=== PATIENT | male | born 1940 | race Caucasian/White ===

== ENCOUNTER 2018-09-27 02:43 | Inpatient (IN) | payer MEDICARE ==
[2018-09-27 02:44] VITALS: BMI 23.6
[2018-09-27] MEDS ORDERED: Albuterol-Ipratrop 3 mg / 0.5 (3 ml) UD ONE ×3 (03:05→05:27)
[2018-09-27] MEDS ORDERED: Albuterol-Ipratrop 3 mg / 0.5 (3 ml) UD INH STA ×8 (03:12→08:48)
[2018-09-27 03:30] LABS: VENOUS BLOOD GAS BASE EXCESS -4.4 mmol/L (0.0-2.0); VENOUS BLOOD GAS PCO2 45 mmHg (40-60); VENOUS BLOOD GAS PO2 33 mm/Hg (30-55)
[2018-09-27] MEDS ORDERED: cefTRIAXone 2 GM in Sodium Chloride 0.9% 100 ML IVPB STA (03:37)
[2018-09-27] MEDS ORDERED: Azithromycin 500 MG in Sodium Chloride 0.9% 250 ML IVPB STA (03:37)
[2018-09-27] MEDS ORDERED: Sodium Chloride 0.9% 1,000 ML IV STA (03:38)
[2018-09-27] MEDS ORDERED: Azithromycin 500 MG IV IVPB ONE (03:46)
[2018-09-27 04:06] LABS: BASO % 0.1 % (0.0-2.0); HEMOGLOBIN 13.6 g/dL (12.0-18.0); LYMPH # 0.3 K/uL (1.0-4.3); LYMPH % 6.3 % (20.0-40.0); MEAN CORPUSCULAR HEMOGLOBIN 35.7 pg (27.0-31.0); MEAN CORPUSCULAR HGB CONC 33.6 g/dL (33.0-37.0); MEAN PLATELET VOLUME 8.5 fl (7.2-11.7); MONO # 0.6 K/uL (0.0-0.8); MONO % 10.3 % (0.0-10.0); NEUT # 4.6 K/uL (1.8-7.0); NEUT % 83.3 % (50.0-75.0); NRBC % 0.1 % (0.0-0.0); PLATELET COUNT 186 K/uL (130-400); RED CELL DISTRIBUTION WIDTH 13.8 % (11.5-14.5); WHITE BLOOD COUNT 5.5 K/uL (4.8-10.8)
[2018-09-27] MEDS ORDERED: Sodium Chloride 0.9% 50 ML IV ONE (04:15)
[2018-09-27] MEDS ORDERED: Iodixanol 320 MG/ML 100 ML BOTTLE IV ONE (04:16)
[2018-09-27 04:23] LABS: ALBUMIN 3.5 g/dL (3.5-5.0); ALT/SGPT 254 U/L (21-72); AST/SGOT 519 U/L (17-59); B-TYPE NATRIURETIC PEPTIDE 14300 pg/ml (0-900); BLOOD UREA NITROGEN 11 mg/dl (9-20); GFR NON-AFRICAN AMERICAN > 60
--- NOTE | 2018-09-27 05:00 | ED PDOC ---
HPI: SOB/CHF/COPD Time Seen by Provider: 09/27/18 02:46 Chief Complaint (Nursing): Shortness Of Breath Chief Complaint (Provider): Shortness Of Breath History Per: Patient History/Exam Limitations: no limitations Onset/Duration Of Symptoms: Days (3) Additional Complaint(s): 78 y/o male with history of bladder cancer, HTN, and heavy smoking, presents with x3 days of having shortness of breath and upper abdominal pain. Patient states he's been having a few episodes of watery diarrhea daily and has difficulty breathing. Denies chest pain. Patient states he also had a fever that resolved spontaneously with mild dry cough. Patient feels as though he has phlegm inside his chest and cannot expectorate. Past Medical History Reviewed: Historical Data, Nursing Documentation, Vital Signs Vital Signs: Last Vital Signs Temp 97.3 F L 09/27/18 02:50 Pulse 108 H 09/27/18 02:50 Resp 30 H 09/27/18 02:50 BP 175/98 H 09/27/18 02:50 Pulse Ox 98 09/27/18 02:50 - Medical History PMH: HTN Other PMH: Bladder Cancer - Family History Family History: States: Unknown Family Hx - Home Medications Home Medications: Ambulatory Orders Medication Instructions Recorded Metoprolol Succinate 50 mg PO DAILY 09/27/18 - Allergies Allergies/Adverse Reactions: Allergies Allergy/AdvReac Type Severity Reaction Status Date / Time No Known Allergies Allergy Verified 10/24/15 10:35 Review of Systems ROS Statement: Except As Marked, All Systems Reviewed And Found Negative Cardiovascular: Negative for: Chest Pain Respiratory: Positive for: Cough, Shortness of Breath, Sputum (cannot expectorate) Gastrointestinal: Positive for: Abdominal Pain, Diarrhea Physical Exam - Reviewed Nursing Documentation Reviewed: Yes Vital Signs Reviewed: Yes - Physical Exam Appears: Positive for: No Acute Distress Head Exam: Positive for: ATRAUMATIC, NORMOCEPHALIC Skin: Positive for: Normal Color, Warm, DRY Eye Exam: Positive for: EOMI, Normal appearance, PERRL Neck: Positive for: Normal, Painless ROM Cardiovascular/Chest: Positive for: Regular Rate, Rhythm, Tachycardia Respiratory: Positive for: Wheezing (diffuse bilateral), Respiratory Distress (mild), Other (Tachypnic; abdominal breathing with intercostal retractions) Gastrointestinal/Abdominal: Positive for: Normal Exam, Soft. Negative for: Tenderness Extremity: Positive for: Normal ROM. Negative for: Pedal Edema, Deformity Neurologic/Psych: Positive for: Alert, Oriented. Negative for: Motor/Sensory Deficits - Laboratory Results Result Diagrams: 09/27/18 03:21 09/27/18 03:21 Lab Results: pO2 33 mm/Hg (30-55) 09/27/18 03:26 VBG pH 7.30 (7.32-7.43) L 09/27/18 03:26 VBG pCO2 45 mmHg (40-60) 09/27/18 03:26 VBG HCO3 20.4 mmol/L 09/27/18 03:26 VBG Total CO2 23.5 mmol/L (22-28) 09/27/18 03:26 VBG O2 Sat (Calc) 59.4 % (40-65) 09/27/18 03:26 VBG Base Excess -4.4 mmol/L (0.0-2.0) L 09/27/18 03:26 VBG Potassium 4.0 mmol/L (3.6-5.2) 09/27/18 03:26 Sodium 115.0 mmol/L (132-148) L* 09/27/18 03:26 Chloride 84.0 mmol/L (98-107) L 09/27/18 03:26 Glucose 186 mg/dL (75-110) H 09/27/18 03:26 Lactate 4.8 mmol/L (0.7-2.1) H* 09/27/18 03:26 FiO2 21.0 % 09/27/18 03:26 Crit Value Called To Carlos painter md 09/27/18 03:26 Crit Value Called By 333 09/27/18 03:26 Crit Value Read Back Y 09/27/18 03:26 Blood Gas Notified Time 330 09/27/18 03:26 Troponin I 0.0670 ng/mL (0.00-0.120) 09/27/18 03:21 NT-Pro-B Natriuret Pep 78192 pg/ml (0-900) H 09/27/18 03:21 Total Bilirubin 0.6 mg/dl (0.2-1.3) 09/27/18 03:21 AST 519 U/L (17-59) H D 09/27/18 03:21 ALT 254 U/L (21-72) H D 09/27/18 03:21 Alkaline Phosphatase 284 U/L (38-126) H D 09/27/18 03:21 Total Protein 6.8 G/DL (6.3-8.2) 09/27/18 03:21 Albumin 3.5 g/dL (3.5-5.0) 09/27/18 03:21 Globulin 3.3 gm/dL (2.2-3.9) 09/27/18 03:21 Albumin/Globulin Ratio 1.0 (1.0-2.1) 09/27/18 03:21 - ECG O2 Sat by Pulse Oximetry: 98 (RA) Pulse Ox Interpretation: Normal - Critical Care Total Time (In Min): 60 Documented Critical Care: Time excludes all time spent performint seperately billable procedures Medical Decision Making Medical Decision Making: Time: 03:11 Initial Impression: 78 y/o male with history of bladder cancer and HTN presenting with shortness of breath and diarrhea. Patient is ill appearing. O2 sat is in the 80s on room air Concert for COPD vs. pneumonia vs. flu vs. URI vs. cardiac disease. Will also evaluate for dissection with dissection study. Initial Plan: * ABG * VBG * CT Dissection * EKG * BNP * CMP * Troponin * CBC w/ diff * CXR * Duoneb * IV Fluids * Solumedrol * Blood culture * Urine culture * Influenza 05:21 CTA Chest FINDINGS: Aneurysmal ascending aorta measuring 4.5 cm. Calcified atheromatous plaques in the ascending aorta. Normal enhancement of the main pulmonary artery and right and left pulmonary arteries. Normal enhancement of the bilateral peripheral pulmonary arteries. There is no demonstrated pulmonary embolism. There is no demonstrated aortic dissection. Mildly enlarged heart and normal pericardium. Normal mediastinum. Normal hilar regions. Normal visualized trachea and thickened bronchi. Centrilobular nodularity of the lungs. This was not present on prior exam. Normal pleura. Normal chest wall structures. Moderate diffuse spondylosis. IMPRESSION: No demonstrated pulmonary embolism or arterial dissection. Interval appearance of bronchiolitis. Unchanged emphysema and chronic bronchitis. 05:21 CT Abdomen Pelvis COMMENTS: Uncomplicated chronic diverticulosis. Moderate prostatomegaly. Prostatic calcifications are noted. Fat containing left inguinal hernia without incarceration. Diffuse thickening of the bladder. 3.5 cm right renal cyst. The liver is mildly enlarged without mass or defect. There is no intra or extrahepatic biliary ductal dilatation. The spleen is normal. The gallbladder is diffusely thickened containing a gallstone. The pancreas is of normal contour and attenuation characteristics. There is no evidence of adrenal mass. Both kidneys demonstrate prompt and equal nephrograms. The kidneys are normal in size, shape and configuration. There is no evidence of renal or ureteral mass. No renal or ureteral calculi are identified. There is no hydroureter or hydronephrosis. No evidence for appendicitis. There is no bowel wall thickening. No evidence for small or large bowel obstruction. There is no evidence of abdominal ascites or lymphadenopathy. There is no evidence of intrinsic or extrinsic bladder mass. There is no pelvic ascites or lymphadenopathy. Images of the lung bases show no evidence of pleural or parenchymal mass. There are no pleural effusions. The bony structures are free of lytic or blastic lesions. IMPRESSION: Cholelithiasis. Diffuse thickening of the gallbladder. Sonographic evaluation is suggested to exclude developing acute inflammatory pathology. Prostatomegaly. Chronic. Diffuse thickening of the bladder. Chronic. No evidence of aortic dissection. Atherosclerosis. 05:30 Patient had an acute worsening episode of respiratory distress. Patient became further tachypneic. Lasix ordered for possible fluid overload. Patient placed on BIPAP and repeat EKG ordered. Case discussed with DR. Eastman for ICU admit. 6:00 Dr. Marie is aware - Scribe Attestation: Documented by Agustin Slater acting as a scribe for Bon Gonzalez MD. Provider Scribe Attestation: All medical record entries made by the Scribe were at my direction and per sonally dictated by me. I have reviewed the chart and agree that the record accurately reflects my personal performance of the history, physical exam, medical decision making, and the department course for this patient. I have also personally directed, reviewed, and agree with the discharge instructions and disposition. Disposition - Clinical Impression Clinical Impression: Respiratory distress, COPD (chronic obstructive pulmonary disease) - Disposition Disposition Time: 06:00 Condition: CRITICAL
[2018-09-27] MEDS ORDERED: Magnesium Sulfate 2 gm/50 ml 2 GM/50 ML BAG IVPB ONE (05:17)
[2018-09-27] MEDS ORDERED: Magnesium Sulfate 2 gm/50 ml 2 GM/50 ML BAG ONE (05:19)
[2018-09-27 05:22] LABS: ABG ALLEN TEST YES; ARTERIAL BLOOD GAS HCO3 21.5 mmol/L (21-28); ARTERIAL BLOOD GAS O2 SAT 100.9 % (95-98); ARTERIAL BLOOD GAS PCO2 35 mm/Hg (35-45); ARTERIAL BLOOD GAS PH 7.37 (7.35-7.45); ARTERIAL BLOOD GAS PO2 150 mm/Hg (80-100); ARTERIAL BLOOD GAS TCO2 21.3 mmol/L (22-28)
[2018-09-27] MEDS ORDERED: Nitroglycerin 50mg in D5W 50 MG/250 ML BOTTLE IV ONE (05:38)
--- NOTE | 2018-09-27 06:16 | CP.PCM.CON ---
History of Present Illness - History of Present Illness History of Present Illness: Attending: Rory Marie MD Reason for Consult: Critical care managememnt Chief complaint: SOB The patient was seen and examined ijn the ED HPI: The Hx was obtained from the ED physician and after review of the Medical records as the patient was in respiratory distress and on the BIPAP. He is a 78 years old male with hx of RBBB, Bladder cancer, Heavy smoker, comes with 3 days od Shortness of breath,wheezing, tachycardia and upper abdominal pain. He also refers watery diarrhea and fever with non productive cough. No chest pain, vomiting nor urinary symptoms. PMH: HTN, bladder cancer, Rheumatic Fever at 11 years of age, Neurogenic bladder, Macular n degeneration PSH: Trans urethral resection of bladder tumor SH: Heavy smoker, no illegal drug use, No Alcohol FH: States: Unknown Family Hx Allergies: NKDA Medicine: Reviewed Review of Systems - Review of Systems Systems not reviewed;Unavailable: Respiratory Distress Review of Systems: Review of system limited because the patient is in severe respiratory distress and on a BIPAP Past Patient History - Past Medical History & Family History Past Medical History?: Yes - Past Social History Smoking Status: Heavy Smoker > 10 Cigarettes Daily Chewing Tobacco Use: No Cigar Use: No Alcohol: None Drugs: Denies - CARDIAC Hx Hypertension: Yes - PULMONARY Hx Respiratory Disorders: No - NEUROLOGICAL Hx Neurological Disorder: No - HEENT Hx HEENT Problems: Yes Hx Macular Degeneration: Yes - RENAL Hx Neurogenic Bladder: Yes - ENDOCRINE/METABOLIC Hx Endocrine Disorders: No - HEMATOLOGICAL/ONCOLOGICAL Hx Blood Disorders: No - INTEGUMENTARY Hx Dermatological Problems: No - MUSCULOSKELETAL/RHEUMATOLOGICAL Hx Musculoskeletal Disorders: No - GASTROINTESTINAL Hx Gastrointestinal Disorders: No - GENITOURINARY/GYNECOLOGICAL Hx Genitourinary Disorders: Yes Hx Bladder Cancer: Yes - PSYCHIATRIC Hx Psychophysiologic Disorder: No Hx Substance Use: No - SURGICAL HISTORY Hx Surgeries: No Other/Comment: TURB - ANESTHESIA Hx Anesthesia: Yes Hx Anesthesia Reactions: No Hx Malignant Hyperthermia: No Meds Allergies/Adverse Reactions: Allergies Allergy/AdvReac Type Severity Reaction Status Date / Time No Known Allergies Allergy Verified 10/24/15 10:35 Physical Exam - Constitutional Appears: In Acute Distress - Head Exam Head Exam: ATRAUMATIC, NORMAL INSPECTION, NORMOCEPHALIC - Eye Exam Eye Exam: EOMI, Normal appearance Pupil Exam: NORMAL ACCOMODATION, PERRL - ENT Exam ENT Exam: Mucous Membranes Moist, Normal Exam - Neck Exam Neck exam: Positive for: Full Rom, Normal Inspection. Negative for: Lymphadenopathy, Tenderness - Respiratory Exam Additional comments: Distant breath sounds. no rales, wheezes nor rhonchi - Cardiovascular Exam Cardiovascular Exam: Tachycardia, Irregular Rhythm, +S1, +S2 - GI/Abdominal Exam GI & Abdominal Exam: Normal Bowel Sounds, Soft. absent: Mass, Organomegaly, Tenderness - Rectal Exam Rectal Exam: Deferred - Extremities Exam Extremities exam: Positive for: full ROM, normal inspection - Back Exam Back exam: NORMAL INSPECTION. absent: CVA tenderness (L), CVA tenderness (R) - Neurological Exam Neurological exam: Alert, CN II-XII Intact, Oriented x3, Reflexes Normal - Psychiatric Exam Psychiatric exam: Normal Affect, Normal Mood - Skin Skin Exam: Intact, Normal Color, Warm Results - Vital Signs Recent Vital Signs: Last Vital Signs Temp 97.3 F L 09/27/18 02:50 Pulse 150 H 09/27/18 05:51 Resp 24 09/27/18 04:59 BP 126/80 09/27/18 04:59 Pulse Ox 98 09/27/18 05:53 - Labs Result Diagrams: 09/27/18 03:21 09/27/18 03:21 Labs: Laboratory Results - last 24 hr 09/27/18 09/27/18 09/27/18 03:21 03:21 03:21 WBC 5.5 RBC 3.80 L Hgb 13.6 Hct 40.3 MCV 106.0 H D MCH 35.7 H MCHC 33.6 RDW 13.8 Plt Count 186 MPV 8.5 Neut % (Auto) 83.3 H Lymph % (Auto) 6.3 L Heard % (Auto) 10.3 H Eos % (Auto) 0.0 Baso % (Auto) 0.1 Neut # (Auto) 4.6 Lymph # (Auto) 0.3 L Heard # (Auto) 0.6 Eos # (Auto) 0.0 Baso # (Auto) 0.0 pCO2 pO2 HCO3 ABG pH ABG Total CO2 ABG O2 Saturation ABG Base Excess Sascha Test ABG Potassium VBG pH VBG pCO2 VBG HCO3 VBG Total CO2 VBG O2 Sat (Calc) VBG Base Excess VBG Potassium A-a O2 Difference Glucose Lactate Vent Mode FiO2 Crit Value Called To Crit Value Called By Crit Value Read Back Blood Gas Notified Time Sodium 120 L* Potassium 4.2 Chloride 82 L Carbon Dioxide 21 L Anion Gap 21 H BUN 11 Creatinine 0.6 L Est GFR ( Amer) > 60 Est GFR (Non-Af Amer) > 60 Random Glucose 183 H Calcium 8.0 L Total Bilirubin 0.6 AST 519 H D ALT 254 H D Alkaline Phosphatase 284 H D Troponin I 0.0670 NT-Pro-B Natriuret Pep 04787 H Total Protein 6.8 Albumin 3.5 Globulin 3.3 Albumin/Globulin Ratio 1.0 Arterial Blood Potassium Venous Blood Potassium Influenza Typ A,B (EIA) Negative for flu a/b 09/27/18 09/27/18 03:26 05:16 WBC RBC Hgb Hct MCV MCH MCHC RDW Plt Count MPV Neut % (Auto) Lymph % (Auto) Heard % (Auto) Eos % (Auto) Baso % (Auto) Neut # (Auto) Lymph # (Auto) Heard # (Auto) Eos # (Auto) Baso # (Auto) pCO2 35 pO2 33 150 H HCO3 21.5 ABG pH 7.37 ABG Total CO2 21.3 L ABG O2 Saturation 100.9 H ABG Base Excess -4.4 L Sascha Test Yes ABG Potassium 3.6 VBG pH 7.30 L VBG pCO2 45 VBG HCO3 20.4 VBG Total CO2 23.5 VBG O2 Sat (Calc) 59.4 VBG Base Excess -4.4 L VBG Potassium 4.0 A-a O2 Difference 91.0 Glucose 186 H 181 H Lactate 4.8 H* 2.7 H Vent Mode O2 nebtx FiO2 21.0 40.0 Crit Value Called To Carlos painter md Crit Value Called By 333 333 Crit Value Read Back Y Y Blood Gas Notified Time 330 522 Sodium 115.0 L* 118.0 L* Potassium Chloride 84.0 L 89.0 L Carbon Dioxide Anion Gap BUN Creatinine Est GFR ( Amer) Est GFR (Non-Af Amer) Random Glucose Calcium Total Bilirubin AST ALT Alkaline Phosphatase Troponin I NT-Pro-B Natriuret Pep Total Protein Albumin Globulin Albumin/Globulin Ratio Arterial Blood Potassium 3.6 Venous Blood Potassium 4.0 Influenza Typ A,B (EIA) - EKG Data EKG comments: LBBB A Fib 114/min - Imaging and Cardiology Chest x-ray Status: Image reviewed by me Additional comment: Haziness at the parahilar region probably due to breast mass. CTA Chest Status: Report reviewed by me Additional comment: CTA Chest FINDINGS: Aneurysmal ascending aorta measuring 4.5 cm. IMPRESSION: No demonstrated pulmonary embolism or arterial dissection. Interval appearance of bronchiolitis. Unchanged emphysema and chronic bronchitis. CT abdomen/pelvis Additional comment: 05:21 CT Abdomen Pelvis COMMENTS: Uncomplicated chronic diverticulosis. Moderate prostatomegaly. Prostatic calcifications are noted. Fat containing left inguinal hernia without incarceration. Diffuse thickening of the bladder. 3.5 cm right renal cyst. The liver is mildly enlarged without mass or defect. There is no intra or extrahepatic biliary ductal dilatation. The spleen is normal. The gallbladder is diffusely thickened containing a gallstone. The pancreas is of normal contour and attenuation characteristics. There is no evidence of adrenal mass. Both kidneys demonstrate prompt and equal nephrograms. The kidneys are normal in size, shape and configuration. There is no evidence of renal or ureteral mass. No renal or ureteral calculi are identified. There is no hydroureter or hydronephrosis. No evidence for appendicitis. There is no bowel wall thickening. No evidence for small or large bowel obstruction. There is no evidence of abdominal ascites or lymphadenopathy. There is no evidence of intrinsic or extrinsic bladder mass. There is no pelvic ascites or lymphadenopathy. Images of the lung bases show no evidence of pleural or parenchymal mass. There are no pleural effusions. The bony structures are free of lytic or blastic lesions. IMPRESSION: Cholelithiasis. Diffuse thickening of the gallbladder. Sonographic evaluation is suggested to exclude developing acute inflammatory pathology. Prostatomegaly. Chronic. Diffuse thickening of the bladder. Chronic. No evidence of aortic dissection. Atherosclerosis. Assessment & Plan - Assessment and Plan (Free Text) Assessment: # Acute respiratory distress #. COPD exacerbation #. Acute on Chronic CHF #. A Fib with RVR #. Hyponatremia #. Transaminitis #. HTN #. Hyperglycemia Plan: 78 years old male with hx of RBBB, Bladder cancer, Heavy smoker, comes with 3 days od Shortness of breath,wheezing, tachycardia and upper abdominal pain. He also refers watery diarrhea and fever with non productive cough. No chest pain, vomiting nor urinary symptoms. # Acute respiratory distress caused by the COOPD and the CHF - Patient placed on BIPAP in the ED #. COPD exacerbation - Xopenex - Ipratropium - Methylprednisolone - Mucinex #. Acute on Chronic CHF - cardiology on consult - lasix - ECHO #. A Fib with RVR - cardiac Monitoring - Cardizem Bolus followed by Cardizem IV Drip #. Hyponatremia due to CHF - Follow electrolytes #. Transaminitis due to Liver Congestion - follow liver enzymes - Hepatitis Panel #. HTN - Continue Cardizem #. Hyperglycemia #. DVT prophylaxis with SCD and lovenox Code Status: Full - HbA1c Darrell Eastman MD - Date & Time Date: 09/27/18 Time: 06:16
[2018-09-27 06:52] LABS: ANISOCYTOSIS SLIGHT; LYMPHOCYTE 6 % (20-50); MONOCYTE 9 % (0-10); NEUTROPHIL 85 % (42-75); PLATELET ESTIMATE NORMAL (NORMAL); TOTAL CELLS COUNTED 100
[2018-09-27 06:53] LABS: LARGE PLATELETS PRESENT; OVALOCYTES MODERATE; TEARDROP CELLS SLIGHT
[2018-09-27] MEDS ORDERED: Levalbuterol 1.25 MG/3 ML Inhal Soln UD INH PRN (06:54)
[2018-09-27] MEDS: Ipratropium 0.02% Inhal Soln (0.5 mg/2.5 ml) UD IH SCH ×4 (07:44→19:43)
[2018-09-27] MEDS: Levalbuterol 1.25 MG/3 ML Inhal Soln UD INH SCH ×4 (07:44→19:43)
--- NOTE | 2018-09-27 09:55 | RAD ---
Date of service: 09/27/2018 HISTORY: worsening dyspnea COMPARISON: 09/27/2018 FINDINGS: LUNGS: No active pulmonary disease. PLEURA: No significant pleural effusion identified, no pneumothorax apparent. CARDIOVASCULAR: No aortic atherosclerotic calcification present. Normal cardiac size. No pulmonary vascular congestion. OSSEOUS STRUCTURES: No significant abnormalities. VISUALIZED UPPER ABDOMEN: Normal. OTHER FINDINGS: None. IMPRESSION: No active disease.
[2018-09-27] MEDS ORDERED: methylPREDNISolone 60 MG in Sodium Chloride 0.9% 50 ML IVPB SCH (10:00)
--- NOTE | 2018-09-27 11:00 | CP.PCM.HP ---
History of Present Illness - History of Present Illness History of Present Illness: 78 y/o w/m admitted with SOB / JONAS x 3-4 days Has had Increased temp at home w/ Productive cough PMH: CA Bladder w/ resection [address] Cat and again in 09/2016 @ [place] Hypertension COPD Continues to smoke CLBBB EKG: Tachycardia CXR: haziness/cardiomegaly Liver enzymes: all elevated Na: 120 Present on Admission - Present on Admission Any Indicators Present on Admission: No Review of Systems - Review of Systems Systems not reviewed;Unavailable: Respiratory Distress - Constitutional Constitutional: Chills, Fatigue, Fever - Respiratory Respiratory: Cough, Dyspnea, Dyspnea on Exertion Past Patient History - Past Medical History & Family History Past Medical History?: Yes - Past Social History Smoking Status: Heavy Smoker > 10 Cigarettes Daily Chewing Tobacco Use: No Cigar Use: No Alcohol: None Drugs: Denies - CARDIAC Hx Hypertension: Yes - PULMONARY Hx Respiratory Disorders: Yes Hx Chronic Obstructive Pulmonary Disease (COPD): Yes - NEUROLOGICAL Hx Neurological Disorder: No - HEENT Hx HEENT Problems: Yes Hx Macular Degeneration: Yes - RENAL Hx Neurogenic Bladder: Yes - ENDOCRINE/METABOLIC Hx Endocrine Disorders: No - HEMATOLOGICAL/ONCOLOGICAL Hx Blood Disorders: No - INTEGUMENTARY Hx Dermatological Problems: No - MUSCULOSKELETAL/RHEUMATOLOGICAL Hx Musculoskeletal Disorders: No - GASTROINTESTINAL Hx Gastrointestinal Disorders: No - GENITOURINARY/GYNECOLOGICAL Hx Genitourinary Disorders: Yes Hx Bladder Cancer: Yes - PSYCHIATRIC Hx Psychophysiologic Disorder: No Hx Substance Use: No - SURGICAL HISTORY Hx Surgeries: No Other/Comment: TURB - ANESTHESIA Hx Anesthesia: Yes Hx Anesthesia Reactions: No Hx Malignant Hyperthermia: No Meds Allergies/Adverse Reactions: Allergies Allergy/AdvReac Type Severity Reaction Status Date / Time No Known Allergies Allergy Verified 10/24/15 10:35 Physical Exam - Constitutional Appears: Unkempt - Head Exam Head Exam: NORMAL INSPECTION - Eye Exam Eye Exam: Normal appearance - ENT Exam ENT Exam: Normal Exam - Respiratory Exam Respiratory Exam: Decreased Breath Sounds - Cardiovascular Exam Cardiovascular Exam: Tachycardia Results - Vital Signs Recent Vital Signs: Last Vital Signs Temp 97.2 F L 09/27/18 09:00 Pulse 117 H 09/27/18 10:00 Resp 14 09/27/18 10:00 BP 122/76 09/27/18 10:00 Pulse Ox 92 L 09/27/18 10:00 - Labs Result Diagrams: 09/27/18 03:21 09/27/18 03:21 Labs: Laboratory Results - last 24 hr 09/27/18 09/27/18 09/27/18 03:21 03:21 03:21 WBC 5.5 RBC 3.80 L Hgb 13.6 Hct 40.3 MCV 106.0 H D MCH 35.7 H MCHC 33.6 RDW 13.8 Plt Count 186 MPV 8.5 Neut % (Auto) 83.3 H Lymph % (Auto) 6.3 L [place] % (Auto) 10.3 H Eos % (Auto) 0.0 Baso % (Auto) 0.1 Neut # (Auto) 4.6 Lymph # (Auto) 0.3 L [place] # (Auto) 0.6 Eos # (Auto) 0.0 Baso # (Auto) 0.0 Neutrophils % (Manual) 85 H Lymphocytes % (Manual) 6 L Monocytes % (Manual) 9 Platelet Estimate Normal Large Platelets Present Anisocytosis (manual) Slight Macrocytosis (manual) Slight Tear Drop Cells Slight Ovalocytes Moderate pCO2 pO2 HCO3 ABG pH ABG Total CO2 ABG O2 Saturation ABG Base Excess Sascha Test ABG Potassium VBG pH VBG pCO2 VBG HCO3 VBG Total CO2 VBG O2 Sat (Calc) VBG Base Excess VBG Potassium A-a O2 Difference Glucose Lactate Vent Mode FiO2 Crit Value Called To Crit Value Called By Crit Value Read Back Blood Gas Notified Time Sodium 120 L* Potassium 4.2 Chloride 82 L Carbon Dioxide 21 L Anion Gap 21 H BUN 11 Creatinine 0.6 L Est GFR ( Amer) > 60 Est GFR (Non-Af Amer) > 60 Random Glucose 183 H Calcium 8.0 L Total Bilirubin 0.6 AST 519 H D ALT 254 H D Alkaline Phosphatase 284 H D Troponin I 0.0670 NT-Pro-B Natriuret Pep 51944 H Total Protein 6.8 Albumin 3.5 Globulin 3.3 Albumin/Globulin Ratio 1.0 Arterial Blood Potassium Venous Blood Potassium Influenza Typ A,B (EIA) Negative for flu a/b 09/27/18 09/27/18 03:26 05:16 WBC RBC Hgb Hct MCV MCH MCHC RDW Plt Count MPV Neut % (Auto) Lymph % (Auto) [place] % (Auto) Eos % (Auto) Baso % (Auto) Neut # (Auto) Lymph # (Auto) [place] # (Auto) Eos # (Auto) Baso # (Auto) Neutrophils % (Manual) Lymphocytes % (Manual) Monocytes % (Manual) Platelet Estimate Large Platelets Anisocytosis (manual) Macrocytosis (manual) Tear Drop Cells Ovalocytes pCO2 35 pO2 33 150 H HCO3 21.5 ABG pH 7.37 ABG Total CO2 21.3 L ABG O2 Saturation 100.9 H ABG Base Excess -4.4 L Sascha Test Yes ABG Potassium 3.6 VBG pH 7.30 L VBG pCO2 45 VBG HCO3 20.4 VBG Total CO2 23.5 VBG O2 Sat (Calc) 59.4 VBG Base Excess -4.4 L VBG Potassium 4.0 A-a O2 Difference 91.0 Glucose 186 H 181 H Lactate 4.8 H* 2.7 H Vent Mode O2 nebtx FiO2 21.0 40.0 Crit Value Called To Carlos painter md Crit Value Called By 333 333 Crit Value Read Back Y Y Blood Gas Notified Time 330 522 Sodium 115.0 L* 118.0 L* Potassium Chloride 84.0 L 89.0 L Carbon Dioxide Anion Gap BUN Creatinine Est GFR ( Amer) Est GFR (Non-Af Amer) Random Glucose Calcium Total Bilirubin AST ALT Alkaline Phosphatase Troponin I NT-Pro-B Natriuret Pep Total Protein Albumin Globulin Albumin/Globulin Ratio Arterial Blood Potassium 3.6 Venous Blood Potassium 4.0 Influenza Typ A,B (EIA) Assessment & Plan (1) Cancer of bladder wall Status: Acute (2) COPD (chronic obstructive pulmonary disease) Status: Acute (3) Respiratory distress Status: Acute (4) Left bundle branch block (LBBB) Status: Acute (5) Essential (primary) hypertension Status: Acute Decision To Admit - Pt Status Changed To: Hospital Disposition Of: Inpatient - Admit Certification Admit to Inpatient:: After my assessment, the patient will require hospitalization for at least two midnights. This is because of the severity of symptoms shown, intensity of services needed, and/or the medical risk in this patient being treated as an outpatient. - . Bed Request Type: Intensive Care Admitting Physician: Rory Marie
--- NOTE | 2018-09-27 11:18 | CP.PCM.CON ---
History of Present Illness - History of Present Illness History of Present Illness: This 78 year old male, heavy cigarette smoker, presented to the emergency room with a three to four day history of increased shortness of breath, congested cough with difficulty expectorating phlegm, elevated temp, loose BMs and upper abdominal discomfort. He denied chest pains or hemoptysis or chills. He was in respiratory distress and placed on NIPPV using BiPAP mask ventilatory support. A chest x-ray showed hyperinflated lungs without any consolidation, effusion or pneumothorax. He was afebrile, hyponatremic, without leukocytosis or anemia with a VBG showing low O2 saturation. Tachypnea with intercostal retractions and respiratory muscle recruitment were noted in the ED. Past Patient History - Past Medical History & Family History Past Medical History?: Yes - Past Social History Smoking Status: Heavy Smoker > 10 Cigarettes Daily Chewing Tobacco Use: No Cigar Use: No Alcohol: None Drugs: Denies - CARDIAC Hx Hypertension: Yes - PULMONARY Hx Chronic Obstructive Pulmonary Disease (COPD): Yes - NEUROLOGICAL Hx Neurological Disorder: No - HEENT Hx Macular Degeneration: Yes - RENAL Hx Neurogenic Bladder: Yes - ENDOCRINE/METABOLIC Hx Endocrine Disorders: No - HEMATOLOGICAL/ONCOLOGICAL Hx Blood Disorders: No - INTEGUMENTARY Hx Dermatological Problems: No - MUSCULOSKELETAL/RHEUMATOLOGICAL Hx Musculoskeletal Disorders: No - GASTROINTESTINAL Hx Gastrointestinal Disorders: No - GENITOURINARY/GYNECOLOGICAL Hx Bladder Cancer: Yes - PSYCHIATRIC Hx Psychophysiologic Disorder: No Hx Substance Use: No - SURGICAL HISTORY Other/Comment: TURBT - ANESTHESIA Hx Anesthesia: Yes Hx Anesthesia Reactions: No Hx Malignant Hyperthermia: No Meds Allergies/Adverse Reactions: Allergies Allergy/AdvReac Type Severity Reaction Status Date / Time No Known Allergies Allergy Verified 10/24/15 10:35 - Medications Medications: Current Medications Enoxaparin Sodium (Lovenox) 40 mg SC DAILY [facility]; Protocol Guaifenesin (Mucinex La) 600 mg PO Q12 [facility] Diltiazem HCl 125 mg/ Sodium (Chloride) 125 mls @ 5 mls/hr IV .Q24H ONE; Protocol Stop: 09/28/18 06:55 Last Titration: 09/27/18 10:23 Dose: 8 mg/hr, 8 mls/hr Ipratropium Adah (Atrovent) 0.5 mg IH RQ4 AGUSTINA Last Admin: 09/27/18 11:16 Dose: 0.5 mg Levalbuterol HCl (Xopenex) 1.25 mg INH RQ4 AGUSTINA Last Admin: 09/27/18 11:15 Dose: 1.25 mg Levalbuterol HCl (Xopenex) 1.25 mg INH RQ2 PRN PRN Reason: Shortness of Breath Methylprednisolone (Solu-Medrol) 60 mg IVP Q6 [facility] Last Admin: 09/27/18 09:16 Dose: 60 mg Multivitamins/Vitamin C (Multi-Delyn Liquid) 15 ml PO DAILY [facility] Nicotine (Nicoderm Cq) 1 patch TD DAILY [facility] Thiamine HCl (Vitamin B1 Inj) 100 mg IM DAILY [facility] Physical Exam - Additional Findings Additional findings: When seen he claimed to feel improved from the ED symptoms. Was awake and alert, seems to still be mildly dyspneic with conversation. Now denies any chest or abdominal pains, placed on venti mask for O2. He is cooperative and well oriented, slightly disheveled appearance. 1+ dependant edema of both feet, no cyanosis or calf tenderness. Pharynx is pink and moist w/o exudate. Nasal passages are patent bilaterally. Neck is supple and trachea midline. No palpable lymphadenopathy. Hyper-resonance on chest percussion bilaterally, no IC retractions, no subcut emphysema. Breath sounds are diminished bilaterally with no wheezing appreciated. Dry to medium rales are present in the lower lobes bilaterally. No bronchial breath sounds or egophony. Scattered sonorous rhonchi bilaterally. Heart sounds are distant, rate is tachycardic. Abdomen is soft and non-tender with normal bowel sounds. Results - Vital Signs Recent Vital Signs: Last Vital Signs Temp 97.2 F L 09/27/18 09:00 Pulse 120 H 09/27/18 11:00 Resp 27 H 09/27/18 11:00 BP 137/98 H 09/27/18 11:00 Pulse Ox 97 09/27/18 11:00 - Labs Result Diagrams: 10/07/18 04:30 10/07/18 04:30 Labs: Laboratory Results - last 24 hr 09/27/18 09/27/18 09/27/18 03:21 03:21 03:21 WBC 5.5 RBC 3.80 L Hgb 13.6 Hct 40.3 MCV 106.0 H D MCH 35.7 H MCHC 33.6 RDW 13.8 Plt Count 186 MPV 8.5 Neut % (Auto) 83.3 H Lymph % (Auto) 6.3 L [place] % (Auto) 10.3 H Eos % (Auto) 0.0 Baso % (Auto) 0.1 Neut # (Auto) 4.6 Lymph # (Auto) 0.3 L [place] # (Auto) 0.6 Eos # (Auto) 0.0 Baso # (Auto) 0.0 Neutrophils % (Manual) 85 H Lymphocytes % (Manual) 6 L Monocytes % (Manual) 9 Platelet Estimate Normal Large Platelets Present Anisocytosis (manual) Slight Macrocytosis (manual) Slight Tear Drop Cells Slight Ovalocytes Moderate pCO2 pO2 HCO3 ABG pH ABG Total CO2 ABG O2 Saturation ABG Base Excess Sascha Test ABG Potassium VBG pH VBG pCO2 VBG HCO3 VBG Total CO2 VBG O2 Sat (Calc) VBG Base Excess VBG Potassium A-a O2 Difference Glucose Lactate Vent Mode FiO2 Crit Value Called To Crit Value Called By Crit Value Read Back Blood Gas Notified Time Sodium 120 L* Potassium 4.2 Chloride 82 L Carbon Dioxide 21 L Anion Gap 21 H BUN 11 Creatinine 0.6 L Est GFR ( Amer) > 60 Est GFR (Non-Af Amer) > 60 Random Glucose 183 H Calcium 8.0 L Total Bilirubin 0.6 AST 519 H D ALT 254 H D Alkaline Phosphatase 284 H D Troponin I 0.0670 NT-Pro-B Natriuret Pep 42504 H Total Protein 6.8 Albumin 3.5 Globulin 3.3 Albumin/Globulin Ratio 1.0 Arterial Blood Potassium Venous Blood Potassium Influenza Typ A,B (EIA) Negative for flu a/b 09/27/18 09/27/18 09/27/18 03:26 05:16 10:29 WBC RBC Hgb Hct MCV MCH MCHC RDW Plt Count MPV Neut % (Auto) Lymph % (Auto) [place] % (Auto) Eos % (Auto) Baso % (Auto) Neut # (Auto) Lymph # (Auto) [place] # (Auto) Eos # (Auto) Baso # (Auto) Neutrophils % (Manual) Lymphocytes % (Manual) Monocytes % (Manual) Platelet Estimate Large Platelets Anisocytosis (manual) Macrocytosis (manual) Tear Drop Cells Ovalocytes pCO2 35 pO2 33 150 H HCO3 21.5 ABG pH 7.37 ABG Total CO2 21.3 L ABG O2 Saturation 100.9 H ABG Base Excess -4.4 L Sascha Test Yes ABG Potassium 3.6 VBG pH 7.30 L VBG pCO2 45 VBG HCO3 20.4 VBG Total CO2 23.5 VBG O2 Sat (Calc) 59.4 VBG Base Excess -4.4 L VBG Potassium 4.0 A-a O2 Difference 91.0 Glucose 186 H 181 H Lactate 4.8 H* 2.7 H Vent Mode O2 nebtx FiO2 21.0 40.0 Crit Value Called To Carlos painter md Crit Value Called By 333 333 Crit Value Read Back Y Y Blood Gas Notified Time 330 522 Sodium 115.0 L* 118.0 L* Potassium Chloride 84.0 L 89.0 L Carbon Dioxide Anion Gap BUN Creatinine Est GFR ( Amer) Est GFR (Non-Af Amer) Random Glucose Calcium Total Bilirubin AST ALT Alkaline Phosphatase Troponin I 0.1540 H* NT-Pro-B Natriuret Pep Total Protein Albumin Globulin Albumin/Globulin Ratio Arterial Blood Potassium 3.6 Venous Blood Potassium 4.0 Influenza Typ A,B (EIA) Assessment & Plan (1) COPD exacerbation Status: Acute Priority: High (2) Pulmonary nodule seen on imaging study Assessment and Plan: calcified, seen on prior studies dating back to 2016. Status: Chronic Priority: Medium (3) Transaminitis Status: Acute Priority: High - Assessment and Plan (Free Text) Plan: Agree with present regimen. Use ipratropium primarily and avoid beta adrenergic stimulation if possible. Continue empiric antibiotic therapy and parenteral corticosteroids. - Date & Time Date: 09/27/18 Time: 11:17
[2018-09-27] MEDS: Enoxaparin 40 mg Syringe SC SCH (11:32)
[2018-09-27] MEDS: guaiFENesin 600 mg ER Tab PO SCH ×2 (11:32→20:44)
[2018-09-27] MEDS: Multi Vitamins 15 mL UD Oral Solution PO SCH (11:33)
[2018-09-27] MEDS: Thiamine 100 mg/ml Inj IM SCH (11:34)
[2018-09-27 11:41] LABS: SQUAMOUS EPITHIAL < 1 /hpf (0-5); URINE BACTERIA RARE (<OCC); URINE BILIRUBIN NEGATIVE (NEGATIVE); URINE BLOOD SMALL (NEGATIVE); URINE CLARITY CLEAR (Clear); URINE COLOR YELLOW (YELLOW); URINE GLUCOSE (UA) NEG (NEGATIVE); URINE LEUKOCYTE ESTERASE NEG Leu/uL (Negative); URINE PROTEIN 30 mg/dL (NEGATIVE); URINE UROBILINOGEN 0.2-1.0 mg/dL (0.2-1.0)
[2018-09-27 11:46] LABS: BLOOD UREA NITROGEN 11 mg/dl (9-20); CALCIUM 7.5 mg/dL (8.4-10.2); GFR NON-AFRICAN AMERICAN > 60
[2018-09-27] MEDS ORDERED: methylPREDNISolone 30 MG in Sodium Chloride 0.9% 50 ML IV SCH (13:15)
--- NOTE | 2018-09-27 13:17 | CT ---
PROCEDURE: CT Angiography Chest, Abdomen and Pelvis with and without intravenous contrast HISTORY: r/o dissection COMPARISON: None available TECHNIQUE: Contiguous axial images of the chest, abdomen and pelvis were obtained in the phase of aortic enhancement. A noncontrast enhanced CT of the chest was also obtained to evaluate for possible intramural thrombus. Coronal and sagittal reformats were generated. IV dose administered: 95 mL Visipaque 320 Radiation dose: Total exam DLP = 914.9 mGy-cm. This CT exam was performed using one or more of the following dose reduction techniques: Automated exposure control, adjustment of the mA and/or kV according to patient size, and/or use of iterative reconstruction technique. FINDINGS: CT ANGIOGRAPHY OF THE CHEST WITH & WITHOUT CONTRAST: AORTA (CHEST AND ABDOMEN): There is aneurysmal dilatation of the ascending thoracic aorta to a diameter approximately 4.3 cm. There is no evidence of thoracic or abdominal aortic dissection. There is atherosclerotic calcification of the thoracic aorta and of the abdominal aorta and iliac vessels. The celiac axis, superior mesenteric artery, inferior mesenteric artery and the renal arteries are widely patent. 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 There is reconstitution of the right common femoral artery and of the right internal iliac artery distally. 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 LUNGS: No infiltrate. 13 mm densely calcified nodule abutting the left lower lobe pleura, likely a granuloma. There is a 5 mm noncalcified nodule in the lingular segment of the left upper lobe for which no follow-up evaluation is advised. There is a small left lower lobe calcified granuloma. MEDIASTINUM: Unremarkable. Normal caliber aorta and pulmonary arterial trunk. No aortic dissection. Mild cardiomegaly.. LYMPH NODES: Unremarkable. PLEURA: Unremarkable. No pneumothorax. No pleural fluid. BONES: Unremarkable. OTHER FINDINGS: None. CT ANGIOGRAPHY OF THE ABDOMEN AND PELVIS WITH CONTRAST: LIVER: Normal size, contour and attenuation. No mass. No biliary dilatation. GALLBLADDER AND BILE DUCTS: There is mild thickening of gallbladder wall and trace pericholecystic fluid. Nonspecific. No calcified gallstones are identified. PANCREAS: Unremarkable. No gross lesion or ductal dilatation. SPLEEN: Unremarkable. ADRENALS: Unremarkable. No mass. KIDNEYS AND URETERS: Right upper pole cortical cyst, 3.9 cm. Right parapelvic renal cyst, 2.6 cm. Right lower pole cortical cyst, 1.3 cm. Left upper pole cortical cyst, 1.0 cm. No renal calculus. No hydronephrosis. VASCULATURE: See above. STOMACH AND BOWEL: Evaluation limited in the absence of oral contrast administration. No bowel obstruction. No abnormal bowel loops are identified. APPENDIX: Not identified. No secondary findings to suggest acute appendicitis. PERITONEUM: Unremarkable. No free fluid. No free air. LYMPH NODES: Unremarkable. No enlarged lymph nodes. BLADDER: Mild diffuse mural thickening common nonspecific. Correlate for cystitis or bladder outlet obstruction. REPRODUCTIVE: Mild enlarged prostate. BONES: Old healed fracture left 11th rib posteriorly. OTHER FINDINGS: None. IMPRESSION: No evidence of thoracic or abdominal aortic dissection or aneurysm. 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 There is distal reconstitution of flow in both the right internal and external iliac arteries. Diffuse bladder wall thickening, nonspecific. Correlate for possible cystitis. Nonspecific mural thickening of the gallbladder with trace pericholecystic fluid but without calcified gallstones. Correlate clinically. Consider evaluation with ultrasound if clinically warranted. Bilateral renal cortical cysts. Minor findings as above. The preliminary findings for this examination were reported by [facility] at 5:21 a.m. on 09/27/2018. There is discordance of this report with the preliminary findings. Complete occlusion of the right common iliac artery was not described in the preliminary report of this examination.
--- NOTE | 2018-09-27 13:37 | PQF ---
PROVIDER RESPONSE TEXT: Mostt likely secondary to his CHF REVIEWER QUERY TEXT: Clarification of Clinical Diagnostic Findings Please clarify the etiology of the troponin elevation if known: after the work up is completed OR: Unable to determine OR: Other explanation of clinical findings 09/27 troponin: 0.0670->0.1540 The patient's Clinical Indicators include: -- Query created by: Aileen Payne on 09/27/2018 12:49 PM Electronically signed by: Rory Marie MD 09/27/2018 1:34 PM
--- NOTE | 2018-09-27 13:37 | PQF ---
PROVIDER RESPONSE TEXT: Acute on chronic left systolic CHF REVIEWER QUERY TEXT: Heart Failure Acuity and Type Congestive Heart Failure is documented in the Medical Record. Please document the type if known after the work up is completed: versus CHF ruled out Type: -- Combined systolic and diastolic (heart failure with reduced ejection fraction and diastolic) dysfu nction -- Diastolic (HFpEF) -- Systolic (HFrEF) -- Left heart failure -- Right heart failure -- Right heart failure due to left heart failure -- High output failure -- End stage heart failure -- Other, please specify ER note: 05:30 Patient had an acute worsening episode of respiratory distress.Patient became further tachypneic. Lasix ordered for possible fluid overload.Patient placed on BIPAP and repeat EKG ordered.Case discuss ed with DR. Eastman for ICU admit. Hospitalist consult includes: Acute respiratory distress caused by the COPD and the CHF - Patient austin gaurav on BIPAP in the ED Acute on Chronic CHF - cardiology on consult - lasix - ECHO Hyponatremia due to CHF - Follow electrolytes --Echo pending The patient's Clinical Indicators include: -- Query created by: Aileen Payne on 09/27/2018 12:57 PM Electronically signed by: Rory Marie MD 09/27/2018 1:34 PM
--- NOTE | 2018-09-27 13:37 | PQF ---
PROVIDER RESPONSE TEXT: I never said he was in Atrial fibrillation REVIEWER QUERY TEXT: Atrial Fibrillation Type Atrial fibrillation is documented in the Medical Record. Please specify the type if in agreement wit h the diagnosis and if known: Such as: -- Chronic -- Paroxysmal -- Permanent -- Persistent -- Other, please specify --Unable to determine 09/27 Hospitalist consult includes: A Fib with RVR - cardiac Monitoring - Cardizem Bolus followed by Cardizem IV Drip The patient's Clinical Indicators include: --- Query created by: Aileen Payne on 09/27/2018 12:46 PM Electronically signed by: Rory Marie MD 09/27/2018 1:34 PM
--- NOTE | 2018-09-27 13:37 | PQF ---
PROVIDER RESPONSE TEXT: Provider was unable to determine a response for this query. REVIEWER QUERY TEXT: Clarification of Clinical Diagnostic Findings Are there any additional diagnoses to go along with the following chart documentation: ER: PE; Positive for: Wheezing (diffuse bilateral), Respiratory Distress (mild), Other (Tachypnic; ab dominal breathing with intercostal retractions 06/27/19@03: 26 VBG obtained then 09/27@05.16 an ABG was drawn: ER note: 05:30 Patient had an acute worsening episode of respiratory distress.Patient became further tachypneic 09/27 Hospitalist: ROS:Review of system limited because the patient is in severe respiratory distress and on a BIPAP V/S: Respirations:30->27->24->33->28->26->30->25->29->15->34->28 OR: Disagree The patient's Clinical Indicators include: --- Query created by: Aileen Payne on 09/27/2018 1:07 PM Electronically signed by: Rory Marie MD 09/27/2018 1:34 PM
[2018-09-27] MEDS ORDERED: Potassium Chloride 20 mEq/15 ml LIQ UD PO ONE ×2 (15:13→18:42)
--- NOTE | 2018-09-27 15:22 | RAD ---
Date of service: 09/27/2018 HISTORY: SOB, heavy smoker COMPARISON: Correlation made with concurrent CTA chest.. FINDINGS: LUNGS: Chronic changes of COPD.. Increased and coarsened interstitial markings; rule out underlying mild fibrosis or changes related to COPD. Possibility of mild chronic compensated pulmonary venous congestion not excluded... Calcified granuloma left CP angle unchanged PLEURA: No significant pleural effusion identified, no pneumothorax apparent. CARDIOVASCULAR: Moderate aortic atherosclerotic calcification present. Marked cardiomegaly. OSSEOUS STRUCTURES: Multilevel degenerative spondylosis of the thoracic spine.. There appears to be old healed fracture deformity left lateral 11th rib VISUALIZED UPPER ABDOMEN: Normal. OTHER FINDINGS: None. IMPRESSION: Cardiomegaly. Chronic changes of COPD with increased and coarsened interstitial markings. Calcified granuloma left CP angle unchanged
[2018-09-27] MEDS: MethylPREDNISolone 40 mg Vial IVP SCH ×2 (16:10→23:30)
[2018-09-27 16:19] LABS: BLOOD UREA NITROGEN 10 mg/dl (9-20); CALCIUM 7.9 mg/dL (8.4-10.2); GFR NON-AFRICAN AMERICAN > 60
[2018-09-27 16:54] LABS: HEPATITIS B SURFACE AG Negative (NEGATIVE)
[2018-09-27 17:01] LABS: HEPATITIS A IGM NEGATIVE (NEGATIVE); HEPATITIS B CORE AB NEGATIVE (NEGATIVE)
[2018-09-27 17:11] LABS: HEPATITIS C ANTIBODY NEGATIVE (NEGATIVE)
--- NOTE | 2018-09-27 19:05 | CARD ---
APPROVED REPORT Date of service: 09/27/2018 EKG Measurement Heart [id number] <Conclusion> Atrial fibrillation with rapid ventricular response with premature ventricular or aberrantly conducted complexes Left bundle branch block Abnormal ECG
[2018-09-27 21:55] LABS: BLOOD UREA NITROGEN 12 mg/dl (9-20); CALCIUM 8.4 mg/dL (8.4-10.2); GFR NON-AFRICAN AMERICAN > 60
[2018-09-28] MEDS: Levalbuterol 1.25 MG/3 ML Inhal Soln UD INH SCH ×3 (00:06→08:18)
[2018-09-28] MEDS: Ipratropium 0.02% Inhal Soln (0.5 mg/2.5 ml) UD IH SCH ×5 (00:06→19:08)
[2018-09-28 00:16] LABS: OSMOLALITY,URINE 314 mosm/kg (300-1000)
[2018-09-28] MEDS ORDERED: Sodium Chloride 0.9% 1,000 ML IV SCH (00:30)
[2018-09-28] MEDS: MethylPREDNISolone 40 mg Vial IVP SCH ×3 (05:04→20:30)
[2018-09-28 05:32] LABS: HEMOGLOBIN 12.6 g/dL (12.0-18.0); MEAN CELL VOLUME 103.8 fl (80.0-94.0); MEAN CORPUSCULAR HEMOGLOBIN 35.4 pg (27.0-31.0); MEAN CORPUSCULAR HGB CONC 34.2 g/dL (33.0-37.0); RBC 3.55 Mil/uL (4.40-5.90); RED CELL DISTRIBUTION WIDTH 13.9 % (11.5-14.5); WHITE BLOOD COUNT 9.8 K/uL (4.8-10.8)
[2018-09-28 05:41] LABS: BLOOD UREA NITROGEN 12 mg/dl (9-20); CALCIUM 8.3 mg/dL (8.4-10.2); GFR NON-AFRICAN AMERICAN > 60
--- NOTE | 2018-09-28 05:44 | PN ---
DATE: 09/27/2018 LOCATION: The patient is in ICU, bed 434. TIME SPENT: 35 minutes. SUBJECTIVE: The patient is seen and evaluated at the bedside. Past medical, surgical, family and social history reviewed. A 78-year-old male, chronic active smoker, alcohol dependence with a history significant for rheumatic fever 10 years ago, hypertension, bladder cancer status post resection and with recurrence as of 09/2016. The patient declined the resection of the bladder and ileal conduit at [facility], presented to our emergency room complaining of progressively worsening shortness of breath. The patient also has chronic left bundle branch block, admitted with COPD exacerbation, hypoxemia, tachycardia, on 2 liters oxygen supplement. PHYSICAL EXAMINATION: GENERAL: Remains alert, awake, follows commands appropriate. VITAL SIGNS: Temperature 97.4, heart rate of 110-125, blood pressure 119/67 with mean arterial pressure 84, respiratory rate 19-25 thoracoabdominal, saturating 93% on supplement 2 liters nasal cannula. Intake 1545, output 1460, balance 85. Weight 167 pounds. HEAD, EYES, EARS, NOSE AND THROAT: Pupils are reactive. Conjunctivae pink. Sclerae are white. NECK: Supple. Trachea is central. CHEST: Bilateral breath sounds, diminished in intensity. Expiration prolonged. No audible wheezing or rhonchi. HEART: Rhythm regular. S1, S2 rapid. No S3, S4 gallop. No audible murmur. ABDOMEN: Bowel sounds present. Soft. Bladder not distended. EXTREMITIES: 1+ edema. NEUROLOGIC: Nonfocal. Extremities, no intentional or fine tremor. SKIN: Without rash. LABORATORY DATA: WBC 5.5, hemoglobin 13.6, hematocrit 40.3, platelet count 186, neutrophils 83.3, lymphocytes 6.3, monocytes 10.3. ABG pH 7.37, pCO2 of 35, pO2 150, saturation 100.9 on FIO2 40%. SMA-7 sodium 125, potassium 3.6, chloride 89, CO2 of 27, anion gap 13, BUN 10, creatinine of 0.6, random glucose 192, calcium 7.9. Troponin 0.10. Free T4 1.6, free T3 2.3, TSH 0.18. Chest x-ray, no active disease, hyperinflation. Abdominal ultrasound report pending. CT angiogram, aneurysmal dilatation of the ascending thoracic aorta proximally 4.3 cm. No evidence of thoracic with abdominal aortic dissection, atherosclerotic calcification of the thoracic aorta and abdominal aorta and iliac vessels. Superior mesenteric artery, inferior mesenteric artery renal arteries are widely patent. Complete occlusion of the right common iliac artery, reconstitution of the right common femoral artery and the right internal iliac artery distally. 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 13-mm density calcified and nodule abutting the left lower lobe pleura likely a granuloma, 5-mm noncalcified nodule in the lingular segment of the left upper lobe. Unremarkable, no lymphadenopathy, no pneumothorax, no pleural effusion. IMPRESSION AND PLAN: 1. Neuro: Alert, awake, oriented to name, place and time. 2. Pulmonary: Chronic obstructive pulmonary disease exacerbation with hypoxemia, chronic active smoker with nicotine dependence, on levalbuterol and atropine, on ipratropium bromide, guaifenesin 600 mg every 12 hours. Pulmonary consult noted recommendations appreciated, nicotine patch 21 mg daily Solu-Medrol 30 mg intravenous every 6 hours. 3. Cardiac: Chronic left bundle branch block with a tachycardia secondary to hypoxemia, on diltiazem drip. Continue Lovenox 40 mg subcutaneous daily. 4. Hematology: Normal white count, normal hemoglobin. Normal platelet count. 5. Renal: Hyponatremia. Serum osmolality 266, urine osmolality 145, status post Lasix, currently improved from 115-125. We will cautiously monitor rising sodium level. 6. Endocrinology: No history of diabetes mellitus type 2. TSH evaluation. Noted to be elevated with normal free T4 and reduced free T3, likely sick euthyroid. 7. Infectious Disease: Chest x-ray Unremarkable. No infiltrate. No evidence of infection in the urine. Hold antibiotic. 8. Gastroenterology: Continue feeding as tolerated. 9: Oncology: History of bladder cancer recurrence. The patient declined surgery in the past. Hematology oncology evaluation in progress. Jose Mercedes MD
--- NOTE | 2018-09-28 06:39 | CON ---
DATE: 09/27/2018 NEPHROLOGY CONSULTATION HISTORY OF PRESENT ILLNESS: The patient is a 78-year-old male with past medical history of hypertension, COPD, bladder cancer status post resection, presented to ED with increased dyspnea, Nephrology being consulted for hyponatremia. The patient reports not being well over the past couple of weeks with increased shortness of breath as well as associated cough with inability to clear phlegm from his throat. The patient also reports decreased appetite during this period, but has been eating about two meals per day; has adequate protein intake with meat and fish for dinner. The patient does admit to diarrhea since the last two days. The patient denies any vomiting. He has been drinking about two liters of water per day. Denies taking any pain medications. PAST MEDICAL HISTORY: As above. SOCIAL HISTORY: The patient smokes about 4-5 cigarettes per day. FAMILY HISTORY: Denies any cancer in the family. REVIEW OF SYSTEMS: CONSTITUTIONAL: Denies any weight loss or night sweats. HEENT: Denies any difficulty swallowing. RESPIRATORY: As per HPI. CARDIOVASCULAR: Denies any chest pain or palpitations. GASTROINTESTINAL: As per HPI. GENITOURINARY: Denies any dysuria, has adequate urinary strain. MUSCULOSKELETAL: Reports some low back pain. NEUROLOGICAL: Denies any dizziness. PHYSICAL EXAMINATION: VITAL SIGNS: This afternoon, blood pressure 135/64, heart rate 104, respirations 25, temperature 97.4, O2 sat 95% on O2 via nasal cannula. GENERAL: In no distress, conversing coherently in full sentences. HEENT: Moist mucous membranes. Nonicteric. No cervical lymphadenopathy. RESPIRATORY: Lungs clear to auscultation bilaterally. No rales, no rhonchi, no wheezes. No CVA tenderness. CARDIOVASCULAR: Heart sounds irregular rate. No gallops or rubs. GASTROINTESTINAL: Abdomen soft, nontender, nondistended. GENITOURINARY: No bladder distension. EXTREMITIES: 1+ bilateral lower leg edema. NEUROLOGICAL: No resting tremor. SKIN: Warm. No cyanosis. LABORATORY DATA: CBC, WBC 5.5, hemoglobin 13.6, hematocrit 40.3, platelets 186. Chemistry panel on presentation sodium 120, potassium 4.2, chloride 82, bicarb 21, BUN 11, creatinine 0.6, glucose 183, calcium 8. AST 519, ALT 254, alkaline phosphatase 284, proBNP 14,300, albumin 3.5. Venous blood gas, pH 7.30, pCO2 45, lactate 4.8. Urine studies done late this morning specific gravity 1.019, 30 mg/dL protein, ketones negative, small blood, leukocyte esterase negative. Urine osmolality 145. Chest x-ray directly visualized. Lungs clear. ASSESSMENT AND PLAN: Hyponatremia - Relatively severe and with precipitous drop in serum sodium in just 4 days (per outpatient lab that showed serum sodium of 133); hyponatremia likely multifactorial; the patient gives history consistent with volume depletion; urine osmolality is low at 145; however, this was drawn over eight hours after presentation and can be consistent with response to 1 liter of fluid bolus given in the emergency room and with resulting subsequent rise in serum sodium (alternatively, it may reflect the effect of IV lasix with decreased concentrating ability). The patient also likely has underlying pulmonary hypertension/cor pulmonale which may serve as further stimulus for hyponatremia due to decreased effective arterial blood volume. For now we will hold further intravenous fluids as correction in serum sodium is close to the desired rate in a 24-hour period (i.e., 6 to 8 mEq increase). -Continue to check serum sodium every 6 hours. -Need to adequately replenish hypokalemia as this will also help correct hyponatremia. -Goal should be serum potassium of 4.0 in the setting of atrial fibrillation w/ RVR. -We will continue to monitor urine osmolality. -Agree with obtaining echocardiogram to assess for cor pulmonale. -Avoid nonsteroidal anti-inflammatory drug use as it potentiate the effect of antidiuretic hormone and worsen hyponatremia. -1500 mL oral fluid restriction. Thank you for this referral. We will be following up closely. Fredi Del Castillo MD [facility]
[2018-09-28] MEDS: Enoxaparin 40 mg Syringe SC SCH (08:13)
[2018-09-28] MEDS: Multi Vitamins 15 mL UD Oral Solution PO SCH (08:16)
[2018-09-28] MEDS: guaiFENesin 600 mg ER Tab PO SCH ×2 (08:16→20:00)
[2018-09-28] MEDS: Thiamine 100 mg/ml Inj IM SCH (08:19)
[2018-09-28] MEDS ORDERED: Amiodarone 150mg/3 ml vial ONE (08:40)
[2018-09-28] MEDS ORDERED: Amiodarone 150 MG in Sodium Chloride 0.9% 100 ML IVPB ONE (08:45)
--- NOTE | 2018-09-28 08:58 | CP.PCM.PN ---
Subjective - Date & Time of Evaluation Date of Evaluation: 09/28/18 Time of Evaluation: 08:56 - Subjective Subjective: Seated on the edge of the bed, appears comfortable. Speaking in full sentences. Denies shortness of breath. Slept fairly well overnight. Remains tachycardic. Afebrile and SpO2 remains 93+. BP is low normal. Denies cough or chest pain. No leukocytosis. No anemia. Normal platelets. Has been receiving ipratropium and levalbuterol on Q4H schedule. Conversant, mood is appropriate. Trace dependant edema both LE's, no cyanosis, no calf tenderness. Pharynx pink and moist w/o exudate. Neck is supple and trachea midline. Chest is hyper-resonant on percussion, no subcut emphysema. Breath sounds are very diminished bilaterally. No audible wheezes or bronchial breath sounds. Scattered dry to medium rales are present in the lung bases posteriorly. Heart sounds are very distant, tachycardic 120+. Reduce ipratropium frequency, D/C scheduled levalbuterol. Levalbuterol to 0.63 Q8H PRN. Has not received antibiotic therapy since stat dose in ED. Would not begin antibiotic at this time empirically. Steroid dosing to be reduced again today. D/C standby BiPAP. Follow up CXR in AM. Objective - Vital Signs/Intake and Output Vital Signs (last 24 hours): Temp Pulse Resp BP Pulse Ox 97.5 F L 136 H 28 H 101/60 97 09/28/18 04:00 09/28/18 06:00 09/28/18 06:00 09/28/18 06:00 09/28/18 06:00 Intake and Output: 09/27/18 09/28/18 23:59 11:59 Intake Total 1760 265 Output Total 400 Balance 1760 -135 - Medications Medications: Current Medications Calcium Carbonate (Oscal) 500 mg PO DAILY [facility] Last Admin: 09/28/18 08:17 Dose: 500 mg Chlordiazepoxide (Librium) 25 mg PO Q8H [facility] Last Admin: 09/28/18 05:07 Dose: 25 mg Enoxaparin Sodium (Lovenox) 40 mg SC DAILY [facility]; Protocol Last Admin: 09/28/18 08:13 Dose: 40 mg Guaifenesin (Mucinex La) 600 mg PO Q12 [facility] Last Admin: 09/28/18 08:16 Dose: 600 mg Sodium Chloride (Sodium Chloride 0.9%) 1,000 mls @ 75 mls/hr IV .[id number] [facility] Stop: 09/29/18 00:25 Last Admin: 09/28/18 00:34 Dose: 75 mls/hr Amiodarone HCl 450 mg/ Sodium (Chloride) 250 mls @ 33.33 mls/hr IV .[id number] [facility]; Protocol Ipratropium [place] (Atrovent) 0.5 mg IH RQ6 [facility] Levalbuterol HCl (Xopenex) 0.63 mg INH RQ8 PRN PRN Reason: Shortness of Breath Methylprednisolone (Solu-Medrol) 30 mg IVP Q6 [facility] Last Admin: 09/28/18 05:04 Dose: 30 mg Multivitamins/Vitamin C (Multi-Delyn Liquid) 15 ml PO DAILY [facility] Last Admin: 09/28/18 08:16 Dose: 15 ml Nicotine (Nicoderm Cq) 1 patch TD DAILY [facility] Last Admin: 09/28/18 08:16 Dose: 1 patch Thiamine HCl (Vitamin B1 Inj) 100 mg IM DAILY [facility] Last Admin: 09/28/18 08:19 Dose: 100 mg - Labs Labs: 09/28/18 04:40 09/28/18 04:40 Assessment and Plan (1) COPD exacerbation Assessment & Plan: Appears to be improving on current regimen. Status: Acute (2) Pulmonary nodule seen on imaging study Assessment & Plan: Likely related to prior granulomatous disease. Status: Chronic (3) Transaminitis Assessment & Plan: Follow up labs requested. Hepatitis screening negative. Status: Acute
--- NOTE | 2018-09-28 09:00 | CP.CCUPN ---
CCU Subjective - Physician Review Subjective (Free Text): Sitting up in bed, does not appear distressed, conversant, denies any CP, SOB at bed rest, still tachycardic, denies any palpitataions, dizziness, SPo2 97% on NC. Cardizem drip at 10 mg/hr, HR 130s with periods of underlying variable block with A Flutter / fib, PVCs versus aberrant conduction. Other vitals and I/O's reviewed. Afebrile, SBP 90-110s, HR 130-140, RR 23, fluid balance +200ml last 24H. ROS: No other pertinent negs or positives on 10+ system review: unobtainable 2 coma PMSFH: All other Nursing and physician documentation reviewed to date; no new pertinent info noted relevant to current medical problems. EXAM- HEENT: no icterus, no gaze preference NECK: No JVD visible, supple, carotids equal upstroke bilat/no bruit CHEST: decreased BS at the bases, no wheezes audible HEART: regular, distant, S1S2, no rubs or murmurs noted ABD: softly and nontender, no guarding, no organomegaly, BS hypoactive. EXT: no LE edema, no calf tenderness or palpable cords, distal pulses intact and symmetrical. NEURO: no gross focal motor defcits SKIN: no rashes, warm and dry LABS: WBC= 9.8 HGB= 12.6 PLTs= 179K Na= 125 K= 3.8 CL=93 HCO3= 25 BUN/Cr= 12/0.5 BS= 172 CXR: mild prominent R peripheral mid lung field interstitial changes as well as RML. (my interp). EKG: A Fib with RVR at 130/min, CLBBB IMPRESSION / MAJOR PROBLEMS NOW: 1. Acute Resp Insuff, r/o CHF- DDysfx, Pneumonia 2. A Fib with RVR / A Flutter with variable block 3. Hyponatremia; etiology unclear, r/o SIADH 4. Hypertransaminasemia with elevated Alk Phos, r/o Cholecystitis PLAN: 1. No effect noted on VR control with Cardizem wth lower BP trends, switch to Amiodarone for now; or as directed by Cardiology. 2. ECHO for LV fx, r/o DDysfx 3. Repeat LFTs, Alk Phos, GGTP; CTAP results reviewed; await official results from [facility]. Consider HIDA scan, Surgical eval. 4. Cautious adjustment in serum Na levels, rise by 5 meq noted over the past 24H. 5. Flu negative, repeat CXR, will discuss with Pulm regarding any empiric abx coverage for Lung source apart from any abx coverage for biliary tract sepsis.
[2018-09-28] MEDS ORDERED: methylPREDNISolone 30 MG in Sodium Chloride 0.9% 50 ML IV SCH (09:15)
[2018-09-28 09:40] LABS: ALB/GLOB RATIO 1.1 (1.0-2.1); ALBUMIN 3.4 g/dL (3.5-5.0); BILIRUBIN,DIRECT 0.3 mg/ml (0.0-0.4)
[2018-09-28] MEDS: Amiodarone 450 MG in Sodium Chloride 0.9% 250 ML IV SCH (10:09)
--- NOTE | 2018-09-28 10:16 | CARD ---
APPROVED REPORT Date of service: 09/28/2018 EKG Measurement Heart [id number] <Conclusion> Atrial fibrillation with rapid ventricular response Left bundle branch block Abnormal ECG
--- NOTE | 2018-09-28 11:12 | US ---
Date of service: 09/27/2018 HISTORY: ca bladder COMPARISON: 10/24/2015 CT abdomen and pelvis TECHNIQUE: Sonographic evaluation of the abdomen. FINDINGS: LIVER: Measures 15.2 cm. Patent portal vein. Portal venous flow: Hepatopetal. Unremarkable echogenicity of the liver parenchyma. No mass. No intrahepatic bile duct dilatation. GALLBLADDER: Unremarkable. No gallstones. COMMON BILE DUCT: Measures 4.9 mm. No stones. No dilatation. PANCREAS: Unremarkable as visualized. No mass. No ductal dilatation. RIGHT KIDNEY: Measures 4.5 x 5.9 x 10 6cm. Normal echogenicity. No calculus, mass, or hydronephrosis.Incidental finding(s): Simple cyst 2.8 x 2.9 x 4.1 cm LEFT KIDNEY: Measures 5.5 x 6.8 x 11.0cm. Normal echogenicity. No calculus, mass, or hydronephrosis. SPLEEN: Normal in size and contour. No mass. AORTA: No aneurysmal dilatation. IVC: Unremarkable. OTHER FINDINGS: None. IMPRESSION: Unremarkable abdominal sonogram.
[2018-09-28 11:20] LABS: ALB/GLOB RATIO 1.1 (1.0-2.1); ALBUMIN 3.5 g/dL (3.5-5.0); BILIRUBIN,DIRECT 0.2 mg/ml (0.0-0.4)
--- NOTE | 2018-09-28 11:24 | US ---
Date of service: 09/27/2018 PROCEDURE: Ultrasound of the Bladder HISTORY: ca bladder COMPARISON: None available. TECHNIQUE: Sonographic evaluation of the bladder was performed. FINDINGS: Irregular bladder wall mass posterior to the right of the midline measures 1.5 x 2.2 x 2.7 cm. The findings are consistent with known bladder wall neoplasm. Prevoid Volume: 462.2 cc. Post void residual: 366.7 cc. Ureteral jets are not visualized. Transabdominal prostate volume 25.40 cm. IMPRESSION: Bladder wall mass posterior to the right of the midline. Large postvoid residual.
--- NOTE | 2018-09-28 12:30 | CP.PCM.PN ---
Subjective - Date & Time of Evaluation Date of Evaluation: 09/28/18 Time of Evaluation: 10:00 - Subjective Subjective: Breathing is somewhat better remains tachycardic on cardizem drip Objective - Vital Signs/Intake and Output Vital Signs (last 24 hours): Temp Pulse Resp BP Pulse Ox 97.5 F L 147 H 16 109/62 93 L 09/28/18 04:00 09/28/18 09:41 09/28/18 09:41 09/28/18 09:41 09/28/18 09:41 Intake and Output: 09/28/18 09/28/18 06:59 18:59 Intake Total 515 Output Total 400 Balance 115 - Medications Medications: Current Medications Calcium Carbonate (Oscal) 500 mg PO DAILY [facility] [place] Last Admin: 09/28/18 08:17 Dose: 500 mg Chlordiazepoxide (Librium) 25 mg PO Q8H [facility] Last Admin: 09/28/18 05:07 Dose: 25 mg Enoxaparin Sodium (Lovenox) 40 mg SC DAILY [facility]; Protocol Last Admin: 09/28/18 08:13 Dose: 40 mg Guaifenesin (Mucinex La) 600 mg PO Q12 [facility] Last Admin: 09/28/18 08:16 Dose: 600 mg Sodium Chloride (Sodium Chloride 0.9%) 1,000 mls @ 75 mls/hr IV .[id number] [facility] [place] Stop: 09/29/18 00:25 Last Admin: 09/28/18 00:34 Dose: 75 mls/hr Amiodarone HCl 450 mg/ Sodium (Chloride) 250 mls @ 33.33 mls/hr IV .Q7H31M [facility]; Protocol Last Admin: 09/28/18 10:09 Dose: 1 mg/min, 33.33 mls/hr Ipratropium [place] (Atrovent) 0.5 mg IH RQ6 [facility] Levalbuterol HCl (Xopenex) 0.63 mg INH RQ8 PRN PRN Reason: Shortness of Breath Methylprednisolone (Solu-Medrol) 30 mg IVP Q12H [facility] [place] Last Admin: 09/28/18 10:00 Dose: 30 mg Multivitamins/Vitamin C (Multi-Delyn Liquid) 15 ml PO DAILY [facility] Last Admin: 09/28/18 08:16 Dose: 15 ml Nicotine (Nicoderm Cq) 1 patch TD DAILY [facility] Last Admin: 09/28/18 08:16 Dose: 1 patch Thiamine HCl (Vitamin B1 Inj) 100 mg IM DAILY [facility] Last Admin: 09/28/18 08:19 Dose: 100 mg - Labs Labs: 09/28/18 04:40 09/28/18 04:40 Assessment and Plan (1) Cancer of bladder wall Status: Acute (2) COPD (chronic obstructive pulmonary disease) Status: Acute (3) Respiratory distress Status: Acute (4) Left bundle branch block (LBBB) Status: Acute (5) Essential (primary) hypertension Status: Acute
[2018-09-28 12:33] LABS: BLOOD UREA NITROGEN 14 mg/dl (9-20); CALCIUM 8.3 mg/dL (8.4-10.2); GFR NON-AFRICAN AMERICAN > 60
[2018-09-28 14:35] LABS: OSMOLALITY,URINE 338 mosm/kg (300-1000)
[2018-09-28] MEDS ORDERED: Tolvaptan 15 MG TAB PO ONE (17:47)
--- NOTE | 2018-09-28 21:54 | CP.PCM.PN ---
Subjective - Date & Time of Evaluation Date of Evaluation: 09/28/18 Time of Evaluation: 12:30 - Subjective Subjective: Patient reports breathing improved; tolerating diet; no vomiting/diarrhea; still with RVR, started on amiodarone; Objective - Vital Signs/Intake and Output Vital Signs (last 24 hours): Temp Pulse Resp BP Pulse Ox 97.3 F L 135 H 21 143/82 97 09/28/18 16:00 09/28/18 19:49 09/28/18 19:00 09/28/18 19:49 09/28/18 19:00 Intake and Output: 09/28/18 09/29/18 18:59 06:59 Intake Total 1986 Output Total 200 Balance 1786 - Medications Medications: Current Medications Calcium Carbonate (Oscal) 500 mg PO DAILY [facility] Last Admin: 09/28/18 08:17 Dose: 500 mg Chlordiazepoxide (Librium) 25 mg PO Q8H [facility] Last Admin: 09/28/18 20:00 Dose: 25 mg Enoxaparin Sodium (Lovenox) 40 mg SC DAILY [facility]; Protocol Last Admin: 09/28/18 08:13 Dose: 40 mg Guaifenesin (Mucinex La) 600 mg PO Q12 [facility] Last Admin: 09/28/18 20:00 Dose: 600 mg Amiodarone HCl 450 mg/ Sodium (Chloride) 250 mls @ 33.33 mls/hr IV .Q7H31M [facility]; Protocol Last Titration: 09/28/18 16:10 Dose: 0.5 mg/min, 16.67 mls/hr Ipratropium [place] (Atrovent) 0.5 mg IH RQ6 [facility] Last Admin: 09/28/18 19:08 Dose: 0.5 mg Levalbuterol HCl (Xopenex) 0.63 mg INH RQ8 PRN PRN Reason: Shortness of Breath Methylprednisolone (Solu-Medrol) 30 mg IVP Q12H [facility] Last Admin: 09/28/18 20:30 Dose: 30 mg Metoprolol Tartrate (Lopressor) 50 mg PO Q12 [facility] Multivitamins/Vitamin C (Multi-Delyn Liquid) 15 ml PO DAILY [facility] Last Admin: 09/28/18 08:16 Dose: 15 ml Nicotine (Nicoderm Cq) 1 patch TD DAILY [facility] Last Admin: 09/28/18 08:16 Dose: 1 patch Ondansetron HCl (Zofran Inj) 4 mg IVP Q6 PRN PRN Reason: Nausea/Vomiting Last Admin: 09/28/18 17:51 Dose: 4 mg Thiamine HCl (Vitamin B1 Inj) 100 mg IM DAILY [facility] Last Admin: 09/28/18 08:19 Dose: 100 mg - Labs Labs: 09/28/18 04:40 09/28/18 10:49 - Constitutional Appears: Non-toxic, No Acute Distress - Eye Exam Eye Exam: Normal appearance - Respiratory Exam Respiratory Exam: Clear to Ausculation Bilateral. absent: Respiratory Distress - Cardiovascular Exam Cardiovascular Exam: Tachycardia, Irregular Rhythm, +S1, +S2. absent: JVD - GI/Abdominal Exam GI & Abdominal Exam: Soft. absent: Distended, Tenderness - Extremities Exam Additional comments: 1+ b/l lower leg edema; - Neurological Exam Neurological Exam: Alert, Awake - Psychiatric Exam Psychiatric exam: Normal Mood. absent: Agitated - Skin Skin Exam: Warm. absent: Cyanosis Assessment and Plan (1) Hyponatremia Assessment & Plan: Persistent despite getting IVF overnight; repeat urine osm still inappropriately elevated; suspect some element of cor pulmonale that may be driving hyponatremia by decreased effective arterial blood volume; alternatively, may have SIADH; -stopping IVF; -giving single dose of tolvaptan 15 mg; -awaiting echo to assess for pulm htn; -may benefit from small dose of PO lasix by decreasing urinary concentrating ability; -continue PO fluid restriction <1.5L daily; -avoid NSAIDS; Status: Acute
--- NOTE | 2018-09-28 22:28 | CP.PCM.CON ---
History of Present Illness - History of Present Illness History of Present Illness: 78 year old male with a history of COPD, bladder cancer, admitted with dyspnea. The patient reports to bladder tumor excision followed by adjuvant BCG treatments. It appears he was found to be muscle invasive about 1 year ago and was offered cystectomy and definitive chemoradiation but deffered further oncologic treatment. He denies urinary complaints and has no hematuria. Past medical history: COPD, bladder cancer Past surgical history: Bladder tumor excision Family history: Denies hematologic and oncologic problems Social history: Heavy tobacco abuse, 2-5 beers daily Allergies: NKA Review of systems: All remaining review of systems including HEENT, cardiovascular, respirartory, gastrointestinal, genitourinary, musculoskeletal, dermatologic, neurologic, and psychiatric are negative unless mentioned in the HPI. Past Patient History - Past Medical History & Family History Past Medical History?: Yes - Past Social History Smoking Status: Heavy Smoker > 10 Cigarettes Daily Chewing Tobacco Use: No Cigar Use: No Alcohol: None Drugs: Denies - CARDIAC Hx Hypertension: Yes - PULMONARY Hx Respiratory Disorders: Yes Hx Chronic Obstructive Pulmonary Disease (COPD): Yes - NEUROLOGICAL Hx Neurological Disorder: No - HEENT Hx HEENT Problems: Yes Hx Macular Degeneration: Yes - RENAL Hx Neurogenic Bladder: Yes - ENDOCRINE/METABOLIC Hx Endocrine Disorders: No - HEMATOLOGICAL/ONCOLOGICAL Hx Blood Disorders: No - INTEGUMENTARY Hx Dermatological Problems: No - MUSCULOSKELETAL/RHEUMATOLOGICAL Hx Musculoskeletal Disorders: No - GASTROINTESTINAL Hx Gastrointestinal Disorders: No - GENITOURINARY/GYNECOLOGICAL Hx Genitourinary Disorders: Yes Hx Bladder Cancer: Yes - PSYCHIATRIC Hx Psychophysiologic Disorder: No Hx Substance Use: No - SURGICAL HISTORY Hx Surgeries: No Other/Comment: TURB - ANESTHESIA Hx Anesthesia: Yes Hx Anesthesia Reactions: No Hx Malignant Hyperthermia: No Meds Allergies/Adverse Reactions: Allergies Allergy/AdvReac Type Severity Reaction Status Date / Time No Known Allergies Allergy Verified 10/24/15 10:35 - Medications Medications: Current Medications Calcium Carbonate (Oscal) 500 mg PO DAILY [facility] Last Admin: 09/28/18 08:17 Dose: 500 mg Chlordiazepoxide (Librium) 25 mg PO Q8H [facility] Last Admin: 09/28/18 20:00 Dose: 25 mg Enoxaparin Sodium (Lovenox) 40 mg SC DAILY [facility]; Protocol Last Admin: 09/28/18 08:13 Dose: 40 mg Guaifenesin (Mucinex La) 600 mg PO Q12 [facility] Last Admin: 09/28/18 20:00 Dose: 600 mg Amiodarone HCl 450 mg/ Sodium (Chloride) 250 mls @ 33.33 mls/hr IV .Q7H31M [facility]; Protocol Last Titration: 09/28/18 16:10 Dose: 0.5 mg/min, 16.67 mls/hr Ipratropium [place] (Atrovent) 0.5 mg IH RQ6 [facility] Last Admin: 09/28/18 19:08 Dose: 0.5 mg Levalbuterol HCl (Xopenex) 0.63 mg INH RQ8 PRN PRN Reason: Shortness of Breath Methylprednisolone (Solu-Medrol) 30 mg IVP Q12H [facility] Last Admin: 09/28/18 20:30 Dose: 30 mg Metoprolol Tartrate (Lopressor) 50 mg PO Q12 [facility] Multivitamins/Vitamin C (Multi-Delyn Liquid) 15 ml PO DAILY [facility] Last Admin: 09/28/18 08:16 Dose: 15 ml Nicotine (Nicoderm Cq) 1 patch TD DAILY [facility] Last Admin: 09/28/18 08:16 Dose: 1 patch Ondansetron HCl (Zofran Inj) 4 mg IVP Q6 PRN PRN Reason: Nausea/Vomiting Last Admin: 09/28/18 17:51 Dose: 4 mg Thiamine HCl (Vitamin B1 Inj) 100 mg IM DAILY [facility] Last Admin: 09/28/18 08:19 Dose: 100 mg Physical Exam - Head Exam Head Exam: ATRAUMATIC - Eye Exam Eye Exam: Normal appearance - ENT Exam ENT Exam: Mucous Membranes Dry - Respiratory Exam Respiratory Exam: NORMAL BREATHING PATTERN - Cardiovascular Exam Cardiovascular Exam: +S1, +S2 - GI/Abdominal Exam GI & Abdominal Exam: Normal Bowel Sounds - Extremities Exam Extremities exam: Positive for: normal inspection - Neurological Exam Neurological exam: Oriented x3 - Psychiatric Exam Psychiatric exam: Normal Affect, Normal Mood - Skin Skin Exam: Warm Results - Vital Signs Recent Vital Signs: Last Vital Signs Temp 97.3 F L 09/28/18 16:00 Pulse 135 H 09/28/18 19:49 Resp 21 09/28/18 19:00 BP 143/82 09/28/18 19:49 Pulse Ox 97 09/28/18 19:00 - Labs Result Diagrams: 09/28/18 04:40 09/28/18 10:49 Labs: Laboratory Results - last 24 hr 09/27/18 09/27/18 09/28/18 15:13 23:50 04:40 WBC 9.8 D RBC 3.55 L Hgb 12.6 Hct 36.8 MCV 103.8 H D MCH 35.4 H MCHC 34.2 RDW 13.9 Plt Count 179 Sodium Potassium Chloride Carbon Dioxide Anion Gap BUN Creatinine Est GFR ( Amer) Est GFR (Non-Af Amer) Random Glucose Lactic Acid Calcium Total Bilirubin Direct Bilirubin GGT AST ALT Alkaline Phosphatase Total Protein Albumin Globulin Albumin/Globulin Ratio 25-OH Vitamin D Total 30 Procalcitonin Urine Osmolality 314 Ur Random Sodium < 5 09/28/18 09/28/18 09/28/18 04:40 09:18 10:49 WBC RBC Hgb Hct MCV MCH MCHC RDW Plt Count Sodium 125 L 125 L Potassium 3.8 3.9 Chloride 93 L 92 L Carbon Dioxide 25 26 Anion Gap 11 11 BUN 12 14 Creatinine 0.5 L 0.6 L Est GFR ( Amer) > 60 > 60 Est GFR (Non-Af Amer) > 60 > 60 Random Glucose 172 H 220 H Lactic Acid Calcium 8.3 L 8.3 L Total Bilirubin 0.3 Direct Bilirubin 0.3 GGT AST 171 H D ALT 169 H D Alkaline Phosphatase 205 H D Total Protein 6.6 Albumin 3.4 L Globulin 3.2 Albumin/Globulin Ratio 1.1 25-OH Vitamin D Total Procalcitonin Urine Osmolality Ur Random Sodium 09/28/18 09/28/18 09/28/18 10:49 10:49 10:49 WBC RBC Hgb Hct MCV MCH MCHC RDW Plt Count Sodium Potassium Chloride Carbon Dioxide Anion Gap BUN Creatinine Est GFR ( Amer) Est GFR (Non-Af Amer) Random Glucose Lactic Acid 1.9 Calcium Total Bilirubin 0.4 Direct Bilirubin 0.2 GGT 187 H AST 138 H ALT 157 H Alkaline Phosphatase 191 H Total Protein 6.8 Albumin 3.5 Globulin 3.2 Albumin/Globulin Ratio 1.1 25-OH Vitamin D Total Procalcitonin 2.01 H Urine Osmolality Ur Random Sodium 09/28/18 14:01 WBC RBC Hgb Hct MCV MCH MCHC RDW Plt Count Sodium Potassium Chloride Carbon Dioxide Anion Gap BUN Creatinine Est GFR ( Amer) Est GFR (Non-Af Amer) Random Glucose Lactic Acid Calcium Total Bilirubin Direct Bilirubin GGT AST ALT Alkaline Phosphatase Total Protein Albumin Globulin Albumin/Globulin Ratio 25-OH Vitamin D Total Procalcitonin Urine Osmolality 338 Ur Random Sodium 24 Assessment & Plan (1) Cancer of bladder wall Assessment and Plan: muscle invasive in 2018 but declined oncologic treatment discussed repeat imaging to evaluate extent of disease - pt deferred this and does not wish for oncologic w/u and treatment Status: Acute (2) Anemia Assessment and Plan: work up sent Thank you for this interesting consult. Status: Acute
[2018-09-29] MEDS: Ipratropium 0.02% Inhal Soln (0.5 mg/2.5 ml) UD IH SCH ×2 (01:05→07:35)
[2018-09-29] MEDS: Amiodarone 450 MG in Sodium Chloride 0.9% 250 ML IV SCH (04:48)
[2018-09-29 05:35] LABS: MEAN CELL VOLUME 104.2 fl (80.0-94.0); MEAN CORPUSCULAR HEMOGLOBIN 35.4 pg (27.0-31.0); RBC 3.67 Mil/uL (4.40-5.90); RED CELL DISTRIBUTION WIDTH 13.8 % (11.5-14.5); WHITE BLOOD COUNT 12.6 K/uL (4.8-10.8)
[2018-09-29 06:02] LABS: BLOOD UREA NITROGEN 23 mg/dl (9-20); GFR NON-AFRICAN AMERICAN > 60
--- NOTE | 2018-09-29 09:17 | CP.PCM.PN ---
Subjective - Date & Time of Evaluation Date of Evaluation: 09/29/18 Time of Evaluation: 09:17 - Subjective Subjective: Seen and examined with the resident this morning in the ICU. Case was discussed and physical findings were reviewed. The note entered by the resident accurately reflects our findings and plan of care. Objective - Vital Signs/Intake and Output Vital Signs (last 24 hours): Temp Pulse Resp BP Pulse Ox 98.5 F 137 H 18 113/90 96 09/29/18 08:00 09/29/18 08:00 09/29/18 08:00 09/29/18 08:00 09/29/18 08:00 Intake and Output: 09/28/18 09/29/18 23:59 11:59 Intake Total 1108 142 Output Total 200 Balance 908 142 - Medications Medications: Current Medications Calcium Carbonate (Oscal) 500 mg PO DAILY [facility] Last Admin: 09/28/18 08:17 Dose: 500 mg Chlordiazepoxide (Librium) 25 mg PO Q8H [facility] Last Admin: 09/29/18 04:43 Dose: 25 mg Enoxaparin Sodium (Lovenox) 40 mg SC DAILY [facility]; Protocol Last Admin: 09/28/18 08:13 Dose: 40 mg Guaifenesin (Mucinex La) 600 mg PO Q12 [facility] Last Admin: 09/28/18 20:00 Dose: 600 mg Amiodarone HCl 450 mg/ Sodium (Chloride) 250 mls @ 33.33 mls/hr IV .Q7H31M [facility]S [facility]; Protocol Last Admin: 09/29/18 04:48 Dose: 0.5 mg/min, 16.67 mls/hr Levalbuterol HCl (Xopenex) 0.63 mg INH RQ8 PRN PRN Reason: Shortness of Breath Methylprednisolone (Solu-Medrol) 30 mg IVP DAILY [facility]S [facility] Metoprolol Tartrate (Lopressor) 50 mg PO Q12 [facility] AT [facility] Multivitamins/Vitamin C (Multi-Delyn Liquid) 15 ml PO DAILY [facility] Last Admin: 09/28/18 08:16 Dose: 15 ml Nicotine (Nicoderm Cq) 1 patch TD DAILY [facility] Last Admin: 09/28/18 08:16 Dose: 1 patch Ondansetron HCl (Zofran Inj) 4 mg IVP Q6 PRN PRN Reason: Nausea/Vomiting Last Admin: 09/28/18 17:51 Dose: 4 mg Thiamine HCl (Vitamin B1 Inj) 100 mg IM DAILY [facility] Last Admin: 09/28/18 08:19 Dose: 100 mg - Labs Labs: 09/29/18 04:20 09/29/18 04:20 Assessment and Plan (1) COPD exacerbation Status: Acute (2) Pulmonary nodule seen on imaging study Status: Chronic (3) Transaminitis Status: Acute
[2018-09-29] MEDS: Enoxaparin 40 mg Syringe SC SCH (09:33)
[2018-09-29] MEDS: guaiFENesin 600 mg ER Tab PO SCH ×2 (09:34→20:52)
[2018-09-29] MEDS: Multi Vitamins 15 mL UD Oral Solution PO SCH (09:34)
[2018-09-29] MEDS: Thiamine 100 mg/ml Inj IM SCH (09:37)
--- NOTE | 2018-09-29 10:09 | RAD ---
Date of service: 09/29/2018 HISTORY: SOB COMPARISON: Chest x-ray 09/27/2018 TECHNIQUE: Chest one view . FINDINGS: LUNGS: There is new right basilar/infrahilar airspace opacity. Differential considerations include atelectasis versus other infectious/inflammatory process. PLEURA: No pleural effusion is identified. CARDIOVASCULAR: Heart size is enlarged. Atherosclerotic calcifications present of the aorta. OSSEOUS STRUCTURES: No acute fracture identified. Bones are demineralized. VISUALIZED UPPER ABDOMEN: Unremarkable. OTHER FINDINGS: None. IMPRESSION: There is new right basilar/infrahilar airspace opacity. Differential considerations include atelectasis versus other infectious/inflammatory process.
[2018-09-29] MEDS ORDERED: Digoxin 500 mcg/2ml (0.5 mg/2ml) Inj IVP ONE (10:43)
--- NOTE | 2018-09-29 10:45 | CP.PCM.PN ---
Subjective - Date & Time of Evaluation Date of Evaluation: 09/29/18 Time of Evaluation: 10:00 - Subjective Subjective: Breathing easier still tachycardic will start to digitalize pt Objective - Vital Signs/Intake and Output Vital Signs (last 24 hours): Temp Pulse Resp BP Pulse Ox 98.5 F 137 H 23 128/83 97 09/29/18 08:00 09/29/18 10:00 09/29/18 10:00 09/29/18 10:00 09/29/18 10:00 Intake and Output: 09/29/18 09/29/18 06:59 18:59 Intake Total 272 188 Output Total 400 Balance 272 -212 - Medications Medications: Current Medications Calcium Carbonate (Oscal) 500 mg PO DAILY [facility] Last Admin: 09/29/18 09:36 Dose: 500 mg Chlordiazepoxide (Librium) 25 mg PO Q8H [facility] Last Admin: 09/29/18 04:43 Dose: 25 mg Digoxin (Lanoxin) 0.5 mg IVP ONCE ONE Stop: 09/29/18 10:44 Enoxaparin Sodium (Lovenox) 40 mg SC DAILY [facility]; Protocol Last Admin: 09/29/18 09:33 Dose: 40 mg Guaifenesin (Mucinex La) 600 mg PO Q12 [facility] Last Admin: 09/29/18 09:34 Dose: 600 mg Amiodarone HCl 450 mg/ Sodium (Chloride) 250 mls @ 33.33 mls/hr IV .Q7H31M [facility]; Protocol Last Admin: 09/29/18 04:48 Dose: 0.5 mg/min, 16.67 mls/hr Levalbuterol HCl (Xopenex) 0.63 mg INH RQ8 PRN PRN Reason: Shortness of Breath Methylprednisolone (Solu-Medrol) 30 mg IVP DAILY [facility] Metoprolol Tartrate (Lopressor) 50 mg PO Q12 [facility] Last Admin: 09/29/18 09:32 Dose: 50 mg Multivitamins/Vitamin C (Multi-Delyn Liquid) 15 ml PO DAILY [facility] Last Admin: 09/29/18 09:34 Dose: 15 ml Nicotine (Nicoderm Cq) 1 patch TD DAILY [facility] Last Admin: 09/29/18 09:35 Dose: 1 patch Ondansetron HCl (Zofran Inj) 4 mg IVP Q6 PRN PRN Reason: Nausea/Vomiting Last Admin: 09/28/18 17:51 Dose: 4 mg Thiamine HCl (Vitamin B1 Inj) 100 mg IM DAILY [facility] Last Admin: 09/29/18 09:37 Dose: 100 mg - Labs Labs: 09/29/18 04:20 09/29/18 04:20 Assessment and Plan (1) Cancer of bladder wall Status: Acute (2) COPD (chronic obstructive pulmonary disease) Status: Acute (3) Respiratory distress Status: Acute (4) Left bundle branch block (LBBB) Status: Acute (5) Essential (primary) hypertension Status: Acute
--- NOTE | 2018-09-29 12:04 | CP.PCM.PN ---
Subjective - Date & Time of Evaluation Date of Evaluation: 09/29/18 Time of Evaluation: 08:30 - Subjective Subjective: Pt seen and examined while sitting upright in his bed. Pt denied acute events overnight. Denies SOB. Reports intermittent cough. Objective - Vital Signs/Intake and Output Vital Signs (last 24 hours): Temp Pulse Resp BP Pulse Ox 98.5 F 117 H 20 126/90 98 09/29/18 08:00 09/29/18 11:00 09/29/18 11:00 09/29/18 11:00 09/29/18 11:00 Intake and Output: 09/29/18 09/29/18 06:59 18:59 Intake Total 272 188 Output Total 400 Balance 272 -212 - Medications Medications: Current Medications Calcium Carbonate (Oscal) 500 mg PO DAILY [facility] Last Admin: 09/29/18 09:36 Dose: 500 mg Chlordiazepoxide (Librium) 25 mg PO Q8H [facility] Last Admin: 09/29/18 04:43 Dose: 25 mg Enoxaparin Sodium (Lovenox) 40 mg SC DAILY [facility]; Protocol Last Admin: 09/29/18 09:33 Dose: 40 mg Guaifenesin (Mucinex La) 600 mg PO Q12 [facility] Last Admin: 09/29/18 09:34 Dose: 600 mg Amiodarone HCl 450 mg/ Sodium (Chloride) 250 mls @ 33.33 mls/hr IV .Q7H31M [facility]; Protocol Last Admin: 09/29/18 04:48 Dose: 0.5 mg/min, 16.67 mls/hr Levalbuterol HCl (Xopenex) 0.63 mg INH RQ8 PRN PRN Reason: Shortness of Breath Methylprednisolone (Solu-Medrol) 30 mg IVP DAILY [facility] Metoprolol Tartrate (Lopressor) 50 mg PO Q12 [facility] Last Admin: 09/29/18 09:32 Dose: 50 mg Multivitamins/Vitamin C (Multi-Delyn Liquid) 15 ml PO DAILY [facility] Last Admin: 09/29/18 09:34 Dose: 15 ml Nicotine (Nicoderm Cq) 1 patch TD DAILY [facility] Last Admin: 09/29/18 09:35 Dose: 1 patch Ondansetron HCl (Zofran Inj) 4 mg IVP Q6 PRN PRN Reason: Nausea/Vomiting Last Admin: 09/28/18 17:51 Dose: 4 mg Thiamine HCl (Vitamin B1 Inj) 100 mg IM DAILY [facility] Last Admin: 09/29/18 09:37 Dose: 100 mg - Labs Labs: 09/29/18 04:20 09/29/18 04:20 - Constitutional Appears: No Acute Distress - Eye Exam Eye Exam: EOMI - ENT Exam ENT Exam: Mucous Membranes Moist - Respiratory Exam Respiratory Exam: Decreased Breath Sounds, Clear to Ausculation Bilateral. absent: Accessory Muscle Use - Cardiovascular Exam Cardiovascular Exam: Tachycardia, Irregular Rhythm, +S1, +S2 - GI/Abdominal Exam GI & Abdominal Exam: Soft, Normal Bowel Sounds. absent: Tenderness - Extremities Exam Extremities Exam: Pedal Edema (mild) - Neurological Exam Neurological Exam: Alert, Awake, CN II-XII Intact - Psychiatric Exam Psychiatric exam: Normal Affect, Normal Mood Assessment and Plan (1) COPD exacerbation Status: Acute (2) Transaminitis Status: Acute (3) Pulmonary nodule seen on imaging study Status: Chronic - Assessment and Plan (Free Text) Assessment: 78 yo M with pmhx of bladder CA, HTN, COPD, LBBB admitted for Respiratory distress 2/2 COPD exacerbation experienced Afib with RVR. Plan: Labs and imaging reviewed Pt currently on NC at 3 L saturating at 97 %. Intermittent congestive cough Not in acute respiratory distress. Tachycardia Procalcitonin 2.1 s/p taper of steroid, levalbuteral and ipratropium d/c ipratopium today c/w: Methylprednisolone 30 mg IVP qDaily; xopenex RQ8 prn Per cardiology: to start Digoxin today f/u CXR Case and plan d/w Dr. Kimberli Mckenzie MD PGY-2
[2018-09-29 12:33] LABS: FOLATE 13.2 ng/mL
--- NOTE | 2018-09-29 15:26 | CP.CCUPN ---
CCU Subjective - Physician Review Subjective (Free Text): Still with rapid heat rate in A Fib on low dose Amiodarone drip, denies any dizziness, palpitations, nausea, chest discomfort, SOB at bed rest, prefers sitting up forward in bed. Other vitals and I/O's reviewed. Afebrile, SBP 130s, HR 130-140, RR 23, fluid balance +2.0 L last 24H. ROS: No other pertinent negs or positives on 10+ system review: unobtainable 2 coma PMSFH: All other Nursing and physician documentation reviewed to date; no new pertinent info noted relevant to current medical problems. EXAM- HEENT: no icterus, no gaze preference NECK: No JVD visible, supple, carotids equal upstroke bilat/no bruit CHEST: decreased BS at the bases, no wheezes audible HEART: regular, distant, S1S2, no rubs or murmurs noted ABD: softly and nontender, no guarding, no organomegaly, BS hypoactive. EXT: no LE edema, no calf tenderness or palpable cords, distal pulses intact and symmetrical. NEURO: no gross focal motor deficits SKIN: no rashes, warm and dry LABS: WBC= 12.6 HGB= 13.0 PLTs= 206K Na= 129 K= 5.3 CL=94 HCO3= 26 BUN/Cr= 23/0.8 BS= 155 CXR: more changes in prominence of R peripheral mid lung field interstitial changes (my interp). IMPRESSION / MAJOR PROBLEMS NOW: 1. Acute Resp Insuff, r/o CHF- DDysfx, Pneumonia 2. A Fib with RVR / A Flutter with variable block 3. Hyponatremia; etiology unclear, r/o SIADH 4. Hypertransaminasemia with elevated Alk Phos, r/o Cholecystitis PLAN: 1. Will stop Amiodarone as Cardio has started Digoxin, to avoid any [id number] interactions. 2. Cardioselective beta xiomara resumed yesterday. 3. Inconsistent US Abd and CTAP results noted regarding biliary tree along with elevated GGT and Alk Phos. Consider GI eval. 4. Samsca started by Nephro, Serum Na slowly improving. 5. Stable for transfer to [facility] bed.
--- NOTE | 2018-09-29 16:44 | CT ---
Date of service: 09/29/2018 PROCEDURE: CT Chest without contrast HISTORY: RLL infiltrate COMPARISON: None available. TECHNIQUE: Contiguous axial images were obtained through the chest without intravenous contrast enhancement. Sagittal and coronal reconstructions were performed. Radiation dose: Total exam DLP = 373.09 mGy-cm. This CT exam was performed using one or more of the following dose reduction techniques: Automated exposure control, adjustment of the mA and/or kV according to patient size, and/or use of iterative reconstruction technique. FINDINGS: LUNGS: Centrilobular and panlobular emphysematous changes upper lobe predominance.. Minor biapical pleural thickening and adjacent parenchymal scarring changes are present.. Prominent approximately 13 mm calcified granuloma abutting the pleural surface lateral aspect left posterior sulcus along the posterolateral convexity. Several new small nodular opacities are seen in the left lower lobe of possibly representing areas of pneumonitis or developing infiltrates. Patchy nodular/ground-glass opacities are seen in the right lower lobe, middle and lower lobes. Rule out pneumonitis and or developing infiltrates MEDIASTINUM: Heart is enlarged. No significant pericardial effusion. Unremarkable thoracic aorta ascending thoracic aorta measures approximately 3 point 7 cm and descending thoracic aorta measures approximately 2.9 cm. Mild to moderate aortic calcified atherosclerotic plaque. Pulmonary trunk measures approximately 4.0 cm; rule out underlying pulmonary arterial hypertension. There are multiple small nonspecific mediastinal lymph nodes none of which appear pathologically enlarged. Trachea midline and patent with no large central endoluminal lesions. PLEURA: Mild biapical pleural thickening as above no pleural fluid. No pneumothorax. BONES: Old healed fracture deformity left posterolateral 11th rib UPPER ABDOMEN: Again noted is a cyst seen within the anterior cortex upper/midpole right kidney extending into the parapelvic region more inferiorly. OTHER FINDINGS: None. IMPRESSION: Centrilobular and panlobular emphysematous changes upper lobe predominance.. Minor biapical pleural thickening and adjacent parenchymal scarring changes are present.. Prominent approximately 13 mm calcified granuloma abutting the pleural surface lateral aspect left posterior sulcus along the posterolateral convexity. Several new small nodular opacities are seen in the left lower lobe of possibly representing areas of pneumonitis or developing infiltrates. Patchy nodular/ground-glass opacities are seen in the right lower lobe, middle and lower lobes. Rule out pneumonitis and or developing infiltrates Marked cardiomegaly. Calcified granuloma left lung base unchanged.
--- NOTE | 2018-09-29 20:08 | CP.PCM.PN ---
Subjective - Date & Time of Evaluation Date of Evaluation: 09/29/18 Time of Evaluation: 12:00 - Subjective Subjective: Patient reporting breathing improved; had some vomiting yesterday, currently resolved; Objective - Vital Signs/Intake and Output Vital Signs (last 24 hours): Temp Pulse Resp BP Pulse Ox 97.4 F L 116 H 21 135/90 96 09/29/18 16:00 09/29/18 19:00 09/29/18 19:00 09/29/18 19:00 09/29/18 19:00 Intake and Output: 09/29/18 09/30/18 18:59 06:59 Intake Total 473 Output Total 1190 Balance -717 - Medications Medications: Current Medications Calcium Carbonate (Oscal) 500 mg PO DAILY [facility] Last Admin: 09/29/18 09:36 Dose: 500 mg Chlordiazepoxide (Librium) 25 mg PO Q8H [facility] Last Admin: 09/29/18 13:56 Dose: 25 mg Enoxaparin Sodium (Lovenox) 40 mg SC DAILY [facility]; Protocol Last Admin: 09/29/18 09:33 Dose: 40 mg Folic Acid (Folic Acid) 1 mg PO DAILY [facility] Guaifenesin (Mucinex La) 600 mg PO Q12 [facility] Last Admin: 09/29/18 09:34 Dose: 600 mg Levalbuterol HCl (Xopenex) 0.63 mg INH RQ8 PRN PRN Reason: Shortness of Breath Methylprednisolone (Solu-Medrol) 30 mg IVP DAILY [facility] Metoprolol Tartrate (Lopressor) 50 mg PO Q12 [facility] Last Admin: 09/29/18 09:32 Dose: 50 mg Multivitamins/Vitamin C (Multi-Delyn Liquid) 15 ml PO DAILY [facility] Last Admin: 09/29/18 09:34 Dose: 15 ml Nicotine (Nicoderm Cq) 1 patch TD DAILY [facility] Last Admin: 09/29/18 09:35 Dose: 1 patch Ondansetron HCl (Zofran Inj) 4 mg IVP Q6 PRN PRN Reason: Nausea/Vomiting Last Admin: 09/28/18 17:51 Dose: 4 mg Thiamine HCl (Vitamin B1 Tab) 100 mg PO DAILY [facility] - Labs Labs: 09/29/18 04:20 09/29/18 04:20 - Constitutional Appears: Non-toxic, No Acute Distress - Eye Exam Eye Exam: Normal appearance - Respiratory Exam Respiratory Exam: Clear to Ausculation Bilateral. absent: Respiratory Distress - Cardiovascular Exam Cardiovascular Exam: Irregular Rhythm. absent: Gallop, Rubs - GI/Abdominal Exam GI & Abdominal Exam: Soft. absent: Distended, Tenderness - Extremities Exam Additional comments: 2+ bilateral lower leg edema - Neurological Exam Neurological Exam: Alert, Awake - Psychiatric Exam Psychiatric exam: Normal Mood. absent: Agitated - Skin Skin Exam: Warm. absent: Cyanosis Assessment and Plan (1) Hyponatremia Assessment & Plan: Improved after dose of tolvaptan yesterday; still awaiting echo results to assess for CHF/pulm htn with patient having increased bilateral lower ext edema in the setting of afib w/ RVR; -continue PO fluid restriction <1500 cc/day -will benefit from [facility] diure[facility] (will help reduce urinary concentrating ability and decrease risk for hyponatremia); -avoid NSAIDS for pain; Status: Acute
--- NOTE | 2018-09-29 20:32 | CARD ---
APPROVED REPORT Date of service: 09/29/2018 EXAM: Two-dimensional and M-mode echocardiogram with Doppler and color Doppler. Other Information Quality : AverageRhythm : NSR INDICATION Congestive Heart Failure 2D DIMENSIONS IVSd1.34 (0.7-1.1cm)LVDd7.00 (3.9-5.9cm) PWd1.02 (0.7-1.1cm)IVSs1.31 (0.8-1.2cm) LVDs6.61 (2.5-4.0cm)FS (%) 5.6 % PWs1.26 (0.8-1.2cm) Mitral Valve E/A ratio0.0 TDI E/Lateral E'0.0E/Medial E'0.0 Tricuspid Valve TR Peak [id number] [id number] Peak Gr.37mmHg [id number] LEFT VENTRICLE The Left Ventricle is severely dilated. There is normal left ventricular wall thickness. The systolic function is severely impaired. The estimated ejection fraction is 15-20% There is global hypokinesis of the left ventricle. The left ventricular diastolic function cannot be assessed due to underlying atrial fibrillation. No left ventricle thrombus noted on this study. There is no ventricular septal defect visualized. There is no left ventricular aneurysm. There is no mass noted in the left ventricle. RIGHT VENTRICLE The right ventricle is normal size. There is normal right ventricular wall thickness. RV Systolic function is mildly reduced. ATRIA The left atrium is moderately dilated. The right atrium size is normal. The interatrial septum is intact with no evidence for an atrial septal defect. AORTIC VALVE The aortic valve is normal in structure. No aortic regurgitation is present. There is no aortic valvular stenosis. There is no aortic valvular vegetation. MITRAL VALVE The mitral valve is normal in structure. There is no evidence of mitral valve prolapse. There is no mitral valve stenosis. There is mild to moderate mitral valve regurgitation noted. TRICUSPID VALVE The tricuspid valve is normal in structure. There is moderate tricuspid valve regurgitation noted. RVSP is calculated at 46 mm Hg. There is no tricuspid valve prolapse or vegetation. There is no tricuspid valve stenosis. PULMONIC VALVE The pulmonary valve is normal in structure. There is no pulmonic valvular regurgitation. There is no pulmonic valvular stenosis. GREAT VESSELS The aortic root is normal in size. The ascending aorta is normal in size. The pulmonary artery is normal. The IVC is dilated in size and collapses >50% with inspiration. PERICARDIAL EFFUSION There is no pericardial effusion. There is no pleural effusion. <Conclusion> The Left Ventricle is severely dilated. The systolic function is severely impaired. The estimated ejection fraction is 15-20% The left ventricular diastolic function cannot be assessed due to underlying atrial fibrillation. RV Systolic function is mildly reduced. The left atrium is moderately dilated. There is mild to moderate mitral valve regurgitation noted. There is moderate tricuspid valve regurgitation noted. RVSP is calculated at 46 mm Hg. The IVC is dilated in size and collapses >50% with inspiration.
[2018-09-30 02:02] LABS: ABG ALLEN TEST YES; ARTERIAL BLOOD GAS HCO3 26.3 mmol/L (21-28); ARTERIAL BLOOD GAS HEMOGLOBIN 13.2 g/dL (11.7-17.4); ARTERIAL BLOOD GAS O2 CAPACITY 17.9 mL/dL (16-24); ARTERIAL BLOOD GAS O2 CONTENT 16.9 ML/dL (15-23); ARTERIAL BLOOD GAS O2 SAT 94.3 % (95-98); ARTERIAL BLOOD GAS PCO2 44 mm/Hg (35-45); ARTERIAL BLOOD GAS PO2 63 mm/Hg (80-100); ARTERIAL BLOOD GAS TCO2 28.7 mmol/L (22-28)
[2018-09-30 05:46] LABS: HEMOGLOBIN 13.3 g/dL (12.0-18.0); MEAN CELL VOLUME 104.5 fl (80.0-94.0); MEAN CORPUSCULAR HEMOGLOBIN 35.1 pg (27.0-31.0); MEAN CORPUSCULAR HGB CONC 33.5 g/dL (33.0-37.0); RBC 3.79 Mil/uL (4.40-5.90); WHITE BLOOD COUNT 11.1 K/uL (4.8-10.8)
[2018-09-30 05:53] LABS: BLOOD UREA NITROGEN 25 mg/dl (9-20); CALCIUM 8.6 mg/dL (8.4-10.2); GFR NON-AFRICAN AMERICAN > 60
[2018-09-30] MEDS ORDERED: Levalbuterol 1.25 MG/3 ML Inhal Soln UD INH STA (06:34)
--- NOTE | 2018-09-30 08:26 | CP.PCM.PN ---
Subjective - Date & Time of Evaluation Date of Evaluation: 09/30/18 Time of Evaluation: 08:26 - Subjective Subjective: Seen on morning rounds in the ICU. Seated upright in bed eating breakfast. Congested, non-productive cough noted. On nasal oxygen at 3 LPM with SpO2 92% presently. Appears slightly confused, not agitated, cooperative. He has remained afebrile and w/o leukocytosis. CT chest done yesterday did show multiple areas of GGO in both lungs and 2 or 3 solid nodules (<1cm) as well. Had responded to digitalis with slowing of the heart rate yesterday, but it was > 100 again this morning. Echocardiogam showed mitral and tricuspid regurgitation, severely impaired LV systolic function with reduced LVEF and mild pulmonary hypertension. Dependant edema + in both legs, no cyanosis. Neck is supple and trachea midline. No dullness on chest percussion, no subcut emphysema. Breath sounds are very diminished bilaterally with scattered sonorous rhonchi. Few dry rales are present in lower lobes bilaterally. No audible wheezes are hear but the expiratory phase is slightly prolonged. Heart sounds are very distant and tachycardic. Would start simple oral antibiotic for these GGOs and plan repeat CT (high def) for later (2-3 months). So far it appears to be okay without using beta agonist or muscarinic agent via nebulizer. Oxygen raised to 4 LPM nasal canula. Levalbuterol remains PRN. Objective - Vital Signs/Intake and Output Vital Signs (last 24 hours): Temp Pulse Resp BP Pulse Ox 98.5 F 124 H 22 141/87 95 09/30/18 04:00 09/30/18 06:00 09/30/18 06:00 09/30/18 06:00 09/30/18 06:00 Intake and Output: 09/29/18 09/30/18 23:59 11:59 Intake Total 120 50 Output Total 790 Balance -670 50 - Medications Medications: Current Medications Calcium Carbonate (Oscal) 500 mg PO DAILY [facility] Last Admin: 09/29/18 09:36 Dose: 500 mg Chlordiazepoxide (Librium) 25 mg PO Q8H [facility] Last Admin: 09/30/18 05:50 Dose: Not Given Enoxaparin Sodium (Lovenox) 40 mg SC DAILY [facility]; Protocol Last Admin: 09/29/18 09:33 Dose: 40 mg Folic Acid (Folic Acid) 1 mg PO DAILY [facility] Guaifenesin (Mucinex La) 600 mg PO Q12 [facility] Last Admin: 09/29/18 20:52 Dose: 600 mg Levalbuterol HCl (Xopenex) 0.63 mg INH RQ8 PRN PRN Reason: Shortness of Breath Methylprednisolone (Solu-Medrol) 30 mg IVP DAILY [facility] Metoprolol Tartrate (Lopressor) 50 mg PO Q12 [facility] Last Admin: 09/29/18 20:51 Dose: 50 mg Multivitamins/Vitamin C (Multi-Delyn Liquid) 15 ml PO DAILY [facility] Last Admin: 09/29/18 09:34 Dose: 15 ml Nicotine (Nicoderm Cq) 1 patch TD DAILY [facility] Last Admin: 09/29/18 09:35 Dose: 1 patch Ondansetron HCl (Zofran Inj) 4 mg IVP Q6 PRN PRN Reason: Nausea/Vomiting Last Admin: 09/28/18 17:51 Dose: 4 mg Thiamine HCl (Vitamin B1 Tab) 100 mg PO DAILY [facility] - Labs Labs: 09/30/18 04:45 09/30/18 04:45 Assessment and Plan (1) COPD exacerbation Status: Acute (2) Pulmonary nodule seen on imaging study Status: Chronic (3) Transaminitis Status: Acute
[2018-09-30] MEDS ORDERED: guaiFENesin 600 mg ER Tab PO PRN (08:42)
[2018-09-30] MEDS: MethylPREDNISolone 40 mg Vial IVP SCH (08:53)
[2018-09-30] MEDS: Multi Vitamins 15 mL UD Oral Solution PO SCH (08:54)
[2018-09-30] MEDS: Enoxaparin 40 mg Syringe SC SCH (08:54)
[2018-09-30] MEDS: Digoxin 250 mcg (0.25 mg) Tab PO SCH (12:27)
--- NOTE | 2018-09-30 19:58 | CP.PCM.PN ---
Subjective - Date & Time of Evaluation Date of Evaluation: 09/30/18 Time of Evaluation: 15:00 - Subjective Subjective: Patient still with shortness of breath, tolerating diet; Objective - Vital Signs/Intake and Output Vital Signs (last 24 hours): Temp Pulse Resp BP Pulse Ox 97.3 F L 135 H 23 99/77 L 89 L 09/30/18 16:00 09/30/18 18:00 09/30/18 18:00 09/30/18 18:00 09/30/18 14:00 Intake and Output: 09/30/18 10/01/18 18:59 06:59 Output Total 300 Balance -300 - Medications Medications: Current Medications Calcium Carbonate (Oscal) 500 mg PO DAILY [facility] Last Admin: 09/30/18 08:45 Dose: 500 mg Cefdinir (Omnicef) 300 mg PO BID [facility] Chlordiazepoxide (Librium) 25 mg PO Q8H [facility] Last Admin: 09/30/18 05:50 Dose: Not Given Digoxin (Lanoxin) 0.25 mg PO DAILY [facility] Last Admin: 09/30/18 12:27 Dose: 0.25 mg Enoxaparin Sodium (Lovenox) 40 mg SC DAILY [facility]; Protocol Folic Acid (Folic Acid) 1 mg PO DAILY [facility] Last Admin: 09/30/18 08:45 Dose: 1 mg Guaifenesin (Mucinex La) 600 mg PO Q12 PRN PRN Reason: Cough Levalbuterol HCl (Xopenex) 0.63 mg INH RQ8 PRN PRN Reason: Shortness of Breath Methylprednisolone (Solu-Medrol) 30 mg IVP DAILY [facility] Last Admin: 09/30/18 08:53 Dose: 30 mg Metoprolol Tartrate (Lopressor) 50 mg PO Q12 [facility] Last Admin: 09/30/18 08:53 Dose: 50 mg Multivitamins/Vitamin C (Multi-Delyn Liquid) 15 ml PO DAILY [facility] Last Admin: 09/30/18 08:54 Dose: 15 ml Nicotine (Nicoderm Cq) 1 patch TD DAILY [facility] Last Admin: 09/30/18 08:54 Dose: 1 patch Ondansetron HCl (Zofran Inj) 4 mg IVP Q6 PRN PRN Reason: Nausea/Vomiting Last Admin: 09/28/18 17:51 Dose: 4 mg Thiamine HCl (Vitamin B1 Tab) 100 mg PO DAILY [facility] Last Admin: 09/30/18 08:45 Dose: 100 mg - Labs Labs: 09/30/18 04:45 09/30/18 04:45 - Constitutional Appears: Non-toxic, No Acute Distress - Eye Exam Eye Exam: Normal appearance - Respiratory Exam Additional comments: mild basal rales; - Cardiovascular Exam Cardiovascular Exam: Tachycardia, Irregular Rhythm - GI/Abdominal Exam GI & Abdominal Exam: Soft. absent: Distended, Tenderness - Extremities Exam Additional comments: moderate b/l lower leg edema - Neurological Exam Neurological Exam: Alert, Awake - Psychiatric Exam Psychiatric exam: Normal Mood. absent: Agitated - Skin Skin Exam: Warm. absent: Cyanosis Assessment and Plan (1) Hyponatremia Assessment & Plan: Hyponatremia improved; severe systolic dysfunction may also have been contributory; cannot rule out SIADH; will give dose of lasix 20 mg IVP to help decrease urinary concentrating ability; -continue 1500 cc PO daily fluid restriction; -will put on standing PO lasix 20 mg daily; can adjust as needed for CHF; Status: Acute (2) CHF (congestive heart failure) Status: Acute
[2018-10-01 05:10] LABS: HEMOGLOBIN 14.1 g/dL (12.0-18.0); MEAN CELL VOLUME 103.3 fl (80.0-94.0); MEAN CORPUSCULAR HEMOGLOBIN 35.3 pg (27.0-31.0); MEAN CORPUSCULAR HGB CONC 34.1 g/dL (33.0-37.0); RED CELL DISTRIBUTION WIDTH 13.9 % (11.5-14.5); WHITE BLOOD COUNT 8.6 K/uL (4.8-10.8)
[2018-10-01 05:37] LABS: ALBUMIN 3.2 g/dL (3.5-5.0); ALT/SGPT 117 U/L (21-72); AST/SGOT 81 U/L (17-59); BLOOD UREA NITROGEN 29 mg/dl (9-20); CALCIUM 8.2 mg/dL (8.4-10.2); GFR NON-AFRICAN AMERICAN > 60
[2018-10-01] MEDS: Digoxin 250 mcg (0.25 mg) Tab PO SCH (06:37)
--- NOTE | 2018-10-01 07:51 | CP.CCUPN ---
CCU Subjective - Physician Review Events Since Last Encounter (Free Text): Patient awake, no distress, on O2 supplement by nasal canula, no fever, no vomiting, no pressors, events reviewed CCU Objective - Vital Signs / Intake & Output Vital Signs (Last 4 hours): Vital Signs Temp Pulse Resp BP Pulse Ox 10/01/18 06:00 157 H 15 106/67 96 10/01/18 04:00 97.3 F L 114 H 18 96/76 L 96 Intake and Output (Last 8hrs): Intake & Output 09/30/18 10/01/18 10/01/18 22:59 06:59 14:59 Intake Total 10 60 Output Total 500 Balance -490 60 Intake: IV 10 Oral 60 Output: Urine 500 Urine, Voided 500 Other: # Voids Urine, Voided 1 1 # Bowel Movements 1 1 - Physical Exam Head: Positive for: Atraumatic, Normocephalic Pupils: Positive for: PERRL Conjunctiva: Positive for: Normal Mouth: Positive for: Moist Mucous Membranes Nose (External): Positive for: Atraumatic Neck: Positive for: Normal Range of Motion Respiratory/Chest: Positive for: Rhonchi Cardiovascular: Positive for: Irregular Rhythm Abdomen: Positive for: Normal Bowel Sounds Upper Extremity: Positive for: Normal Inspection Lower Extremity: Positive for: Normal Inspection Neurological: Positive for: Speech Normal Skin: Positive for: Normal Color Psychiatric: Positive for: Alert - Medications Active Medications: Active Medications Generic Name Dose Route Start Last Admin Trade Name Freq PRN Reason Stop Dose Admin Calcium Carbonate 500 mg 09/27/18 12:15 09/30/18 08:45 Oscal PO 500 mg DAILY [facility] Administration Cefdinir 300 mg 09/30/18 17:00 Omnicef PO BID [facility] Chlordiazepoxide 25 mg 09/28/18 05:00 09/30/18 05:50 Librium PO Not Given Q8H [facility] Digoxin 0.25 mg 09/30/18 10:30 10/01/18 06:37 Lanoxin PO 0.25 mg DAILY [facility] Administration Enoxaparin Sodium 40 mg 10/01/18 09:00 Lovenox SC DAILY [facility] Protocol Folic Acid 1 mg 09/30/18 09:00 09/30/18 08:45 Folic Acid PO 1 mg DAILY [facility] Administration Guaifenesin 600 mg 09/30/18 08:42 Mucinex La PO Q12 PRN Cough Levalbuterol HCl 0.63 mg 09/28/18 08:51 Xopenex INH RQ8 PRN Shortness of Breath Methylprednisolone 30 mg 09/30/18 09:00 09/30/18 08:53 Solu-Medrol IVP 30 mg DAILY [facility] Administration Metoprolol Tartrate 50 mg 09/29/18 09:00 09/30/18 20:33 Lopressor PO 50 mg Q12 [facility] Administration Multivitamins/Vitamin C 15 ml 09/27/18 10:15 09/30/18 08:54 Multi-Delyn Liquid PO 15 ml DAILY [facility] Administration Nicotine 1 patch 09/27/18 10:00 09/30/18 08:54 Nicoderm Cq TD 1 patch DAILY [facility] Administration Ondansetron HCl 4 mg 09/28/18 17:41 09/28/18 17:51 Zofran Inj IVP 4 mg Q6 PRN Administration Nausea/Vomiting Thiamine HCl 100 mg 09/30/18 09:00 09/30/18 08:45 Vitamin B1 Tab PO 100 mg DAILY [facility] Administration - Patient Studies Lab Studies: Microbiology Studies 09/27/18 03:51 Blood Culture - Preliminary Blood-Venous NO GROWTH AFTER 4 DAYS 09/27/18 03:21 Blood Culture - Preliminary Blood-Venous NO GROWTH AFTER 4 DAYS Lab Studies 10/01/18 10/01/18 Range/Units 04:45 04:45 WBC 8.6 (4.8-10.8) K/uL RBC 4.00 L (4.40-5.90) Mil/uL Hgb 14.1 (12.0-18.0) g/dL Hct 41.3 (35.0-51.0) % MCV 103.3 H (80.0-94.0) fl MCH 35.3 H (27.0-31.0) pg MCHC 34.1 (33.0-37.0) g/dL RDW 13.9 (11.5-14.5) % Plt Count 224 (130-400) K/uL Sodium 132 (132-148) mmol/l Potassium 4.9 (3.6-5.0) MMOL/L Chloride 99 (98-107) mmol/L Carbon Dioxide 26 (22-30) mmol/L Anion Gap 12 (10-20) BUN 29 H (9-20) mg/dl Creatinine 0.7 L (0.8-1.5) mg/dl Est GFR ( Amer) > 60 Est GFR (Non-Af Amer) > 60 Random Glucose 113 H (75-110) mg/dL Calcium 8.2 L (8.4-10.2) mg/dL Total Bilirubin 0.7 (0.2-1.3) mg/dl AST 81 H D (17-59) U/L ALT 117 H D (21-72) U/L Alkaline Phosphatase 125 (38-126) U/L Total Protein 6.5 (6.3-8.2) G/DL Albumin 3.2 L (3.5-5.0) g/dL Globulin 3.3 (2.2-3.9) gm/dL Albumin/Globulin Ratio 1.0 (1.0-2.1) Laboratory Results - last 24 hr 10/01/18 10/01/18 04:45 04:45 WBC 8.6 RBC 4.00 L Hgb 14.1 Hct 41.3 MCV 103.3 H MCH 35.3 H MCHC 34.1 RDW 13.9 Plt Count 224 Sodium 132 Potassium 4.9 Chloride 99 Carbon Dioxide 26 Anion Gap 12 BUN 29 H Creatinine 0.7 L Est GFR ( Amer) > 60 Est GFR (Non-Af Amer) > 60 Random Glucose 113 H Calcium 8.2 L Total Bilirubin 0.7 AST 81 H D ALT 117 H D Alkaline Phosphatase 125 Total Protein 6.5 Albumin 3.2 L Globulin 3.3 Albumin/Globulin Ratio 1.0 Critical Care Progress Note - Nutrition Nutrition: Nutrition Category Date Time Status Heart Healthy Diet [DIET] Diets 09/27/18 Breakfast Active Assessment/Plan - Assessment and Plan (Free Text) Assessment: A/P Respiratory insufficiency, CHF, A Fib, COPD, ?pneumonia, pulmonary nodules, transaminitis - O2 supplement - Continue meds - Pulmonary toilets - Heart rate control - Pulmonary follow up
[2018-10-01] MEDS: Cefdinir 300 MG CAP PO SCH ×2 (08:50→18:19)
[2018-10-01] MEDS: MethylPREDNISolone 40 mg Vial IVP SCH (08:50)
[2018-10-01] MEDS: Multi Vitamins 15 mL UD Oral Solution PO SCH (08:52)
[2018-10-01] MEDS ORDERED: Enoxaparin 40 mg Syringe SC SCH (09:00)
--- NOTE | 2018-10-01 12:40 | CP.PCM.PN ---
Subjective - Date & Time of Evaluation Date of Evaluation: 10/01/18 Time of Evaluation: 12:36 - Subjective Subjective: Seen on rounds in the intensive care unit. Seated on the edge of his bed, leaning on his bedside table. He is awake and alert, cooperative. Complains that he does feel mildly dyspneic since aerosol therapy has been discontinued. His heart rate continues to be high at 140 this morning. He does not complain of cough, but occasionally has a congested sounding cough. No sputum has been expectorated. SpO2 has remained good, but there was one low of 89% reported yesterday. Hemoglobin remains good, slight leukocytosis has resolved. Transaminitis continues to decrease without treatment. Dependant edema + bilaterally, no cyanosis, warm extremities. Pharynx pink, tongue is coated. Neck is supple and trachea is midline. No dullness on chest percussion, equal expansion. Breath sounds are very distant with few basilar dry rales. No audible wheezes, few sonorous rhonchi. Heart sounds are distant and tachy. COPD will need some aerosol treatment at this time. Discussed with cardiology. Continue oral antibiotic therapy. O2 via standard nasal canula is adequate. Objective - Vital Signs/Intake and Output Vital Signs (last 24 hours): Temp Pulse Resp BP Pulse Ox 98.0 F 146 H 22 122/76 98 10/01/18 12:00 10/01/18 12:27 10/01/18 12:00 10/01/18 12:27 10/01/18 12:00 Intake and Output: 10/01/18 10/01/18 11:59 23:59 Intake Total 60 Balance 60 - Medications Medications: Current Medications Calcium Carbonate (Oscal) 500 mg PO DAILY [facility] Last Admin: 10/01/18 08:52 Dose: 500 mg Cefdinir (Omnicef) 300 mg PO BID [facility] Last Admin: 10/01/18 08:50 Dose: 300 mg Chlordiazepoxide (Librium) 25 mg PO Q8H [facility] Last Admin: 09/30/18 05:50 Dose: Not Given Digoxin (Lanoxin) 0.25 mg PO DAILY [facility] Last Admin: 10/01/18 06:37 Dose: 0.25 mg Enoxaparin Sodium (Lovenox) 40 mg SC DAILY [facility]; Protocol Last Admin: 10/01/18 08:51 Dose: 40 mg Folic Acid (Folic Acid) 1 mg PO DAILY [facility] Last Admin: 10/01/18 08:50 Dose: 1 mg Furosemide (Lasix) 20 mg PO DAILY [facility] Guaifenesin (Mucinex La) 600 mg PO Q12 PRN PRN Reason: Cough Levalbuterol HCl (Xopenex) 0.63 mg INH RQ8 PRN PRN Reason: Shortness of Breath Methylprednisolone (Solu-Medrol) 30 mg IVP DAILY [facility] Last Admin: 10/01/18 08:50 Dose: 30 mg Metoprolol Tartrate (Lopressor) 50 mg PO Q12 [facility] Last Admin: 10/01/18 12:27 Dose: 50 mg Multivitamins/Vitamin C (Multi-Delyn Liquid) 15 ml PO DAILY [facility] Last Admin: 10/01/18 08:52 Dose: 15 ml Nicotine (Nicoderm Cq) 1 patch TD DAILY [facility] Last Admin: 10/01/18 08:51 Dose: 1 patch Ondansetron HCl (Zofran Inj) 4 mg IVP Q6 PRN PRN Reason: Nausea/Vomiting Last Admin: 09/28/18 17:51 Dose: 4 mg Thiamine HCl (Vitamin B1 Tab) 100 mg PO DAILY [facility] Last Admin: 10/01/18 08:51 Dose: 100 mg - Labs Labs: 10/01/18 04:45 10/01/18 04:45 Assessment and Plan (1) COPD exacerbation Status: Acute (2) Pulmonary nodule seen on imaging study Status: Chronic (3) Transaminitis Status: Acute
[2018-10-01] MEDS ORDERED: Digoxin 500 mcg/2ml (0.5 mg/2ml) Inj IVP ONE ×2 (12:52→19:53)
--- NOTE | 2018-10-01 13:08 | CP.PCM.PN ---
Subjective - Date & Time of Evaluation Date of Evaluation: 10/01/18 Time of Evaluation: 13:00 - Subjective Subjective: Pt found sitting up eating his lunch Moderately dyspnoic (resp rate 18-20 BPM), can converse Continues to be in A Fib (at 130-140 BPM) Started on Dig yesterday (GFR.60ml/Min) BP 124/70 mm Hg JVP mildly elevated, mild pitting oedema over feet+ Insp effort poor with rales+ S3 gallop+ Will digitalise to control HR Will fully anticoagulate with lovenox F/U CPM requested Discusseed with Dr. Ag (Have D/Neftaly metoprolol in light of profound COPD) Objective - Vital Signs/Intake and Output Vital Signs (last 24 hours): Temp Pulse Resp BP Pulse Ox 98.0 F 146 H 22 122/76 98 10/01/18 12:00 10/01/18 12:27 10/01/18 12:00 10/01/18 12:27 10/01/18 12:00 Intake and Output: 10/01/18 10/01/18 06:59 18:59 Intake Total 70 Output Total 200 Balance -130 - Medications Medications: Current Medications Calcium Carbonate (Oscal) 500 mg PO DAILY [facility] Last Admin: 10/01/18 08:52 Dose: 500 mg Cefdinir (Omnicef) 300 mg PO BID [facility] Last Admin: 10/01/18 08:50 Dose: 300 mg Chlordiazepoxide (Librium) 25 mg PO Q8H [facility] Last Admin: 09/30/18 05:50 Dose: Not Given Enoxaparin Sodium (Lovenox) 70 mg SC Q12 [facility]; Protocol Folic Acid (Folic Acid) 1 mg PO DAILY [facility] Last Admin: 10/01/18 08:50 Dose: 1 mg Furosemide (Lasix) 20 mg PO DAILY [facility] Guaifenesin (Mucinex La) 600 mg PO Q12 PRN PRN Reason: Cough Ipratropium [place] (Atrovent) 0.5 mg IH RQID [facility] Levalbuterol HCl (Xopenex) 0.63 mg INH RQ8 PRN PRN Reason: Shortness of Breath Methylprednisolone (Medrol) 16 mg PO DAILY [facility] Metoprolol Tartrate (Lopressor) 50 mg PO Q12 [facility] Last Admin: 10/01/18 12:27 Dose: 50 mg Multivitamins/Vitamin C (Multi-Delyn Liquid) 15 ml PO DAILY [facility] Last Admin: 10/01/18 08:52 Dose: 15 ml Nicotine (Nicoderm Cq) 1 patch TD DAILY [facility] Last Admin: 10/01/18 08:51 Dose: 1 patch Ondansetron HCl (Zofran Inj) 4 mg IVP Q6 PRN PRN Reason: Nausea/Vomiting Last Admin: 09/28/18 17:51 Dose: 4 mg Thiamine HCl (Vitamin B1 Tab) 100 mg PO DAILY [facility] Last Admin: 10/01/18 08:51 Dose: 100 mg - Labs Labs: 10/01/18 04:45 10/01/18 04:45
[2018-10-01] MEDS: Ipratropium 0.02% Inhal Soln (0.5 mg/2.5 ml) UD IH SCH ×2 (16:06→19:08)
[2018-10-01] MEDS: Enoxaparin 80 mg Syringe SC SCH ×2 (18:18→21:00)
--- NOTE | 2018-10-01 23:45 | CP.PCM.PN ---
Subjective - Date & Time of Evaluation Date of Evaluation: 10/01/18 Time of Evaluation: 12:00 - Subjective Subjective: Patient reports breathing improved, still on nasal cannula O2; still with RVR; tolerating diet; reports some diarrhea yesterday; Objective - Vital Signs/Intake and Output Vital Signs (last 24 hours): Temp Pulse Resp BP Pulse Ox 97.2 F L 106 H 15 122/72 99 10/01/18 20:00 10/01/18 22:00 10/01/18 22:00 10/01/18 22:00 10/01/18 22:00 Intake and Output: 10/01/18 10/02/18 18:59 06:59 Output Total 300 475 Balance -300 -475 - Medications Medications: Current Medications Calcium Carbonate (Oscal) 500 mg PO DAILY [facility] Last Admin: 10/01/18 08:52 Dose: 500 mg Cefdinir (Omnicef) 300 mg PO BID [facility] Last Admin: 10/01/18 18:19 Dose: 300 mg Chlordiazepoxide (Librium) 25 mg PO Q8H [facility] Last Admin: 09/30/18 05:50 Dose: Not Given Enoxaparin Sodium (Lovenox) 80 mg SC Q12 [facility]; Protocol Last Admin: 10/01/18 18:18 Dose: 80 mg Folic Acid (Folic Acid) 1 mg PO DAILY [facility] Last Admin: 10/01/18 08:50 Dose: 1 mg Furosemide (Lasix) 20 mg PO DAILY [facility] Last Admin: 10/01/18 18:10 Dose: 20 mg Guaifenesin (Mucinex La) 600 mg PO Q12 PRN PRN Reason: Cough Ipratropium [place] (Atrovent) 0.5 mg IH RQID [facility] Last Admin: 10/01/18 19:08 Dose: 0.5 mg Levalbuterol HCl (Xopenex) 0.63 mg INH RQ8 PRN PRN Reason: Shortness of Breath Methylprednisolone (Medrol) 16 mg PO DAILY [facility] Metoprolol Tartrate (Lopressor) 50 mg PO Q12 [facility] Last Admin: 10/01/18 21:42 Dose: 50 mg Multivitamins/Vitamin C (Multi-Delyn Liquid) 15 ml PO DAILY [facility] Last Admin: 10/01/18 08:52 Dose: 15 ml Nicotine (Nicoderm Cq) 1 patch TD DAILY [facility] Last Admin: 10/01/18 08:51 Dose: 1 patch Ondansetron HCl (Zofran Inj) 4 mg IVP Q6 PRN PRN Reason: Nausea/Vomiting Last Admin: 09/28/18 17:51 Dose: 4 mg Thiamine HCl (Vitamin B1 Tab) 100 mg PO DAILY [facility] Last Admin: 10/01/18 08:51 Dose: 100 mg - Labs Labs: 10/01/18 04:45 10/01/18 04:45 - Constitutional Appears: Non-toxic, No Acute Distress - Eye Exam Eye Exam: Normal appearance - Respiratory Exam Respiratory Exam: absent: Respiratory Distress Additional comments: minimal rales; - Cardiovascular Exam Cardiovascular Exam: Tachycardia, Irregular Rhythm. absent: Gallop, Rubs - GI/Abdominal Exam GI & Abdominal Exam: Soft. absent: Distended, Tenderness - Extremities Exam Additional comments: moderate lower leg edema b/l - Neurological Exam Neurological Exam: Alert, Awake - Psychiatric Exam Psychiatric exam: Normal Affect, Normal Mood. absent: Agitated - Skin Skin Exam: Warm. absent: Cyanosis Assessment and Plan (1) Hyponatremia Assessment & Plan: Improved but still persistent mild hyponatremia; appears volume replete by exam; -continue lasix 20 mg PO daily, can increase as needed for CHF; -continue 1500 cc PO daily fluid restriction; -optimizing CHF status may help hyponatremia as well; continue low Na diet; -if serum Na drops again, will re-dose tolvaptan; Status: Acute (2) CHF (congestive heart failure) Status: Acute
[2018-10-02 06:22] LABS: HEMOGLOBIN 14.6 g/dL (12.0-18.0); MEAN CELL VOLUME 104.4 fl (80.0-94.0); MEAN CORPUSCULAR HEMOGLOBIN 35.3 pg (27.0-31.0); MEAN CORPUSCULAR HGB CONC 33.8 g/dL (33.0-37.0); RBC 4.14 Mil/uL (4.40-5.90); RED CELL DISTRIBUTION WIDTH 14.1 % (11.5-14.5); WHITE BLOOD COUNT 7.7 K/uL (4.8-10.8)
[2018-10-02 06:38] LABS: ALBUMIN 3.2 g/dL (3.5-5.0); ALT/SGPT 137 U/L (21-72); AST/SGOT 73 U/L (17-59); BLOOD UREA NITROGEN 28 mg/dl (9-20); CALCIUM 8.6 mg/dL (8.4-10.2); GFR NON-AFRICAN AMERICAN > 60
--- NOTE | 2018-10-02 07:27 | CP.CCUPN ---
CCU Subjective - Physician Review Events Since Last Encounter (Free Text): Patient awake, no distress, on O2 supplement by nasal canula, no fever, no vomiting, no pressors, events reviewed CCU Objective - Vital Signs / Intake & Output Vital Signs (Last 4 hours): Vital Signs Temp Pulse Resp BP Pulse Ox 10/02/18 06:00 128 H 15 105/65 97 10/02/18 04:00 97.5 F L 91 H 15 106/85 95 Intake and Output (Last 8hrs): Intake & Output 10/01/18 10/02/18 10/02/18 22:59 06:59 14:59 Intake Total 120 Output Total 475 425 Balance -475 -305 Intake: Oral 120 Output: Urine 475 425 Urine, Voided 475 425 - Physical Exam Head: Positive for: Atraumatic, Normocephalic Pupils: Positive for: PERRL Conjunctiva: Positive for: Normal Mouth: Positive for: Moist Mucous Membranes Nose (External): Positive for: Atraumatic Neck: Positive for: Normal Range of Motion Respiratory/Chest: Positive for: Rhonchi Cardiovascular: Positive for: Irregular Rhythm Abdomen: Positive for: Normal Bowel Sounds Upper Extremity: Positive for: Normal Inspection Lower Extremity: Positive for: Normal Inspection Neurological: Positive for: Speech Normal Skin: Positive for: Normal Color Psychiatric: Positive for: Alert - Medications Active Medications: Active Medications Generic Name Dose Route Start Last Admin Trade Name Freq PRN Reason Stop Dose Admin Calcium Carbonate 500 mg 09/27/18 12:15 10/01/18 08:52 Oscal PO 500 mg DAILY [facility] Administration Cefdinir 300 mg 09/30/18 17:00 10/01/18 18:19 Omnicef PO 300 mg BID [facility] Administration Chlordiazepoxide 25 mg 09/28/18 05:00 09/30/18 05:50 Librium PO Not Given Q8H [facility] Enoxaparin Sodium 80 mg 10/01/18 13:00 10/01/18 21:00 Lovenox SC Not Given Q12 [facility] Protocol Folic Acid 1 mg 09/30/18 09:00 10/01/18 08:50 Folic Acid PO 1 mg DAILY [facility] Administration Furosemide 20 mg 10/01/18 09:00 10/01/18 18:10 Lasix PO 20 mg DAILY [facility] Administration Guaifenesin 600 mg 09/30/18 08:42 Mucinex La PO Q12 PRN Cough Ipratropium [place] 0.5 mg 10/01/18 16:00 10/01/18 19:08 Atrovent IH 0.5 mg RQID [facility] Administration Levalbuterol HCl 0.63 mg 09/28/18 08:51 Xopenex INH RQ8 PRN Shortness of Breath Methylprednisolone 16 mg 10/02/18 09:00 Medrol PO DAILY [facility] Metoprolol Tartrate 50 mg 09/29/18 09:00 10/01/18 21:42 Lopressor PO 50 mg Q12 [facility] Administration Multivitamins/Vitamin C 15 ml 09/27/18 10:15 10/01/18 08:52 Multi-Delyn Liquid PO 15 ml DAILY [facility] Administration Nicotine 1 patch 09/27/18 10:00 10/01/18 08:51 Nicoderm Cq TD 1 patch DAILY [facility] Administration Ondansetron HCl 4 mg 09/28/18 17:41 09/28/18 17:51 Zofran Inj IVP 4 mg Q6 PRN Administration Nausea/Vomiting Thiamine HCl 100 mg 09/30/18 09:00 10/01/18 08:51 Vitamin B1 Tab PO 100 mg DAILY [facility] Administration - Patient Studies Lab Studies: Microbiology Studies 09/27/18 03:51 Blood Culture - Final Blood-Venous NO GROWTH AFTER 5 DAYS Gram Stain - Final TEST NOT PERFORMED 09/27/18 03:21 Blood Culture - Final Blood-Venous NO GROWTH AFTER 5 DAYS Gram Stain - Final TEST NOT PERFORMED Lab Studies 10/02/18 10/02/18 Range/Units 05:30 05:30 WBC 7.7 (4.8-10.8) K/uL RBC 4.14 L (4.40-5.90) Mil/uL Hgb 14.6 (12.0-18.0) g/dL Hct 43.3 (35.0-51.0) % MCV 104.4 H (80.0-94.0) fl MCH 35.3 H (27.0-31.0) pg MCHC 33.8 (33.0-37.0) g/dL RDW 14.1 (11.5-14.5) % Plt Count 282 (130-400) K/uL Sodium 132 (132-148) mmol/l Potassium 4.4 (3.6-5.0) MMOL/L Chloride 92 L (98-107) mmol/L Carbon Dioxide 32 H (22-30) mmol/L Anion Gap 12 (10-20) BUN 28 H (9-20) mg/dl Creatinine 0.7 L (0.8-1.5) mg/dl Est GFR ( Amer) > 60 Est GFR (Non-Af Amer) > 60 Random Glucose 147 H (75-110) mg/dL Calcium 8.6 (8.4-10.2) mg/dL Total Bilirubin 0.4 (0.2-1.3) mg/dl AST 73 H (17-59) U/L ALT 137 H (21-72) U/L Alkaline Phosphatase 132 H (38-126) U/L Total Protein 6.6 (6.3-8.2) G/DL Albumin 3.2 L (3.5-5.0) g/dL Globulin 3.4 (2.2-3.9) gm/dL Albumin/Globulin Ratio 1.0 (1.0-2.1) Laboratory Results - last 24 hr 10/02/18 10/02/18 05:30 05:30 WBC 7.7 RBC 4.14 L Hgb 14.6 Hct 43.3 MCV 104.4 H MCH 35.3 H MCHC 33.8 RDW 14.1 Plt Count 282 Sodium 132 Potassium 4.4 Chloride 92 L Carbon Dioxide 32 H Anion Gap 12 BUN 28 H Creatinine 0.7 L Est GFR ( Amer) > 60 Est GFR (Non-Af Amer) > 60 Random Glucose 147 H Calcium 8.6 Total Bilirubin 0.4 AST 73 H ALT 137 H Alkaline Phosphatase 132 H Total Protein 6.6 Albumin 3.2 L Globulin 3.4 Albumin/Globulin Ratio 1.0 EKG/Cardiology Studies: Cardiology / EKG Studies 10/03/18 EKG [ELECTROCARDIOGRAM] Routine Comment: Mode Of Transportation: PORTABLE Reason For Exam: A Fib Critical Care Progress Note - Nutrition Nutrition: Nutrition Category Date Time Status Heart Healthy Diet [DIET] Diets 09/27/18 Breakfast Active Assessment/Plan - Assessment and Plan (Free Text) Assessment: A/P Respiratory insufficiency, CHF, A Fib, COPD, ?pneumonia, pulmonary nodules, transaminitis - O2 supplement - Continue meds - Pulmonary toilets - Heart rate control - Pulmonary follow up
[2018-10-02] MEDS: Ipratropium 0.02% Inhal Soln (0.5 mg/2.5 ml) UD IH SCH ×4 (07:54→19:14)
[2018-10-02] MEDS ORDERED: Digoxin 500 mcg/2ml (0.5 mg/2ml) Inj IVP ONE ×4 (08:45→19:53)
[2018-10-02] MEDS: Enoxaparin 80 mg Syringe SC SCH ×2 (09:00→21:18)
[2018-10-02] MEDS: Multi Vitamins 15 mL UD Oral Solution PO SCH (09:00)
[2018-10-02] MEDS: Cefdinir 300 MG CAP PO SCH ×2 (09:01→16:26)
--- NOTE | 2018-10-02 23:23 | CP.PCM.PN ---
Subjective - Date & Time of Evaluation Date of Evaluation: 10/02/18 Time of Evaluation: 18:00 - Subjective Subjective: Reports sob improved; still with RVR; urinating frequently, 6 times today; Objective - Vital Signs/Intake and Output Vital Signs (last 24 hours): Temp Pulse Resp BP Pulse Ox 97.6 F 105 H 12 118/95 H 99 10/02/18 20:00 10/02/18 22:00 10/02/18 22:00 10/02/18 22:00 10/02/18 22:00 Intake and Output: 10/02/18 10/03/18 18:59 06:59 Intake Total 900 100 Output Total 700 300 Balance 200 -200 - Medications Medications: Current Medications Calcium Carbonate (Oscal) 500 mg PO DAILY [facility] Last Admin: 10/02/18 09:01 Dose: 500 mg Cefdinir (Omnicef) 300 mg PO BID [facility] Last Admin: 10/02/18 16:26 Dose: 300 mg Chlordiazepoxide (Librium) 25 mg PO Q8H [facility] Last Admin: 09/30/18 05:50 Dose: Not Given Enoxaparin Sodium (Lovenox) 80 mg SC Q12 [facility]; Protocol Last Admin: 10/02/18 21:18 Dose: 80 mg Folic Acid (Folic Acid) 1 mg PO DAILY [facility] Last Admin: 10/02/18 08:59 Dose: 1 mg Furosemide (Lasix) 20 mg PO DAILY [facility] Last Admin: 10/02/18 08:59 Dose: 20 mg Guaifenesin (Mucinex La) 600 mg PO Q12 PRN PRN Reason: Cough Ipratropium [place] (Atrovent) 0.5 mg IH RQID [facility] Last Admin: 10/02/18 19:14 Dose: 0.5 mg Levalbuterol HCl (Xopenex) 0.63 mg INH RQ8 PRN PRN Reason: Shortness of Breath Methylprednisolone (Medrol) 16 mg PO DAILY [facility] Last Admin: 10/02/18 09:00 Dose: 16 mg Multivitamins/Vitamin C (Multi-Delyn Liquid) 15 ml PO DAILY [facility] Last Admin: 10/02/18 09:00 Dose: 15 ml Nicotine (Nicoderm Cq) 1 patch TD DAILY [facility] Last Admin: 10/02/18 09:00 Dose: 1 patch Ondansetron HCl (Zofran Inj) 4 mg IVP Q6 PRN PRN Reason: Nausea/Vomiting Last Admin: 09/28/18 17:51 Dose: 4 mg Thiamine HCl (Vitamin B1 Tab) 100 mg PO DAILY [facility] Last Admin: 10/02/18 09:01 Dose: 100 mg - Labs Labs: 10/02/18 05:30 10/02/18 05:30 - Constitutional Appears: Non-toxic, No Acute Distress - Eye Exam Eye Exam: Normal appearance - Respiratory Exam Respiratory Exam: Clear to Ausculation Bilateral. absent: Respiratory Distress - Cardiovascular Exam Cardiovascular Exam: Irregular Rhythm, +S1, +S2 - GI/Abdominal Exam GI & Abdominal Exam: Soft. absent: Distended, Tenderness - Extremities Exam Additional comments: 2+ b/l lower leg edema; - Neurological Exam Neurological Exam: Alert, Awake - Psychiatric Exam Psychiatric exam: Normal Affect, Normal Mood. absent: Agitated - Skin Skin Exam: Warm. absent: Cyanosis Assessment and Plan (1) Hyponatremia Assessment & Plan: Still with mild hyponatremia; repeat urine osm not resulted but urine Na very low indicative of ongoing pre-renal state in the state of severe systolic dysfunction and afib w/ RVR; -continue to optimize CHF/aifb status; -continue lasix 20 mg daily; -continue PO fluid restriction < 1.5L/day; Status: Acute (2) CHF (congestive heart failure) Status: Acute
[2018-10-03 05:57] LABS: BASO % 0.1 % (0.0-2.0); EOS % 0.2 % (0.0-4.0); HEMOGLOBIN 13.6 g/dL (12.0-18.0); LYMPH # 0.6 K/uL (1.0-4.3); LYMPH % 11.6 % (20.0-40.0); MEAN CELL VOLUME 105.1 fl (80.0-94.0); MEAN CORPUSCULAR HEMOGLOBIN 35.5 pg (27.0-31.0); MEAN CORPUSCULAR HGB CONC 33.8 g/dL (33.0-37.0); MEAN PLATELET VOLUME 8.1 fl (7.2-11.7); MONO # 0.8 K/uL (0.0-0.8); MONO % 15.9 % (0.0-10.0); NEUT # 3.8 K/uL (1.8-7.0); NEUT % 72.2 % (50.0-75.0); NRBC % 0.1 % (0.0-0.0); RBC 3.82 Mil/uL (4.40-5.90); RED CELL DISTRIBUTION WIDTH 13.9 % (11.5-14.5); WHITE BLOOD COUNT 5.2 K/uL (4.8-10.8)
[2018-10-03 06:56] LABS: ALB/GLOB RATIO 0.9 (1.0-2.1); ALBUMIN 2.7 g/dL (3.5-5.0); ALT/SGPT 125 U/L (21-72); AST/SGOT 66 U/L (17-59); BLOOD UREA NITROGEN 22 mg/dl (9-20); GFR NON-AFRICAN AMERICAN > 60
[2018-10-03] MEDS: Ipratropium 0.02% Inhal Soln (0.5 mg/2.5 ml) UD IH SCH ×4 (07:27→19:25)
[2018-10-03] MEDS: Multi Vitamins 15 mL UD Oral Solution PO SCH (08:48)
--- NOTE | 2018-10-03 08:49 | CP.PCM.PN ---
<Buck Mckenzie - Last Filed: 10/03/18 14:19> Subjective - Date & Time of Evaluation Date of Evaluation: 10/03/18 Time of Evaluation: 08:20 - Subjective Subjective: Pt seen and examined while sitting upright on edge of bed. Denies acute events overnight. Reports improved breathing; however, with intermittent, clear producing cough. Denies SOB. Currently, receiving respiratory treatment. Objective - Vital Signs/Intake and Output Vital Signs (last 24 hours): Temp Pulse Resp BP Pulse Ox 97.3 F L 79 32 H 139/80 79 L 10/03/18 07:58 10/03/18 07:58 10/03/18 07:58 10/03/18 07:58 10/03/18 07:58 Intake and Output: 10/03/18 10/03/18 06:59 18:59 Intake Total 200 Output Total 300 Balance -100 - Medications Medications: Current Medications Calcium Carbonate (Oscal) 500 mg PO DAILY [facility] Last Admin: 10/02/18 09:01 Dose: 500 mg Cefdinir (Omnicef) 300 mg PO BID [facility] Last Admin: 10/02/18 16:26 Dose: 300 mg Chlordiazepoxide (Librium) 25 mg PO Q8H [facility] Last Admin: 09/30/18 05:50 Dose: Not Given Enoxaparin Sodium (Lovenox) 80 mg SC Q12 [facility]; Protocol Last Admin: 10/02/18 21:18 Dose: 80 mg Folic Acid (Folic Acid) 1 mg PO DAILY [facility] Last Admin: 10/02/18 08:59 Dose: 1 mg Furosemide (Lasix) 20 mg PO BID [facility] Guaifenesin (Mucinex La) 600 mg PO Q12 PRN PRN Reason: Cough Last Admin: 10/03/18 08:48 Dose: 600 mg Ipratropium [place] (Atrovent) 0.5 mg IH RQID [facility] Last Admin: 10/03/18 07:27 Dose: 0.5 mg Levalbuterol HCl (Xopenex) 0.63 mg INH RQ8 PRN PRN Reason: Shortness of Breath Methylprednisolone (Medrol) 16 mg PO DAILY [facility] Last Admin: 10/02/18 09:00 Dose: 16 mg Multivitamins/Vitamin C (Multi-Delyn Liquid) 15 ml PO DAILY [facility] Last Admin: 10/03/18 08:48 Dose: 15 ml Nicotine (Nicoderm Cq) 1 patch TD DAILY [facility] Last Admin: 10/02/18 09:00 Dose: 1 patch Ondansetron HCl (Zofran Inj) 4 mg IVP Q6 PRN PRN Reason: Nausea/Vomiting Last Admin: 09/28/18 17:51 Dose: 4 mg Thiamine HCl (Vitamin B1 Tab) 100 mg PO DAILY [facility] Last Admin: 10/02/18 09:01 Dose: 100 mg - Labs Labs: 10/03/18 04:55 10/03/18 04:55 - Constitutional Appears: No Acute Distress - Eye Exam Eye Exam: EOMI - ENT Exam ENT Exam: Mucous Membranes Moist - Respiratory Exam Respiratory Exam: Rales (R lower lobe) Additional comments: + for cough - Cardiovascular Exam Cardiovascular Exam: Tachycardia, Irregular Rhythm, +S1, +S2 - GI/Abdominal Exam GI & Abdominal Exam: Soft, Normal Bowel Sounds. absent: Tenderness - Neurological Exam Neurological Exam: Alert, Awake - Psychiatric Exam Psychiatric exam: Normal Affect, Normal Mood Assessment and Plan (1) COPD exacerbation Status: Acute (2) Pulmonary nodule seen on imaging study Status: Chronic (3) Transaminitis Status: Acute - Assessment and Plan (Free Text) Assessment: 78 yo M with pmhx of bladder CA, HTN, COPD, LBBB admitted for Respiratory distress 2/2 COPD exacerbation experienced Afib with RVR. Plan: Labs, imaging, and team notes reviewed Patient benefitting from current respiratory treatment. Currently, on NC 4L c/w Ipratropium 0.5 mg IH RQID, methylprednisolone 16 mg PO qDaily, Cefdinir -levalbuterol 0.63 mg INH RQ8 prn; guaifensen PRN Pt on Digoxin LFT trending down (hepatitis panel negative); to f/u Case and plan d/w Dr. Kimberli Mckenzie MD PGY-2 <Nba Ag - Last Filed: 10/04/18 09:04> Subjective - Subjective Subjective: Seen on morning rounds together with the resident in ICU. Patient seated on edge of the bed, not in any distress. He does admit to improved breathing with the addition of ipratropium. Physical findings and lab values were reviewed. Case discussed and plan of care formulated. The EMR entry made by the resident accurately reflects today's encounter. Objective - Vital Signs/Intake and Output Vital Signs (last 24 hours): Temp Pulse Resp BP Pulse Ox 96.5 F L 117 H 18 115/94 H 98 10/04/18 08:00 10/04/18 08:00 10/04/18 06:00 10/04/18 06:00 10/04/18 06:00 Intake and Output: 10/03/18 10/04/18 23:59 11:59 Intake Total 0 Output Total 550 Balance -550 - Medications Medications: Current Medications Calcium Carbonate (Oscal) 500 mg PO DAILY [facility] Last Admin: 10/03/18 08:49 Dose: 500 mg Cefdinir (Omnicef) 300 mg PO BID [facility] Last Admin: 10/03/18 17:37 Dose: 300 mg Chlordiazepoxide (Librium) 25 mg PO Q8H [facility] Last Admin: 09/30/18 05:50 Dose: Not Given Enoxaparin Sodium (Lovenox) 80 mg SC Q12 [facility]; Protocol Last Admin: 10/03/18 21:05 Dose: 80 mg Folic Acid (Folic Acid) 1 mg PO DAILY [facility] Last Admin: 10/03/18 09:00 Dose: 1 mg Furosemide (Lasix) 20 mg PO BID [facility] Last Admin: 10/03/18 17:38 Dose: 20 mg Guaifenesin (Mucinex La) 600 mg PO Q12 PRN PRN Reason: Cough Last Admin: 10/03/18 08:48 Dose: 600 mg Ipratropium [place] (Atrovent) 0.5 mg IH RQID [facility] Last Admin: 10/04/18 08:03 Dose: 0.5 mg Levalbuterol HCl (Xopenex) 0.63 mg INH RQ8 PRN PRN Reason: Shortness of Breath Last Admin: 10/04/18 08:03 Dose: 0.63 mg Methylprednisolone (Medrol) 16 mg PO DAILY [facility] Last Admin: 10/03/18 08:58 Dose: 16 mg Multivitamins/Vitamin C (Multi-Delyn Liquid) 15 ml PO DAILY [facility] Last Admin: 10/03/18 08:48 Dose: 15 ml Nicotine (Nicoderm Cq) 1 patch TD DAILY [facility] Last Admin: 10/03/18 08:49 Dose: 1 patch Ondansetron HCl (Zofran Inj) 4 mg IVP Q6 PRN PRN Reason: Nausea/Vomiting Last Admin: 09/28/18 17:51 Dose: 4 mg Thiamine HCl (Vitamin B1 Tab) 100 mg PO DAILY [facility] Last Admin: 10/03/18 08:48 Dose: 100 mg - Labs Labs: 10/04/18 04:20 10/04/18 04:20 Assessment and Plan (1) COPD exacerbation Status: Acute (2) Pulmonary nodule seen on imaging study Status: Chronic (3) Transaminitis Status: Acute
[2018-10-03] MEDS: Cefdinir 300 MG CAP PO SCH ×2 (08:59→17:37)
[2018-10-03] MEDS: Enoxaparin 80 mg Syringe SC SCH ×2 (08:59→21:05)
--- NOTE | 2018-10-03 09:11 | CARD ---
APPROVED REPORT Date of service: 10/03/2018 EKG Measurement Heart [id number] <Conclusion> Atrial fibrillation Left bundle branch block Abnormal ECG
[2018-10-03] MEDS ORDERED: Digoxin 500 mcg/2ml (0.5 mg/2ml) Inj IVP ONE ×2 (10:15→14:00)
--- NOTE | 2018-10-03 10:19 | CP.PCM.PN ---
Subjective - Date & Time of Evaluation Date of Evaluation: 10/03/18 Time of Evaluation: 08:30 - Subjective Subjective: Sitting up in bed, eating breakfast. Able to feed himself Can carry on conversation Resp rate 18 BPM HR was mostly in 90s during last night f ollowing two dosews of Digoxi IV yesterday Now HR 110 BPM, irreg (a Fib) BP 124/70 mm Hg JVP flat Faint gallop Labs noted (AST/ALT resolving) Will start on maintenance Dig at 0.25 mg daily (may need a small dose of beta xiomara??) Hemodynamically stable Discussed with Dr. Ag. Objective - Vital Signs/Intake and Output Vital Signs (last 24 hours): Temp Pulse Resp BP Pulse Ox 97.3 F L 79 32 H 120/77 79 L 10/03/18 07:58 10/03/18 07:58 10/03/18 07:58 10/03/18 08:50 10/03/18 07:58 Intake and Output: 10/03/18 10/03/18 06:59 18:59 Intake Total 200 Output Total 300 Balance -100 - Medications Medications: Current Medications Calcium Carbonate (Oscal) 500 mg PO DAILY [facility] Last Admin: 10/03/18 08:49 Dose: 500 mg Cefdinir (Omnicef) 300 mg PO BID [facility] Last Admin: 10/03/18 08:59 Dose: 300 mg Chlordiazepoxide (Librium) 25 mg PO Q8H [facility] Last Admin: 09/30/18 05:50 Dose: Not Given Digoxin (Lanoxin) 0.125 mg IVP ONCE ONE Stop: 10/03/18 10:16 Enoxaparin Sodium (Lovenox) 80 mg SC Q12 [facility]; Protocol Last Admin: 10/03/18 08:59 Dose: 80 mg Folic Acid (Folic Acid) 1 mg PO DAILY [facility] Last Admin: 10/03/18 09:00 Dose: 1 mg Furosemide (Lasix) 20 mg PO BID [facility] Last Admin: 10/03/18 08:50 Dose: 20 mg Guaifenesin (Mucinex La) 600 mg PO Q12 PRN PRN Reason: Cough Last Admin: 10/03/18 08:48 Dose: 600 mg Ipratropium [place] (Atrovent) 0.5 mg IH RQID [facility] Last Admin: 10/03/18 07:27 Dose: 0.5 mg Levalbuterol HCl (Xopenex) 0.63 mg INH RQ8 PRN PRN Reason: Shortness of Breath Methylprednisolone (Medrol) 16 mg PO DAILY [facility] Last Admin: 10/03/18 08:58 Dose: 16 mg Multivitamins/Vitamin C (Multi-Delyn Liquid) 15 ml PO DAILY [facility] Last Admin: 10/03/18 08:48 Dose: 15 ml Nicotine (Nicoderm Cq) 1 patch TD DAILY [facility] Last Admin: 10/03/18 08:49 Dose: 1 patch Ondansetron HCl (Zofran Inj) 4 mg IVP Q6 PRN PRN Reason: Nausea/Vomiting Last Admin: 09/28/18 17:51 Dose: 4 mg Thiamine HCl (Vitamin B1 Tab) 100 mg PO DAILY [facility] Last Admin: 10/03/18 08:48 Dose: 100 mg - Labs Labs: 10/03/18 04:55 10/03/18 04:55
--- NOTE | 2018-10-03 12:20 | CP.CCUPN ---
CCU Subjective - Physician Review Events Since Last Encounter (Free Text): 10/03/18 12:20 The patient was Seen/interviewed and examined by me at the bedside during ICU round, Medical records reviewed and Management issues were discussed and formulated with the house staff. Events reviewed Mr Escalona is a 78 Years old Male with PMHx of HTN, CHF, COPD, bladder cancer, Rheumatic Fever at 11 years of age, Neurogenic bladder, Macular degeneration and Heavy Smoking history Who presents to the Emergency department with x3 days of having shortness of breath, wheezing, non productive cough, tachycardia and upper abdominal pain. In the ER the patient was in respiratory distress and on the BIPAP. He also admits watery diarrhea and fever. No chest pain He was admitted to the ICU for management of Acute respiratory distress from COPD exacerbation and Acute on Chronic CHF Awake, Comfortable, NAD This morning he feels well and denies any chest pain, SOB or Palpitations CCU Objective - Vital Signs / Intake & Output Vital Signs (Last 4 hours): Vital Signs Temp Pulse Resp BP 10/03/18 12:06 96.7 F L 106 H 20 112/79 10/03/18 10:00 127 H 18 120/77 10/03/18 08:50 120/77 Intake and Output (Last 8hrs): Intake & Output 10/02/18 10/03/18 10/03/18 22:59 06:59 14:59 Intake Total 400 100 Output Total 700 300 Balance -300 100 -300 Intake: IV 0 0 Oral 400 100 Output: Urine 700 300 Urine, Voided 700 300 Other: # Bowel Movements 0 - Physical Exam Head: Positive for: Atraumatic, Normocephalic Pupils: Positive for: PERRL Conjunctiva: Positive for: Normal Mouth: Positive for: Moist Mucous Membranes Nose (External): Positive for: Atraumatic Neck: Positive for: Normal Range of Motion Respiratory/Chest: Positive for: Rhonchi Cardiovascular: Positive for: Irregular Rhythm Abdomen: Positive for: Normal Bowel Sounds Upper Extremity: Positive for: Normal Inspection Lower Extremity: Positive for: Normal Inspection Neurological: Positive for: Speech Normal Skin: Positive for: Normal Color Psychiatric: Positive for: Alert - Medications Active Medications: Active Medications Generic Name Dose Route Start Last Admin Trade Name Freq PRN Reason Stop Dose Admin Calcium Carbonate 500 mg 09/27/18 12:15 10/03/18 08:49 Oscal PO 500 mg DAILY [facility] Administration Cefdinir 300 mg 09/30/18 17:00 10/03/18 08:59 Omnicef PO 300 mg BID [facility] Administration Chlordiazepoxide 25 mg 09/28/18 05:00 09/30/18 05:50 Librium PO Not Given Q8H [facility] Enoxaparin Sodium 80 mg 10/01/18 13:00 10/03/18 08:59 Lovenox SC 80 mg Q12 [facility] Administration Protocol Folic Acid 1 mg 09/30/18 09:00 10/03/18 09:00 Folic Acid PO 1 mg DAILY [facility] Administration Furosemide 20 mg 10/03/18 09:00 10/03/18 08:50 Lasix PO 20 mg BID [facility] Administration Guaifenesin 600 mg 09/30/18 08:42 10/03/18 08:48 Mucinex La PO 600 mg Q12 PRN Administration Cough Ipratropium [place] 0.5 mg 10/01/18 16:00 10/03/18 10:59 Atrovent IH 0.5 mg RQID [facility] Administration Levalbuterol HCl 0.63 mg 09/28/18 08:51 Xopenex INH RQ8 PRN Shortness of Breath Methylprednisolone 16 mg 10/02/18 09:00 10/03/18 08:58 Medrol PO 16 mg DAILY [facility] Administration Multivitamins/Vitamin C 15 ml 09/27/18 10:15 10/03/18 08:48 Multi-Delyn Liquid PO 15 ml DAILY [facility] Administration Nicotine 1 patch 09/27/18 10:00 10/03/18 08:49 Nicoderm Cq TD 1 patch DAILY [facility] Administration Ondansetron HCl 4 mg 09/28/18 17:41 09/28/18 17:51 Zofran Inj IVP 4 mg Q6 PRN Administration Nausea/Vomiting Thiamine HCl 100 mg 09/30/18 09:00 10/03/18 08:48 Vitamin B1 Tab PO 100 mg DAILY [facility] Administration - Patient Studies Lab Studies: Lab Studies 10/03/18 10/03/18 10/02/18 Range/Units 04:55 04:55 16:41 WBC 5.2 (4.8-10.8) K/uL RBC 3.82 L (4.40-5.90) Mil/uL Hgb 13.6 (12.0-18.0) g/dL Hct 40.2 (35.0-51.0) % MCV 105.1 H (80.0-94.0) fl MCH 35.5 H (27.0-31.0) pg MCHC 33.8 (33.0-37.0) g/dL RDW 13.9 (11.5-14.5) % Plt Count 277 (130-400) K/uL MPV 8.1 (7.2-11.7) fl Neut % (Auto) 72.2 (50.0-75.0) % Lymph % (Auto) 11.6 L (20.0-40.0) % [place] % (Auto) 15.9 H (0.0-10.0) % Eos % (Auto) 0.2 (0.0-4.0) % Baso % (Auto) 0.1 (0.0-2.0) % Neut # (Auto) 3.8 (1.8-7.0) K/uL Lymph # (Auto) 0.6 L (1.0-4.3) K/uL [place] # (Auto) 0.8 (0.0-0.8) K/uL Eos # (Auto) 0.0 (0.0-0.7) K/uL Baso # (Auto) 0.0 (0.0-0.2) K/uL Sodium 131 L (132-148) mmol/l Potassium 4.3 (3.6-5.0) MMOL/L Chloride 92 L (98-107) mmol/L Carbon Dioxide 29 (22-30) mmol/L Anion Gap 14 (10-20) BUN 22 H (9-20) mg/dl Creatinine 0.7 L (0.8-1.5) mg/dl Est GFR ( Amer) > 60 Est GFR (Non-Af Amer) > 60 Random Glucose 94 (75-110) mg/dL Calcium 8.0 L (8.4-10.2) mg/dL Total Bilirubin 0.3 (0.2-1.3) mg/dl AST 66 H (17-59) U/L ALT 125 H (21-72) U/L Alkaline Phosphatase 101 (38-126) U/L Total Protein 5.7 L (6.3-8.2) G/DL Albumin 2.7 L (3.5-5.0) g/dL Globulin 3.1 (2.2-3.9) gm/dL Albumin/Globulin Ratio 0.9 L (1.0-2.1) Ur Random Sodium < 5 mmol/L Laboratory Results - last 24 hr 10/02/18 10/03/18 10/03/18 16:41 04:55 04:55 WBC 5.2 RBC 3.82 L Hgb 13.6 Hct 40.2 MCV 105.1 H MCH 35.5 H MCHC 33.8 RDW 13.9 Plt Count 277 MPV 8.1 Neut % (Auto) 72.2 Lymph % (Auto) 11.6 L [place] % (Auto) 15.9 H Eos % (Auto) 0.2 Baso % (Auto) 0.1 Neut # (Auto) 3.8 Lymph # (Auto) 0.6 L [place] # (Auto) 0.8 Eos # (Auto) 0.0 Baso # (Auto) 0.0 Sodium 131 L Potassium 4.3 Chloride 92 L Carbon Dioxide 29 Anion Gap 14 BUN 22 H Creatinine 0.7 L Est GFR ( Amer) > 60 Est GFR (Non-Af Amer) > 60 Random Glucose 94 Calcium 8.0 L Total Bilirubin 0.3 AST 66 H ALT 125 H Alkaline Phosphatase 101 Total Protein 5.7 L Albumin 2.7 L Globulin 3.1 Albumin/Globulin Ratio 0.9 L Ur Random Sodium < 5 EKG/Cardiology Studies: Cardiology / EKG Studies 10/03/18 EKG [ELECTROCARDIOGRAM] Routine Comment: Mode Of Transportation: PORTABLE Reason For Exam: A Fib Critical Care Progress Note - Extremities/Vascular Does the Patient have a Central Venous Catheter?: No Does the Patient need a Central Venous Catheter?: No Does the Patient have a Mejia Catheter?: No Does the Patient need a Mejia Catheter?: No - Nutrition Nutrition: Nutrition Category Date Time Status Heart Healthy Diet [DIET] Diets 09/27/18 Breakfast Active Assessment/Plan (1) Atrial fibrillation with rapid ventricular response Current Visit: Yes Status: Acute Priority: High Comment: Continue Digoxin 0.25mg daily Off Amio and BB due to sever COPD Use of Xopenex instead of Albuterol (2) Respiratory insufficiency Current Visit: Yes Status: Acute Priority: High (3) Acute on chronic congestive heart failure Current Visit: Yes Status: Acute Priority: High Comment: Continue diuresis, No chest pain, less dyspnea Lasix 20 mg PO BID AGUSTINA Strict I&O, daily Wt Negative fluid balance Xopenex Nebs q8h (4) COPD exacerbation Current Visit: Yes Status: Acute Priority: High Comment: IV Solumedrol Ipratropium INH RQID AGUSTINA Levalbuterol HCl (Xopenex) 0.63 mg INH RQ8 PRN Wean off Fio2 BIPAP as needed Pulmonary consult appreciated
--- NOTE | 2018-10-03 21:12 | CP.PCM.PN ---
Subjective - Date & Time of Evaluation Date of Evaluation: 10/03/18 Time of Evaluation: 12:00 - Subjective Subjective: Patient reports breathing improved; still in RVR; urinating well; tolerating diet; reports adhering to PO fluid restriction; Objective - Vital Signs/Intake and Output Vital Signs (last 24 hours): Temp Pulse Resp BP Pulse Ox 97.5 F L 112 H 19 129/94 H 95 10/03/18 16:00 10/03/18 16:00 10/03/18 16:00 10/03/18 17:38 10/03/18 16:00 Intake and Output: 10/03/18 10/04/18 18:59 06:59 Output Total 850 Balance -850 - Medications Medications: Current Medications Calcium Carbonate (Oscal) 500 mg PO DAILY [facility] Last Admin: 10/03/18 08:49 Dose: 500 mg Cefdinir (Omnicef) 300 mg PO BID [facility] Last Admin: 10/03/18 17:37 Dose: 300 mg Chlordiazepoxide (Librium) 25 mg PO Q8H [facility] Last Admin: 09/30/18 05:50 Dose: Not Given Enoxaparin Sodium (Lovenox) 80 mg SC Q12 [facility]; Protocol Last Admin: 10/03/18 21:05 Dose: 80 mg Folic Acid (Folic Acid) 1 mg PO DAILY [facility] Last Admin: 10/03/18 09:00 Dose: 1 mg Furosemide (Lasix) 20 mg PO BID [facility] Last Admin: 10/03/18 17:38 Dose: 20 mg Guaifenesin (Mucinex La) 600 mg PO Q12 PRN PRN Reason: Cough Last Admin: 10/03/18 08:48 Dose: 600 mg Ipratropium [place] (Atrovent) 0.5 mg IH RQID [facility] Last Admin: 10/03/18 19:25 Dose: 0.5 mg Levalbuterol HCl (Xopenex) 0.63 mg INH RQ8 PRN PRN Reason: Shortness of Breath Methylprednisolone (Medrol) 16 mg PO DAILY [facility] Last Admin: 10/03/18 08:58 Dose: 16 mg Multivitamins/Vitamin C (Multi-Delyn Liquid) 15 ml PO DAILY [facility] Last Admin: 10/03/18 08:48 Dose: 15 ml Nicotine (Nicoderm Cq) 1 patch TD DAILY [facility] Last Admin: 10/03/18 08:49 Dose: 1 patch Ondansetron HCl (Zofran Inj) 4 mg IVP Q6 PRN PRN Reason: Nausea/Vomiting Last Admin: 09/28/18 17:51 Dose: 4 mg Thiamine HCl (Vitamin B1 Tab) 100 mg PO DAILY [facility] Last Admin: 10/03/18 08:48 Dose: 100 mg - Labs Labs: 10/03/18 04:55 10/03/18 04:55 - Constitutional Appears: Non-toxic, No Acute Distress - Eye Exam Eye Exam: Normal appearance - Respiratory Exam Respiratory Exam: absent: Respiratory Distress Additional comments: mild R basal rales; - Cardiovascular Exam Cardiovascular Exam: Tachycardia, Irregular Rhythm. absent: Gallop, Rubs - GI/Abdominal Exam GI & Abdominal Exam: Soft. absent: Tenderness - Extremities Exam Additional comments: 2+ b/l lower leg edema; - Neurological Exam Neurological Exam: Alert, Awake - Psychiatric Exam Psychiatric exam: Normal Mood. absent: Agitated - Skin Skin Exam: Warm. absent: Cyanosis Assessment and Plan (1) Hyponatremia Assessment & Plan: Mild hyponatremia persists; repeat urine osm still elevated, still ongoing pre- renal state with low urine Na in the setting of severe systolic dysfunction with afib/RVR; -increasing PO lasix 20 mg to bid dosing; -continue to optimize CHF/afib status; -continue PO fluid restriction < 1.5L/day; Status: Acute (2) CHF (congestive heart failure) Assessment & Plan: With afib/RVR; off B-blockers due to COPD; management per cardio; Status: Acute
[2018-10-04 05:32] LABS: HEMOGLOBIN 14.6 g/dL (12.0-18.0); MEAN CELL VOLUME 104.7 fl (80.0-94.0); MEAN CORPUSCULAR HEMOGLOBIN 35.1 pg (27.0-31.0); MEAN CORPUSCULAR HGB CONC 33.6 g/dL (33.0-37.0); RBC 4.15 Mil/uL (4.40-5.90); RED CELL DISTRIBUTION WIDTH 13.9 % (11.5-14.5); WHITE BLOOD COUNT 5.7 K/uL (4.8-10.8)
[2018-10-04 05:48] LABS: BLOOD UREA NITROGEN 20 mg/dl (9-20); CALCIUM 8.4 mg/dL (8.4-10.2); GFR NON-AFRICAN AMERICAN > 60
[2018-10-04] MEDS: Ipratropium 0.02% Inhal Soln (0.5 mg/2.5 ml) UD IH SCH ×4 (08:03→19:51)
[2018-10-04] MEDS: Levalbuterol 0.63 MG/3 ML Inhal Soln UD INH PRN (08:03)
--- NOTE | 2018-10-04 09:08 | CP.PCM.PN ---
Subjective - Date & Time of Evaluation Date of Evaluation: 10/04/18 Time of Evaluation: 09:08 - Subjective Subjective: Seen on morning rounds in ICU. Seated on edge of bed, appears comfortable. Offers no complaint of SOB or cough. Remains in a fib with RVR. C/O constipation this morning. Has been afebrile and well oxygenated. Dependant edema 1+ bilaterally, no cyanosis. No dullness on chest percussion, no subcut emphysema. Breath sounds are very diminished bilaterally. No audible wheezing or bronchial breathing. Few dry basal rales posteriorly. Continue present respiratory regimen. Reduce PO medrol to 12MG daily. MOM 30ml HS PRN. Objective - Vital Signs/Intake and Output Vital Signs (last 24 hours): Temp Pulse Resp BP Pulse Ox 96.5 F L 117 H 18 115/94 H 98 10/04/18 08:00 10/04/18 08:00 10/04/18 06:00 10/04/18 06:00 10/04/18 06:00 Intake and Output: 10/03/18 10/04/18 23:59 11:59 Intake Total 0 Output Total 550 Balance -550 - Medications Medications: Current Medications Calcium Carbonate (Oscal) 500 mg PO DAILY [facility] Last Admin: 10/03/18 08:49 Dose: 500 mg Cefdinir (Omnicef) 300 mg PO BID [facility] Last Admin: 10/03/18 17:37 Dose: 300 mg Chlordiazepoxide (Librium) 25 mg PO Q8H [facility] Last Admin: 09/30/18 05:50 Dose: Not Given Enoxaparin Sodium (Lovenox) 80 mg SC Q12 [facility]; Protocol Last Admin: 10/03/18 21:05 Dose: 80 mg Folic Acid (Folic Acid) 1 mg PO DAILY [facility] Last Admin: 10/03/18 09:00 Dose: 1 mg Furosemide (Lasix) 20 mg PO BID [facility] Last Admin: 10/03/18 17:38 Dose: 20 mg Guaifenesin (Mucinex La) 600 mg PO Q12 PRN PRN Reason: Cough Last Admin: 10/03/18 08:48 Dose: 600 mg Ipratropium [place] (Atrovent) 0.5 mg IH RQID [facility] Last Admin: 10/04/18 08:03 Dose: 0.5 mg Levalbuterol HCl (Xopenex) 0.63 mg INH RQ8 PRN PRN Reason: Shortness of Breath Last Admin: 10/04/18 08:03 Dose: 0.63 mg Methylprednisolone (Medrol) 16 mg PO DAILY [facility] Last Admin: 10/03/18 08:58 Dose: 16 mg Multivitamins/Vitamin C (Multi-Delyn Liquid) 15 ml PO DAILY [facility] Last Admin: 10/03/18 08:48 Dose: 15 ml Nicotine (Nicoderm Cq) 1 patch TD DAILY [facility] Last Admin: 10/03/18 08:49 Dose: 1 patch Ondansetron HCl (Zofran Inj) 4 mg IVP Q6 PRN PRN Reason: Nausea/Vomiting Last Admin: 09/28/18 17:51 Dose: 4 mg Thiamine HCl (Vitamin B1 Tab) 100 mg PO DAILY [facility] Last Admin: 10/03/18 08:48 Dose: 100 mg - Labs Labs: 10/04/18 04:20 10/04/18 04:20 Assessment and Plan (1) COPD exacerbation Status: Acute (2) Pulmonary nodule seen on imaging study Status: Chronic (3) Transaminitis Status: Acute
[2018-10-04] MEDS: Enoxaparin 80 mg Syringe SC SCH (09:24)
[2018-10-04] MEDS: Multi Vitamins 15 mL UD Oral Solution PO SCH (09:25)
[2018-10-04] MEDS: Cefdinir 300 MG CAP PO SCH ×2 (09:26→16:55)
[2018-10-04] MEDS ORDERED: Magnesium Hydroxide Susp 30 ml UD PO PRN (10:02)
--- NOTE | 2018-10-04 11:08 | CP.PCM.PN ---
Subjective - Date & Time of Evaluation Date of Evaluation: 10/04/18 Time of Evaluation: 09:00 - Subjective Subjective: Breathing easily Remains in Atrial Fibrillation w/ RVR @ 126 will give Digoxin 0.25mg daily Objective - Vital Signs/Intake and Output Vital Signs (last 24 hours): Temp Pulse Resp BP Pulse Ox 96.5 F L 114 H 19 99/61 L 98 10/04/18 08:00 10/04/18 10:00 10/04/18 10:00 10/04/18 10:00 10/04/18 10:00 Intake and Output: 10/04/18 10/04/18 06:59 18:59 Intake Total 0 140 Balance 0 140 - Medications Medications: Current Medications Calcium Carbonate (Oscal) 500 mg PO DAILY [facility] Last Admin: 10/04/18 09:27 Dose: 500 mg Cefdinir (Omnicef) 300 mg PO BID [facility] Last Admin: 10/04/18 09:26 Dose: 300 mg Chlordiazepoxide (Librium) 25 mg PO Q8H [facility] Last Admin: 09/30/18 05:50 Dose: Not Given Digoxin (Lanoxin) 0.25 mg PO DAILY [facility] Enoxaparin Sodium (Lovenox) 80 mg SC Q12 [facility]; Protocol Last Admin: 10/04/18 09:24 Dose: 80 mg Folic Acid (Folic Acid) 1 mg PO DAILY [facility] Last Admin: 10/04/18 09:22 Dose: 1 mg Furosemide (Lasix) 20 mg PO BID [facility] Last Admin: 10/04/18 09:23 Dose: 20 mg Guaifenesin (Mucinex La) 600 mg PO Q12 PRN PRN Reason: Cough Last Admin: 10/03/18 08:48 Dose: 600 mg Ipratropium [place] (Atrovent) 0.5 mg IH RQID [facility] Last Admin: 10/04/18 08:03 Dose: 0.5 mg Levalbuterol HCl (Xopenex) 0.63 mg INH RQ8 PRN PRN Reason: Shortness of Breath Last Admin: 10/04/18 08:03 Dose: 0.63 mg Magnesium Hydroxide (Milk Of Magnesia) 30 ml PO HS PRN PRN Reason: Constipation Methylprednisolone (Medrol) 12 mg PO DAILY [facility] Multivitamins/Vitamin C (Multi-Delyn Liquid) 15 ml PO DAILY [facility] Last Admin: 10/04/18 09:25 Dose: 15 ml Nicotine (Nicoderm Cq) 1 patch TD DAILY [facility] Last Admin: 10/04/18 09:26 Dose: 1 patch Ondansetron HCl (Zofran Inj) 4 mg IVP Q6 PRN PRN Reason: Nausea/Vomiting Last Admin: 09/28/18 17:51 Dose: 4 mg Thiamine HCl (Vitamin B1 Tab) 100 mg PO DAILY [facility] Last Admin: 10/04/18 09:27 Dose: 100 mg - Labs Labs: 10/04/18 04:20 10/04/18 04:20 Assessment and Plan (1) Cancer of bladder wall Status: Acute (2) COPD (chronic obstructive pulmonary disease) Status: Acute (3) Respiratory distress Status: Acute (4) Left bundle branch block (LBBB) Status: Acute (5) Essential (primary) hypertension Status: Acute
[2018-10-04] MEDS: Digoxin 250 mcg (0.25 mg) Tab PO SCH (11:09)
--- NOTE | 2018-10-04 15:50 | CP.CCUPN ---
CCU Subjective - Physician Review Subjective (Free Text): 10/04/18 15:53 The patient was Seen/interviewed and examined by me at the bedside during ICU round, Medical records reviewed and Management issues were discussed and formulated with the house staff. Events reviewed Mr Escalona is a 78 Years old Male with PMHx of HTN, CHF, COPD, bladder cancer, Rheumatic Fever at 11 years of age, Neurogenic bladder, Macular degeneration and Heavy Smoking history Who presents to the Emergency department with x3 days of having shortness of breath, wheezing, non productive cough, tachycardia and upper abdominal pain. In the ER the patient was in respiratory distress and on the BIPAP. He also admits watery diarrhea and fever. No chest pain He was admitted to the ICU for management of Acute respiratory distress from COPD exacerbation and Acute on Chronic CHF Awake, Comfortable, NAD OOB to chair This morning he feels well and denies any chest pain, SOB or Palpitations HR better, but still in 110s Off Amiodarone drip and BB (in light of advanced COPD), HR and hemodynamically improved Breathing unlabored, on room air O2 sat 100%. Afebrile, A-Fib on the monitor This morning labs revealed No Leucocytosis, H/H stable, Stable renal function BUN/Cr 20/0.6 CCU Objective - Vital Signs / Intake & Output Vital Signs (Last 4 hours): Vital Signs Temp Pulse Resp BP Pulse Ox 10/04/18 14:00 94 H 17 114/78 98 10/04/18 12:00 98.1 F 107 H 15 90/66 L 96 Intake and Output (Last 8hrs): Intake & Output 10/04/18 10/04/18 10/04/18 06:59 14:59 22:59 Intake Total 200 Balance 200 Intake: Oral 200 Other: # Voids Urine, Voided 2 1 # Bowel Movements 1 - Physical Exam Head: Positive for: Atraumatic, Normocephalic Pupils: Positive for: PERRL Conjunctiva: Positive for: Normal Mouth: Positive for: Moist Mucous Membranes Nose (External): Positive for: Atraumatic Neck: Positive for: Normal Range of Motion Respiratory/Chest: Positive for: Rhonchi Cardiovascular: Positive for: Irregular Rhythm Abdomen: Positive for: Normal Bowel Sounds Upper Extremity: Positive for: Normal Inspection Lower Extremity: Positive for: Normal Inspection Neurological: Positive for: Speech Normal Skin: Positive for: Normal Color Psychiatric: Positive for: Alert - Medications Active Medications: Active Medications Generic Name Dose Route Start Last Admin Trade Name Freq PRN Reason Stop Dose Admin Calcium Carbonate 500 mg 09/27/18 12:15 10/04/18 09:27 Oscal PO 500 mg DAILY [facility] Administration Cefdinir 300 mg 09/30/18 17:00 10/04/18 09:26 Omnicef PO 300 mg BID [facility] Administration Chlordiazepoxide 25 mg 09/28/18 05:00 09/30/18 05:50 Librium PO Not Given Q8H [facility] Digoxin 0.25 mg 10/04/18 10:45 10/04/18 11:09 Lanoxin PO 0.25 mg DAILY [facility] Administration Folic Acid 1 mg 09/30/18 09:00 10/04/18 09:22 Folic Acid PO 1 mg DAILY [facility] Administration Furosemide 20 mg 10/03/18 09:00 10/04/18 09:23 Lasix PO 20 mg BID [facility] Administration Guaifenesin 600 mg 09/30/18 08:42 10/03/18 08:48 Mucinex La PO 600 mg Q12 PRN Administration Cough Ipratropium [place] 0.5 mg 10/01/18 16:00 10/04/18 15:28 Atrovent IH 0.5 mg RQID [facility] Administration Levalbuterol HCl 0.63 mg 09/28/18 08:51 10/04/18 08:03 Xopenex INH 0.63 mg RQ8 PRN Administration Shortness of Breath Magnesium Hydroxide 30 ml 10/04/18 10:02 Milk Of Magnesia PO HS PRN Constipation Methylprednisolone 12 mg 10/05/18 09:00 Medrol PO DAILY [facility] Multivitamins/Vitamin C 15 ml 09/27/18 10:15 10/04/18 09:25 Multi-Delyn Liquid PO 15 ml DAILY [facility] Administration Nicotine 1 patch 09/27/18 10:00 10/04/18 09:26 Nicoderm Cq TD 1 patch DAILY [facility] Administration Ondansetron HCl 4 mg 09/28/18 17:41 09/28/18 17:51 Zofran Inj IVP 4 mg Q6 PRN Administration Nausea/Vomiting Thiamine HCl 100 mg 09/30/18 09:00 10/04/18 09:27 Vitamin B1 Tab PO 100 mg DAILY [facility] Administration - Patient Studies Lab Studies: Lab Studies 10/04/18 10/04/18 10/03/18 Range/Units 04:20 04:20 15:43 WBC 5.7 (4.8-10.8) K/uL RBC 4.15 L (4.40-5.90) Mil/uL Hgb 14.6 (12.0-18.0) g/dL Hct 43.4 (35.0-51.0) % MCV 104.7 H (80.0-94.0) fl MCH 35.1 H (27.0-31.0) pg MCHC 33.6 (33.0-37.0) g/dL RDW 13.9 (11.5-14.5) % Plt Count 333 (130-400) K/uL Sodium 130 L (132-148) mmol/l Potassium 4.9 (3.6-5.0) MMOL/L Chloride 94 L (98-107) mmol/L Carbon Dioxide 31 H (22-30) mmol/L Anion Gap 10 (10-20) BUN 20 (9-20) mg/dl Creatinine 0.6 L (0.8-1.5) mg/dl Est GFR ( Amer) > 60 Est GFR (Non-Af Amer) > 60 Random Glucose 83 (75-110) mg/dL Calcium 8.4 (8.4-10.2) mg/dL Urine Osmolality 310 (300-1000) mosm/kg Laboratory Results - last 24 hr 10/03/18 10/04/18 10/04/18 15:43 04:20 04:20 WBC 5.7 RBC 4.15 L Hgb 14.6 Hct 43.4 MCV 104.7 H MCH 35.1 H MCHC 33.6 RDW 13.9 Plt Count 333 Sodium 130 L Potassium 4.9 Chloride 94 L Carbon Dioxide 31 H Anion Gap 10 BUN 20 Creatinine 0.6 L Est GFR ( Amer) > 60 Est GFR (Non-Af Amer) > 60 Random Glucose 83 Calcium 8.4 Urine Osmolality 310 Review of Systems - Cardiovascular Cardiovascular: absent: As Per HPI, Acrocyanosis, Chest Pain, Chest Pain at Rest, Chest Pain with Activity, Claudication, Diaphoresis, Dyspnea, Dyspnea on Exertion, Edema, Irregular Heart Rhythm, Pain Radiating to Arm/Neck/Jaw, Leg Edema, Leg Ulcers, Lightheadedness, Orthopnea, Palpitations, Paroxysmal Nocturnal Dyspnea, Pedal Edema, Radiating Pain, Rapid Heart Rate, Slow Heart Rate, Syncope, Other, UNREMARKABLE - Respiratory Respiratory: absent: As Per HPI, Cough, Dyspnea, Hemoptysis, Dyspnea on Exertion, Wheezing, Snoring, Stridor, Pain on Inspiration, Chest Congestion, Excessive Mucous Production, Change in Mucous Color, Pain with Coughing, Other, UNREMARKABLE Critical Care Progress Note - Extremities/Vascular Does the Patient have a Central Venous Catheter?: No Does the Patient need a Central Venous Catheter?: No Does the Patient have a Mejia Catheter?: No Does the Patient need a Mejia Catheter?: No - Nutrition Nutrition: Nutrition Category Date Time Status Heart Healthy Diet [DIET] Diets 09/27/18 Breakfast Active Assessment/Plan (1) Respiratory insufficiency Current Visit: Yes Status: Acute Priority: High (2) Atrial fibrillation with rapid ventricular response Current Visit: Yes Status: Acute Priority: High Comment: Continue Digoxin 0.25mg daily Off Amio and BB due to sever COPD Use of Xopenex instead of Albuterol (3) COPD exacerbation Current Visit: Yes Status: Acute Priority: High Comment: IV Solumedrol Ipratropium INH RQID [facility] Levalbuterol HCl (Xopenex) 0.63 mg INH RQ8 PRN Wean off Fio2 BIPAP as needed Pulmonary consult appreciated (4) Acute on chronic congestive heart failure Current Visit: Yes Status: Acute Priority: High Comment: Continue diuresis, No chest pain, less dyspnea Lasix 20 mg PO BID [facility] Strict I&O, daily Wt Negative fluid balance Xopenex Nebs q8h (5) Left bundle branch block (LBBB) Current Visit: Yes Status: Acute Priority: High
--- NOTE | 2018-10-04 18:36 | CP.PCM.PN ---
Subjective - Date & Time of Evaluation Date of Evaluation: 10/04/18 Time of Evaluation: 12:45 - Subjective Subjective: Reports breathing improved; still in RVR; tolerating diet; urination increased; Objective - Vital Signs/Intake and Output Vital Signs (last 24 hours): Temp Pulse Resp BP Pulse Ox 97.6 F 94 H 13 120/74 96 10/04/18 16:00 10/04/18 16:00 10/04/18 16:00 10/04/18 16:54 10/04/18 16:00 Intake and Output: 10/04/18 10/04/18 06:59 18:59 Intake Total 0 260 Output Total 400 Balance 0 -140 - Medications Medications: Current Medications Calcium Carbonate (Oscal) 500 mg PO DAILY [facility] Last Admin: 10/04/18 09:27 Dose: 500 mg Cefdinir (Omnicef) 300 mg PO BID [facility] Last Admin: 10/04/18 16:55 Dose: 300 mg Chlordiazepoxide (Librium) 25 mg PO Q8H [facility] Last Admin: 09/30/18 05:50 Dose: Not Given Digoxin (Lanoxin) 0.25 mg PO DAILY [facility] Last Admin: 10/04/18 11:09 Dose: 0.25 mg Folic Acid (Folic Acid) 1 mg PO DAILY [facility] Last Admin: 10/04/18 09:22 Dose: 1 mg Furosemide (Lasix) 20 mg PO BID [facility] Last Admin: 10/04/18 16:54 Dose: 20 mg Guaifenesin (Mucinex La) 600 mg PO Q12 PRN PRN Reason: Cough Last Admin: 10/03/18 08:48 Dose: 600 mg Ipratropium [place] (Atrovent) 0.5 mg IH RQID [facility] Last Admin: 10/04/18 15:28 Dose: 0.5 mg Levalbuterol HCl (Xopenex) 0.63 mg INH RQ8 PRN PRN Reason: Shortness of Breath Last Admin: 10/04/18 08:03 Dose: 0.63 mg Magnesium Hydroxide (Milk Of Magnesia) 30 ml PO HS PRN PRN Reason: Constipation Methylprednisolone (Medrol) 12 mg PO DAILY [facility] Multivitamins/Vitamin C (Multi-Delyn Liquid) 15 ml PO DAILY [facility] Last Admin: 10/04/18 09:25 Dose: 15 ml Nicotine (Nicoderm Cq) 1 patch TD DAILY [facility] Last Admin: 10/04/18 09:26 Dose: 1 patch Ondansetron HCl (Zofran Inj) 4 mg IVP Q6 PRN PRN Reason: Nausea/Vomiting Last Admin: 09/28/18 17:51 Dose: 4 mg Thiamine HCl (Vitamin B1 Tab) 100 mg PO DAILY [facility] Last Admin: 10/04/18 09:27 Dose: 100 mg - Labs Labs: 10/04/18 04:20 10/04/18 04:20 - Constitutional Appears: Non-toxic, No Acute Distress - Eye Exam Eye Exam: Normal appearance - Respiratory Exam Respiratory Exam: Clear to Ausculation Bilateral. absent: Respiratory Distress - Cardiovascular Exam Cardiovascular Exam: Irregular Rhythm. absent: Gallop, Rubs - GI/Abdominal Exam GI & Abdominal Exam: Soft. absent: Distended - Extremities Exam Additional comments: moderate lower leg edema b/l; - Neurological Exam Neurological Exam: Alert, Awake - Psychiatric Exam Psychiatric exam: Normal Mood. absent: Agitated - Skin Skin Exam: Warm. absent: Cyanosis Assessment and Plan (1) Hyponatremia Assessment & Plan: Stable but mild hyponatremia persists; on lasix 20 mg PO bid to help decrease urinary concentrating ability, continue; -continue 1500 cc PO fluid restriction daily; -continue to optimize CHF/afib status; Status: Acute (2) CHF (congestive heart failure) Assessment & Plan: Still significant lower ext edema but lungs clear; management per cardio; Status: Acute
[2018-10-04] MEDS ORDERED: Enoxaparin 80 mg Syringe SC STA (20:40)
--- NOTE | 2018-10-04 22:50 | CP.PCM.PN ---
Subjective - Date & Time of Evaluation Date of Evaluation: 10/04/18 Time of Evaluation: 16:00 - Subjective Subjective: Breathing better Noted to be in afib Objective - Vital Signs/Intake and Output Vital Signs (last 24 hours): Temp Pulse Resp BP Pulse Ox 97.6 F 108 H 16 122/71 97 10/04/18 16:00 10/04/18 18:00 10/04/18 18:00 10/04/18 18:00 10/04/18 18:00 Intake and Output: 10/04/18 10/05/18 18:59 06:59 Intake Total 260 Output Total 400 Balance -140 - Medications Medications: Current Medications Calcium Carbonate (Oscal) 500 mg PO DAILY [facility] Last Admin: 10/04/18 09:27 Dose: 500 mg Cefdinir (Omnicef) 300 mg PO BID [facility] Last Admin: 10/04/18 16:55 Dose: 300 mg Chlordiazepoxide (Librium) 25 mg PO Q8H [facility] Last Admin: 09/30/18 05:50 Dose: Not Given Digoxin (Lanoxin) 0.25 mg PO DAILY [facility] Last Admin: 10/04/18 11:09 Dose: 0.25 mg Folic Acid (Folic Acid) 1 mg PO DAILY [facility] Last Admin: 10/04/18 09:22 Dose: 1 mg Furosemide (Lasix) 20 mg PO BID [facility] Last Admin: 10/04/18 16:54 Dose: 20 mg Guaifenesin (Mucinex [place]) 600 mg PO Q12 PRN PRN Reason: Cough Last Admin: 10/03/18 08:48 Dose: 600 mg Ipratropium [place] (Atrovent) 0.5 mg IH RQID [facility] Last Admin: 10/04/18 19:51 Dose: 0.5 mg Levalbuterol HCl (Xopenex) 0.63 mg INH RQ8 PRN PRN Reason: Shortness of Breath Last Admin: 10/04/18 08:03 Dose: 0.63 mg Magnesium Hydroxide (Milk Of Magnesia) 30 ml PO HS PRN PRN Reason: Constipation Methylprednisolone (Medrol) 12 mg PO DAILY [facility] Multivitamins/Vitamin C (Multi-Delyn Liquid) 15 ml PO DAILY [facility] Last Admin: 10/04/18 09:25 Dose: 15 ml Nicotine (Nicoderm Cq) 1 patch TD DAILY [facility] Last Admin: 10/04/18 09:26 Dose: 1 patch Ondansetron HCl (Zofran Inj) 4 mg IVP Q6 PRN PRN Reason: Nausea/Vomiting Last Admin: 09/28/18 17:51 Dose: 4 mg Thiamine HCl (Vitamin B1 Tab) 100 mg PO DAILY [facility] Last Admin: 10/04/18 09:27 Dose: 100 mg - Labs Labs: 10/04/18 04:20 10/04/18 04:20 - Head Exam Head Exam: ATRAUMATIC - Eye Exam Eye Exam: Normal appearance - ENT Exam ENT Exam: Mucous Membranes Dry - Respiratory Exam Respiratory Exam: NORMAL BREATHING PATTERN - Cardiovascular Exam Cardiovascular Exam: +S1, +S2 - GI/Abdominal Exam GI & Abdominal Exam: Normal Bowel Sounds Assessment and Plan (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
[2018-10-05 06:18] LABS: HEMOGLOBIN 14.3 g/dL (12.0-18.0); MEAN CELL VOLUME 104.3 fl (80.0-94.0); MEAN CORPUSCULAR HEMOGLOBIN 34.9 pg (27.0-31.0); MEAN CORPUSCULAR HGB CONC 33.4 g/dL (33.0-37.0); RBC 4.09 Mil/uL (4.40-5.90); RED CELL DISTRIBUTION WIDTH 13.7 % (11.5-14.5); WHITE BLOOD COUNT 4.6 K/uL (4.8-10.8)
[2018-10-05 06:26] LABS: BLOOD UREA NITROGEN 19 mg/dl (9-20); CALCIUM 8.5 mg/dL (8.4-10.2); GFR NON-AFRICAN AMERICAN > 60
[2018-10-05] MEDS: Levalbuterol 0.63 MG/3 ML Inhal Soln UD INH PRN (06:46)
[2018-10-05] MEDS: Ipratropium 0.02% Inhal Soln (0.5 mg/2.5 ml) UD IH SCH ×5 (06:46→19:35)
[2018-10-05] MEDS: Digoxin 250 mcg (0.25 mg) Tab PO SCH (08:46)
[2018-10-05] MEDS: Multi Vitamins 15 mL UD Oral Solution PO SCH (08:48)
[2018-10-05] MEDS: Cefdinir 300 MG CAP PO SCH ×2 (08:49→17:03)
--- NOTE | 2018-10-05 10:14 | CP.PCM.PN ---
<Buck Mckenzie - Last Filed: 10/05/18 11:09> Subjective - Date & Time of Evaluation Date of Evaluation: 10/05/18 Time of Evaluation: 08:00 - Subjective Subjective: Pt seen and examined at bedside sitting on edge, enjoying breakfast. Pt denies respiratory distress, SOB. Reports improved breathing with current treatment plan. Denies significant overnight events. Objective - Vital Signs/Intake and Output Vital Signs (last 24 hours): Temp Pulse Resp BP Pulse Ox 98.4 F 96 H 15 111/77 99 10/05/18 04:00 10/05/18 06:00 10/05/18 06:00 10/05/18 06:00 10/05/18 06:00 Intake and Output: 10/05/18 10/05/18 06:59 18:59 Intake Total 100 Balance 100 - Medications Medications: Current Medications Calcium Carbonate (Oscal) 500 mg PO DAILY [facility] Last Admin: 10/05/18 08:50 Dose: 500 mg Cefdinir (Omnicef) 300 mg PO BID [facility] Last Admin: 10/05/18 08:49 Dose: 300 mg Chlordiazepoxide (Librium) 25 mg PO Q8H [facility] Last Admin: 09/30/18 05:50 Dose: Not Given Digoxin (Lanoxin) 0.25 mg PO DAILY [facility] Last Admin: 10/05/18 08:46 Dose: 0.25 mg Folic Acid (Folic Acid) 1 mg PO DAILY [facility] Last Admin: 10/05/18 08:46 Dose: 1 mg Furosemide (Lasix) 20 mg PO BID [facility] Last Admin: 10/04/18 16:54 Dose: 20 mg Guaifenesin (Mucinex La) 600 mg PO Q12 PRN PRN Reason: Cough Last Admin: 10/03/18 08:48 Dose: 600 mg Ipratropium [place] (Atrovent) 0.5 mg IH RQID [facility] Last Admin: 10/05/18 08:31 Dose: Not Given Levalbuterol HCl (Xopenex) 0.63 mg INH RQ8 PRN PRN Reason: Shortness of Breath Last Admin: 10/05/18 06:46 Dose: 0.63 mg Magnesium Hydroxide (Milk Of Magnesia) 30 ml PO HS PRN PRN Reason: Constipation Methylprednisolone (Medrol) 12 mg PO DAILY [facility] Last Admin: 10/05/18 08:47 Dose: 12 mg Multivitamins/Vitamin C (Multi-Delyn Liquid) 15 ml PO DAILY [facility] Last Admin: 10/05/18 08:48 Dose: 15 ml Nicotine (Nicoderm Cq) 1 patch TD DAILY [facility] Last Admin: 10/05/18 08:48 Dose: 1 patch Ondansetron HCl (Zofran Inj) 4 mg IVP Q6 PRN PRN Reason: Nausea/Vomiting Last Admin: 09/28/18 17:51 Dose: 4 mg Thiamine HCl (Vitamin B1 Tab) 100 mg PO DAILY [facility] Last Admin: 10/05/18 08:50 Dose: 100 mg - Labs Labs: 10/05/18 06:00 10/05/18 06:00 - Constitutional Appears: No Acute Distress - Eye Exam Eye Exam: EOMI - ENT Exam ENT Exam: Mucous Membranes Moist - Respiratory Exam Respiratory Exam: Decreased Breath Sounds, Rales (Mild, however, improved on R lower quadrant) - Cardiovascular Exam Cardiovascular Exam: Tachycardia, Irregular Rhythm, +S1, +S2 - GI/Abdominal Exam GI & Abdominal Exam: Soft, Normal Bowel Sounds. absent: Tenderness - Neurological Exam Neurological Exam: Alert, Awake, CN II-XII Intact, Oriented x3 - Psychiatric Exam Psychiatric exam: Normal Affect, Normal Mood Assessment and Plan (1) COPD exacerbation Status: Acute (2) Pulmonary nodule seen on imaging study Status: Chronic (3) Transaminitis Status: Acute - Assessment and Plan (Free Text) Assessment: 78 yo M with pmhx of bladder CA, HTN, COPD, LBBB admitted for Respiratory distress 2/2 COPD exacerbation experienced Afib with RVR. Plan: Patient doing well with current respiratory treatment, including NC c/w Ipratropium 0.5 mg IH RQID, methylprednisolone 12 mg PO qDaily (tapered), Cefdinir -levalbuterol 0.63 mg INH RQ8 prn; guaifensen PRN Pt on Digoxin 0.25 mg PO qD LFT continues to trend down (hepatitis panel negative) Monitor for SOB/desaturation and AM labs Case and plan d/w Dr. Kimberli Mckenzie MD PGY-2 <Nba Ag - Last Filed: 10/06/18 14:17> Subjective - Subjective Subjective: The patient's clinical condition and vital signs were reviewed with resident. Prognosis and plan of care were discussed. The entry made by the resident in the EMR accurately reflects today's visit. Objective - Vital Signs/Intake and Output Vital Signs (last 24 hours): Temp Pulse Resp BP Pulse Ox 97.4 F L 88 20 100/64 95 10/06/18 11:55 10/06/18 11:55 10/06/18 11:55 10/06/18 11:55 10/06/18 11:55 - Medications Medications: Current Medications Calcium Carbonate (Oscal) 500 mg PO DAILY [facility] Last Admin: 10/06/18 09:14 Dose: 500 mg Cefdinir (Omnicef) 300 mg PO BID [facility] Last Admin: 10/06/18 09:14 Dose: 300 mg Chlordiazepoxide (Librium) 25 mg PO Q8H [facility] Last Admin: 09/30/18 05:50 Dose: Not Given Digoxin (Lanoxin) 0.25 mg PO DAILY [facility] Last Admin: 10/06/18 09:10 Dose: 0.25 mg Folic Acid (Folic Acid) 1 mg PO DAILY [facility] Last Admin: 10/06/18 09:07 Dose: 1 mg Furosemide (Lasix) 20 mg PO BID [facility] Last Admin: 10/06/18 09:10 Dose: 20 mg Guaifenesin (Mucinex La) 600 mg PO Q12 PRN PRN Reason: Cough Last Admin: 10/03/18 08:48 Dose: 600 mg Ipratropium [place] (Atrovent) 0.5 mg IH RQID [facility] Last Admin: 10/06/18 11:06 Dose: 0.5 mg Levalbuterol HCl (Xopenex) 0.63 mg INH RQ8 PRN PRN Reason: Shortness of Breath Last Admin: 10/05/18 06:46 Dose: 0.63 mg Magnesium Hydroxide (Milk Of Magnesia) 30 ml PO HS PRN PRN Reason: Constipation Methylprednisolone (Medrol) 12 mg PO DAILY [facility] Last Admin: 10/06/18 09:12 Dose: 12 mg Multivitamins/Vitamin C (Multi-Delyn Liquid) 15 ml PO DAILY [facility] Last Admin: 10/06/18 09:13 Dose: 15 ml Nicotine (Nicoderm Cq) 1 patch TD DAILY [facility] Last Admin: 10/06/18 09:13 Dose: 1 patch Ondansetron HCl (Zofran Inj) 4 mg IVP Q6 PRN PRN Reason: Nausea/Vomiting Last Admin: 09/28/18 17:51 Dose: 4 mg Thiamine HCl (Vitamin B1 Tab) 100 mg PO DAILY [facility] Last Admin: 10/06/18 09:14 Dose: 100 mg - Labs Labs: 10/05/18 06:00 10/05/18 06:00 Assessment and Plan (1) COPD exacerbation Status: Acute (2) Pulmonary nodule seen on imaging study Status: Chronic (3) Transaminitis Status: Acute
[2018-10-05 15:52] LABS: OSMOLALITY,URINE 199 mosm/kg (300-1000)
--- NOTE | 2018-10-05 22:33 | CP.PCM.PN ---
Subjective - Date & Time of Evaluation Date of Evaluation: 10/05/18 Time of Evaluation: 13:00 - Subjective Subjective: Patient reports breathing improved; tolerating diet; Objective - Vital Signs/Intake and Output Vital Signs (last 24 hours): Temp Pulse Resp BP Pulse Ox 97.4 F L 73 20 123/79 97 10/05/18 21:19 10/05/18 21:19 10/05/18 21:19 10/05/18 21:19 10/05/18 21:19 Intake and Output: 10/05/18 10/06/18 18:59 06:59 Intake Total 350 Output Total 1000 Balance -650 - Medications Medications: Current Medications Calcium Carbonate (Oscal) 500 mg PO DAILY [facility] Last Admin: 10/05/18 08:50 Dose: 500 mg Cefdinir (Omnicef) 300 mg PO BID [facility] Last Admin: 10/05/18 17:03 Dose: 300 mg Chlordiazepoxide (Librium) 25 mg PO Q8H [facility] Last Admin: 09/30/18 05:50 Dose: Not Given Digoxin (Lanoxin) 0.25 mg PO DAILY [facility] Last Admin: 10/05/18 08:46 Dose: 0.25 mg Folic Acid (Folic Acid) 1 mg PO DAILY [facility] Last Admin: 10/05/18 08:46 Dose: 1 mg Furosemide (Lasix) 20 mg PO BID [facility] Last Admin: 10/04/18 16:54 Dose: 20 mg Guaifenesin (Mucinex La) 600 mg PO Q12 PRN PRN Reason: Cough Last Admin: 10/03/18 08:48 Dose: 600 mg Ipratropium [place] (Atrovent) 0.5 mg IH RQID [facility] Last Admin: 10/05/18 19:35 Dose: 0.5 mg Levalbuterol HCl (Xopenex) 0.63 mg INH RQ8 PRN PRN Reason: Shortness of Breath Last Admin: 10/05/18 06:46 Dose: 0.63 mg Magnesium Hydroxide (Milk Of Magnesia) 30 ml PO HS PRN PRN Reason: Constipation Methylprednisolone (Medrol) 12 mg PO DAILY [facility] Last Admin: 10/05/18 08:47 Dose: 12 mg Multivitamins/Vitamin C (Multi-Delyn Liquid) 15 ml PO DAILY [facility] Last Admin: 10/05/18 08:48 Dose: 15 ml Nicotine (Nicoderm Cq) 1 patch TD DAILY [facility] Last Admin: 10/05/18 08:48 Dose: 1 patch Ondansetron HCl (Zofran Inj) 4 mg IVP Q6 PRN PRN Reason: Nausea/Vomiting Last Admin: 09/28/18 17:51 Dose: 4 mg Thiamine HCl (Vitamin B1 Tab) 100 mg PO DAILY [facility] Last Admin: 10/05/18 08:50 Dose: 100 mg - Labs Labs: 10/05/18 06:00 10/05/18 06:00 - Constitutional Appears: Non-toxic, No Acute Distress - Eye Exam Eye Exam: Normal appearance - Respiratory Exam Respiratory Exam: absent: Respiratory Distress Additional comments: mild R basal rales; - Cardiovascular Exam Cardiovascular Exam: Tachycardia, Irregular Rhythm, +S1, +S2 - GI/Abdominal Exam GI & Abdominal Exam: Soft. absent: Distended, Tenderness - Extremities Exam Additional comments: moderate b/l lower leg edema; - Neurological Exam Neurological Exam: Alert, Awake - Psychiatric Exam Psychiatric exam: Normal Mood. absent: Agitated - Skin Skin Exam: Warm. absent: Cyanosis Assessment and Plan (1) Hyponatremia Assessment & Plan: Improved and stable on loop diuretic regimen; repeat urine osm decreased showing effect of lasix; metabolic alkalosis noted, may be secondary to lasix or compensation from some degree of hypercapnea; -continue PO lasix 20 mg bid; -will monitor metabolic alkalosis, if persistent, should get blood gas; Status: Acute (2) CHF (congestive heart failure) Assessment & Plan: Lungs clear but still with lower ext edema; still with intermittent RVR; f/u with cardio regarding further management; Status: Acute
[2018-10-06] MEDS: Ipratropium 0.02% Inhal Soln (0.5 mg/2.5 ml) UD IH SCH ×4 (08:01→19:27)
[2018-10-06] MEDS: Digoxin 250 mcg (0.25 mg) Tab PO SCH (09:10)
[2018-10-06] MEDS: Multi Vitamins 15 mL UD Oral Solution PO SCH (09:13)
[2018-10-06] MEDS: Cefdinir 300 MG CAP PO SCH ×2 (09:14→16:57)
--- NOTE | 2018-10-06 10:51 | CP.PCM.PN ---
Subjective - Date & Time of Evaluation Date of Evaluation: 10/06/18 Time of Evaluation: 10:00 - Subjective Subjective: Transferred to telemetry HR controlled with Digoxin breathing easily Objective - Vital Signs/Intake and Output Vital Signs (last 24 hours): Temp Pulse Resp BP Pulse Ox 97.1 F L 89 20 140/79 98 10/06/18 08:24 10/06/18 08:24 10/06/18 08:24 10/06/18 09:10 10/06/18 08:24 - Medications Medications: Current Medications Calcium Carbonate (Oscal) 500 mg PO DAILY [facility] Last Admin: 10/06/18 09:14 Dose: 500 mg Cefdinir (Omnicef) 300 mg PO BID [facility] Last Admin: 10/06/18 09:14 Dose: 300 mg Chlordiazepoxide (Librium) 25 mg PO Q8H [facility] Last Admin: 09/30/18 05:50 Dose: Not Given Digoxin (Lanoxin) 0.25 mg PO DAILY [facility] Last Admin: 10/06/18 09:10 Dose: 0.25 mg Folic Acid (Folic Acid) 1 mg PO DAILY [facility] Last Admin: 10/06/18 09:07 Dose: 1 mg Furosemide (Lasix) 20 mg PO BID [facility] Last Admin: 10/06/18 09:10 Dose: 20 mg Guaifenesin (Mucinex La) 600 mg PO Q12 PRN PRN Reason: Cough Last Admin: 10/03/18 08:48 Dose: 600 mg Ipratropium [place] (Atrovent) 0.5 mg IH RQID [facility] Last Admin: 10/06/18 08:01 Dose: 0.5 mg Levalbuterol HCl (Xopenex) 0.63 mg INH RQ8 PRN PRN Reason: Shortness of Breath Last Admin: 10/05/18 06:46 Dose: 0.63 mg Magnesium Hydroxide (Milk Of Magnesia) 30 ml PO HS PRN PRN Reason: Constipation Methylprednisolone (Medrol) 12 mg PO DAILY [facility] Last Admin: 10/06/18 09:12 Dose: 12 mg Multivitamins/Vitamin C (Multi-Delyn Liquid) 15 ml PO DAILY [facility] Last Admin: 10/06/18 09:13 Dose: 15 ml Nicotine (Nicoderm Cq) 1 patch TD DAILY [facility] Last Admin: 10/06/18 09:13 Dose: 1 patch Ondansetron HCl (Zofran Inj) 4 mg IVP Q6 PRN PRN Reason: Nausea/Vomiting Last Admin: 09/28/18 17:51 Dose: 4 mg Thiamine HCl (Vitamin B1 Tab) 100 mg PO DAILY [facility] Last Admin: 10/06/18 09:14 Dose: 100 mg - Labs Labs: 10/05/18 06:00 10/05/18 06:00 Assessment and Plan (1) Cancer of bladder wall Status: Acute (2) COPD (chronic obstructive pulmonary disease) Status: Acute (3) Respiratory distress Status: Acute (4) Left bundle branch block (LBBB) Status: Acute (5) Essential (primary) hypertension Status: Acute
--- NOTE | 2018-10-06 12:11 | CP.PCM.PN ---
<Buck Mckenzie - Last Filed: 10/06/18 12:13> Subjective - Date & Time of Evaluation Date of Evaluation: 10/06/18 Time of Evaluation: 08:00 - Subjective Subjective: Pt seen and examined while seated in his chair. Denies acute overnight events. Able to ambulate with help of PT. Currently on NC 4L. Objective - Vital Signs/Intake and Output Vital Signs (last 24 hours): Temp Pulse Resp BP Pulse Ox 97.4 F L 88 20 100/64 95 10/06/18 11:55 10/06/18 11:55 10/06/18 11:55 10/06/18 11:55 10/06/18 11:55 - Medications Medications: Current Medications Calcium Carbonate (Oscal) 500 mg PO DAILY [facility] Last Admin: 10/06/18 09:14 Dose: 500 mg Cefdinir (Omnicef) 300 mg PO BID [facility] Last Admin: 10/06/18 09:14 Dose: 300 mg Chlordiazepoxide (Librium) 25 mg PO Q8H [facility] Last Admin: 09/30/18 05:50 Dose: Not Given Digoxin (Lanoxin) 0.25 mg PO DAILY [facility] Last Admin: 10/06/18 09:10 Dose: 0.25 mg Folic Acid (Folic Acid) 1 mg PO DAILY [facility] Last Admin: 10/06/18 09:07 Dose: 1 mg Furosemide (Lasix) 20 mg PO BID [facility] Last Admin: 10/06/18 09:10 Dose: 20 mg Guaifenesin (Mucinex La) 600 mg PO Q12 PRN PRN Reason: Cough Last Admin: 10/03/18 08:48 Dose: 600 mg Ipratropium [place] (Atrovent) 0.5 mg IH RQID [facility] Last Admin: 10/06/18 11:06 Dose: 0.5 mg Levalbuterol HCl (Xopenex) 0.63 mg INH RQ8 PRN PRN Reason: Shortness of Breath Last Admin: 10/05/18 06:46 Dose: 0.63 mg Magnesium Hydroxide (Milk Of Magnesia) 30 ml PO HS PRN PRN Reason: Constipation Methylprednisolone (Medrol) 12 mg PO DAILY [facility] Last Admin: 10/06/18 09:12 Dose: 12 mg Multivitamins/Vitamin C (Multi-Delyn Liquid) 15 ml PO DAILY [facility] Last Admin: 10/06/18 09:13 Dose: 15 ml Nicotine (Nicoderm Cq) 1 patch TD DAILY [facility] Last Admin: 10/06/18 09:13 Dose: 1 patch Ondansetron HCl (Zofran Inj) 4 mg IVP Q6 PRN PRN Reason: Nausea/Vomiting Last Admin: 09/28/18 17:51 Dose: 4 mg Thiamine HCl (Vitamin B1 Tab) 100 mg PO DAILY [facility] Last Admin: 10/06/18 09:14 Dose: 100 mg - Labs Labs: 10/05/18 06:00 10/05/18 06:00 - Constitutional Appears: Well, No Acute Distress - Eye Exam Eye Exam: EOMI - ENT Exam ENT Exam: Mucous Membranes Moist - Respiratory Exam Respiratory Exam: Decreased Breath Sounds, Rales (mild on RLL, however, still improving ). absent: Accessory Muscle Use, Chest Wall Tenderness, Respiratory Distress - Cardiovascular Exam Cardiovascular Exam: Irregular Rhythm, +S1, +S2 - GI/Abdominal Exam GI & Abdominal Exam: Soft, Normal Bowel Sounds. absent: Tenderness - Extremities Exam Extremities Exam: Pedal Edema (bilaterally) - Neurological Exam Neurological Exam: Alert, Awake, CN II-XII Intact - Psychiatric Exam Psychiatric exam: Normal Affect, Normal Mood Assessment and Plan (1) COPD exacerbation Status: Acute (2) Pulmonary nodule seen on imaging study Status: Chronic (3) Transaminitis Status: Acute - Assessment and Plan (Free Text) Assessment: 78 yo M with pmhx of bladder CA, HTN, COPD, LBBB admitted for Respiratory distress 2/2 COPD exacerbation experienced Afib with RVR. Plan: NC tapered from 4L to 3L c/w Ipratropium 0.5 mg IH RQID, methylprednisolone 12 mg PO qDaily (tapering), Cefdinir -levalbuterol 0.63 mg INH RQ8 prn; guaifensen PRN Afib: Digoxin 0.25 mg PO qD LFT: trended down (hepatitis panel negative) Monitor for SOB/desaturation and AM labs Bilateral lower extremity edema: would benefit with further PT; currently on lasix Case and plan d/w Dr. Kimberli Mckenzie MD PGY-2 <Nba Ag - Last Filed: 10/06/18 14:16> Subjective - Subjective Subjective: The patient was seen together with the resident on rounds in telemetry. Physical findings and vital signs were reviewed and discussed. The plan of care was formulated together with the resident. The entry made by the resident accurately reflects today's visit. Objective - Vital Signs/Intake and Output Vital Signs (last 24 hours): Temp Pulse Resp BP Pulse Ox 97.4 F L 88 20 100/64 95 10/06/18 11:55 10/06/18 11:55 10/06/18 11:55 10/06/18 11:55 10/06/18 11:55 - Medications Medications: Current Medications Calcium Carbonate (Oscal) 500 mg PO DAILY [facility] Last Admin: 10/06/18 09:14 Dose: 500 mg Cefdinir (Omnicef) 300 mg PO BID [facility] Last Admin: 10/06/18 09:14 Dose: 300 mg Chlordiazepoxide (Librium) 25 mg PO Q8H [facility] Last Admin: 09/30/18 05:50 Dose: Not Given Digoxin (Lanoxin) 0.25 mg PO DAILY [facility] Last Admin: 10/06/18 09:10 Dose: 0.25 mg Folic Acid (Folic Acid) 1 mg PO DAILY [facility] Last Admin: 10/06/18 09:07 Dose: 1 mg Furosemide (Lasix) 20 mg PO BID [facility] Last Admin: 10/06/18 09:10 Dose: 20 mg Guaifenesin (Mucinex La) 600 mg PO Q12 PRN PRN Reason: Cough Last Admin: 10/03/18 08:48 Dose: 600 mg Ipratropium [place] (Atrovent) 0.5 mg IH RQID [facility] Last Admin: 10/06/18 11:06 Dose: 0.5 mg Levalbuterol HCl (Xopenex) 0.63 mg INH RQ8 PRN PRN Reason: Shortness of Breath Last Admin: 10/05/18 06:46 Dose: 0.63 mg Magnesium Hydroxide (Milk Of Magnesia) 30 ml PO HS PRN PRN Reason: Constipation Methylprednisolone (Medrol) 12 mg PO DAILY [facility] Last Admin: 10/06/18 09:12 Dose: 12 mg Multivitamins/Vitamin C (Multi-Delyn Liquid) 15 ml PO DAILY [facility] Last Admin: 10/06/18 09:13 Dose: 15 ml Nicotine (Nicoderm Cq) 1 patch TD DAILY [facility] Last Admin: 10/06/18 09:13 Dose: 1 patch Ondansetron HCl (Zofran Inj) 4 mg IVP Q6 PRN PRN Reason: Nausea/Vomiting Last Admin: 09/28/18 17:51 Dose: 4 mg Thiamine HCl (Vitamin B1 Tab) 100 mg PO DAILY [facility] Last Admin: 10/06/18 09:14 Dose: 100 mg - Labs Labs: 10/05/18 06:00 10/05/18 06:00 Assessment and Plan (1) COPD exacerbation Status: Acute (2) Pulmonary nodule seen on imaging study Status: Chronic (3) Transaminitis Status: Acute
--- NOTE | 2018-10-06 20:00 | CP.PCM.PN ---
Subjective - Date & Time of Evaluation Date of Evaluation: 10/06/18 Time of Evaluation: 13:00 - Subjective Subjective: Patient breathing better; tolerating diet; Objective - Vital Signs/Intake and Output Vital Signs (last 24 hours): Temp Pulse Resp BP Pulse Ox 97.3 F L 84 18 115/79 98 10/06/18 19:50 10/06/18 19:50 10/06/18 19:50 10/06/18 19:50 10/06/18 19:50 - Medications Medications: Current Medications Calcium Carbonate (Oscal) 500 mg PO DAILY [facility] Last Admin: 10/06/18 09:14 Dose: 500 mg Cefdinir (Omnicef) 300 mg PO BID [facility] Last Admin: 10/06/18 16:57 Dose: 300 mg Chlordiazepoxide (Librium) 25 mg PO Q8H [facility] Last Admin: 09/30/18 05:50 Dose: Not Given Digoxin (Lanoxin) 0.25 mg PO DAILY [facility] Last Admin: 10/06/18 09:10 Dose: 0.25 mg Folic Acid (Folic Acid) 1 mg PO DAILY [facility] Last Admin: 10/06/18 09:07 Dose: 1 mg Furosemide (Lasix) 20 mg PO BID [facility] Last Admin: 10/06/18 16:57 Dose: 20 mg Guaifenesin (Mucinex La) 600 mg PO Q12 PRN PRN Reason: Cough Last Admin: 10/03/18 08:48 Dose: 600 mg Ipratropium [place] (Atrovent) 0.5 mg IH RQID [facility] Last Admin: 10/06/18 19:27 Dose: 0.5 mg Levalbuterol HCl (Xopenex) 0.63 mg INH RQ8 PRN PRN Reason: Shortness of Breath Last Admin: 10/05/18 06:46 Dose: 0.63 mg Magnesium Hydroxide (Milk Of Magnesia) 30 ml PO HS PRN PRN Reason: Constipation Methylprednisolone (Medrol) 12 mg PO DAILY [facility] Last Admin: 10/06/18 09:12 Dose: 12 mg Multivitamins/Vitamin C (Multi-Delyn Liquid) 15 ml PO DAILY [facility] Last Admin: 10/06/18 09:13 Dose: 15 ml Nicotine (Nicoderm Cq) 1 patch TD DAILY [facility] Last Admin: 10/06/18 09:13 Dose: 1 patch Ondansetron HCl (Zofran Inj) 4 mg IVP Q6 PRN PRN Reason: Nausea/Vomiting Last Admin: 09/28/18 17:51 Dose: 4 mg Thiamine HCl (Vitamin B1 Tab) 100 mg PO DAILY [facility] Last Admin: 10/06/18 09:14 Dose: 100 mg - Labs Labs: 10/05/18 06:00 10/05/18 06:00 - Constitutional Appears: Non-toxic, No Acute Distress - Eye Exam Eye Exam: Normal appearance - Respiratory Exam Respiratory Exam: Clear to Ausculation Bilateral. absent: Respiratory Distress - Cardiovascular Exam Cardiovascular Exam: +S1, +S2. absent: Gallop, Rubs - GI/Abdominal Exam GI & Abdominal Exam: Soft. absent: Distended - Extremities Exam Additional comments: 2+ b/l lower ext edema; - Neurological Exam Neurological Exam: Alert, Awake - Psychiatric Exam Psychiatric exam: Normal Mood. absent: Agitated - Skin Skin Exam: Warm. absent: Cyanosis Assessment and Plan (1) Hyponatremia Assessment & Plan: Improved but still mildly persistent; on lasix 20 mg PO bid, metabolic alkalosis noted; will obtain VBG in am to assess whether this is from the diuretics or due to compensation for hypercapnea; -continue current lasix dose for now to help decrease urinary concentration (and help with CHF status); -continue PO fluid restriction < 1500 cc/day; -continue to optimize CHF status; Status: Acute (2) CHF (congestive heart failure) Assessment & Plan: No significant improvement in lower ext edema but lungs clear; aifb/CHF management per cardio; Status: Acute
--- NOTE | 2018-10-06 22:06 | CP.PCM.PN ---
Subjective - Date & Time of Evaluation Date of Evaluation: 10/06/18 Time of Evaluation: 18:00 - Subjective Subjective: Feeling better Objective - Vital Signs/Intake and Output Vital Signs (last 24 hours): Temp Pulse Resp BP Pulse Ox 97.3 F L 84 18 115/79 98 10/06/18 19:50 10/06/18 19:50 10/06/18 19:50 10/06/18 19:50 10/06/18 19:50 - Medications Medications: Current Medications Calcium Carbonate (Oscal) 500 mg PO DAILY [facility] Last Admin: 10/06/18 09:14 Dose: 500 mg Cefdinir (Omnicef) 300 mg PO BID [facility] Last Admin: 10/06/18 16:57 Dose: 300 mg Chlordiazepoxide (Librium) 25 mg PO Q8H [facility] Last Admin: 09/30/18 05:50 Dose: Not Given Digoxin (Lanoxin) 0.25 mg PO DAILY [facility] Last Admin: 10/06/18 09:10 Dose: 0.25 mg Folic Acid (Folic Acid) 1 mg PO DAILY [facility] Last Admin: 10/06/18 09:07 Dose: 1 mg Furosemide (Lasix) 20 mg PO BID [facility] Last Admin: 10/06/18 16:57 Dose: 20 mg Guaifenesin (Mucinex La) 600 mg PO Q12 PRN PRN Reason: Cough Last Admin: 10/03/18 08:48 Dose: 600 mg Ipratropium [place] (Atrovent) 0.5 mg IH RQID [facility] Last Admin: 10/06/18 19:27 Dose: 0.5 mg Levalbuterol HCl (Xopenex) 0.63 mg INH RQ8 PRN PRN Reason: Shortness of Breath Last Admin: 10/05/18 06:46 Dose: 0.63 mg Magnesium Hydroxide (Milk Of Magnesia) 30 ml PO HS PRN PRN Reason: Constipation Methylprednisolone (Medrol) 12 mg PO DAILY [facility] Last Admin: 10/06/18 09:12 Dose: 12 mg Multivitamins/Vitamin C (Multi-Delyn Liquid) 15 ml PO DAILY [facility] Last Admin: 10/06/18 09:13 Dose: 15 ml Nicotine (Nicoderm Cq) 1 patch TD DAILY [facility] Last Admin: 10/06/18 09:13 Dose: 1 patch Ondansetron HCl (Zofran Inj) 4 mg IVP Q6 PRN PRN Reason: Nausea/Vomiting Last Admin: 09/28/18 17:51 Dose: 4 mg Thiamine HCl (Vitamin B1 Tab) 100 mg PO DAILY [facility] Last Admin: 10/06/18 09:14 Dose: 100 mg - Labs Labs: 10/05/18 06:00 10/05/18 06:00 - Head Exam Head Exam: ATRAUMATIC - Eye Exam Eye Exam: Normal appearance - ENT Exam ENT Exam: Mucous Membranes Dry - Respiratory Exam Respiratory Exam: NORMAL BREATHING PATTERN - Cardiovascular Exam Cardiovascular Exam: +S1, +S2 Assessment and Plan (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
[2018-10-07 04:49] LABS: VENOUS BLOOD GAS BASE EXCESS 10.5 mmol/L (0.0-2.0); VENOUS BLOOD GAS PCO2 61 mmHg (40-60); VENOUS BLOOD GAS PO2 33 mm/Hg (30-55)
[2018-10-07 05:37] LABS: BASO % 0.4 % (0.0-2.0); EOS # 0.1 K/uL (0.0-0.7); HEMOGLOBIN 13.5 g/dL (12.0-18.0); LYMPH # 0.7 K/uL (1.0-4.3); LYMPH % 9.9 % (20.0-40.0); MEAN CELL VOLUME 104.5 fl (80.0-94.0); MEAN CORPUSCULAR HEMOGLOBIN 34.9 pg (27.0-31.0); MEAN CORPUSCULAR HGB CONC 33.4 g/dL (33.0-37.0); MEAN PLATELET VOLUME 7.6 fl (7.2-11.7); MONO # 0.7 K/uL (0.0-0.8); MONO % 9.6 % (0.0-10.0); NEUT # 5.5 K/uL (1.8-7.0); NEUT % 79.1 % (50.0-75.0); PLATELET COUNT 268 K/uL (130-400); RBC 3.87 Mil/uL (4.40-5.90); RED CELL DISTRIBUTION WIDTH 14.2 % (11.5-14.5); WHITE BLOOD COUNT 6.9 K/uL (4.8-10.8)
[2018-10-07 06:23] LABS: BLOOD UREA NITROGEN 13 mg/dl (9-20); CALCIUM 8.4 mg/dL (8.4-10.2); GFR NON-AFRICAN AMERICAN > 60
[2018-10-07] MEDS: Ipratropium 0.02% Inhal Soln (0.5 mg/2.5 ml) UD IH SCH ×4 (07:56→19:34)
[2018-10-07 08:47] LABS: EOSINOPHIL 2 % (0-7); LYMPHOCYTE 8 % (20-50); MONOCYTE 6 % (0-10); NEUTROPHIL 84 % (42-75); PLATELET ESTIMATE NORMAL (NORMAL); TOTAL CELLS COUNTED 100
[2018-10-07 08:49] LABS: ANISOCYTOSIS SLIGHT; LARGE PLATELETS PRESENT; OVALOCYTES MODERATE
[2018-10-07] MEDS: Digoxin 250 mcg (0.25 mg) Tab PO SCH (08:55)
[2018-10-07] MEDS: Cefdinir 300 MG CAP PO SCH ×2 (08:58→16:46)
[2018-10-07] MEDS: Multi Vitamins 15 mL UD Oral Solution PO SCH (08:58)
[2018-10-07 09:00] VITALS: PULSE 111
[2018-10-07 12:28] VITALS: O2SAT 93
--- NOTE | 2018-10-07 13:56 | CP.PCM.PN ---
Subjective - Date & Time of Evaluation Date of Evaluation: 10/07/18 Time of Evaluation: 13:51 - Subjective Subjective: Seen on rounds in telemetry. Seated in bedside chair eating lunch. Claims he is feeling much improved. Still has occasional cough, but no expectoration. No chest pain, slept well last night. Vital signs are stable, remains afebrile. Seen by physical therapy earlier today. Dyspnea when walking with therapist. SpO2 91% on nasal O2 @ 3LPM. No leukocytosis. Dependant edema both LEs +. No cyanosis or calf tenderness. No dullness on chest percussion. Breath sounds are diminished bilaterally. Scattered rhonchi in both lungs. No audible wheezes or bronchial breath sounds. Few dry rales in lower lobes bilaterally. Repeat chest x-ray PA/LATERAL. Increase guaifenesin to 1200MG Q12H. Reduce methylprednisolone to 8MG BID. Continue cefdinir for now. Objective - Vital Signs/Intake and Output Vital Signs (last 24 hours): Temp Pulse Resp BP Pulse Ox 97.3 F L 94 H 18 96/62 L 93 L 10/07/18 12:28 10/07/18 12:28 10/07/18 12:28 10/07/18 12:28 10/07/18 12:28 - Medications Medications: Current Medications Calcium Carbonate (Oscal) 500 mg PO DAILY [facility] Last Admin: 10/07/18 08:59 Dose: 500 mg Cefdinir (Omnicef) 300 mg PO BID [facility] Last Admin: 10/07/18 08:58 Dose: 300 mg Digoxin (Lanoxin) 0.25 mg PO DAILY [facility] Last Admin: 10/07/18 08:55 Dose: 0.25 mg Folic Acid (Folic Acid) 1 mg PO DAILY [facility] Last Admin: 10/07/18 08:55 Dose: 1 mg Furosemide (Lasix) 20 mg PO BID [facility] Last Admin: 10/07/18 08:56 Dose: 20 mg Guaifenesin (Mucinex La) 600 mg PO Q12 PRN PRN Reason: Cough Last Admin: 10/03/18 08:48 Dose: 600 mg Ipratropium [place] (Atrovent) 0.5 mg IH RQID [facility] Last Admin: 10/07/18 11:33 Dose: 0.5 mg Levalbuterol HCl (Xopenex) 0.63 mg INH RQ8 PRN PRN Reason: Shortness of Breath Last Admin: 10/05/18 06:46 Dose: 0.63 mg Magnesium Hydroxide (Milk Of Magnesia) 30 ml PO HS PRN PRN Reason: Constipation Methylprednisolone (Medrol) 12 mg PO DAILY [facility] Last Admin: 10/07/18 08:57 Dose: 12 mg Multivitamins/Vitamin C (Multi-Delyn Liquid) 15 ml PO DAILY [facility] Last Admin: 10/07/18 08:58 Dose: 15 ml Nicotine (Nicoderm Cq) 1 patch TD DAILY [facility] Last Admin: 10/07/18 08:58 Dose: 1 patch Ondansetron HCl (Zofran Inj) 4 mg IVP Q6 PRN PRN Reason: Nausea/Vomiting Last Admin: 09/28/18 17:51 Dose: 4 mg Thiamine HCl (Vitamin B1 Tab) 100 mg PO DAILY [facility] Last Admin: 10/07/18 08:59 Dose: 100 mg - Labs Labs: 10/07/18 04:30 10/07/18 04:30 Assessment and Plan (1) COPD exacerbation Status: Acute (2) Pulmonary nodule seen on imaging study Status: Chronic (3) Transaminitis Status: Acute
[2018-10-07 14:43] VITALS: BP 129/69
--- NOTE | 2018-10-07 15:58 | RAD ---
Date of service: 10/07/2018 HISTORY: SOB COMPARISON: Chest radiograph dated 09/29/2018. TECHNIQUE: Chest PA and lateral FINDINGS: LUNGS: No active pulmonary disease. PLEURA: No significant pleural effusion identified. No pneumothorax apparent. CARDIOVASCULAR: Aortic atherosclerotic calcifications. Cardiomediastinal silhouette stably enlarged. OSSEOUS STRUCTURES: Unchanged. VISUALIZED UPPER ABDOMEN: Normal. OTHER FINDINGS: None. IMPRESSION: No active disease.
[2018-10-07 18:36] VITALS: PULSE 90; RESP 20; TEMP 98
[2018-10-07] MEDS ORDERED: guaiFENesin 600 mg ER Tab PO SCH (21:00)
--- NOTE | 2018-10-08 11:16 | CP.PCM.DIS ---
Provider - Provider Date of Admission: 09/27/18 05:38 Attending physician: Rory Marie MD Primary care physician: Giovanna Marie Consults: 09/27/18 10:10 Pulmonology Consult Routine Comment: Consulting Provider: Nba Ag Consulting Physician: Nba Ag Reason for Consult: copd 09/27/18 12:39 Nephrology Consult Routine Comment: low na Consulting Provider: Fredi Del Castillo Consulting Physician: Fredi Del Castillo Reason for Consult: low na 09/27/18 12:41 Hematology Oncology Consult Routine Comment: Consulting Provider: Jaren Mckenzie Consulting Physician: Jaren Mckenzie Reason for Consult: ca bladder Time Spent in preparation of Discharge (in minutes): 44 Diagnosis - Discharge Diagnosis (1) COPD (chronic obstructive pulmonary disease) Status: Acute (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 (3) Respiratory distress Status: Acute (4) Left bundle branch block (LBBB) Status: Acute Priority: High (5) Essential (primary) hypertension Status: Acute Hospital Course - Lab Results Lab Results: Micro Results 10/05/18 21:48 Naris MRSA Culture (Admit) - Final MRSA NOT DETECTED 09/27/18 03:51 Blood-Venous Blood Culture - Final NO GROWTH AFTER 5 DAYS 09/27/18 03:51 Blood-Venous Gram Stain - Final TEST NOT PERFORMED 09/27/18 03:21 Blood-Venous Blood Culture - Final NO GROWTH AFTER 5 DAYS 09/27/18 03:21 Blood-Venous Gram Stain - Final TEST NOT PERFORMED 09/27/18 08:05 Naris MRSA Culture (Admit) - Final MRSA NOT DETECTED 09/27/18 11:00 Urine,Clean Catch Urine Culture - Final No Growth (<1,000 CFU/ML) Most Recent Lab Values WBC 6.9 K/uL (4.8-10.8) 10/07/18 04:30 RBC 3.87 Mil/uL (4.40-5.90) L 10/07/18 04:30 Hgb 13.5 g/dL (12.0-18.0) 10/07/18 04:30 Hct 40.4 % (35.0-51.0) 10/07/18 04:30 MCV 104.5 fl (80.0-94.0) H 10/07/18 04:30 MCH 34.9 pg (27.0-31.0) H 10/07/18 04:30 MCHC 33.4 g/dL (33.0-37.0) 10/07/18 04:30 RDW 14.2 % (11.5-14.5) 10/07/18 04:30 Plt Count 268 K/uL (130-400) 10/07/18 04:30 MPV 7.6 fl (7.2-11.7) 10/07/18 04:30 Neut % (Auto) 79.1 % (50.0-75.0) H 10/07/18 04:30 Lymph % (Auto) 9.9 % (20.0-40.0) L 10/07/18 04:30 [place] % (Auto) 9.6 % (0.0-10.0) 10/07/18 04:30 Eos % (Auto) 1.0 % (0.0-4.0) 10/07/18 04:30 Baso % (Auto) 0.4 % (0.0-2.0) 10/07/18 04:30 Neut # (Auto) 5.5 K/uL (1.8-7.0) 10/07/18 04:30 Lymph # (Auto) 0.7 K/uL (1.0-4.3) L 10/07/18 04:30 [place] # (Auto) 0.7 K/uL (0.0-0.8) 10/07/18 04:30 Eos # (Auto) 0.1 K/uL (0.0-0.7) 10/07/18 04:30 Baso # (Auto) 0.0 K/uL (0.0-0.2) 10/07/18 04:30 Neutrophils % (Manual) 84 % (42-75) H 10/07/18 04:30 Lymphocytes % (Manual) 8 % (20-50) L 10/07/18 04:30 Monocytes % (Manual) 6 % (0-10) 10/07/18 04:30 Eosinophils % (Manual) 2 % (0-7) 10/07/18 04:30 Platelet Estimate Normal (NORMAL) 10/07/18 04:30 Large Platelets Present 10/07/18 04:30 Anisocytosis (manual) Slight 10/07/18 04:30 Macrocytosis (manual) Slight 10/07/18 04:30 Tear Drop Cells Slight 09/27/18 03:21 Ovalocytes Moderate 10/07/18 04:30 Retic Count 1.3 % (0.5-1.5) 09/29/18 04:20 pCO2 44 mm/Hg (35-45) 09/30/18 01:54 pO2 33 mm/Hg (30-55) 10/07/18 04:46 HCO3 26.3 mmol/L (21-28) 09/30/18 01:54 ABG pH 7.40 (7.35-7.45) 09/30/18 01:54 ABG Total CO2 28.7 mmol/L (22-28) H 09/30/18 01:54 ABG O2 Saturation 94.3 % (95-98) L 09/30/18 01:54 ABG O2 Content 16.9 ML/dL (15-23) 09/30/18 01:54 ABG Base Excess 2.0 mmol/L (-2.0-3.0) 09/30/18 01:54 ABG Hemoglobin 13.2 g/dL (11.7-17.4) 09/30/18 01:54 ABG Carboxyhemoglobin 1.7 % (0.5-1.5) H 10/07/18 04:46 POC ABG HHb (Measured) 30.1 % (0.0-5.0) H 10/07/18 04:46 ABG Methemoglobin 1.4 % (0.0-3.0) 10/07/18 04:46 ABG O2 Capacity 17.9 mL/dL (16-24) 09/30/18 01:54 Sascha Test Yes 09/30/18 01:54 ABG Potassium 3.6 mmol/L (3.6-5.2) 09/27/18 05:16 VBG pH 7.40 (7.32-7.43) 10/07/18 04:46 VBG pCO2 61 mmHg (40-60) H 10/07/18 04:46 VBG HCO3 32.3 mmol/L 10/07/18 04:46 VBG Total CO2 23.5 mmol/L (22-28) 09/27/18 03:26 VBG O2 Sat (Calc) 68.9 % (40-65) H 10/07/18 04:46 VBG Base Excess 10.5 mmol/L (0.0-2.0) H 10/07/18 04:46 VBG Hgb O2 Saturation 66.8 % (95.0-98.0) L 10/07/18 04:46 VBG Potassium 4.0 mmol/L (3.6-5.2) 09/27/18 03:26 A-a O2 Difference 110.0 mm/Hg 09/30/18 01:54 Hemoglobin 13.9 g/dL (11.7-17.4) 10/07/18 04:46 Hgb O2 Saturation 91.1 % (95.0-98.0) L 09/30/18 01:54 Sodium 118.0 mmol/L (132-148) L* 09/27/18 05:16 Chloride 89.0 mmol/L (98-107) L 09/27/18 05:16 Glucose 181 mg/dL (75-110) H 09/27/18 05:16 Lactate 2.7 mmol/L (0.7-2.1) H 09/27/18 05:16 Vent Mode 3lnc 09/30/18 01:54 FiO2 32.0 % 09/30/18 01:54 Crit Value Called To Carlos painter md 09/27/18 05:16 Crit Value Called By 333 09/27/18 05:16 Crit Value Read Back Y 09/27/18 05:16 Blood Gas Notified Time 522 09/27/18 05:16 Sodium 134 mmol/l (132-148) 10/07/18 04:30 Potassium 3.6 MMOL/L (3.6-5.0) 10/07/18 04:30 Chloride 95 mmol/L (98-107) L 10/07/18 04:30 Carbon Dioxide 34 mmol/L (22-30) H 10/07/18 04:30 Anion Gap 9 (10-20) L 10/07/18 04:30 BUN 13 mg/dl (9-20) 10/07/18 04:30 Creatinine 0.6 mg/dl (0.8-1.5) L 10/07/18 04:30 Est GFR ( Amer) > 60 10/07/18 04:30 Est GFR (Non-Af Amer) > 60 10/07/18 04:30 POC Glucose (mg/dL) 144 mg/dL (65-110) H 10/06/18 21:49 Random Glucose 95 mg/dL (75-110) 10/07/18 04:30 Serum Osmolality 284 mosm/kg (272-300) 10/05/18 04:30 Lactic Acid 1.9 MMOL/L (0.7-2.1) 09/28/18 10:49 Calcium 8.4 mg/dL (8.4-10.2) 10/07/18 04:30 Phosphorus 3.6 mg/dl (2.5-4.5) 09/27/18 10:29 Magnesium 2.0 MG/DL (1.6-2.3) 09/27/18 10:29 Ferritin 453.0 ng/Ml (17.9-464) 09/29/18 04:20 Total Bilirubin 0.3 mg/dl (0.2-1.3) 10/03/18 04:55 Direct Bilirubin 0.2 mg/ml (0.0-0.4) 09/28/18 10:49 GGT 187 U/L (8-78) H 09/28/18 10:49 AST 66 U/L (17-59) H 10/03/18 04:55 ALT 125 U/L (21-72) H 10/03/18 04:55 Alkaline Phosphatase 101 U/L (38-126) 10/03/18 04:55 Troponin I 0.1510 ng/mL (0.00-0.120) H* 09/27/18 15:13 NT-Pro-B Natriuret Pep 63063 pg/ml (0-900) H 09/27/18 03:21 Total Protein 5.7 G/DL (6.3-8.2) L 10/03/18 04:55 Albumin 2.7 g/dL (3.5-5.0) L 10/03/18 04:55 Globulin 3.1 gm/dL (2.2-3.9) 10/03/18 04:55 Albumin/Globulin Ratio 0.9 (1.0-2.1) L 10/03/18 04:55 Vitamin B12 660 pg/mL (239-931) 09/29/18 04:20 25-OH Vitamin D Total 30 ng/mL (30-100) 09/27/18 15:13 Folate 13.2 ng/mL 09/29/18 04:20 Procalcitonin 2.01 NG/ML (0.19-0.49) H 09/28/18 10:49 Free T4 1.46 ng/dL (0.78-2.19) 09/27/18 12:23 Free T3 pg/mL 2.31 pg/mL (2.77-5.27) L 09/27/18 12:23 TSH 3rd Generation 0.18 mIU/ML (0.46-4.68) L 09/27/18 10:49 Arterial Blood Potassium 3.6 mmol/L (3.6-5.2) 09/27/18 05:16 Venous Blood Potassium 4.0 mmol/L (3.6-5.2) 09/27/18 03:26 Urine Color Yellow (YELLOW) 09/27/18 11:00 Urine Clarity Clear (Clear) 09/27/18 11:00 Urine pH 6.0 (5.0-8.0) 09/27/18 11:00 Ur Specific [place] 1.019 (1.003-1.030) 09/27/18 11:00 Urine Protein 30 mg/dL (NEGATIVE) 09/27/18 11:00 Urine Glucose (UA) Neg mg/dL (NEGATIVE) 09/27/18 11:00 Urine Ketones Negative mg/dL (NEGATIVE) 09/27/18 11:00 Urine Blood Small (NEGATIVE) 09/27/18 11:00 Urine Nitrate Negative (NEGATIVE) 09/27/18 11:00 Urine Bilirubin Negative (NEGATIVE) 09/27/18 11:00 Urine Urobilinogen 0.2-1.0 mg/dL (0.2-1.0) 09/27/18 11:00 Ur Leukocyte Esterase Neg [place]ena/uL (Negative) 09/27/18 11:00 Urine RBC (Auto) 3 /hpf (0-3) 09/27/18 11:00 Urine Microscopic WBC 1 /hpf (0-5) 09/27/18 11:00 Ur Squamous Epith Cells < 1 /hpf (0-5) 09/27/18 11:00 Urine Bacteria Rare (<OCC) 09/27/18 11:00 Hyaline Casts 3-5 /hpf (0-2) H 09/27/18 11:00 Urine Osmolality 199 mosm/kg (300-1000) L 10/05/18 14:44 Ur Random Sodium < 5 mmol/L 10/05/18 14:44 Digoxin 1.2 ng/mL (0.8-2.0) 10/07/18 04:30 Hepatitis A IgM Ab Negative (NEGATIVE) 09/27/18 10:41 Hep Bs Antigen Negative (NEGATIVE) 09/27/18 10:41 Hep B Core IgM Ab Negative (NEGATIVE) 09/27/18 10:41 Hepatitis C Antibody Negative (NEGATIVE) 09/27/18 10:41 Influenza Typ A,B (EIA) Negative for flu a/b (NEGATIVE) 09/27/18 03:21 - Hospital Course Hospital Course: 78 y/o w/m admitted with SOB / JONAS x 3-4 days Has had Increased temp at home w/ Productive cough Exacerbation of COPD Pt still smokes Also, new onset Atrial Fibrillation w/ RVR PMH: CA Bladder w/ resection [address] Cat and again in 09/2016 @ [place] Hypertension COPD Continues to smoke CLBBB EKG: Tachycardia CXR: haziness/cardiomegaly Liver enzymes: all elevated Na: 120 Echo: Dilated LV 7.0 EF: 15-20% MR TR - Date & Time of H&P Date of H&P: 10/07/18 Time of H&P: 09:00 Discharge Exam - Head Exam Head Exam: ATRAUMATIC Discharge Plan - Follow Up Plan Condition: GOOD Disposition: REHAB FACILITY/REHAB UNIT Instructions: Exacerbation of COPD (DC), Hyponatremia (DC) Referrals: Rory Marie MD [Staff Provider] - Nba Ag MD [Staff Provider] -
== END 2018-10-07 20:30 | DRG 190 ==
LOC: H.ER 02:43 → H.ERHOLD 05:38 → H.ICU/CCU 07:01 → H.TEL 10-05 20:33
PROVIDERS: ADMIT Internal Medicine Cardiovascular Disease; ATTEND Internal Medicine Cardiovascular Disease
DX: J44.1 Chronic obstructive pulmonary disease with (acute) exacerbation (principal); I50.23 Acute on chronic systolic (congestive) heart failure; E87.1 Hypo-osmolality and hyponatremia; E87.3 Alkalosis; C67.9 Malignant neoplasm of bladder, unspecified; I11.0 Hypertensive heart disease with heart failure; R74.0 Nonspecific elevation of levels of transaminase and lactic acid dehydrogenase [LDH]; R09.02 Hypoxemia; I44.7 Left bundle-branch block, unspecified; I27.81 Cor pulmonale (chronic); I27.29 Other secondary pulmonary hypertension; N31.9 Neuromuscular dysfunction of bladder, unspecified; E87.6 Hypokalemia; D64.9 Anemia, unspecified; E07.81 Sick-euthyroid syndrome; F17.210 Nicotine dependence, cigarettes, uncomplicated; H35.30 Unspecified macular degeneration; I08.1 Rheumatic disorders of both mitral and tricuspid valves; K40.90 Unilateral inguinal hernia, without obstruction or gangrene, not specified as recurrent; K57.90 Diverticulosis of intestine, part unspecified, without perforation or abscess without bleeding; K80.20 Calculus of gallbladder without cholecystitis without obstruction; N28.1 Cyst of kidney, acquired; N42.89 Other specified disorders of prostate; Z79.899 Other long term (current) drug therapy; Z85.51 Personal history of malignant neoplasm of bladder; D72.829 Elevated white blood cell count, unspecified; F10.20 Alcohol dependence, uncomplicated; I45.10 Unspecified right bundle-branch block; R00.0 Tachycardia, unspecified; R06.82 Tachypnea, not elsewhere classified; R73.9 Hyperglycemia, unspecified; K59.00 Constipation, unspecified

== ENCOUNTER 2018-10-07 14:41 | Inpatient (IN) | payer OTHER ==
[2018-10-07 20:18] VITALS: BMI 24.2
[2018-10-07 21:23] VITALS: RESP 20
[2018-10-07] MEDS ORDERED: guaiFENesin 600 mg ER Tab PO PRN (22:02)
[2018-10-07] MEDS ORDERED: Magnesium Hydroxide Susp 30 ml UD PO PRN (22:02)
[2018-10-07] MEDS ORDERED: Levalbuterol 0.63 MG/3 ML Inhal Soln UD INH PRN (22:15)
[2018-10-08] MEDS: Digoxin 250 mcg (0.25 mg) Tab PO SCH (08:16)
[2018-10-08] MEDS: guaiFENesin 600 mg ER Tab PO SCH ×2 (08:17→21:08)
[2018-10-08] MEDS: Cefdinir 300 MG CAP PO SCH ×2 (08:18→16:14)
[2018-10-08] MEDS: Multi Vitamins 15 mL UD Oral Solution PO SCH (08:18)
[2018-10-08] MEDS: Ipratropium 0.02% Inhal Soln (0.5 mg/2.5 ml) UD IH SCH ×4 (08:48→19:00)
--- NOTE | 2018-10-08 10:58 | CP.PCM.PN ---
Subjective - Date & Time of Evaluation Date of Evaluation: 10/08/18 Time of Evaluation: 10:00 - Subjective Subjective: tthe patient was found sitting in his chair having finished his morning physical therapy. The patient reports being comfortable with the degree of exertion he had to endure during PT. His heart rate was 84 bpm irregularly irregular. His blood pressure was 134/74 mmHg. Jugular venous pressure was not elevated there was minimal pitting edema over both lower extremities. His extremities were warm and his nailbeds were pink. There was no central or peripheral cyanosis. The patient is stable from cardiovascular point of view. Objective - Vital Signs/Intake and Output Vital Signs (last 24 hours): Temp Pulse Resp BP Pulse Ox 97.6 F 87 20 120/75 94 L 10/08/18 09:21 10/08/18 09:21 10/08/18 09:21 10/08/18 09:21 10/08/18 09:21 - Medications Medications: Current Medications Calcium Carbonate (Oscal) 500 mg PO DAILY [facility] Last Admin: 10/08/18 08:19 Dose: 500 mg Cefdinir (Omnicef) 300 mg PO BID [facility] Last Admin: 10/08/18 08:18 Dose: 300 mg Digoxin (Lanoxin) 0.25 mg PO DAILY [facility] Last Admin: 10/08/18 08:16 Dose: 0.25 mg Folic Acid (Folic Acid) 1 mg PO DAILY [facility] Last Admin: 10/08/18 08:16 Dose: 1 mg Furosemide (Lasix) 20 mg PO BID [facility] Last Admin: 10/08/18 08:16 Dose: 20 mg Guaifenesin (Mucinex La) 600 mg PO Q12 [facility] Last Admin: 10/08/18 08:17 Dose: 600 mg Ipratropium [place] (Atrovent) 0.5 mg IH RQID [facility] Last Admin: 10/08/18 08:48 Dose: 0.5 mg Levalbuterol HCl (Xopenex) 0.63 mg INH RQ8 PRN PRN Reason: Shortness of Breath Magnesium Hydroxide (Milk Of Magnesia) 30 ml PO HS PRN PRN Reason: Constipation Multivitamins/Vitamin C (Multi-Delyn Liquid) 15 ml PO DAILY [facility] Last Admin: 10/08/18 08:18 Dose: 15 ml Nicotine (Nicoderm Cq) 1 patch TD DAILY [facility] Last Admin: 10/08/18 08:18 Dose: 1 patch Thiamine HCl (Vitamin B1 Tab) 100 mg PO DAILY [facility] Last Admin: 10/08/18 08:16 Dose: 100 mg
--- NOTE | 2018-10-08 11:19 | CP.PCM.CON ---
History of Present Illness - History of Present Illness History of Present Illness: Seen in transitional care after discharge from acute medicine. Seated on the edge of the bed, states he is feeling improved. Was able to do physical therapy yesterday with good results. Presented with productive cough and shortness of breath, exacerbation of COPD. Also developed new onset atrial fibrillation with rapid ventricular rate. The above were treated successfully and he was discharged to TCU because of general debilitation. Past Patient History - Past Medical History & Family History Past Medical History?: Yes - Past Social History Smoking Status: Heavy Smoker > 10 Cigarettes Daily Chewing Tobacco Use: No Cigar Use: No Alcohol: Other (unsure) Drugs: Denies Home Situation {Lives}: Alone - CARDIAC Hx Atrial Fibrillation: Yes Hx Congestive Heart Failure: Yes Hx Hypertension: Yes Hx Peripheral Edema: Yes - PULMONARY Hx Chronic Obstructive Pulmonary Disease (COPD): Yes - NEUROLOGICAL Hx Neurological Disorder: No - HEENT Hx Macular Degeneration: Yes - RENAL Hx Neurogenic Bladder: Yes - ENDOCRINE/METABOLIC Hx Endocrine Disorders: No - HEMATOLOGICAL/ONCOLOGICAL Hx Blood Disorders: No - INTEGUMENTARY Hx Dermatological Problems: No - MUSCULOSKELETAL/RHEUMATOLOGICAL Hx Falls: No Hx Unsteady Gait: Yes - GASTROINTESTINAL Hx Gastrointestinal Disorders: No - GENITOURINARY/GYNECOLOGICAL Hx Bladder Cancer: Yes - PSYCHIATRIC Hx Psychophysiologic Disorder: No Hx Substance Use: No - SURGICAL HISTORY Other/Comment: TURBT - ANESTHESIA Hx Anesthesia: Yes Hx Anesthesia Reactions: No Hx Malignant Hyperthermia: No Meds Allergies/Adverse Reactions: Allergies Allergy/AdvReac Type Severity Reaction Status Date / Time No Known Allergies Allergy Verified 10/24/15 10:35 - Medications Medications: Current Medications Calcium Carbonate (Oscal) 500 mg PO DAILY [facility] Last Admin: 10/08/18 08:19 Dose: 500 mg Cefdinir (Omnicef) 300 mg PO BID [facility] Last Admin: 10/08/18 08:18 Dose: 300 mg Digoxin (Lanoxin) 0.25 mg PO DAILY [facility] Last Admin: 10/08/18 08:16 Dose: 0.25 mg Folic Acid (Folic Acid) 1 mg PO DAILY [facility] Last Admin: 10/08/18 08:16 Dose: 1 mg Furosemide (Lasix) 20 mg PO BID [facility] Last Admin: 10/08/18 08:16 Dose: 20 mg Guaifenesin (Mucinex La) 600 mg PO Q12 [facility] Last Admin: 10/08/18 08:17 Dose: 600 mg Ipratropium [place] (Atrovent) 0.5 mg IH RQID [facility] Last Admin: 10/08/18 08:48 Dose: 0.5 mg Levalbuterol HCl (Xopenex) 0.63 mg INH RQ8 PRN PRN Reason: Shortness of Breath Magnesium Hydroxide (Milk Of Magnesia) 30 ml PO HS PRN PRN Reason: Constipation Multivitamins/Vitamin C (Multi-Delyn Liquid) 15 ml PO DAILY [facility] Last Admin: 10/08/18 08:18 Dose: 15 ml Nicotine (Nicoderm Cq) 1 patch TD DAILY [facility] Last Admin: 10/08/18 08:18 Dose: 1 patch Thiamine HCl (Vitamin B1 Tab) 100 mg PO DAILY [facility] Last Admin: 10/08/18 08:16 Dose: 100 mg Physical Exam - Additional Findings Additional findings: Seated on edge of the bed, appears comfortable. Conversant, oriented, cooperative. 1+ dependant edema of both legs to mid-calf. No calf tenderness on palpation, no cyanosis. No palpable lymphadenopathy. Neck is supple and trachea midline. Chest is hyper-resonant on percussion. Breath sounds are diminished bilaterally. Few dry to medium rales are presentin lung bases. No audible wheezes or bronchial breath sounds. Heart sounds distant, irregular, 60s. Abdomen soft and non-tender. Results - Vital Signs Recent Vital Signs: Last Vital Signs Temp 97.6 F 10/08/18 09:21 Pulse 87 10/08/18 09:21 Resp 20 10/08/18 09:21 BP 120/75 10/08/18 09:21 Pulse Ox 94 L 10/08/18 09:21 Assessment & Plan (1) Atrial fibrillation Status: Acute Priority: High (2) CHF (congestive heart failure) Assessment and Plan: Reduced LVEF. Status: Acute Priority: High (3) COPD (chronic obstructive pulmonary disease) Assessment and Plan: Recent exacerbation, doing well on present regimen. Status: Chronic Priority: High (4) Debilitated patient Status: Acute Priority: High - Assessment and Plan (Free Text) Plan: Continue current medical regimen and physical therapy. - Date & Time Date: 10/08/18 Time: 11:19
--- NOTE | 2018-10-08 11:22 | CP.PCM.HP ---
History of Present Illness - History of Present Illness History of Present Illness: 78 y/o w/m admitted with SOB / JONAS x 3-4 days Has had Increased temp at home w/ Productive cough Exacerbation of COPD Pt still smokes Also, new onset Atrial Fibrillation w/ RVR PMH: CA Bladder w/ resection [address] Cat and again in 09/2016 @ [place] Hypertension COPD Continues to smoke CLBBB EKG: Tachycardia CXR: haziness/cardiomegaly Liver enzymes: all elevated Na: 120 Echo: Dilated LV 7.0 EF: 15-20% Present on Admission - Present on Admission Any Indicators Present on Admission: No Past Patient History - Past Medical History & Family History Past Medical History?: Yes - Past Social History Smoking Status: Current Some Days Smoker - CARDIAC Hx Atrial Fibrillation: Yes Hx Hypertension: Yes - PULMONARY Hx Respiratory Disorders: Yes Hx Chronic Obstructive Pulmonary Disease (COPD): Yes - NEUROLOGICAL Hx Neurological Disorder: No - HEENT Hx Macular Degeneration: Yes - RENAL Hx Neurogenic Bladder: Yes - ENDOCRINE/METABOLIC Hx Endocrine Disorders: No - HEMATOLOGICAL/ONCOLOGICAL Hx Blood Disorders: No - INTEGUMENTARY Hx Dermatological Problems: No - MUSCULOSKELETAL/RHEUMATOLOGICAL Hx Falls: No - GASTROINTESTINAL Hx Gastrointestinal Disorders: No - GENITOURINARY/GYNECOLOGICAL Hx Bladder Cancer: Yes - PSYCHIATRIC Hx Substance Use: No - SURGICAL HISTORY Other/Comment: TURBT - ANESTHESIA Hx Anesthesia: Yes Hx Anesthesia Reactions: No Hx Malignant Hyperthermia: No Meds Allergies/Adverse Reactions: Allergies Allergy/AdvReac Type Severity Reaction Status Date / Time No Known Allergies Allergy Verified 10/24/15 10:35 Results - Vital Signs Recent Vital Signs: Last Vital Signs Temp 97.6 F 10/08/18 09:21 Pulse 87 10/08/18 09:21 Resp 20 10/08/18 09:21 BP 120/75 10/08/18 09:21 Pulse Ox 94 L 10/08/18 09:21 Assessment & Plan (1) Atrial fibrillation with rapid ventricular response Status: Acute Priority: High (2) COPD (chronic obstructive pulmonary disease) Status: Acute (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 (4) Essential (primary) hypertension Status: Acute (5) Left bundle branch block (LBBB) Status: Acute Priority: High
[2018-10-09] MEDS: Ipratropium 0.02% Inhal Soln (0.5 mg/2.5 ml) UD IH SCH ×4 (07:18→19:23)
[2018-10-09] MEDS: guaiFENesin 600 mg ER Tab PO SCH ×2 (08:51→20:14)
[2018-10-09] MEDS: Cefdinir 300 MG CAP PO SCH ×2 (08:51→17:11)
[2018-10-09] MEDS: Digoxin 250 mcg (0.25 mg) Tab PO SCH (08:52)
[2018-10-09] MEDS: Multi Vitamins 15 mL UD Oral Solution PO SCH (08:53)
[2018-10-10] MEDS: Ipratropium 0.02% Inhal Soln (0.5 mg/2.5 ml) UD IH SCH ×4 (07:28→19:26)
[2018-10-10] MEDS: Cefdinir 300 MG CAP PO SCH ×2 (08:54→16:48)
[2018-10-10] MEDS: guaiFENesin 600 mg ER Tab PO SCH ×2 (08:55→20:51)
[2018-10-10] MEDS: Digoxin 250 mcg (0.25 mg) Tab PO SCH (08:55)
[2018-10-10 08:56] VITALS: PULSE 110
[2018-10-10] MEDS: Multi Vitamins 15 mL UD Oral Solution PO SCH (08:59)
--- NOTE | 2018-10-10 11:26 | CP.PCM.PN ---
Subjective - Date & Time of Evaluation Date of Evaluation: 10/10/18 Time of Evaluation: 10:30 - Subjective Subjective: Pt seen and examined this AM with PT. Pt denies SOB. Currently with 2L NC. Denies acute overnight events. Objective - Vital Signs/Intake and Output Vital Signs (last 24 hours): Temp Pulse Resp BP Pulse Ox 98.3 F 106 H 20 160/74 H 94 L 10/09/18 20:19 10/09/18 20:19 10/09/18 20:19 10/10/18 08:55 10/09/18 20:19 - Medications Medications: Current Medications Calcium Carbonate (Oscal) 500 mg PO DAILY [facility] Last Admin: 10/10/18 08:54 Dose: 500 mg Cefdinir (Omnicef) 300 mg PO BID [facility] Last Admin: 10/10/18 08:54 Dose: 300 mg Digoxin (Lanoxin) 0.25 mg PO DAILY [facility] Last Admin: 10/10/18 08:55 Dose: 0.25 mg Folic Acid (Folic Acid) 1 mg PO DAILY [facility] Last Admin: 10/10/18 08:54 Dose: 1 mg Furosemide (Lasix) 20 mg PO BID [facility] Last Admin: 10/10/18 08:55 Dose: 20 mg Guaifenesin (Mucinex La) 600 mg PO Q12 [facility] Last Admin: 10/10/18 08:55 Dose: 600 mg Ipratropium [place] (Atrovent) 0.5 mg IH RQID [facility] Last Admin: 10/10/18 11:02 Dose: Not Given Levalbuterol HCl (Xopenex) 0.63 mg INH RQ8 PRN PRN Reason: Shortness of Breath Magnesium Hydroxide (Milk Of Magnesia) 30 ml PO HS PRN PRN Reason: Constipation Multivitamins/Vitamin C (Multi-Delyn Liquid) 15 ml PO DAILY [facility] Last Admin: 10/10/18 08:59 Dose: 15 ml Nicotine (Nicoderm Cq) 1 patch TD DAILY [facility] Last Admin: 10/10/18 08:54 Dose: 1 patch Thiamine HCl (Vitamin B1 Tab) 100 mg PO DAILY [facility] Last Admin: 10/10/18 08:55 Dose: 100 mg - Constitutional Appears: No Acute Distress - Eye Exam Eye Exam: EOMI - Respiratory Exam Respiratory Exam: Decreased Breath Sounds, Rales (Mild at R lower lobe), NORMAL BREATHING PATTERN. absent: Wheezes, Respiratory Distress - Cardiovascular Exam Cardiovascular Exam: +S1, +S2 - GI/Abdominal Exam GI & Abdominal Exam: Soft, Normal Bowel Sounds. absent: Tenderness - Neurological Exam Neurological Exam: Alert, Awake, CN II-XII Intact - Psychiatric Exam Psychiatric exam: Normal Affect, Normal Mood Assessment and Plan (1) Atrial fibrillation Status: Acute (2) CHF (congestive heart failure) Status: Acute (3) COPD (chronic obstructive pulmonary disease) Status: Chronic (4) Debilitated patient Status: Acute - Assessment and Plan (Free Text) Assessment: 78 yo M with pmhx of bladder CA, HTN, COPD, LBBB previously admitted for respiratory distress 2/2 COPD exacerbation and Afib with RVR; admitted to TCU for rehabilitation. Plan: Pt improving with PT. Oxygen dependence is now tapered to NC at 2L. C/w: Ipratropium RQID, Guaifensin q12 -Xopenex RQ8 PRN ABX: Cefinir PO Monitor for SOB/respiratory distress Pt benefitting from PT/OT Case and plan d/w Dr. Kimberli Mckenzie MD PGY-2
[2018-10-10 15:48] VITALS: O2SAT 97
[2018-10-10 20:00] VITALS: PULSE 98; TEMP 97.8
[2018-10-11 05:30] VITALS: BP 170/82
[2018-10-11 05:33] LABS: ABG ALLEN TEST YES; ARTERIAL BLOOD GAS HCO3 27.2 mmol/L (21-28); ARTERIAL BLOOD GAS HEMOGLOBIN 14.3 g/dL (11.7-17.4); ARTERIAL BLOOD GAS O2 CAPACITY 19.4 mL/dL (16-24); ARTERIAL BLOOD GAS O2 SAT 97.8 % (95-98); ARTERIAL BLOOD GAS PCO2 56 mm/Hg (35-45); ARTERIAL BLOOD GAS PH 7.34 (7.35-7.45); ARTERIAL BLOOD GAS PO2 83 mm/Hg (80-100); ARTERIAL BLOOD GAS TCO2 31.9 mmol/L (22-28)
--- NOTE | 2018-10-11 05:51 | PCM.RRT ---
WEB UI DEVELOPER Nurse Assessment - Situation WEB UI DEVELOPER Responder Arrival Time: 05:15 WEB UI DEVELOPER Reason for Call: Respiratory Distress, O2 Saturation below 90% - IV IV Inserted during WEB UI DEVELOPER?: No - Respiratory Oxygen Delivery Method: Nasal Cannula I.Reason for WEB UI DEVELOPER - A) Acute Change in Patient: (Select all that apply): Acute change in SpO2 less (81%) Subjective: 78 year old male with a history of COPD, bladder cancer, new onset A- Fib with RVR admitted for dyspnea and transferred to TCU for rehab once stable. WEB UI DEVELOPER called at 5:15 am due to oxygen desatuaration to 81% and SOB. WEB UI DEVELOPER team arrived with Demetrio Ramos. Initial vitals: BP 169/91, HR 118, O2 sat 81% which increased to 96% 5L. On physical exam: Pt lying in bed with tachypnea, tachycardia, B/L m id-lower lobe rales, LLB wheezing. BS + All lobes. EKG, CXR, CBC, BMP, ProBNP, ABG ordered STAT. CXR showed no significant change from previous CXR. EKG: A- Fib with LBBB, No significant changes compared with previous EKG. Patient given Lasix 40 mg PO once. Repeat vitals after 10 mins: 165/86, HR 105, O2 98%. - F/U labs - Xoponex increased from 0.63 mg Q8PRN to Q6 Filemon. - Lasix 40 mg PO ONCE - IV line inserted - Reevaluate patient in 30 mins - Will consider transferring patient to ER if continues to be dyspneic - Neurological Status (Select all that apply): Alert, Responsive, Oriented, Verbal, Follows Commands, Weakness. absent: Disoriented, Confused, Aggressive - Respiratory Oxygen Delivery Method: Nasal Cannula @L/min Oxygen Flow Rate: 5 - Constitutional Appears: In Acute Distress - Respiratory Exam Respiratory Exam: Rales, Wheezes, Respiratory Distress - Cardiovascular Exam Cardiovascular Exam: Tachycardia, +S1, +S2 Plan - Assessment of Findings&Treatment Plan 78 year old male with a history of COPD, bladder cancer, new onset A- Fib with RVR admitted for dyspnea and transferred to TCU for rehab once stable. - WEB UI DEVELOPER called at 5:15 am due to oxygen desatuaration to 81% and SOB. WEB UI DEVELOPER team arrived with Demetrio Ramos. - Initial vitals: BP 169/91, HR 118, O2 sat 81% which increased to 96% 5L. - Orders: EKG, CXR, CBC, BMP, ProBNP, ABG ordered STAT. - CXR showed no significant change from previous CXR. - EKG: A- Fib with LBBB, No significant changes compared with previous EKG. - Repeat vitals after 10 mins: 165/86, HR 105, O2 98%. A/P - F/U labs - Xoponex increased from 0.63 mg Q8PRN to Q6 Filemon. - Lasix 40 mg PO ONCE - Reevaluate patient in 30 mins - Will consider transferring patient to ER if continues to be dyspneic Case discussed with Demetrio Ramos, PGY1
[2018-10-11 05:52] LABS: HEMOGLOBIN 13.8 g/dL (12.0-18.0); MEAN CELL VOLUME 103.9 fl (80.0-94.0); MEAN CORPUSCULAR HEMOGLOBIN 34.6 pg (27.0-31.0); MEAN CORPUSCULAR HGB CONC 33.2 g/dL (33.0-37.0); RBC 3.99 Mil/uL (4.40-5.90); RED CELL DISTRIBUTION WIDTH 14.1 % (11.5-14.5); WHITE BLOOD COUNT 12.6 K/uL (4.8-10.8)
[2018-10-11 06:00] LABS: BLOOD UREA NITROGEN 12 mg/dl (9-20); CALCIUM 8.2 mg/dL (8.4-10.2); GFR NON-AFRICAN AMERICAN > 60
[2018-10-11 06:19] LABS: B-TYPE NATRIURETIC PEPTIDE 9840 pg/ml (0-900)
[2018-10-11] MEDS ORDERED: Levalbuterol 0.63 MG/3 ML Inhal Soln UD INH SCH (08:00)
--- NOTE | 2018-10-11 08:53 | RAD ---
Date of service: 10/11/2018 HISTORY: SOB COMPARISON: Chest radiographs 10/07/2018. FINDINGS: LUNGS: No active pulmonary disease. PLEURA: No significant pleural effusion identified, no pneumothorax apparent. CARDIOVASCULAR: Calcific atherosclerotic changes are seen related to the thoracic aorta. Cardiomegaly not excluded but would be mild if present. Frontal technique limits interpretation. No pulmonary vascular congestion. OSSEOUS STRUCTURES: No significant abnormalities. VISUALIZED UPPER ABDOMEN: Normal. OTHER FINDINGS: None. IMPRESSION: Mild cardiomegaly likely reiterated. No pulmonary vascular congestion. No infiltrates bilaterally..
--- NOTE | 2018-10-11 10:44 | CP.PCM.DIS ---
Provider - Provider Date of Admission: 10/07/18 20:18 Attending physician: Rory Marie MD Primary care physician: Giovanna Marie Consults: 10/07/18 22:13 Pulmonology Consult Routine Comment: Consulting Provider: Nba Ag Consulting Physician: Nba Ag Reason for Consult: resp distress Time Spent in preparation of Discharge (in minutes): 33 Diagnosis - Discharge Diagnosis (1) Acute on chronic congestive heart failure Status: Acute Priority: High (2) Atrial fibrillation with rapid ventricular response Status: Acute Priority: High (3) COPD (chronic obstructive pulmonary disease) Status: Chronic Priority: High (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 Priority: High Hospital Course - Lab Results Lab Results: Most Recent Lab Values WBC 12.6 K/uL (4.8-10.8) H D 10/11/18 05:25 RBC 3.99 Mil/uL (4.40-5.90) L 10/11/18 05:25 Hgb 13.8 g/dL (12.0-18.0) 10/11/18 05:25 Hct 41.4 % (35.0-51.0) 10/11/18 05:25 MCV 103.9 fl (80.0-94.0) H 10/11/18 05:25 MCH 34.6 pg (27.0-31.0) H 10/11/18 05:25 MCHC 33.2 g/dL (33.0-37.0) 10/11/18 05:25 RDW 14.1 % (11.5-14.5) 10/11/18 05:25 Plt Count 206 K/uL (130-400) 10/11/18 05:25 pCO2 56 mm/Hg (35-45) H 10/11/18 05:29 pO2 83 mm/Hg (80-100) 10/11/18 05:29 HCO3 27.2 mmol/L (21-28) 10/11/18 05:29 ABG pH 7.34 (7.35-7.45) L 10/11/18 05:29 ABG Total CO2 31.9 mmol/L (22-28) H 10/11/18 05:29 ABG O2 Saturation 97.8 % (95-98) 10/11/18 05:29 ABG O2 Content 19.0 ML/dL (15-23) 10/11/18 05:29 ABG Base Excess 3.0 mmol/L (-2.0-3.0) 10/11/18 05:29 ABG Hemoglobin 14.3 g/dL (11.7-17.4) 10/11/18 05:29 ABG Carboxyhemoglobin 2.1 % (0.5-1.5) H 10/11/18 05:29 POC ABG HHb (Measured) 2.1 % (0.0-5.0) 10/11/18 05:29 ABG Methemoglobin 1.3 % (0.0-3.0) 10/11/18 05:29 ABG O2 Capacity 19.4 mL/dL (16-24) 10/11/18 05:29 Sascha Test Yes 10/11/18 05:29 A-a O2 Difference 132.0 mm/Hg 10/11/18 05:29 Hgb O2 Saturation 94.5 % (95.0-98.0) L 10/11/18 05:29 Vent Mode 5l nc 10/11/18 05:29 FiO2 40.0 % 10/11/18 05:29 Sodium 128 mmol/l (132-148) L 10/11/18 05:25 Potassium 3.8 MMOL/L (3.6-5.0) 10/11/18 05:25 Chloride 87 mmol/L (98-107) L 10/11/18 05:25 Carbon Dioxide 28 mmol/L (22-30) 10/11/18 05:25 Anion Gap 17 (10-20) 10/11/18 05:25 BUN 12 mg/dl (9-20) 10/11/18 05:25 Creatinine 0.6 mg/dl (0.8-1.5) L 10/11/18 05:25 Est GFR ( Amer) > 60 10/11/18 05:25 Est GFR (Non-Af Amer) > 60 10/11/18 05:25 Random Glucose 134 mg/dL (75-110) H 10/11/18 05:25 Calcium 8.2 mg/dL (8.4-10.2) L 10/11/18 05:25 NT-Pro-B Natriuret Pep 9840 pg/ml (0-900) H 10/11/18 05:25 - Hospital Course Hospital Course: 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
--- NOTE | 2018-10-11 12:42 | CARD ---
APPROVED REPORT Date of service: 10/11/2018 EKG Measurement Heart [id number] <Conclusion> Atrial fibrillation with rapid ventricular response Left bundle branch block Abnormal ECG
== END 2018-10-11 06:30 | disposition short-term general hospital (02) | DRG 945 ==
LOC: H.TCU 20:18
PROVIDERS: ADMIT Internal Medicine Cardiovascular Disease; ATTEND Internal Medicine Cardiovascular Disease
PROC: F07Z9FZ Gait Training/Functional Ambulation Treatment using Assistive, Adaptive, Supportive or Protective Equipment (ICD-10-PCS; principal; 2018-10-07)
PROC: F07L6GZ Therapeutic Exercise Treatment of Musculoskeletal System - Lower Back / Lower Extremity using Aerobic Endurance and Conditioning Equipment (ICD-10-PCS; 2018-10-07)
PROC: F08Z1FZ Dressing Techniques Treatment using Assistive, Adaptive, Supportive or Protective Equipment (ICD-10-PCS; 2018-10-07)
PROC: 5A0945Z Assistance with Respiratory Ventilation, 24-96 Consecutive Hours (ICD-10-PCS; 2018-10-07)
DX: R53.81 Other malaise (principal); I50.23 Acute on chronic systolic (congestive) heart failure; I48.91 Unspecified atrial fibrillation; C67.9 Malignant neoplasm of bladder, unspecified; I44.7 Left bundle-branch block, unspecified; I11.0 Hypertensive heart disease with heart failure; N31.9 Neuromuscular dysfunction of bladder, unspecified; H35.30 Unspecified macular degeneration; F17.210 Nicotine dependence, cigarettes, uncomplicated; Z99.81 Dependence on supplemental oxygen; J44.9 Chronic obstructive pulmonary disease, unspecified

== ENCOUNTER 2018-10-11 06:34 | Inpatient (IN) | payer MEDICARE, OTHER ==
[2018-10-11 06:35] VITALS: BMI 24.2
--- NOTE | 2018-10-11 06:47 | ED PDOC ---
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 Patient has new onset AFib with RVR. 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 Dr. Griffith saw patient and 40 of Lasix was given. PMD:Nba Ag Past Medical History Reviewed: Historical Data, Nursing Documentation, Vital Signs, Unable To Obtain (per recorsds) Vital Signs: Last Vital Signs Temp 98.5 F 10/11/18 06:40 Pulse 132 H 10/11/18 06:40 Resp 24 10/11/18 06:40 BP 155/78 H 10/11/18 06:40 Pulse Ox 99 10/11/18 06:40 - Medical History PMH: COPD, HTN, Pneumonia (childhood) Denies: Alzheimer's Disease, Anemia, Asthma, Atrial Fibrillation, Bronchitis, CAD, Cardia Arrhythmia, CHF, Dementia, HIV, Hypercholesterolemia, Migraine, Mitral Valve Prolapse, Multiple Sclerosis, Parkinson's Disease, Peripheral Edema, Pulmonary Embolism, Chronic Kidney Disease, Seizures, Sickle Cell Disease, Sleep Apnea (brother from sleep apnea), TIA - Surgical History Surgical History: No Surg Hx Denies: Pacemaker - Family History Family History: States: Unknown Family Hx - Social History Current smoker - smoking cessation education provided: Yes Alcohol: > 2 Drinks/Day Drugs: Denies - Home Medications Home Medications: Ambulatory Orders Medication Instructions Recorded RX: Calcium Carbonate [Oscal] 500 mg PO DAILY tab 10/07/18 RX: Cefdinir [Omnicef] 300 mg PO BID cap 10/07/18 RX: Digoxin [Lanoxin] 0.25 mg PO DAILY tab 10/07/18 RX: Folic Acid 1 mg PO DAILY tab 10/07/18 RX: Furosemide [Lasix] 20 mg PO BID tab 10/07/18 RX: Ipratropium 0.02% [Atrovent] 0.5 mg IH RQID neb 10/07/18 RX: Magnesium Hydroxide [Milk Of 30 ml PO HS PRN udc 10/07/18 Magnesia] RX: Multivitamin UD 15 mL Oral 15 ml PO DAILY liq 10/07/18 [Multi-Delyn Liquid] RX: Nicotine 21 mg/24 hr [Nicoderm 1 patch TD DAILY patch 10/07/18 Cq] RX: Thiamine [Vitamin B1 Tab] 100 mg PO DAILY tab 10/07/18 RX: Levalbuterol [Xopenex] 0.63 mg INH Q6 10/11/18 RX: guaiFENesin [Mucinex LA] 600 mg PO Q12 10/11/18 - Allergies Allergies/Adverse Reactions: Allergies Allergy/AdvReac Type Severity Reaction Status Date / Time No Known Allergies Allergy Verified 10/24/15 10:35 Review of Systems ROS Statement: Except As Marked, All Systems Reviewed And Found Negative Respiratory: Positive for: Shortness of Breath Physical Exam - Reviewed Nursing Documentation Reviewed: Yes Vital Signs Reviewed: Yes - Physical Exam Appears: Positive for: Uncomfortable (pt tachypenic, labored breathing) Head Exam: Positive for: ATRAUMATIC, NORMOCEPHALIC Skin: Positive for: Normal Color Neck: Positive for: Normal Cardiovascular/Chest: Positive for: Regular Rate, Rhythm, Tachycardia. Negative for: Murmur Respiratory: Positive for: Decreased Breath Sounds, Accessory Muscle Use, Rhonchi Gastrointestinal/Abdominal: Positive for: Soft. Negative for: Tenderness Neurologic/Psych: Positive for: Alert, Oriented - ECG O2 Sat by Pulse Oximetry: 99 (RA) Pulse Ox Interpretation: Normal - Critical Care Total Time (In Min): 30 Documented Critical Care: Time excludes all time spent performint seperately billable procedures Medical Decision Making Medical Decision Making: Time: 643 Initial Plan: SOB, history of CHF, renal cancer rule out NM, pneumonia/sepsis, CHF exacerbation, versus COPD --BIPAP/CPAP ordered X-ray on my view shows similar results as to prior imagining. pts sob likely due to chf exacerbation Dr Griffith had ordered lasix already signout 7 am pending reeval with bipap, rest of workup, and admission to tele or ICU pcp dr pierre Scribe Attestation: Documented by Ellie Gibson, acting as a scribe for Jena Haines MD. Provider Scribe Attestation: All medical record entries made by the Scribe were at my direction and perso kay dictated by me. I have reviewed the chart and agree that the record accurately reflects my personal performance of the history, physical exam, medical decision making, and the department course for this patient. I have also personally directed, reviewed, and agree with the discharge instructions and disposition. Disposition - Clinical Impression Clinical Impression: Respiratory distress, COPD (chronic obstructive pulmonary disease), CHF (congestive heart failure) - Patient ED Disposition Is Patient to be Admitted: Yes - Disposition Disposition Time: 07:00 Condition: SERIOUS Patient Signed Over To: Richard Garner
[2018-10-11] MEDS ORDERED: Albuterol-Ipratrop 3 mg / 0.5 (3 ml) UD INH STA (07:18)
--- NOTE | 2018-10-11 07:23 | ED PDOC ---
- ECG O2 Sat by Pulse Oximetry: 100 (RA) Pulse Ox Interpretation: Normal - Progress Re-evaluation Time: 10:00 Condition: Re-examined, Improving,but remains with symptoms - Critical Care Total Time (In Min): 60 Documented Critical Care: Time excludes all time spent performint seperately billable procedures Medical Decision Making Medical Decision Making: Time: [address] Garner by Dr. Haines, pending reevaluation. Scribe Attestation: Documented by Mynor Crystal acting as a scribe for Richard Garner MD Provider Scribe Attestation: All medical record entries made by the Scribe were at my direction and personally dictated by me. I have reviewed the chart and agree that the record accurately reflects my personal performance of the history, physical exam, medical decision making, and the department course for this patient. I have also personally directed, reviewed, and agree with the discharge instructions and disposition. Disposition Discussed With : Rory Marie Doctor Will See Patient In The: ED Counseled Patient/Family Regarding: Studies Performed, Diagnosis, Need For Followup - Clinical Impression Clinical Impression: Respiratory distress, COPD (chronic obstructive pulmonary disease), CHF (congestive heart failure) - POA Present On Arrival: None - Disposition Disposition: Admitted as In-Patient Disposition Time: 09:00 Condition: FAIR
[2018-10-11] MEDS ORDERED: Albuterol-Ipratrop 3 mg / 0.5 (3 ml) UD ONE (07:47)
[2018-10-11] MEDS ORDERED: Levalbuterol 1.25 MG/3 ML Inhal Soln UD INH ONE (07:55)
[2018-10-11] MEDS ORDERED: Levalbuterol 0.63 MG/3 ML Inhal Soln UD ONE (08:15)
[2018-10-11] MEDS ORDERED: levoFLOXacin 500 mg in D5W 500 MG/100 ML BAG IVPB STA (08:21)
[2018-10-11] MEDS ORDERED: levoFLOXacin 500 mg in D5W 500 MG/100 ML BAG IVPB ONE (09:06)
[2018-10-11 09:14] LABS: ABG ALLEN TEST YES; ARTERIAL BLOOD GAS HCO3 31.7 mmol/L (21-28); ARTERIAL BLOOD GAS O2 CAPACITY 18.8 mL/dL (16-24); ARTERIAL BLOOD GAS O2 CONTENT 18.9 ML/dL (15-23); ARTERIAL BLOOD GAS O2 SAT 100.6 % (95-98); ARTERIAL BLOOD GAS PCO2 41 mm/Hg (35-45); ARTERIAL BLOOD GAS PH 7.51 (7.35-7.45); ARTERIAL BLOOD GAS PO2 99 mm/Hg (80-100)
--- NOTE | 2018-10-11 12:48 | CARD ---
APPROVED REPORT Date of service: 10/11/2018 EKG Measurement Heart [id number] <Conclusion> Atrial fibrillation with premature ventricular complexes Left Bundle Branch Block Abnormal ECG
--- NOTE | 2018-10-11 15:19 | CP.PCM.HP ---
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 Dx I 50.23 Acute on Chronic Left Systolic CHF PMH: CA Bladder w/ resection [address] Cat and again in 09/2016 @ [place] Hypertension COPD Continues to smoke CLBBB EKG: Tachycardia CXR: haziness/cardiomegaly BNP: 9840 Troponin elevtaed secondary to CHF Echo: Dilated LV 7.0 EF: 15-20% Present on Admission - Present on Admission Any Indicators Present on Admission: No Review of Systems - Review of Systems Systems not reviewed;Unavailable: Respiratory Distress - Cardiovascular Cardiovascular: Dyspnea on Exertion - Respiratory Respiratory: Dyspnea Past Patient History - Past Medical History & Family History Past Medical History?: Yes - Past Social History Smoking Status: Heavy Smoker > 10 Cigarettes Daily - CARDIAC Hx Cardiac Disorders: Yes Hx Congestive Heart Failure: Yes Other/Comment: new onset a fib with rvr - PULMONARY Hx Respiratory Disorders: Yes - NEUROLOGICAL Hx Migraine: No Hx Seizures: No - HEENT Hx Deafness: No Hx Epistaxis: No Hx Glaucoma: No - RENAL Hx Neurogenic Bladder: Yes - ENDOCRINE/METABOLIC Hx Endocrine Disorders: Yes - HEMATOLOGICAL/ONCOLOGICAL Hx Anemia: No Hx Cancer: Yes (bladder cancer dx 2014) Hx Human Immunodeficiency Virus (HIV): No Hx Sickle Cell Disease: No - INTEGUMENTARY Hx Dermatological Problems: No - MUSCULOSKELETAL/RHEUMATOLOGICAL Hx Musculoskeletal Disorders: No - GASTROINTESTINAL Hx Gastrointestinal Disorders: No - GENITOURINARY/GYNECOLOGICAL Hx Genitourinary Disorders: Yes - PSYCHIATRIC Hx Psychophysiologic Disorder: No - SURGICAL HISTORY Other/Comment: TURBT - ANESTHESIA Hx Anesthesia: Yes Hx Anesthesia Reactions: No Hx Malignant Hyperthermia: No Meds Allergies/Adverse Reactions: Allergies Allergy/AdvReac Type Severity Reaction Status Date / Time No Known Allergies Allergy Verified 10/24/15 10:35 Physical Exam - Constitutional Appears: Chronically Ill - Head Exam Head Exam: NORMAL INSPECTION - Respiratory Exam Respiratory Exam: Decreased Breath Sounds - Cardiovascular Exam Cardiovascular Exam: Irregular Rhythm Results - Vital Signs Recent Vital Signs: Last Vital Signs Temp 97.7 F 10/11/18 12:00 Pulse 102 H 10/11/18 13:00 Resp 20 10/11/18 13:14 BP 117/66 10/11/18 13:00 Pulse Ox 100 10/11/18 13:54 - Labs Labs: Laboratory Results - last 24 hr 10/11/18 10/11/18 07:29 09:02 pCO2 41 pO2 99 HCO3 31.7 H ABG pH 7.51 H ABG Total CO2 34.0 H ABG O2 Saturation 100.6 H ABG O2 Content 18.9 ABG Base Excess 8.8 H ABG Hemoglobin 14.0 ABG Carboxyhemoglobin 2.8 H POC ABG HHb (Measured) -0.6 L ABG Methemoglobin 2.1 ABG O2 Capacity 18.8 Sascha Test Yes A-a O2 Difference 278.0 Hgb O2 Saturation 95.7 Vent Mode Bipap Mechanical Rate 16 FiO2 60.0 Inspiratory BiPAP 12 Expiratory BiPAP 6 Troponin I 1.3300 H* Assessment & Plan (1) Acute on chronic systolic congestive heart failure Status: Acute (2) COPD (chronic obstructive pulmonary disease) Status: Chronic Priority: High (3) Atrial fibrillation with rapid ventricular response Status: Acute Priority: High (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 Priority: High Decision To Admit - Pt Status Changed To: Hospital Disposition Of: Inpatient - Admit Certification Admit to Inpatient:: After my assessment, the patient will require hospitalization for at least two midnights. This is because of the severity of symptoms shown, intensity of services needed, and/or the medical risk in this patient being treated as an outpatient. - . Bed Request Type: Telemetry Admitting Physician: Rory Marie
[2018-10-11] MEDS: Levalbuterol 0.63 MG/3 ML Inhal Soln UD INH SCH ×2 (16:02→19:11)
[2018-10-11] MEDS: Ipratropium 0.02% Inhal Soln (0.5 mg/2.5 ml) UD IH SCH ×2 (16:02→19:11)
[2018-10-11] MEDS: Digoxin 250 mcg (0.25 mg) Tab PO SCH (16:24)
[2018-10-12] MEDS: Levalbuterol 0.63 MG/3 ML Inhal Soln UD INH SCH ×4 (02:14→19:35)
[2018-10-12] MEDS: Ipratropium 0.02% Inhal Soln (0.5 mg/2.5 ml) UD IH SCH ×4 (07:38→19:35)
[2018-10-12] MEDS: Digoxin 250 mcg (0.25 mg) Tab PO SCH (08:28)
--- NOTE | 2018-10-12 09:36 | PQF ---
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 Was admitted to TCU s/p COPD exacerbation. Now presents with respiratory distress .Please clarify if the COPD is an exacerbation or stable for t his admission. Rx in the ER: Duonebs, Atrovent Xopenex, Solumedrol, Levaquin. COPD - Chronic Obstructive Pulmonary Disease is documented in the Medical Record. Please specify the associated condition (includes suspected or probable) Such as: -- Bronchitis - acute -- Asthmatic - with /without status asthmaticus -- Exacerbation - acute -- Lower respiratory infection - acute -- Other, please specify The patient's Clinical Indicators include: Transfer from TCU for respiratory distress. Was admitted to TCU s/p COPD exacerbation.Now presents wi th respiratory distress to the ER. Respirations 24-29 and placed on Bipap. Rx in the ER: Duonebs, Atrovent Xopenex, Solumedrol, Levaquin. In-house: Xopenex, Atrovent, Lasix IV, Lanoxin Query created by: Nerissa Singh on 10/12/2018 6:59 AM Electronically signed by: Rory Marie MD 10/12/2018 9:34 AM
--- NOTE | 2018-10-12 09:37 | CP.PCM.PN ---
Subjective - Date & Time of Evaluation Date of Evaluation: 10/12/18 Time of Evaluation: 09:34 - Subjective Subjective: pt appears comfortable but c/o sob leg edema 2 - 3 + will increase Lasix to 40mg BID Dr Ag on consult Objective - Vital Signs/Intake and Output Vital Signs (last 24 hours): Temp Pulse Resp BP Pulse Ox 97.6 F 104 H 19 131/75 92 L 10/12/18 08:00 10/12/18 08:00 10/12/18 08:00 10/12/18 08:28 10/12/18 08:00 - Medications Medications: Current Medications Digoxin (Lanoxin) 0.25 mg PO DAILY [facility] Last Admin: 10/12/18 08:28 Dose: 0.25 mg Furosemide (Lasix) 40 mg IVP DAILY [facility] Last Admin: 10/12/18 08:28 Dose: 40 mg Ipratropium [place] (Atrovent) 0.5 mg IH RQID [facility] Last Admin: 10/12/18 07:38 Dose: 0.5 mg Levalbuterol HCl (Xopenex) 0.63 mg INH RQ6 [facility] Last Admin: 10/12/18 07:38 Dose: 0.63 mg Assessment and Plan (1) Acute on chronic systolic congestive heart failure Status: Acute (2) COPD (chronic obstructive pulmonary disease) Status: Chronic (3) Atrial fibrillation with rapid ventricular response Status: Acute (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
--- NOTE | 2018-10-12 11:07 | CARD ---
APPROVED REPORT Date of service: 10/12/2018 EKG Measurement Heart [id number] <Conclusion> Atrial fibrillation Left bundle branch block Abnormal ECG
--- NOTE | 2018-10-12 12:49 | CP.PCM.CON ---
<Buck Mckenzie - Last Filed: 10/12/18 13:45> History of Present Illness - History of Present Illness History of Present Illness: 78 yo M with pmhx of bladder CA, HTN, COPD, LBBB previously admitted for respiratory distress 2/2 COPD exacerbation and Afib with RVR previously admitted to TCU for rehabilitation was found to be SOB with desaturation; readmitted for acute respiratory distress, CHF exacerbation and recent onset Afib with RVR. Pt seen and examined at bedside. Requiring hiflow oxygen due to desaturation. Denies acute overnight events. Afebrile. tolerating PO diet. Review of Systems - Cardiovascular Cardiovascular: Dyspnea - Respiratory Respiratory: Dyspnea on Exertion - Gastrointestinal Gastrointestinal: absent: Abdominal Pain, Constipation, Diarrhea - Neurological Neurological: absent: Abnormal Movements, Dizziness, Headaches, Lack of Coordination Past Patient History - Past Medical History & Family History Past Medical History?: Yes - Past Social History Smoking Status: Heavy Smoker > 10 Cigarettes Daily Alcohol: Other Drugs: Denies Home Situation {Lives}: Alone - CARDIAC Hx Cardiac Disorders: Yes Hx Congestive Heart Failure: Yes Other/Comment: new onset a fib with rvr - PULMONARY Hx Respiratory Disorders: Yes - NEUROLOGICAL Hx Migraine: No Hx Seizures: No - HEENT Hx Deafness: No Hx Epistaxis: No Hx Glaucoma: No - RENAL Hx Neurogenic Bladder: Yes - ENDOCRINE/METABOLIC Hx Endocrine Disorders: Yes - HEMATOLOGICAL/ONCOLOGICAL Hx Anemia: No Hx Cancer: Yes (bladder cancer dx 2015) Hx Human Immunodeficiency Virus (HIV): No Hx Sickle Cell Disease: No - INTEGUMENTARY Hx Dermatological Problems: No - MUSCULOSKELETAL/RHEUMATOLOGICAL Hx Musculoskeletal Disorders: No - GASTROINTESTINAL Hx Gastrointestinal Disorders: No - GENITOURINARY/GYNECOLOGICAL Hx Genitourinary Disorders: Yes - PSYCHIATRIC Hx Psychophysiologic Disorder: No - SURGICAL HISTORY Other/Comment: TURBT - ANESTHESIA Hx Anesthesia: Yes Hx Anesthesia Reactions: No Hx Malignant Hyperthermia: No Meds Allergies/Adverse Reactions: Allergies Allergy/AdvReac Type Severity Reaction Status Date / Time No Known Allergies Allergy Verified 10/24/15 10:35 - Medications Medications: Current Medications Digoxin (Lanoxin) 0.25 mg PO DAILY [facility] Last Admin: 10/12/18 08:28 Dose: 0.25 mg Furosemide (Lasix) 40 mg IVP DAILY [facility] Stop: 10/12/18 23:59 Last Admin: 10/12/18 08:28 Dose: 40 mg Furosemide (Lasix) 40 mg IVP BID [facility] Ipratropium [place] (Atrovent) 0.5 mg IH RQID [facility] Last Admin: 10/12/18 11:06 Dose: 0.5 mg Levalbuterol HCl (Xopenex) 0.63 mg INH RQ6 [facility] Last Admin: 10/12/18 07:38 Dose: 0.63 mg Physical Exam - Constitutional Appears: No Acute Distress - Eye Exam Eye Exam: EOMI - ENT Exam ENT Exam: Mucous Membranes Moist - Neck Exam Neck exam: Positive for: Full Rom. Negative for: Lymphadenopathy Additional comments: Neck supple; trachea midline - Respiratory Exam Respiratory Exam: Decreased Breath Sounds (bilaterally), Rales (Mild R lower lobe). absent: Wheezes Additional comments: Chest: percussion: hyperresonant - Cardiovascular Exam Cardiovascular Exam: Tachycardia, Irregular Rhythm, +S1, +S2 - GI/Abdominal Exam GI & Abdominal Exam: Normal Bowel Sounds, Soft. absent: Tenderness - Extremities Exam Extremities exam: Positive for: pedal edema (bilateral 1+) - Neurological Exam Neurological exam: Alert, CN II-XII Intact - Psychiatric Exam Psychiatric exam: Normal Affect, Normal Mood Results - Vital Signs Recent Vital Signs: Last Vital Signs Temp 97.9 F 10/12/18 12:00 Pulse 97 H 10/12/18 12:00 Resp 17 10/12/18 12:00 BP 116/52 L 10/12/18 12:00 Pulse Ox 95 10/12/18 12:00 Assessment & Plan (1) CHF (congestive heart failure) Status: Acute Priority: High (2) COPD (chronic obstructive pulmonary disease) Status: Chronic Priority: High (3) Atrial fibrillation with rapid ventricular response Status: Acute Priority: High (4) Debilitated patient Status: Acute Priority: High - Assessment and Plan (Free Text) Assessment: 78 yo M with pmhx of bladder CA, HTN, COPD, LBBB previously admitted for respiratory distress 2/2 COPD exacerbation and Afib with RVR previously admitted to TCU for rehabilitation was found to be SOB with desaturation; readmitted for acute respiratory distress, CHF exacerbation and recent onset Afib with RVR Plan: Pt symptomatic and desaturates in high 80s% Imaging, labs, team notes reviewed Currently on high flow oxygen c/w Xopenex, Ipratropium lasix Pt would benefit from continued PT/OT Monitor for desaturation/respiratory distress Case and plan d/w Dr. Kimberli Mckenzie MD PGY-2 <Nba Ag - Last Filed: 10/12/18 14:25> History of Present Illness - History of Present Illness History of Present Illness: The patient was seen on rounds and discussed with the resident. A reconsultation has been requested after the patient was discharged from TCU because of shortness of breath and rapid heart rate. Physical findings have been reviewed and the plan of care is formulated. The case has been discussed in detail. The EMR entry made by the resident accurately reflects today's visit. Meds - Medications Medications: Current Medications Digoxin (Lanoxin) 0.25 mg PO DAILY [facility] Last Admin: 10/12/18 08:28 Dose: 0.25 mg Furosemide (Lasix) 40 mg IVP DAILY [facility] Stop: 10/12/18 23:59 Last Admin: 10/12/18 08:28 Dose: 40 mg Furosemide (Lasix) 40 mg IVP BID [facility] Ipratropium [place] (Atrovent) 0.5 mg IH RQID [facility] Last Admin: 10/12/18 11:06 Dose: 0.5 mg Levalbuterol HCl (Xopenex) 0.63 mg INH RQ6 [facility] Last Admin: 10/12/18 13:45 Dose: 0.63 mg Results - Vital Signs Recent Vital Signs: Last Vital Signs Temp 97.9 F 10/12/18 12:00 Pulse 97 H 10/12/18 12:00 Resp 20 10/12/18 14:19 BP 116/52 L 10/12/18 12:00 Pulse Ox 95 10/12/18 12:00 Assessment & Plan (1) CHF (congestive heart failure) Status: Acute Priority: High (2) COPD (chronic obstructive pulmonary disease) Status: Chronic Priority: High (3) Atrial fibrillation with rapid ventricular response Status: Acute Priority: High - Date & Time Date: 10/12/18 Time: 14:25
[2018-10-13] MEDS: Levalbuterol 0.63 MG/3 ML Inhal Soln UD INH SCH ×2 (01:00→08:05)
--- NOTE | 2018-10-13 01:23 | CP.PCM.PCO ---
<Ortiz Neville - Last Filed: 10/13/18 01:25> Addendum Addendum: 10/13/18 00:50 The television script writer was called to evaluate this 78 y/o M due to oxygen desaturation in the low 80's. Pt was seen and examined by bedside, pt denied SOB, chest pain, exacerbating cough or chills. --Vital signs reviewed and WNL except for O2 sat dropping to low 80s. --Examination: pt NAD, comfortable resting on bed, auscultation showed decreased breath sounds on b/l lung bases, no wheezing or ronchi, CV with S1 and S2 present. --ABG showed NO hypercapnia or hypoxemia, pH 7.51 slightly increased. --Pt admitted for COPD exacerbation and Afib with RVR. Decided to modify high flow by [place]'s settings to a rate of 32 and FiO2 55. O2 sat increased to 94-100. Ordered ABG for early tomorrow. Will monitor for O2 desaturation. <Gunjan Gilmore - Last Filed: 10/14/18 06:40> Attending/Attestation - Attestation I have personally seen and examined this patient.: Yes I have fully participated in the care of the patient.: Yes I have reviewed all pertinent clinical information: Yes Notes (Text): 10/14/18 06:40 agree with findings and plan as above.
[2018-10-13 04:19] LABS: ABG ALLEN TEST YES; ARTERIAL BLOOD GAS HCO3 34.4 mmol/L (21-28); ARTERIAL BLOOD GAS HEMOGLOBIN 12.5 g/dL (11.7-17.4); ARTERIAL BLOOD GAS O2 CAPACITY 17.1 mL/dL (16-24); ARTERIAL BLOOD GAS O2 SAT 99.3 % (95-98); ARTERIAL BLOOD GAS PCO2 52 mm/Hg (35-45); ARTERIAL BLOOD GAS PH 7.47 (7.35-7.45); ARTERIAL BLOOD GAS PO2 88 mm/Hg (80-100); ARTERIAL BLOOD GAS TCO2 39.4 mmol/L (22-28)
[2018-10-13] MEDS: Ipratropium 0.02% Inhal Soln (0.5 mg/2.5 ml) UD IH SCH ×4 (08:05→19:04)
[2018-10-13] MEDS: Digoxin 250 mcg (0.25 mg) Tab PO SCH (08:45)
[2018-10-13] MEDS ORDERED: methylPREDNISolone 30 MG in Sodium Chloride 0.9% 50 ML IVPB SCH (10:15)
--- NOTE | 2018-10-13 10:15 | CP.PCM.PN ---
Subjective - Date & Time of Evaluation Date of Evaluation: 10/13/18 Time of Evaluation: 10:15 Objective - Vital Signs/Intake and Output Vital Signs (last 24 hours): Temp Pulse Resp BP Pulse Ox 98.9 F 82 20 142/55 L 99 10/13/18 09:00 10/13/18 09:00 10/13/18 09:00 10/13/18 09:00 10/13/18 09:00 Intake and Output: 10/12/18 10/13/18 23:59 11:59 Intake Total 600 Output Total 900 200 Balance -900 400 - Medications Medications: Current Medications Digoxin (Lanoxin) 0.25 mg PO DAILY [facility] Last Admin: 10/13/18 08:45 Dose: 0.25 mg Famotidine (Pepcid) 20 mg PO BID [facility] Furosemide (Lasix) 40 mg IVP BID [facility] Last Admin: 10/13/18 08:46 Dose: 40 mg Methylprednisolone 30 mg/ (Sodium Chloride) 50 mls @ 100 mls/hr IVPB BID [facility] Ipratropium [place] (Atrovent) 0.5 mg IH RQID [facility] Last Admin: 10/13/18 08:05 Dose: 0.5 mg Levalbuterol HCl (Xopenex) 0.63 mg INH RQ4 PRN PRN Reason: Shortness of Breath Nicotine (Nicoderm Cq) 1 patch TD DAILY [facility] Assessment and Plan (1) CHF (congestive heart failure) Status: Acute (2) COPD (chronic obstructive pulmonary disease) Status: Chronic (3) Atrial fibrillation with rapid ventricular response Status: Acute
--- NOTE | 2018-10-13 10:20 | CP.PCM.PN ---
Subjective - Date & Time of Evaluation Date of Evaluation: 10/13/18 Time of Evaluation: 10:00 - Subjective Subjective: Breathing is slightly better Pedal edema ++ EKG: AF @ 78 BPM CLBBB Objective - Vital Signs/Intake and Output Vital Signs (last 24 hours): Temp Pulse Resp BP Pulse Ox 98.9 F 82 20 142/55 L 99 10/13/18 09:00 10/13/18 09:00 10/13/18 09:00 10/13/18 09:00 10/13/18 09:00 Intake and Output: 10/13/18 10/13/18 06:59 18:59 Intake Total 600 Output Total 900 200 Balance -900 400 - Medications Medications: Current Medications Digoxin (Lanoxin) 0.25 mg PO DAILY [facility] Last Admin: 10/13/18 08:45 Dose: 0.25 mg Famotidine (Pepcid) 20 mg PO BID [facility] Furosemide (Lasix) 40 mg IVP BID [facility] Last Admin: 10/13/18 08:46 Dose: 40 mg Methylprednisolone 30 mg/ (Sodium Chloride) 50 mls @ 100 mls/hr IVPB BID [facility] Ipratropium [place] (Atrovent) 0.5 mg IH RQID [facility] Last Admin: 10/13/18 08:05 Dose: 0.5 mg Levalbuterol HCl (Xopenex) 0.63 mg INH RQ4 PRN PRN Reason: Shortness of Breath Nicotine (Nicoderm Cq) 1 patch TD DAILY [facility] Assessment and Plan (1) Acute on chronic systolic congestive heart failure Status: Acute (2) COPD (chronic obstructive pulmonary disease) Status: Chronic (3) Atrial fibrillation with rapid ventricular response Status: Acute (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
[2018-10-13 10:34] LABS: HEMOGLOBIN 13.6 g/dL (12.0-18.0); MEAN CELL VOLUME 104.4 fl (80.0-94.0); MEAN CORPUSCULAR HEMOGLOBIN 35.2 pg (27.0-31.0); MEAN CORPUSCULAR HGB CONC 33.7 g/dL (33.0-37.0); RBC 3.85 Mil/uL (4.40-5.90); RED CELL DISTRIBUTION WIDTH 13.9 % (11.5-14.5); WHITE BLOOD COUNT 9.3 K/uL (4.8-10.8)
[2018-10-13 10:59] LABS: ALBUMIN 3.4 g/dL (3.5-5.0); ALT/SGPT 113 U/L (21-72); AST/SGOT 67 U/L (17-59); BLOOD UREA NITROGEN 19 mg/dl (9-20); CALCIUM 8.5 mg/dL (8.4-10.2); GFR NON-AFRICAN AMERICAN > 60
[2018-10-13] MEDS: MethylPREDNISolone 40 mg Vial IVP SCH ×2 (11:17→17:35)
--- NOTE | 2018-10-13 13:32 | RAD ---
Date of service: 10/13/2018 HISTORY: SOB COMPARISON: Comparison made with prior chest radiograph dated 10/11/2018. Comparison also made with CT chest dated 09/29/2018. FINDINGS: LUNGS: Centrilobular-panlobular emphysematous changes are less seen to better advantage on prior CT scan.. There appears to be mild bibasilar also bibasilar atelectasis right greater than left. Developing lower lobe infiltrates could be excluded with followup radiographs. Calcification of the great vessels seen in the right paratracheal region.. PLEURA: No significant pleural effusion identified, no pneumothorax apparent. CARDIOVASCULAR: Heart appears borderline/mildly the enlarged. Aorta ectatic and uncoiled. The mild moderate aortic atherosclerotic calcification present.. OSSEOUS STRUCTURES: No significant abnormalities. VISUALIZED UPPER ABDOMEN: Normal. OTHER FINDINGS: None. IMPRESSION: No active disease. Centrilobular-panlobular emphysematous changes are less seen to better advantage on prior CT scan.. There appears to be mild bibasilar also bibasilar atelectasis right greater than left. Developing lower lobe infiltrates could be excluded with followup radiographs. Calcification of the great vessels seen in the right paratracheal region..
[2018-10-13] MEDS: Levalbuterol 0.63 MG/3 ML Inhal Soln UD INH PRN (13:38)
--- NOTE | 2018-10-13 13:40 | CP.PCM.PN ---
<Buck Mckenzie - Last Filed: 10/13/18 13:56> Subjective - Date & Time of Evaluation Date of Evaluation: 10/13/18 Time of Evaluation: 09:00 - Subjective Subjective: Pt seen and examined at bedside. Reports mild cough; denies SOB. Overnight, was noted to have acute desaturation in 80s. High flow settings adjusted. Objective - Vital Signs/Intake and Output Vital Signs (last 24 hours): Temp Pulse Resp BP Pulse Ox 98.3 F 78 20 141/61 95 10/13/18 12:53 10/13/18 12:53 10/13/18 12:53 10/13/18 12:53 10/13/18 12:53 Intake and Output: 10/13/18 10/13/18 06:59 18:59 Intake Total 600 Output Total 900 1150 Balance -900 -550 - Medications Medications: Current Medications Digoxin (Lanoxin) 0.25 mg PO DAILY [facility] Last Admin: 10/13/18 08:45 Dose: 0.25 mg Enoxaparin Sodium (Lovenox) 80 mg SC DAILY [facility]; Protocol Famotidine (Pepcid) 20 mg PO BID [facility] Last Admin: 10/13/18 11:16 Dose: 20 mg Furosemide (Lasix) 40 mg IVP BID [facility] Last Admin: 10/13/18 08:46 Dose: 40 mg Ipratropium [place] (Atrovent) 0.5 mg IH RQID [facility] Last Admin: 10/13/18 13:38 Dose: 0.5 mg Levalbuterol HCl (Xopenex) 0.63 mg INH RQ4 PRN PRN Reason: Shortness of Breath Last Admin: 10/13/18 13:38 Dose: 0.63 mg Methylprednisolone (Solu-Medrol) 30 mg IVP BID [facility] Last Admin: 10/13/18 11:17 Dose: 30 mg Nicotine (Nicoderm Cq) 1 patch TD DAILY [facility] Last Admin: 10/13/18 11:16 Dose: 1 patch - Labs Labs: 10/13/18 10:23 10/13/18 10:23 - Constitutional Appears: No Acute Distress - Eye Exam Eye Exam: EOMI - Respiratory Exam Respiratory Exam: Decreased Breath Sounds, Rales - Cardiovascular Exam Cardiovascular Exam: Tachycardia, Irregular Rhythm, +S1, +S2 - GI/Abdominal Exam GI & Abdominal Exam: Soft, Normal Bowel Sounds. absent: Tenderness - Extremities Exam Extremities Exam: Pedal Edema - Neurological Exam Neurological Exam: Alert, Awake - Psychiatric Exam Psychiatric exam: Normal Affect, Normal Mood Assessment and Plan (1) CHF (congestive heart failure) Status: Acute (2) COPD (chronic obstructive pulmonary disease) Status: Chronic (3) Atrial fibrillation with rapid ventricular response Status: Acute (4) Debilitated patient Status: Acute - Assessment and Plan (Free Text) Assessment: 78 yo M with pmhx of bladder CA, HTN, COPD, LBBB previously admitted for respiratory distress 2/2 COPD exacerbation and Afib with RVR previously admitted to TCU for rehabilitation was found to be SOB with desaturation; readmitted for acute respiratory distress, CHF exacerbation and recent onset Afib with RVR Plan: ABG from this morning reviewed along with team notes and CXR On Digoxin Ipratratropium QID -Xopenex PRN Steroid tapered: methylprednisolone 30 mg BID Pt with noticeable pedal edema progressing unilaterally On lovenox f/u venous duplex f/u troponin, labs c/w PT/OT Case and Plan d/w Dr. Kimberli Mckenzie MD PGY-2 <Nba Ag - Last Filed: 10/13/18 15:26> Subjective - Subjective Subjective: The patient was seen and examined together with the resident in the intensive care unit this morning. Physical examination was performed and findings were discussed. Current diagnoses and plan of care was formulated. The entry made by the resident in the EMR accurately reflects today's activity. Objective - Vital Signs/Intake and Output Vital Signs (last 24 hours): Temp Pulse Resp BP Pulse Ox 98.3 F 78 23 141/61 95 10/13/18 12:53 10/13/18 12:53 10/13/18 15:05 10/13/18 12:53 10/13/18 12:53 Intake and Output: 10/13/18 10/13/18 11:59 23:59 Intake Total 600 Output Total 1150 Balance -550 - Medications Medications: Current Medications Digoxin (Lanoxin) 0.25 mg PO DAILY [facility] Last Admin: 10/13/18 08:45 Dose: 0.25 mg Enoxaparin Sodium (Lovenox) 70 mg 1 mg/kg (70 mg) SC Q12H [facility]; Protocol Famotidine (Pepcid) 20 mg PO BID [facility] Last Admin: 10/13/18 11:16 Dose: 20 mg Furosemide (Lasix) 40 mg IVP BID [facility] Last Admin: 10/13/18 08:46 Dose: 40 mg Ipratropium [place] (Atrovent) 0.5 mg IH RQID [facility] Last Admin: 10/13/18 15:05 Dose: 0.5 mg Levalbuterol HCl (Xopenex) 0.63 mg INH RQ4 PRN PRN Reason: Shortness of Breath Last Admin: 10/13/18 13:38 Dose: 0.63 mg Methylprednisolone (Solu-Medrol) 30 mg IVP BID [facility] Last Admin: 10/13/18 11:17 Dose: 30 mg Nicotine (Nicoderm Cq) 1 patch TD DAILY [facility] Last Admin: 10/13/18 11:16 Dose: 1 patch - Labs Labs: 10/13/18 10:23 10/13/18 10:23 Assessment and Plan (1) CHF (congestive heart failure) Status: Acute (2) COPD (chronic obstructive pulmonary disease) Status: Chronic (3) Atrial fibrillation with rapid ventricular response Status: Acute
[2018-10-13] MEDS ORDERED: Enoxaparin 80 mg Syringe SC SCH (14:45)
--- NOTE | 2018-10-13 15:38 | US ---
Date of service: 10/13/2018 PROCEDURE: Bilateral lower extremity venous duplex Doppler. HISTORY: Swelling LE' is s COMPARISON: None available. TECHNIQUE: Bilateral common femoral, superficial femoral, popliteal and posterior tibial veins were evaluated. Flow was assessed with color Doppler, compressibility, assessment of phasic flow and augmentation response. FINDINGS: COMMON FEMORAL VEIN: Right CFV: Unremarkable. Left CFV: Unremarkable. SUPERFICIAL FEMORAL VEIN: Right SFV: Unremarkable. Left SFV: Unremarkable. POPLITEAL VEIN: Right Popliteal: Unremarkable. Left Popliteal: Unremarkable. POSTERIOR TIBIAL VEIN: Right PTV: Unremarkable. Left PTV: Unremarkable. OTHER FINDINGS: None. IMPRESSION: No evidence of deep venous thrombosis.
[2018-10-14] MEDS: Ipratropium 0.02% Inhal Soln (0.5 mg/2.5 ml) UD IH SCH ×4 (07:35→19:25)
[2018-10-14] MEDS: Digoxin 250 mcg (0.25 mg) Tab PO SCH (08:25)
[2018-10-14] MEDS: Enoxaparin 80 mg Syringe SC SCH ×2 (08:26→20:56)
[2018-10-14] MEDS: MethylPREDNISolone 40 mg Vial IVP SCH ×2 (08:26→16:07)
[2018-10-14] MEDS ORDERED: Enoxaparin 80 mg Syringe SC SCH (09:00)
--- NOTE | 2018-10-14 10:58 | CP.PCM.PN ---
Subjective - Date & Time of Evaluation Date of Evaluation: 10/14/18 Time of Evaluation: 10:00 - Subjective Subjective: Pt is doing better ambulated around the unit Less SOB / cough Pedal edema resolving R: 2+; L:1+ Objective - Vital Signs/Intake and Output Vital Signs (last 24 hours): Temp Pulse Resp BP Pulse Ox 97.5 F L 88 18 132/63 92 L 10/14/18 08:00 10/14/18 08:00 10/14/18 08:00 10/14/18 08:28 10/14/18 08:00 Intake and Output: 10/14/18 10/14/18 06:59 18:59 Output Total 200 Balance -200 - Medications Medications: Current Medications Digoxin (Lanoxin) 0.25 mg PO DAILY [facility] Last Admin: 10/14/18 08:25 Dose: 0.25 mg Enoxaparin Sodium (Lovenox) 70 mg 1 mg/kg (70 mg) SC Q12@0900,2100 [facility]; Protocol Last Admin: 10/14/18 08:26 Dose: 70 mg Famotidine (Pepcid) 20 mg PO BID [facility] Last Admin: 10/14/18 08:26 Dose: 20 mg Furosemide (Lasix) 40 mg IVP BID [facility] Last Admin: 10/14/18 08:28 Dose: 40 mg Ipratropium [place] (Atrovent) 0.5 mg IH RQID [facility] Last Admin: 10/14/18 07:35 Dose: 0.5 mg Levalbuterol HCl (Xopenex) 0.63 mg INH RQ4 PRN PRN Reason: Shortness of Breath Last Admin: 10/13/18 13:38 Dose: 0.63 mg Methylprednisolone (Solu-Medrol) 30 mg IVP BID [facility] Last Admin: 10/14/18 08:26 Dose: 30 mg Nicotine (Nicoderm Cq) 1 patch TD DAILY [facility] Last Admin: 10/14/18 08:26 Dose: 1 patch - Labs Labs: 10/13/18 10:23 10/13/18 10:23 Assessment and Plan (1) Acute on chronic systolic congestive heart failure Status: Acute (2) COPD (chronic obstructive pulmonary disease) Status: Chronic (3) Atrial fibrillation with rapid ventricular response Status: Acute (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
--- NOTE | 2018-10-14 13:31 | CP.PCM.PN ---
Subjective - Date & Time of Evaluation Date of Evaluation: 10/14/18 Time of Evaluation: 13:28 - Subjective Subjective: Seen on rounds in the intensive care unit. Seated upright in bed, appears comfortable at rest. Claims to feel improved today. Venous duplex scan of both legs negative for DVT. Remains on nasal canula at 4LPM. A fib on CM with rapid ventricular rate upon activity. + dependant edema both legs, less than yesterday. No cyanosis. Pharynx is mildly injected, tongue is coated. Neck si supple and trachea midline. No dullness on chest percussion. Breath sounds are very diminished bilaterally. Scattered sonorous rhonchi bilat, few medium basal rales, no wheezes. Heart sounds are distant, irregular rhythm. A fib/CHF/COPD. Placed on 2 LPM nasal O2 with SpO2 93%. Steroid dosage reduced to 20MG Q12H. On nicotine replacement 21MG daily. Ipratropium via nebulizer, levalbuterol PRN only. Lovenox 70MG Q12H. Objective - Vital Signs/Intake and Output Vital Signs (last 24 hours): Temp Pulse Resp BP Pulse Ox 97.3 F L 118 H 14 134/78 93 L 10/14/18 12:00 10/14/18 13:00 10/14/18 13:00 10/14/18 13:00 10/14/18 13:00 Intake and Output: 10/14/18 10/14/18 11:59 23:59 Intake Total 600 Output Total 400 Balance 200 - Medications Medications: Current Medications Digoxin (Lanoxin) 0.25 mg PO DAILY [facility] Last Admin: 10/14/18 08:25 Dose: 0.25 mg Enoxaparin Sodium (Lovenox) 70 mg 1 mg/kg (70 mg) SC Q12@0900,2100 [facility]; Protocol Last Admin: 10/14/18 08:26 Dose: 70 mg Famotidine (Pepcid) 20 mg PO BID [facility] Last Admin: 10/14/18 08:26 Dose: 20 mg Furosemide (Lasix) 40 mg IVP BID [facility] Last Admin: 10/14/18 08:28 Dose: 40 mg Ipratropium [place] (Atrovent) 0.5 mg IH RQID [facility] Last Admin: 10/14/18 10:59 Dose: 0.5 mg Levalbuterol HCl (Xopenex) 0.63 mg INH RQ4 PRN PRN Reason: Shortness of Breath Last Admin: 10/13/18 13:38 Dose: 0.63 mg Methylprednisolone (Solu-Medrol) 30 mg IVP BID [facility] Last Admin: 10/14/18 08:26 Dose: 30 mg Nicotine (Nicoderm Cq) 1 patch TD DAILY [facility] Last Admin: 10/14/18 08:26 Dose: 1 patch - Labs Labs: 10/13/18 10:23 10/13/18 10:23 Assessment and Plan (1) CHF (congestive heart failure) Status: Acute (2) COPD (chronic obstructive pulmonary disease) Status: Chronic (3) Atrial fibrillation with rapid ventricular response Status: Acute
[2018-10-14] MEDS ORDERED: MethylPREDNISolone 40 mg Vial IVP SCH (14:00)
[2018-10-14] MEDS: Levalbuterol 0.63 MG/3 ML Inhal Soln UD INH PRN (21:08)
[2018-10-15 06:44] LABS: HEMOGLOBIN 11.9 g/dL (12.0-18.0); MEAN CELL VOLUME 102.4 fl (80.0-94.0); MEAN CORPUSCULAR HEMOGLOBIN 35.1 pg (27.0-31.0); MEAN CORPUSCULAR HGB CONC 34.3 g/dL (33.0-37.0); RBC 3.4 Mil/uL (4.40-5.90); RED CELL DISTRIBUTION WIDTH 13.6 % (11.5-14.5)
[2018-10-15 07:13] LABS: GFR NON-AFRICAN AMERICAN > 60
[2018-10-15 07:25] LABS: BLOOD UREA NITROGEN 22 mg/dl (9-20); CALCIUM 8.1 mg/dL (8.4-10.2)
[2018-10-15] MEDS: Ipratropium 0.02% Inhal Soln (0.5 mg/2.5 ml) UD IH SCH ×4 (07:42→19:38)
[2018-10-15] MEDS ORDERED: methylPREDNISolone 20 MG in Sodium Chloride 0.9% 50 ML IV SCH (09:00)
[2018-10-15] MEDS: Enoxaparin 80 mg Syringe SC SCH ×3 (09:48→21:34)
[2018-10-15] MEDS: MethylPREDNISolone 40 mg Vial IVP SCH ×2 (09:49→21:35)
[2018-10-15] MEDS: Digoxin 250 mcg (0.25 mg) Tab PO SCH (09:50)
--- NOTE | 2018-10-15 10:38 | CP.PCM.PN ---
Subjective - Date & Time of Evaluation Date of Evaluation: 10/15/18 Time of Evaluation: 10:35 - Subjective Subjective: Pt sitting in chair breathing easily Pedal edema slowly resolving R: 2+ L: 1+ Hr increases with ambulation but returns to normal when he rests Objective - Vital Signs/Intake and Output Vital Signs (last 24 hours): Temp Pulse Resp BP Pulse Ox 97.2 F L 76 20 133/64 94 L 10/15/18 08:27 10/15/18 08:27 10/15/18 08:27 10/15/18 09:50 10/15/18 08:27 - Medications Medications: Current Medications Digoxin (Lanoxin) 0.25 mg PO DAILY [facility] Last Admin: 10/15/18 09:50 Dose: 0.25 mg Enoxaparin Sodium (Lovenox) 70 mg 1 mg/kg (70 mg) SC Q12@0900,2100 [facility]; Protocol Last Admin: 10/15/18 09:48 Dose: 70 mg Famotidine (Pepcid) 20 mg PO BID [facility] Last Admin: 10/15/18 09:49 Dose: 20 mg Furosemide (Lasix) 40 mg IVP BID [facility] Last Admin: 10/15/18 09:50 Dose: 40 mg Ipratropium [place] (Atrovent) 0.5 mg IH RQID [facility] Last Admin: 10/15/18 07:42 Dose: 0.5 mg Levalbuterol HCl (Xopenex) 0.63 mg INH RQ4 PRN PRN Reason: Shortness of Breath Last Admin: 10/14/18 21:08 Dose: 0.63 mg Methylprednisolone (Solu-Medrol) 20 mg IVP Q12 [facility] Last Admin: 10/15/18 09:49 Dose: 20 mg Nicotine (Nicoderm Cq) 1 patch TD DAILY [facility] Last Admin: 10/15/18 09:49 Dose: 1 patch - Labs Labs: 10/15/18 05:30 10/15/18 05:30 Assessment and Plan (1) Acute on chronic systolic congestive heart failure Status: Acute (2) COPD (chronic obstructive pulmonary disease) Status: Chronic (3) Atrial fibrillation with rapid ventricular response Status: Acute (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
--- NOTE | 2018-10-15 11:30 | CP.PCM.PN ---
Subjective - Date & Time of Evaluation Date of Evaluation: 10/15/18 Time of Evaluation: 11:29 - Subjective Subjective: Seated in bedside chair. Claims to feel improved. Vital signs remain stable, in A fib, rate controlled. SpO2 91% on nasal canula at 3LPM. Potassium is low this morning 3.3, WBC nl, Hgb 11.9 (13.6). Dependant edema of lower extremities gradually decreasing. R1+, L1+. No cyanosis or calf tenderness. Tongue remains coated, pharynx injected. Neck is supple and trachea midline. No dullness on chest percussion. Breath sounds are markedly diminished bilaterally. No audible wheezing or bronchial breathing. Scattered rhonchi in lower lobes. Heart sounds are distant, irregular rhythm. K supplements. Repeat CXR. Continue aerosol ipratropium. Mycelex troches. Steroid down to 16MG PO medrol daily tomorrow. Objective - Vital Signs/Intake and Output Vital Signs (last 24 hours): Temp Pulse Resp BP Pulse Ox 97.2 F L 76 20 133/64 94 L 10/15/18 08:27 10/15/18 08:27 10/15/18 08:27 10/15/18 09:50 10/15/18 08:27 - Medications Medications: Current Medications Clotrimazole (Mycelex Perez) 10 mg MT 5XD [facility] Digoxin (Lanoxin) 0.25 mg PO DAILY [facility] Last Admin: 10/15/18 09:50 Dose: 0.25 mg Enoxaparin Sodium (Lovenox) 70 mg 1 mg/kg (70 mg) SC Q12@0900,2100 [facility]; Protocol Last Admin: 10/15/18 09:48 Dose: 70 mg Famotidine (Pepcid) 20 mg PO BID [facility] Last Admin: 10/15/18 09:49 Dose: 20 mg Furosemide (Lasix) 40 mg IVP BID [facility] Last Admin: 10/15/18 09:50 Dose: 40 mg Ipratropium [place] (Atrovent) 0.5 mg IH RQID [facility] Last Admin: 10/15/18 07:42 Dose: 0.5 mg Levalbuterol HCl (Xopenex) 0.63 mg INH RQ4 PRN PRN Reason: Shortness of Breath Last Admin: 10/14/18 21:08 Dose: 0.63 mg Methylprednisolone (Solu-Medrol) 20 mg IVP Q12 [facility] Stop: 10/15/18 23:59 Last Admin: 10/15/18 09:49 Dose: 20 mg Methylprednisolone (Medrol) 16 mg PO DAILY [facility] Nicotine (Nicoderm Cq) 1 patch TD DAILY [facility] Last Admin: 10/15/18 09:49 Dose: 1 patch Potassium Chloride (Klor-Con 10) 10 meq PO DAILY [facility] - Labs Labs: 10/15/18 05:30 10/15/18 05:30 Assessment and Plan (1) CHF (congestive heart failure) Status: Acute (2) COPD (chronic obstructive pulmonary disease) Status: Chronic (3) Atrial fibrillation with rapid ventricular response Status: Acute
[2018-10-15] MEDS: Potassium Chloride 10 mEq ER Tab PO SCH (13:51)
--- NOTE | 2018-10-15 16:44 | RAD ---
HISTORY: COPD COMPARISON: Chest x-ray performed 10/13/18 TECHNIQUE: Chest PA and lateral FINDINGS: LUNGS: Increased lucencies especially within the bilateral upper lung gonzalez compatible with underlying emphysema. Hyperinflation may be seen in the setting of COPD. Biapical pleural thickening. No focal consolidation. Please note that chest x-ray has limited sensitivity for the detection of pulmonary masses. PLEURA: No significant pleural effusion identified. No definite pneumothorax . CARDIOVASCULAR: Cardiomegaly. Dense atherosclerotic calcifications the aorta. OSSEOUS STRUCTURES: Osseous demineralization. Degenerative changes. VISUALIZED UPPER ABDOMEN: Unremarkable. OTHER FINDINGS: Bilateral gynecomastia. IMPRESSION: COPD/emphysema. Biapical pleural thickening. Cardiomegaly.
[2018-10-16 05:20] LABS: BLOOD UREA NITROGEN 24 mg/dl (9-20); CALCIUM 8.3 mg/dL (8.4-10.2); GFR NON-AFRICAN AMERICAN > 60
[2018-10-16 05:24] LABS: B-TYPE NATRIURETIC PEPTIDE 14000 pg/ml (0-900)
[2018-10-16] MEDS: Ipratropium 0.02% Inhal Soln (0.5 mg/2.5 ml) UD IH SCH ×4 (07:48→19:34)
[2018-10-16] MEDS: Enoxaparin 80 mg Syringe SC SCH ×2 (08:31→21:24)
[2018-10-16] MEDS: Potassium Chloride 10 mEq ER Tab PO SCH (08:32)
[2018-10-16] MEDS: Digoxin 250 mcg (0.25 mg) Tab PO SCH (08:32)
[2018-10-16] MEDS ORDERED: Potassium Chloride 10 mEq ER Tab PO ONE (11:30)
[2018-10-16] MEDS: Potassium Chloride 20 mEq ER Tab PO SCH (18:44)
[2018-10-17] MEDS: Ipratropium 0.02% Inhal Soln (0.5 mg/2.5 ml) UD IH SCH ×4 (07:44→19:24)
[2018-10-17] MEDS: Potassium Chloride 20 mEq ER Tab PO SCH ×2 (08:44→16:32)
[2018-10-17] MEDS: Digoxin 250 mcg (0.25 mg) Tab PO SCH (08:46)
[2018-10-17] MEDS: Enoxaparin 80 mg Syringe SC SCH ×2 (08:46→21:58)
[2018-10-17 11:40] LABS: HEMOGLOBIN 13.6 g/dL (12.0-18.0); MEAN CELL VOLUME 102.1 fl (80.0-94.0); MEAN CORPUSCULAR HEMOGLOBIN 34.5 pg (27.0-31.0); MEAN CORPUSCULAR HGB CONC 33.8 g/dL (33.0-37.0); RBC 3.95 Mil/uL (4.40-5.90); WHITE BLOOD COUNT 10.2 K/uL (4.8-10.8)
[2018-10-17 11:59] LABS: BLOOD UREA NITROGEN 27 mg/dl (9-20); CALCIUM 8.5 mg/dL (8.4-10.2); GFR NON-AFRICAN AMERICAN > 60
--- NOTE | 2018-10-17 15:03 | CP.PCM.PN ---
Subjective - Date & Time of Evaluation Date of Evaluation: 10/17/18 Time of Evaluation: 15:01 - Subjective Subjective: Seen on rounds in the telemetry unit, seated in a bedside chair. He had been ambulating with physical therapy earlier using a rolling walker. He did complain of dyspnea on exertion which recovered quickly upon resting. He continues to have episodes of tachycardia, but his oxygen saturation remains 92+ with nasal cannula O2 at 3 L/min. Results of CBC remained stable, and chemistry shows potassium of 3.4 and chloride of 87. BUN and creatinine are 27 and 0.8 respectively. Total CO2 is 38 mmol/L. Lower extremities have been wrapped in Reyes bandages in the dependent edema appears markedly improved. There is no central or peripheral cyanosis noted. Extremities are warm to touch. Pharynx is pink and mucous membranes are moist, tongue remains coated. Neck is supple and trachea is midline. No visible neck vein distention at 90 d egrees. No dullness on chest percussion. Equal expansion. Breath sounds are very much diminished bilaterally with scattered dry to medium rales in the lower lobes. Scattered sonorous rhonchi are heard dependent regions of both lungs. No audible wheezes. Heart sounds are distant and the rhythm is irregularly irregular and tachycardic. Chronic obstructive pulmonary disease with recent hypercapnic respiratory failure. Atrial fibrillation with rapid ventricular response and congestive cardiac andrea lure. Continue with current medical and aerosol management. Arterial blood gas will be requested. Reduce methylprednisolone to 12 mg p.o. daily. Objective - Vital Signs/Intake and Output Vital Signs (last 24 hours): Temp Pulse Resp BP Pulse Ox 97.3 F L 90 20 127/62 92 L 10/17/18 13:07 10/17/18 13:07 10/17/18 13:07 10/17/18 13:07 10/17/18 13:07 - Medications Medications: Current Medications Benzonatate (Tessalon Perles) 200 mg PO Q8 [facility] Last Admin: 10/17/18 08:45 Dose: 200 mg Clotrimazole (Mycelex Perez) 10 mg MT 5XD [facility] Last Admin: 10/17/18 08:45 Dose: 10 mg Digoxin (Lanoxin) 0.25 mg PO DAILY [facility] Last Admin: 10/17/18 08:46 Dose: 0.25 mg Enoxaparin Sodium (Lovenox) 70 mg 1 mg/kg (70 mg) SC Q12@0900,2100 [facility]; Protocol Last Admin: 10/17/18 08:46 Dose: 70 mg Famotidine (Pepcid) 20 mg PO BID [facility] Last Admin: 10/17/18 08:45 Dose: 20 mg Furosemide (Lasix) 40 mg IVP BID [facility] Last Admin: 10/17/18 08:45 Dose: 40 mg Ipratropium [place] (Atrovent) 0.5 mg IH RQID [facility] Last Admin: 10/17/18 07:44 Dose: 0.5 mg Levalbuterol HCl (Xopenex) 0.63 mg INH RQ4 PRN PRN Reason: Shortness of Breath Last Admin: 10/14/18 21:08 Dose: 0.63 mg Methylprednisolone (Medrol) 16 mg PO DAILY [facility] Last Admin: 10/17/18 08:47 Dose: 16 mg Nicotine (Nicoderm Cq) 1 patch TD DAILY [facility] Last Admin: 10/17/18 08:45 Dose: 1 patch Potassium Chloride (K-Dur 20 Meq Er Tab) 20 meq PO BID [facility] Last Admin: 10/17/18 08:44 Dose: 20 meq - Labs Labs: 10/17/18 11:26 10/17/18 11:26 Assessment and Plan (1) CHF (congestive heart failure) Status: Acute (2) COPD (chronic obstructive pulmonary disease) Status: Chronic (3) Atrial fibrillation with rapid ventricular response Status: Acute
--- NOTE | 2018-10-17 15:04 | PQF ---
PROVIDER RESPONSE TEXT: Findings consistent with patient with underlying COPD complicated now by atrial fibrillation with rap id ventricular rate and CHF. Pulmonary vascular congestion and resultant tachypnea caused respiratory muscle fatigue and hypercapnic respiratory failure as well. REVIEWER QUERY TEXT: Documentation Clarification Your help is requested in clarifying the following clinical documentation, if you can please further specify in the medical record and discharge summary. Would you please clarify if there is an additional diagnosis or not to go along with the documentatio n of acute respiratory distress. 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 Placed on 5Liters NC ER: Tachypneic, labored breathing, accessory muscle use. Respirations 24, 24, 29, 25, 16, 24. O2 saturations 97-100% on BIPAP ABG on 5 Liters: 7.34/ 56/ 83/ 27.2 10/11/18 @ 0529 hours ABG on BIPAP : 7.51/ 41/ 99/ 31.7 10/11/18 @ 0902 hours The patient's Clinical Indicators include: Admitted for an Acute exacerbation of CHF and COPD. Pro BNP 9840, Troponin x 2 elevated ( as per cardio due to CHF ) CXR: No active disease. Centrilobular - panlobular emphysematous changes are less seen to better advantage on prior CT scan. There appears to be mild bibasilar also bibasilar atelectasis right greater than left. Developing lo wer lobe infiltrates could be excluded with follow up radiographs. Calcification of the great vessels seen in the right paratracheal region. Rx: Solumedrol, Atrovent, Xopenex, Lasix IV Query created by: Nerissa Singh on 10/17/2018 2:22 PM Electronically signed by: Nba Ag MD 10/17/2018 3:01 PM
--- NOTE | 2018-10-17 15:51 | CP.PCM.PN ---
Subjective - Date & Time of Evaluation Date of Evaluation: 10/17/18 Time of Evaluation: 09:00 - Subjective Subjective: Pt appears to be breathing easily ambulated in the hallway with rolling walker and assistance c/o mild JONAS becomes tachycardic with exertion Digoxin: 1.1 BNP: 14,000 Objective - Vital Signs/Intake and Output Vital Signs (last 24 hours): Temp Pulse Resp BP Pulse Ox 97.3 F L 90 20 127/62 92 L 10/17/18 13:07 10/17/18 13:07 10/17/18 13:07 10/17/18 13:07 10/17/18 13:07 - Medications Medications: Current Medications Benzonatate (Tessalon Perles) 200 mg PO Q8 [facility] Last Admin: 10/17/18 08:45 Dose: 200 mg Clotrimazole (Mycelex Perez) 10 mg MT 5XD [facility] Last Admin: 10/17/18 08:45 Dose: 10 mg Digoxin (Lanoxin) 0.25 mg PO DAILY [facility] Last Admin: 10/17/18 08:46 Dose: 0.25 mg Enoxaparin Sodium (Lovenox) 70 mg 1 mg/kg (70 mg) SC Q12@0900,2100 [facility]; Protocol Last Admin: 10/17/18 08:46 Dose: 70 mg Famotidine (Pepcid) 20 mg PO BID [facility] Last Admin: 10/17/18 08:45 Dose: 20 mg Furosemide (Lasix) 40 mg IVP BID [facility] Last Admin: 10/17/18 08:45 Dose: 40 mg Ipratropium [place] (Atrovent) 0.5 mg IH RQID [facility] Last Admin: 10/17/18 15:40 Dose: 0.5 mg Levalbuterol HCl (Xopenex) 0.63 mg INH RQ4 PRN PRN Reason: Shortness of Breath Last Admin: 10/14/18 21:08 Dose: 0.63 mg Methylprednisolone (Medrol) 12 mg PO DAILY [facility] Nicotine (Nicoderm Cq) 1 patch TD DAILY [facility] Last Admin: 10/17/18 08:45 Dose: 1 patch Potassium Chloride (K-Dur 20 Meq Er Tab) 20 meq PO BID [facility] Last Admin: 10/17/18 08:44 Dose: 20 meq - Labs Labs: 10/17/18 11:10/17/18 11:26 Assessment and Plan (1) Acute on chronic systolic congestive heart failure Status: Acute (2) COPD (chronic obstructive pulmonary disease) Status: Chronic (3) Atrial fibrillation with rapid ventricular response Status: Acute (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
[2018-10-17 15:57] LABS: ABG ALLEN TEST YES; ARTERIAL BLOOD GAS HCO3 34.8 mmol/L (21-28); ARTERIAL BLOOD GAS HEMOGLOBIN 14.4 g/dL (11.7-17.4); ARTERIAL BLOOD GAS O2 CAPACITY 19.5 mL/dL (16-24); ARTERIAL BLOOD GAS O2 CONTENT 18.1 ML/dL (15-23); ARTERIAL BLOOD GAS PCO2 46 mm/Hg (35-45); ARTERIAL BLOOD GAS PH 7.52 (7.35-7.45); ARTERIAL BLOOD GAS PO2 57 mm/Hg (80-100)
[2018-10-17] MEDS ORDERED: Digoxin 125 mcg (0.125 mg) Tab PO ONE (18:36)
--- NOTE | 2018-10-17 18:49 | PCM.RRT ---
<Breonna Garcia - Last Filed: 10/17/18 20:30> I.Reason for [employer] - A) Acute Change in Patient: Subjective: 78 yo M with history of hypertension, LBBB, CHF, COPD, bladder ca and A fib; [employer] called due to HR 145-151 and apparent shortness of breath. On arrival, patient sitting up in bed, stating he feels okay, denies feeling short of breath. Vitals at on arrival: HR 145, BP 143/95, O2 sat 95 on 2L NC, RR 25 PE: Gen: thin elderly male, wearing NC, mildly tachypneic, able to speak in full sen tences Resp: breath sounds equal, somewhat diminished, no rales auscultated CV: irregular rhythm, tachycardic Neuro: spontaneously moving all extremities, speaking coherently Interventions: Cardizem 5 mg IVP EKG done - pre-existing LBBB Dr. Batres spoke with admitting physician/incident handler Dr. Marie regarding patient; Dr. Marie stated LBBB is pre-existing, recommended additional dose of digoxin 0.125 mg. CMP collected Troponin collected Pt's HR went down to 90s-110s after administration of cardizem. Vitals at end of [employer]: HR 90-110s, BP 130/73, O2 sat 95% on 2L NC, RR 18 Assessment: 78 yo M, [employer] called for elevated HR; given 5 mg cardizem with appropriate response in heart rate. Plan: s/p 5 mg cardizem Give additional dose digoxin as per above Troponin, cmp [employer] leader: Dr. Batres, present for all above. <Cheikh Batres - Last Filed: 10/18/18 10:36> Attending/Attestation - Attestation I have personally seen and examined this patient.: Yes I have fully participated in the care of the patient.: Yes I have reviewed all pertinent clinical information, including history, physical exam and plan: Yes Notes (Text): 10/18/18 10:35 Patient seen and examined with resident during [employer] because of AFib with RVR. Case discussed and ahreed with assessment and plan.
[2018-10-17 19:03] LABS: ALBUMIN 3.6 g/dL (3.5-5.0); ALT/SGPT 73 U/L (21-72); AST/SGOT 37 U/L (17-59); BLOOD UREA NITROGEN 26 mg/dl (9-20); CALCIUM 8.3 mg/dL (8.4-10.2); GFR NON-AFRICAN AMERICAN > 60
--- NOTE | 2018-10-18 01:13 | CP.PCM.PCO ---
Addendum Addendum: Called by MODESTO Vaughn around midnight due to sustained HR in 140s despite patient being on cardizem drip at 5 mg/hr. Came to eval patient - patient AAO, talking without difficulty, states he feels good, denies chest pain or SOB. Plan: Will increase cardizem drip to 7.5 mg/hr; continue tele monitoring.
[2018-10-18] MEDS ORDERED: Metoprolol 1 mg/ml Inj IVP ONE (01:15)
[2018-10-18] MEDS ORDERED: Digoxin 500 mcg/2ml (0.5 mg/2ml) Inj IVP ONE (01:53)
[2018-10-18] MEDS: Ipratropium 0.02% Inhal Soln (0.5 mg/2.5 ml) UD IH SCH ×4 (07:42→19:48)
[2018-10-18] MEDS: Potassium Chloride 20 mEq ER Tab PO SCH ×2 (10:34→17:37)
[2018-10-18] MEDS: Digoxin 250 mcg (0.25 mg) Tab PO SCH (10:35)
[2018-10-18] MEDS: Enoxaparin 80 mg Syringe SC SCH ×2 (10:36→21:36)
--- NOTE | 2018-10-18 10:40 | CP.PCM.PN ---
Subjective - Date & Time of Evaluation Date of Evaluation: 10/18/18 Time of Evaluation: 10:00 - Subjective Subjective: Pt heart rate has been tachy started on cardizem drip remains on Digoxin Reluctantly will start on Metoprolol and then wean off of cardizem Objective - Vital Signs/Intake and Output Vital Signs (last 24 hours): Temp Pulse Resp BP Pulse Ox 98.6 F 82 20 154/94 H 90 L 10/18/18 08:13 10/18/18 08:13 10/18/18 08:13 10/18/18 10:35 10/18/18 08:13 - Medications Medications: Current Medications Benzonatate (Tessalon Perles) 200 mg PO Q8 [facility] Last Admin: 10/18/18 00:36 Dose: 200 mg Clotrimazole (Mycelex Perez) 10 mg MT 5XD [facility] Last Admin: 10/18/18 06:04 Dose: Not Given Digoxin (Lanoxin) 0.25 mg PO DAILY [facility] Last Admin: 10/18/18 10:35 Dose: 0.25 mg Enoxaparin Sodium (Lovenox) 70 mg 1 mg/kg (70 mg) SC Q12@0900,2100 [facility]; Protocol Last Admin: 10/17/18 21:58 Dose: 70 mg Famotidine (Pepcid) 20 mg PO BID [facility] Last Admin: 10/17/18 16:31 Dose: 20 mg Furosemide (Lasix) 40 mg IVP BID [facility] Last Admin: 10/18/18 10:35 Dose: 40 mg Diltiazem HCl 125 mg/ Sodium (Chloride) 125 mls @ 6 mls/hr IV .[id number] [facility]; Protocol Stop: 10/18/18 22:16 Ipratropium [place] (Atrovent) 0.5 mg IH RQID [facility] Last Admin: 10/18/18 07:42 Dose: 0.5 mg Levalbuterol HCl (Xopenex) 0.63 mg INH RQ4 PRN PRN Reason: Shortness of Breath Last Admin: 10/14/18 21:08 Dose: 0.63 mg Methylprednisolone (Medrol) 12 mg PO DAILY [facility] Metoprolol Tartrate (Lopressor) 25 mg PO Q12 [facility] Nicotine (Nicoderm Cq) 1 patch TD DAILY [facility] Last Admin: 02/04/19 08:45 Dose: 1 patch Potassium Chloride (K-Dur 20 Meq Er Tab) 20 meq PO BID [facility] Last Admin: 10/18/18 10:34 Dose: 20 meq - Labs Labs: 10/17/18 11:26 10/17/18 18:32 Assessment and Plan (1) Acute on chronic systolic congestive heart failure Status: Acute (2) COPD (chronic obstructive pulmonary disease) Status: Chronic (3) Atrial fibrillation with rapid ventricular response Status: Acute (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
--- NOTE | 2018-10-18 10:41 | PQF ---
PROVIDER RESPONSE TEXT: As far as I know the bladder wall CA recurred in Sep 29 And treated in [place] ?? Resected again I was never informed as to what was done. Dr Cat probably has more info REVIEWER QUERY TEXT: Documentation Clarification Your help is requested in clarifying the following clinical documentation, if you can please further specify in the medical record and discharge summary. Please clarify if the Bladder wall Cancer is history only and not an Acute condition, or the patient currently has Bladder Wall Cancer. Different ICD-10 codes The patient's Clinical Indicators include: Query created by: Nerissa Singh on 10/18/2018 10:05 AM Electronically signed by: Rory Marie MD 10/18/2018 10:38 AM
--- NOTE | 2018-10-18 10:51 | CP.PCM.PN ---
Subjective - Date & Time of Evaluation Date of Evaluation: 10/18/18 Time of Evaluation: 10:45 - Subjective Subjective: Seen on morning rounds in telemetry. Case was discussed with Cardiology. Continues to have afib with ventricular rates 130s-140. Had [employer] SPECIALIST called last night because of above, despite continued Cardizem drip. Has a generalized sense of fatigue. Occasional congested cough without sputum. Remains afebrile. Mildly hypertensive. No AM labs today. ABG done yesterday afternoon. PaO2 57, sat 93%, PaCO2 46, HCO3 35. Dependant edema much improved. No central or peripheral cyanosis. Neck is supple and trachea midline. No dullness on chest percussion. Markedly diminished breath sounds bilaterally. Few scattered medium rales and rhonchi in the lower lobes,. No audible wheezing or bronchial breathing. Heart sounds are very distant and tachy. Agree with need for beta xiomara. Monitor respiratory status. May need to reduce diuretic rx, developing metabolic alkalosis. Nasal oxygen increased to 4LPM temporarily. Objective - Vital Signs/Intake and Output Vital Signs (last 24 hours): Temp Pulse Resp BP Pulse Ox 98.6 F 82 20 154/94 H 90 L 10/18/18 08:13 10/18/18 08:13 10/18/18 08:13 10/18/18 10:35 10/18/18 08:13 Intake and Output: 10/17/18 10/18/18 23:59 11:59 Intake Total 550 Output Total 450 Balance 100 - Medications Medications: Current Medications Benzonatate (Tessalon Perles) 200 mg PO Q8 [facility] Last Admin: 10/18/18 10:39 Dose: 200 mg Clotrimazole (Mycelex Perez) 10 mg MT 5XD [facility] Last Admin: 10/18/18 10:38 Dose: 10 mg Digoxin (Lanoxin) 0.25 mg PO DAILY [facility] Last Admin: 10/18/18 10:35 Dose: 0.25 mg Enoxaparin Sodium (Lovenox) 70 mg 1 mg/kg (70 mg) SC Q12@0900,2100 [facility]; Protocol Last Admin: 10/18/18 10:36 Dose: 70 mg Famotidine (Pepcid) 20 mg PO BID [facility] Last Admin: 10/18/18 10:38 Dose: 20 mg Furosemide (Lasix) 40 mg IVP BID [facility] Last Admin: 10/18/18 10:35 Dose: 40 mg Diltiazem HCl 125 mg/ Sodium (Chloride) 125 mls @ 6 mls/hr IV .[id number] [facility]; Protocol Stop: 10/18/18 22:16 Ipratropium [place] (Atrovent) 0.5 mg IH RQID [facility] Last Admin: 10/18/18 07:42 Dose: 0.5 mg Levalbuterol HCl (Xopenex) 0.63 mg INH RQ4 PRN PRN Reason: Shortness of Breath Last Admin: 10/14/18 21:08 Dose: 0.63 mg Methylprednisolone (Medrol) 12 mg PO DAILY [facility] Last Admin: 10/18/18 10:37 Dose: 12 mg Metoprolol Tartrate (Lopressor) 25 mg PO Q12 [facility] Nicotine (Nicoderm Cq) 1 patch TD DAILY [facility] Last Admin: 10/18/18 10:38 Dose: 1 patch Potassium Chloride (K-Dur 20 Meq Er Tab) 20 meq PO BID [facility] Last Admin: 10/18/18 10:34 Dose: 20 meq - Labs Labs: 10/17/18 11:26 10/17/18 18:32 Assessment and Plan (1) CHF (congestive heart failure) Status: Acute (2) COPD (chronic obstructive pulmonary disease) Status: Chronic (3) Atrial fibrillation with rapid ventricular response Status: Acute
--- NOTE | 2018-10-18 12:35 | CARD ---
APPROVED REPORT Date of service: 10/17/2018 EKG Measurement Heart [id number] <Conclusion> Atrial fibrillation with rapid ventricular response with premature ventricular or aberrantly conducted complexes Left bundle branch block Abnormal ECG
[2018-10-19] MEDS: Ipratropium 0.02% Inhal Soln (0.5 mg/2.5 ml) UD IH SCH ×3 (07:30→19:05)
[2018-10-19] MEDS: Digoxin 250 mcg (0.25 mg) Tab PO SCH (08:16)
[2018-10-19] MEDS: Potassium Chloride 20 mEq ER Tab PO SCH ×2 (08:19→16:27)
[2018-10-19] MEDS: Enoxaparin 80 mg Syringe SC SCH ×2 (08:20→21:07)
--- NOTE | 2018-10-19 10:38 | CP.PCM.PN ---
Subjective - Date & Time of Evaluation Date of Evaluation: 10/19/18 Time of Evaluation: 10:00 - Subjective Subjective: pt is breathing easily HR on exam 78 BPM still rises with exertion Metoprolol increased to 50 mg BID No pedal edema lasix changed to 40mg PO daily Objective - Vital Signs/Intake and Output Vital Signs (last 24 hours): Temp Pulse Resp BP Pulse Ox 97.4 F L 138 H 18 124/83 94 L 10/19/18 08:13 10/19/18 08:17 10/19/18 08:13 10/19/18 09:17 10/19/18 08:13 Intake and Output: 10/19/18 10/19/18 06:59 18:59 Intake Total 10 Balance 10 - Medications Medications: Current Medications Benzonatate (Tessalon Perles) 200 mg PO Q8 [facility] Last Admin: 10/19/18 08:18 Dose: 200 mg Clotrimazole (Mycelex Perez) 10 mg MT 5XD [facility] Last Admin: 10/19/18 08:16 Dose: 10 mg Digoxin (Lanoxin) 0.25 mg PO DAILY [facility] Last Admin: 10/19/18 08:16 Dose: 0.25 mg Enoxaparin Sodium (Lovenox) 70 mg 1 mg/kg (70 mg) SC Q12@0900,2100 [facility]; Protocol Last Admin: 10/19/18 08:20 Dose: 70 mg Famotidine (Pepcid) 20 mg PO BID [facility] Last Admin: 10/19/18 08:16 Dose: 20 mg Furosemide (Lasix) 40 mg PO DAILY [facility] Diltiazem HCl 125 mg/ Sodium (Chloride) 125 mls @ 12 mls/hr IV .[id number] ONE; P rotocol Stop: 10/19/18 15:02 Last Titration: 10/19/18 06:53 Dose: 10 mg/hr, 10 mls/hr Ipratropium [place] (Atrovent) 0.5 mg IH RQID [facility] Last Admin: 10/19/18 07:30 Dose: 0.5 mg Levalbuterol HCl (Xopenex) 0.63 mg INH RQ4 PRN PRN Reason: Shortness of Breath Last Admin: 10/14/18 21:08 Dose: 0.63 mg Methylprednisolone (Medrol) 12 mg PO DAILY [facility] Last Admin: 10/19/18 08:18 Dose: 12 mg Metoprolol Tartrate (Lopressor) 50 mg PO Q12 [facility] Potassium Chloride (K-Dur 20 Meq Er Tab) 20 meq PO BID [facility] Last Admin: 10/19/18 08:19 Dose: 20 meq - Labs Labs: 10/17/18 11:26 10/17/18 18:32 Assessment and Plan (1) Acute on chronic systolic congestive heart failure Status: Acute (2) COPD (chronic obstructive pulmonary disease) Status: Chronic (3) Atrial fibrillation with rapid ventricular response Status: Acute (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
[2018-10-20] MEDS: Ipratropium 0.02% Inhal Soln (0.5 mg/2.5 ml) UD IH SCH (07:43)
--- NOTE | 2018-10-20 07:56 | CP.PCM.PN ---
Subjective - Date & Time of Evaluation Date of Evaluation: 10/19/18 Time of Evaluation: 08:30 - Subjective Subjective: Seated at the EOB, appears fatigued. Continues to have tachycardia up to 130's at rest. Oxygenation 93-94% with nasal canula at 3 LPM. Has remained afebrile. No complaints of chest pain. Occasional cough w/o sputum or chest pain. Minimal dependant edema, no cyanosis. Neck is supple and trachea midline. No dullness on chest percussion. Breath sounds are diminished equally in both lungs. Scattered rhonchi, few medium lower lobe rales. No wheezes or bronchial breath sounds. Heart sounds are distant, irregular and tachy. Will remove nicotine patch. Continue PO medrol 12MG OD. Aerosol ipratropium with beta adrenergic as PRN only. If oxygenation becomes more difficult to maintain will swich to HFNC. Objective - Vital Signs/Intake and Output Vital Signs (last 24 hours): Temp Pulse Resp BP Pulse Ox 98.3 F 59 L 16 131/77 97 10/20/18 05:41 10/20/18 05:41 10/20/18 05:41 10/20/18 05:41 10/20/18 05:41 Intake and Output: 10/19/18 10/20/18 23:59 11:59 Intake Total 25 Balance 25 - Medications Medications: Current Medications Benzonatate (Tessalon Perles) 200 mg PO Q8 [facility] Last Admin: 10/20/18 00:25 Dose: 200 mg Clotrimazole (Mycelex Perez) 10 mg MT 5XD [facility] Last Admin: 10/20/18 04:12 Dose: Not Given Digoxin (Lanoxin) 0.25 mg PO DAILY [facility] Last Admin: 10/19/18 08:16 Dose: 0.25 mg Enoxaparin Sodium (Lovenox) 70 mg 1 mg/kg (70 mg) SC Q12@0900,2100 [facility]; Protocol Last Admin: 10/19/18 21:07 Dose: 70 mg Famotidine (Pepcid) 20 mg PO BID [facility] Last Admin: 10/19/18 16:28 Dose: 20 mg Furosemide (Lasix) 40 mg PO DAILY [facility] Diltiazem HCl 125 mg/ Sodium (Chloride) 125 mls @ 6 mls/hr IV .[id number] ONE; Protocol Stop: 10/20/18 17:04 Last Titration: 10/20/18 00:23 Dose: 3 mg/hr, 3 mls/hr Ipratropium [place] (Atrovent) 0.5 mg IH RQID [facility] Last Admin: 10/20/18 07:43 Dose: 0.5 mg Levalbuterol HCl (Xopenex) 0.63 mg INH RQ4 PRN PRN Reason: Shortness of Breath Last Admin: 10/14/18 21:08 Dose: 0.63 mg Methylprednisolone (Medrol) 12 mg PO DAILY [facility] Last Admin: 10/19/18 08:18 Dose: 12 mg Metoprolol Tartrate (Lopressor) 50 mg PO Q12 [facility] Last Admin: 10/19/18 21:09 Dose: 50 mg Potassium Chloride (K-Dur 20 Meq Er Tab) 20 meq PO BID [facility] Last Admin: 10/19/18 16:27 Dose: 20 meq - Labs Labs: 10/17/18 11:26 10/17/18 18:32 Assessment and Plan (1) CHF (congestive heart failure) Status: Acute (2) COPD (chronic obstructive pulmonary disease) Status: Chronic (3) Atrial fibrillation with rapid ventricular response Status: Acute
--- NOTE | 2018-10-20 08:03 | CP.PCM.PN ---
Subjective - Date & Time of Evaluation Date of Evaluation: 10/20/18 Time of Evaluation: 08:03 - Subjective Subjective: Seated on the EOB, appears more comfortable, but still looks fatigued. Claims he slept well last night. Presently taking his AM medications. SpO2 93% on nasal oxygen at 4 LPM. Heart rate better controlled, but still has episodes of tachycardia into the 130s. Blood pressure is okay, and he remains afebrile. Had some cough yesterday with expectoration of small volume mendez secretions. Tongue remains coated, pharynx is injected. Neck is supple and trachea midline. Trace dependant edema of both feet, no cyanosis. No dullness on chest percussion. Breath sounds are very diminished bilaterally. Few scattered rhonchi in lower lobes. No wheezes. Few medium rales in both bases. Heart sounds are distant and irregular. Will reduce medrol to 8MG daily. Change ipratropium to PRN only. Change benzonatate to PRN as well. Chest x-ray (portable). CBC in AM. Objective - Vital Signs/Intake and Output Vital Signs (last 24 hours): Temp Pulse Resp BP Pulse Ox 98.3 F 59 L 16 131/77 97 10/20/18 05:41 10/20/18 05:41 10/20/18 05:41 10/20/18 05:41 10/20/18 05:41 Intake and Output: 10/19/18 10/20/18 23:59 11:59 Intake Total 25 Balance 25 - Medications Medications: Current Medications Benzonatate (Tessalon Perles) 200 mg PO Q8 [facility] Last Admin: 10/20/18 00:25 Dose: 200 mg Clotrimazole (Mycelex Perez) 10 mg MT 5XD [facility] Last Admin: 10/20/18 04:12 Dose: Not Given Digoxin (Lanoxin) 0.25 mg PO DAILY [facility] Last Admin: 10/19/18 08:16 Dose: 0.25 mg Enoxaparin Sodium (Lovenox) 70 mg 1 mg/kg (70 mg) SC Q12@0900,2100 [facility]; Protocol Last Admin: 10/19/18 21:07 Dose: 70 mg Famotidine (Pepcid) 20 mg PO BID [facility] Last Admin: 10/19/18 16:28 Dose: 20 mg Furosemide (Lasix) 40 mg PO DAILY [facility] Diltiazem HCl 125 mg/ Sodium (Chloride) 125 mls @ 6 mls/hr IV .[id number] ONE; P rotocol Stop: 10/20/18 17:04 Last Titration: 10/20/18 00:23 Dose: 3 mg/hr, 3 mls/hr Ipratropium [place] (Atrovent) 0.5 mg IH RQID [facility] Last Admin: 10/20/18 07:43 Dose: 0.5 mg Levalbuterol HCl (Xopenex) 0.63 mg INH RQ4 PRN PRN Reason: Shortness of Breath Last Admin: 10/14/18 21:08 Dose: 0.63 mg Methylprednisolone (Medrol) 12 mg PO DAILY [facility] Last Admin: 10/19/18 08:18 Dose: 12 mg Metoprolol Tartrate (Lopressor) 50 mg PO Q12 [facility] Last Admin: 10/19/18 21:09 Dose: 50 mg Potassium Chloride (K-Dur 20 Meq Er Tab) 20 meq PO BID [facility] Last Admin: 10/19/18 16:27 Dose: 20 meq - Labs Labs: 10/17/18 11:26 10/17/18 18:32 Assessment and Plan (1) CHF (congestive heart failure) Status: Acute (2) COPD (chronic obstructive pulmonary disease) Status: Chronic (3) Atrial fibrillation with rapid ventricular response Status: Acute
[2018-10-20] MEDS: Potassium Chloride 20 mEq ER Tab PO SCH ×2 (08:28→16:16)
[2018-10-20] MEDS: Enoxaparin 80 mg Syringe SC SCH ×2 (08:30→21:08)
[2018-10-20] MEDS: Digoxin 250 mcg (0.25 mg) Tab PO SCH (08:31)
[2018-10-20] MEDS ORDERED: Ipratropium 0.02% Inhal Soln (0.5 mg/2.5 ml) UD IH PRN (09:00)
[2018-10-20] MEDS ORDERED: Levalbuterol 0.63 MG/3 ML Inhal Soln UD INH PRN (09:27)
[2018-10-20 09:38] LABS: HEMOGLOBIN 13.1 g/dL (12.0-18.0); MEAN CELL VOLUME 103.6 fl (80.0-94.0); MEAN CORPUSCULAR HEMOGLOBIN 33.9 pg (27.0-31.0); MEAN CORPUSCULAR HGB CONC 32.7 g/dL (33.0-37.0); RBC 3.86 Mil/uL (4.40-5.90); WHITE BLOOD COUNT 6.6 K/uL (4.8-10.8)
[2018-10-20 09:54] LABS: BLOOD UREA NITROGEN 23 mg/dl (9-20); CALCIUM 8.5 mg/dL (8.4-10.2); GFR NON-AFRICAN AMERICAN > 60
--- NOTE | 2018-10-20 11:50 | CP.PCM.PCO ---
Assessment & Plan - Assessment and Plan (Free Text) Assessment: pt. seen and examined this morning, intermitten periods of sob, pt. on cardizem gtt with Tele monitor in AF with HR ranging 70-140 pt. on metoprolol and Digoxin Dr. Hartmann called for consult 2nd CHF Cardiomyopathy case d/w ; will f/u pt. for possible aicd, ppm cont. cardizen gtts
--- NOTE | 2018-10-20 14:23 | RAD ---
Date of service: 10/20/2018 HISTORY: Shortness of breath, acute respiratory distress, CHF exacerbation. COMPARISON: No prior. FINDINGS: LUNGS: No active pulmonary disease. PLEURA: No significant pleural effusion identified, no pneumothorax apparent. CARDIOVASCULAR: No radiographic findings to suggest acute or significant cardiovascular disease. Atherosclerotic calcifications identified primarily aortic arch. OSSEOUS STRUCTURES: No significant abnormalities. VISUALIZED UPPER ABDOMEN: Normal. OTHER FINDINGS: Skin fold overlying the right hemithorax should not be misconstrued as pneumothorax. There is a component of gynecomastia as well. IMPRESSION: No active disease. No significant interval change compared to the prior examination(s).
--- NOTE | 2018-10-21 08:25 | CP.PCM.PN ---
Subjective - Date & Time of Evaluation Date of Evaluation: 10/21/18 Time of Evaluation: 08:20 - Subjective Subjective: Seated on edge of bed. Seems a little better this morning. Still looks fatigued. Heart rate seems better controlled. Occasional non-productive cough. Remains afebrile, SpO2 91% on nasal O2. Repeat chest x-ray: hyperinflated, no infiltrates or effusion. No dependant edema, no cyanosis, no calf tenderness. Neck supple and trachea midline. Hyper-resonance on chest percussion. Diminished breath sounds bilaterally. Dry to medium basl rales (few). No wheeze. Scattered rhonchi in lower lobes bilaterally. Heart sounds distant, irregular rhythm, ~90BPM. Doing fairly well off ALL aerosol treatments. Ipratropium and levalbuterol are PRN. Medrol down to 8MG POOD. Objective - Vital Signs/Intake and Output Vital Signs (last 24 hours): Temp Pulse Resp BP Pulse Ox 97.2 F L 68 16 141/81 98 10/21/18 05:36 10/21/18 05:36 10/21/18 05:36 10/21/18 05:36 10/21/18 05:36 Intake and Output: 10/20/18 10/21/18 23:59 11:59 Intake Total 698 Output Total 951 Balance -253 - Medications Medications: Current Medications Benzonatate (Tessalon Perles) 200 mg PO Q8 PRN PRN Reason: Cough Last Admin: 10/21/18 03:47 Dose: 200 mg Clotrimazole (Mycelex Perez) 10 mg MT 5XD [facility] Last Admin: 10/21/18 05:36 Dose: 10 mg Digoxin (Lanoxin) 0.25 mg PO DAILY [facility] Last Admin: 10/20/18 08:31 Dose: 0.25 mg Enoxaparin Sodium (Lovenox) 70 mg 1 mg/kg (70 mg) SC Q12@0900,2100 [facility]; Protocol Last Admin: 10/20/18 21:08 Dose: 70 mg Famotidine (Pepcid) 20 mg PO BID [facility] Last Admin: 10/20/18 16:17 Dose: 20 mg Furosemide (Lasix) 40 mg PO DAILY [facility] Last Admin: 10/20/18 08:31 Dose: 40 mg Diltiazem HCl 125 mg/ Sodium (Chloride) 125 mls @ 5 mls/hr IV .Q24H [facility]; Protocol Stop: 10/21/18 13:24 Last Admin: 10/20/18 18:01 Dose: 5 mg/hr, 5 mls/hr Ipratropium [place] (Atrovent) 0.5 mg IH RQID PRN PRN Reason: wheezing Last Admin: 10/20/18 11:19 Dose: 0.5 mg Levalbuterol HCl (Xopenex) 0.63 mg INH RQ4 PRN PRN Reason: Shortness of Breath Methylprednisolone (Medrol) 8 mg PO DAILY [facility] Last Admin: 10/20/18 10:59 Dose: Not Given Metoprolol Tartrate (Lopressor) 50 mg PO Q12 [facility] Last Admin: 10/20/18 21:09 Dose: 50 mg Potassium Chloride (K-Dur 20 Meq Er Tab) 20 meq PO BID [facility] Last Admin: 10/20/18 16:16 Dose: 20 meq - Labs Labs: 10/20/18 09:32 10/20/18 09:32 Assessment and Plan (1) CHF (congestive heart failure) Status: Acute (2) COPD (chronic obstructive pulmonary disease) Status: Chronic (3) Atrial fibrillation with rapid ventricular response Status: Acute
[2018-10-21] MEDS: Digoxin 250 mcg (0.25 mg) Tab PO SCH (08:36)
[2018-10-21] MEDS: Potassium Chloride 20 mEq ER Tab PO SCH ×2 (08:36→16:54)
[2018-10-21] MEDS: Enoxaparin 80 mg Syringe SC SCH ×2 (08:37→21:45)
--- NOTE | 2018-10-22 05:42 | CON ---
DATE: 10/21/2018 INPATIENT ELECTROPHYSIOLOGY CONSULTATION REASONS FOR EVALUATION: 1. Atrial fibrillation with rapid ventricular response. 2. Wide-complex tachycardia. 3. Dilated cardiomyopathy. 4. Systolic heart failure. 5. Left bundle-branch block. Thank you very much for this consult. HISTORY OF PRESENT ILLNESS: Mr. Rory Escalona is a 78-year-old male with past medical history significant for bladder CA, hypertension, dilated cardiomyopathy, COPD, left bundle-branch block who had been previously admitted for respiratory distress secondary to COPD exacerbation, atrial fibrillation with rapid ventricular response, had been transitioned to the transitional care unit for rehabilitation, found to be short of breath and desaturating, re-admitted for acute respiratory failure, CHF exacerbation as well as atrial fibrillation with rapid ventricular response. Admission date was 10/11/2018. The patient was seen, admitted to the floor, requiring high-flow oxygen secondary to desaturation. The patient was treated again for COPD exacerbation and pneumonia. On the monitor, he was having episodes of atrial fibrillation with rapid ventricular response at times with abrasion. There was some difficulty in regulating his ventricular response. I was asked to see him from an electrophysiologic standpoint in regards for further management from a heart rhythm and heart rate control situation. The patient was seen and evaluated, appears to be relatively stable at this point, able to speak in complete sentences. The patient is not a very good historian. Has baseline dyspnea. Heavy tobacco use has been documented. He denies any current chest pain, dizziness, lightheadedness or syncope. He lives on his own. At this point, he is not being contact with any close relatives or friends as per the patient. REVIEW OF SYSTEMS: The aforementioned complaints of dyspnea, chest pain, palpitations or syncope, the patient has dyspnea on exertion and claims that is his baseline. He is able to ambulate reasonable distances at home and is able to perform activities of daily living. He denies any abdominal pain, constipation, nausea, vomiting, or diarrhea. No neurologic issues have been documented. SOCIAL HISTORY: The patient is a heavy smoker, currently still smokes 10 cigarettes per day. No EtOH abuse has been documented. No drug abuse has been documented. The patient lives alone. 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 PAST MEDICAL HISTORY: The patient does have history of heart failure, history of atrial fibrillation with rapid ventricular response. Does have severe COPD and has had COPD exacerbation. The patient does have a history of bladder cancer, diagnosed in 2015. No musculoskeletal disorders. MEDICATIONS: Currently include metoprolol 50 mg p.o. every 12 hours, potassium 20 mEq p.o. b.i.d., methylprednisolone 5 mg p.o. daily, albuterol 0.63 mg inhalation every 4 hours, ipratropium bromide 0.5 mg four times a day, Lasix 40 mg p.o. daily, Pepcid 20 mg p.o. b.i.d., enoxaparin 70 mg subcu every 12 hours, diltiazem 125 mL currently at a rate of 5 mL per hour, digoxin 0.25 mg p.o. daily. PHYSICAL EXAMINATION: VITAL SIGNS: The patient is afebrile, temperature 97.4, pulse is 90 on review with telemetry rates today had been all in the 60s to 90s, blood pressure is 125/71, and O2 saturation 95% on 2 L of nasal cannula. GENERAL: He is a pleasant, ill-appearing, somewhat cachectic appearing male in no acute distress, able to speak in complete sentences. HEENT: Head is normocephalic, atraumatic. There is no matt facial asymmetry. Does wear glasses. Poor dentition is noted. NECK: Supple. No jugular venous distention or carotid bruits. CHEST: Clear to auscultation in the upper zone. There is coarse breath sounds in bilateral bases. CARDIOVASCULAR: Irregularly irregular rhythm. S1 and S2. No S3. PMI is displaced at the midclavicular line. ABDOMEN: Soft, nontender, nondistended. Positive bowel sounds. EXTREMITIES: No cyanosis or clubbing. There is a trace edema in bilateral lower extremities. LABORATORY DATA: On review of 12-lead EKG which is dated 10/17/2018 shows underlying coarse atrial fibrillation. There is at this point rapid ventricular conduction. There is a left bundle-branch block type pattern. Intermittent PVCs are noted which are different than aberrant conduction. QRS duration 168 msec. QT/QTc is 384. On review of relevant lab work, the patient has a white count of 10.2, H and H of 13.6 and 40.3, platelets of 315. Sodium of 137, potassium of 3.1, chloride of 86, BUN and creatinine of 24 and 0.7, glucose of 135. Digoxin is 1.1 which is within therapeutic range. The patient did have a low positive troponin of 0.134. Echocardiogram which was done on 09/27/2018 shows ejection fraction of 15% to 20% with severely impaired LV systolic function. Global hypokinesis of left ventricle is noted. Right ventricle is normal in size. Left atrium is moderately dilated. Right atrium is normal in size. Aortic valve appears to be normal in structure. Mitral valve is also normal in structure. [id number] mitral regurgitation is noted. Pulmonic valve is within normal limits. The patient does have pulmonary hypertension likely secondary to severe lung disease with an RVSP of 46 mmHg. ASSESSMENT AND PLAN: 1. Atrial fibrillation with rapid ventricular response. The patient currently is rate controlled on his current medications of metoprolol 50 mg twice a day as well as Cardizem drip. Cardizem drip should be transitioned to oral 30 mg by mouth every 8 hours. If rate control is increasingly difficulty to achieve, we may consider amiodarone for rate control 200 mg by mouth daily. The patient's amiodarone should be used judiciously in the setting of severe lung disease. In addition, digoxin is not limit rate control with activity. The patient is currently anticoagulated with enoxaparin. This may be transitioned to either oral Coumadin or NOAC. The patient does not give a history of falling, however, does appear to be some degree disabled from a functional standpoint if he has normal functionality and displaced less chance of falling, continuation of oral anticoagulation therapy should be considered. 2. Wide-complex tachycardia which is documented on telemetry strips, differentiate itself from the patient's baseline. Left bundle-branch block may be u.s. representative of a double tachycardia, again would continue metoprolol. At this point, we will continue to monitor closely. 3. Dilated cardiomyopathy of unclear etiology. The patient did have a low level troponin. It was unclear whether the patient would be a candidate for further either a noninvasive or invasive workup in regards to delineation of the cardiomyopathy. 4. Systolic heart failure, managed as per Dr. Marie. Volume status appears to be approaching normalcy. Respiratory failure likely mostly on the basis of severe lung disease/chronic obstructive pulmonary disease. 5. Left bundle-branch block type pattern. The patient had been made aware of his existing severe cardiomyopathy and risk of sudden cardiac based on depressed ejection fraction. In addition if they were agreeable which at this point he is not for automatic implantable cardioverter-defibrillator implantation, the patient may be a candidate for insertion of a left ventricular lead for cardiac resynchronization therapy. At this point, the patient is not interested in any invasive procedures including insertion of a defibrillator. All questions were answered. He is letting us to know that he is thinking about all options at this point. If he does change his mind, we may consider him for a defibrillator. Please contact me if there is any further discussion that needs to be had. Thank you for allowing me to participate in the care of your patient. Please do not hesitate to call if you have any questions in regards to his care. Tj Singer MD cc: Rory Marie MD
[2018-10-22] MEDS: Potassium Chloride 20 mEq ER Tab PO SCH ×2 (09:56→17:10)
[2018-10-22] MEDS: Digoxin 250 mcg (0.25 mg) Tab PO SCH (09:57)
[2018-10-22] MEDS: Enoxaparin 80 mg Syringe SC SCH ×2 (09:59→21:30)
--- NOTE | 2018-10-22 10:06 | CP.PCM.PN ---
Subjective - Date & Time of Evaluation Date of Evaluation: 10/22/18 Time of Evaluation: 10:00 - Subjective Subjective: Seated on EOB, heart rate better controlled. Occasuional congested cough, no chest pain. Coughing up small volume of sputum, but more than previously. Remains afebrile. SpO2 adequate, but on 3.5 LPM nasal O2. Seen by investigative research specialist and discussed options. No dependant edema or cyanosis. Neck is supple and trachea midline. No dullness on chest percussion. Breath sounds markedly diminished bilaterally. No audible wheezes. + sonorous rhonchi in lower lobes. Heart sounds are very distant, irregular rhythm. Will add azithromycin to regimen, 500MG P today the 250MG POOD. Maintain aerosol therapies on an 'as needed' basis. Medrol is 8MG PO today and tomorrow; will decrease to 4MG Wednesday. Objective - Vital Signs/Intake and Output Vital Signs (last 24 hours): Temp Pulse Resp BP Pulse Ox 97.5 F L 77 18 133/78 92 L 10/22/18 08:03 10/22/18 09:58 10/22/18 08:03 10/22/18 09:58 10/22/18 08:03 Intake and Output: 10/21/18 10/22/18 23:59 11:59 Intake Total 610 Output Total 850 Balance -240 - Medications Medications: Current Medications Benzonatate (Tessalon Perles) 200 mg PO Q8 PRN PRN Reason: Cough Last Admin: 10/21/18 03:47 Dose: 200 mg Clotrimazole (Mycelex Perez) 10 mg MT 5XD [facility] Last Admin: 10/22/18 05:48 Dose: 10 mg Digoxin (Lanoxin) 0.25 mg PO DAILY [facility] Last Admin: 10/22/18 09:57 Dose: 0.25 mg Enoxaparin Sodium (Lovenox) 70 mg 1 mg/kg (70 mg) SC Q12@0900,2100 [facility]; Protocol Last Admin: 10/21/18 21:45 Dose: 70 mg Famotidine (Pepcid) 20 mg PO BID [facility] Last Admin: 10/21/18 16:55 Dose: 20 mg Furosemide (Lasix) 40 mg PO DAILY [facility] Last Admin: 10/22/18 09:58 Dose: 40 mg Diltiazem HCl 125 mg/ Sodium (Chloride) 125 mls @ 5 mls/hr IV .Q24H [facility]; Protocol Stop: 10/22/18 15:11 Last Admin: 10/21/18 21:52 Dose: 5 mg/hr, 5 mls/hr Ipratropium [place] (Atrovent) 0.5 mg IH RQID PRN PRN Reason: wheezing Last Admin: 10/20/18 11:19 Dose: 0.5 mg Levalbuterol HCl (Xopenex) 0.63 mg INH RQ4 PRN PRN Reason: Shortness of Breath Methylprednisolone (Medrol) 8 mg PO DAILY [facility] Last Admin: 10/21/18 08:37 Dose: 8 mg Metoprolol Tartrate (Lopressor) 50 mg PO Q12 [facility] Last Admin: 10/22/18 09:58 Dose: 50 mg Potassium Chloride (K-Dur 20 Meq Er Tab) 20 meq PO BID [facility] Last Admin: 10/22/18 09:56 Dose: 20 meq - Labs Labs: 10/20/18 09:32 10/20/18 09:32 Assessment and Plan (1) CHF (congestive heart failure) Status: Acute (2) COPD (chronic obstructive pulmonary disease) Status: Chronic (3) Atrial fibrillation with rapid ventricular response Status: Acute
--- NOTE | 2018-10-22 11:41 | CP.PCM.PN ---
Subjective - Date & Time of Evaluation Date of Evaluation: 10/22/18 Time of Evaluation: 10:00 - Subjective Subjective: pt is comfortable breathing easily HR controlled will decrease diltiazem to 3mg if he does well with lower dose of diltiazem will d/c IV and switch to PO tomorrow Objective - Vital Signs/Intake and Output Vital Signs (last 24 hours): Temp Pulse Resp BP Pulse Ox 97.5 F L 77 18 133/78 92 L 10/22/18 08:03 10/22/18 09:58 10/22/18 08:03 10/22/18 09:58 10/22/18 08:03 - Medications Medications: Current Medications Benzonatate (Tessalon Perles) 200 mg PO Q8 PRN PRN Reason: Cough Last Admin: 10/21/18 03:47 Dose: 200 mg Clotrimazole (Mycelex Perez) 10 mg MT 5XD [facility] Last Admin: 10/22/18 10:00 Dose: 10 mg Digoxin (Lanoxin) 0.25 mg PO DAILY [facility] Last Admin: 10/22/18 09:57 Dose: 0.25 mg Enoxaparin Sodium (Lovenox) 70 mg 1 mg/kg (70 mg) SC Q12@0900,2100 [facility]; Protocol Last Admin: 10/22/18 09:59 Dose: 70 mg Famotidine (Pepcid) 20 mg PO BID [facility] Last Admin: 10/22/18 10:00 Dose: 20 mg Furosemide (Lasix) 40 mg PO DAILY [facility] Last Admin: 10/22/18 09:58 Dose: 40 mg Diltiazem HCl 125 mg/ Sodium (Chloride) 125 mls @ 3 mls/hr IV .Q24H [facility]; Protocol Stop: 10/22/18 15:11 Ipratropium [place] (Atrovent) 0.5 mg IH RQID PRN PRN Reason: wheezing Last Admin: 10/20/18 11:19 Dose: 0.5 mg Levalbuterol HCl (Xopenex) 0.63 mg INH RQ4 PRN PRN Reason: Shortness of Breath Methylprednisolone (Medrol) 8 mg PO DAILY [facility] Stop: 10/23/18 23:59 Last Admin: 10/22/18 10:00 Dose: 8 mg Methylprednisolone (Medrol) 4 mg PO DAILY [facility] Metoprolol Tartrate (Lopressor) 50 mg PO Q12 [facility] Last Admin: 10/22/18 09:58 Dose: 50 mg Potassium Chloride (K-Dur 20 Meq Er Tab) 20 meq PO BID [facility] Last Admin: 10/22/18 09:56 Dose: 20 meq - Labs Labs: 10/20/18 09:32 10/20/18 09:32 Assessment and Plan (1) Acute on chronic systolic congestive heart failure Status: Acute (2) COPD (chronic obstructive pulmonary disease) Status: Chronic (3) Atrial fibrillation with rapid ventricular response Status: Acute (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
[2018-10-23] MEDS: Potassium Chloride 20 mEq ER Tab PO SCH ×2 (09:50→17:35)
[2018-10-23] MEDS: Digoxin 250 mcg (0.25 mg) Tab PO SCH (09:51)
[2018-10-23] MEDS: Enoxaparin 80 mg Syringe SC SCH ×2 (09:53→21:04)
--- NOTE | 2018-10-23 18:18 | CP.PCM.PN ---
Subjective - Date & Time of Evaluation Date of Evaluation: 10/23/18 Time of Evaluation: 11:00 - Subjective Subjective: Pt sittib OOb Comfortable No c/0 breathing easily HR controlled Objective - Vital Signs/Intake and Output Vital Signs (last 24 hours): Temp Pulse Resp BP Pulse Ox 98.4 F 85 20 144/88 96 10/23/18 16:26 10/23/18 16:26 10/23/18 16:26 10/23/18 16:26 10/23/18 16:26 - Medications Medications: Current Medications Benzonatate (Tessalon Perles) 200 mg PO Q8 PRN PRN Reason: Cough Last Admin: 10/21/18 03:47 Dose: 200 mg Clotrimazole (Mycelex Perez) 10 mg MT 5XD [facility] Last Admin: 10/23/18 17:36 Dose: 10 mg Digoxin (Lanoxin) 0.25 mg PO DAILY [facility] Last Admin: 10/23/18 09:51 Dose: 0.25 mg Enoxaparin Sodium (Lovenox) 70 mg 1 mg/kg (70 mg) SC Q12@0900,2100 [facility]; Protocol Last Admin: 10/23/18 09:53 Dose: 70 mg Famotidine (Pepcid) 20 mg PO BID [facility] Last Admin: 10/23/18 17:36 Dose: 20 mg Furosemide (Lasix) 40 mg PO DAILY [facility] Last Admin: 10/23/18 09:51 Dose: 40 mg Ipratropium [place] (Atrovent) 0.5 mg IH RQID PRN PRN Reason: wheezing Last Admin: 10/20/18 11:19 Dose: 0.5 mg Levalbuterol HCl (Xopenex) 0.63 mg INH RQ4 PRN PRN Reason: Shortness of Breath Methylprednisolone (Medrol) 8 mg PO DAILY [facility] Stop: 10/23/18 23:59 Last Admin: 10/23/18 09:54 Dose: 8 mg Methylprednisolone (Medrol) 4 mg PO DAILY [facility] Metoprolol Tartrate (Lopressor) 50 mg PO Q12 [facility] Last Admin: 10/23/18 09:53 Dose: 50 mg Potassium Chloride (K-Dur 20 Meq Er Tab) 20 meq PO BID [facility] Last Admin: 10/23/18 17:35 Dose: 20 meq - Labs Labs: 10/20/18 09:32 10/20/18 09:32 Assessment and Plan (1) Acute on chronic systolic congestive heart failure Status: Acute (2) COPD (chronic obstructive pulmonary disease) Status: Chronic (3) Atrial fibrillation with rapid ventricular response Status: Acute (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
[2018-10-24 05:17] LABS: HEMOGLOBIN 12.6 g/dL (12.0-18.0); MEAN CORPUSCULAR HEMOGLOBIN 34.9 pg (27.0-31.0); MEAN CORPUSCULAR HGB CONC 33.9 g/dL (33.0-37.0); RBC 3.62 Mil/uL (4.40-5.90); RED CELL DISTRIBUTION WIDTH 13.7 % (11.5-14.5); WHITE BLOOD COUNT 6.2 K/uL (4.8-10.8)
[2018-10-24 05:29] LABS: BLOOD UREA NITROGEN 19 mg/dl (9-20); GFR NON-AFRICAN AMERICAN > 60
[2018-10-24] MEDS: Potassium Chloride 20 mEq ER Tab PO SCH ×2 (09:15→17:47)
[2018-10-24] MEDS: Enoxaparin 80 mg Syringe SC SCH ×2 (09:15→21:01)
[2018-10-24] MEDS: Digoxin 250 mcg (0.25 mg) Tab PO SCH (09:15)
--- NOTE | 2018-10-24 10:55 | CP.PCM.PN ---
Subjective - Date & Time of Evaluation Date of Evaluation: 10/24/18 Time of Evaluation: 10:53 - Subjective Subjective: Seen on rounds in telemetry earlier this morning. Appears quite somnolent today awakening only briefly when stimulated. Does not complain of shortness of breath although he appears to have muscle recruitment while sleeping. SPO2 on room air 82%, on nasal oxygen at 3 L 88%. He has not requested as needed aerosol therapy. No overt cyanosis. No dependent edema. No dullness on chest percussion. Breath sounds are markedly diminished bilaterally without audible wheezing. Scattered rhonchi are heard in dependent regions of both lungs. No bronchial breath sounds. Arterial blood gas requested. Continue current drug regimen. Methylprednisolone reduced to 4 mg by mouth once daily starting today. Objective - Vital Signs/Intake and Output Vital Signs (last 24 hours): Temp Pulse Resp BP Pulse Ox 97 F L 90 18 122/76 95 10/24/18 08:05 10/24/18 08:05 10/24/18 08:05 10/24/18 09:14 10/24/18 08:05 Intake and Output: 10/23/18 10/24/18 23:59 11:59 Intake Total 200 Output Total 400 Balance -200 - Medications Medications: Current Medications Benzonatate (Tessalon Perles) 200 mg PO Q8 PRN PRN Reason: Cough Last Admin: 10/21/18 03:47 Dose: 200 mg Clotrimazole (Mycelex Perez) 10 mg MT 5XD [facility] Last Admin: 10/24/18 09:14 Dose: 10 mg Digoxin (Lanoxin) 0.25 mg PO DAILY [facility] Last Admin: 10/24/18 09:15 Dose: 0.25 mg Enoxaparin Sodium (Lovenox) 70 mg 1 mg/kg (70 mg) SC Q12@0900,2100 [facility]; Protocol Last Admin: 10/24/18 09:15 Dose: 70 mg Famotidine (Pepcid) 20 mg PO BID [facility] Last Admin: 10/24/18 09:15 Dose: 20 mg Furosemide (Lasix) 40 mg PO DAILY [facility] Last Admin: 10/24/18 09:14 Dose: 40 mg Ipratropium [place] (Atrovent) 0.5 mg IH RQID PRN PRN Reason: wheezing Last Admin: 10/20/18 11:19 Dose: 0.5 mg Levalbuterol HCl (Xopenex) 0.63 mg INH RQ4 PRN PRN Reason: Shortness of Breath Methylprednisolone (Medrol) 4 mg PO DAILY [facility] Last Admin: 10/24/18 09:14 Dose: 4 mg Metoprolol Tartrate (Lopressor) 50 mg PO Q12 [facility] Last Admin: 10/24/18 09:14 Dose: 50 mg Potassium Chloride (K-Dur 20 Meq Er Tab) 20 meq PO BID [facility] Last Admin: 10/24/18 09:15 Dose: 20 meq - Labs Labs: 10/24/18 04:30 10/24/18 04:30 Assessment and Plan (1) CHF (congestive heart failure) Status: Acute (2) COPD (chronic obstructive pulmonary disease) Status: Chronic (3) Atrial fibrillation with rapid ventricular response Status: Acute
[2018-10-24 12:08] LABS: ABG ALLEN TEST YES; ARTERIAL BLOOD GAS HCO3 30.8 mmol/L (21-28); ARTERIAL BLOOD GAS HEMOGLOBIN 12.9 g/dL (11.7-17.4); ARTERIAL BLOOD GAS O2 CAPACITY 17.5 mL/dL (16-24); ARTERIAL BLOOD GAS O2 SAT 97.1 % (95-98); ARTERIAL BLOOD GAS PCO2 52 mm/Hg (35-45); ARTERIAL BLOOD GAS PH 7.42 (7.35-7.45); ARTERIAL BLOOD GAS PO2 69 mm/Hg (80-100); ARTERIAL BLOOD GAS TCO2 35.3 mmol/L (22-28)
--- NOTE | 2018-10-24 15:42 | CP.PCM.PN ---
Subjective - Date & Time of Evaluation Date of Evaluation: 10/24/18 Time of Evaluation: 10:00 - Subjective Subjective: appears comfortable breathing easily no reports of SOB/JONAS No edema off cardizem drip for possible transfer to TCU Objective - Vital Signs/Intake and Output Vital Signs (last 24 hours): Temp Pulse Resp BP Pulse Ox 97.3 F L 82 18 114/77 99 10/24/18 12:21 10/24/18 12:21 10/24/18 12:21 10/24/18 12:21 10/24/18 12:21 Intake and Output: 10/24/18 10/24/18 06:59 18:59 Intake Total 200 Output Total 400 Balance -200 - Medications Medications: Current Medications Benzonatate (Tessalon Perles) 200 mg PO Q8 PRN PRN Reason: Cough Last Admin: 10/21/18 03:47 Dose: 200 mg Clotrimazole (Mycelex Perez) 10 mg MT 5XD [facility] Last Admin: 10/24/18 13:50 Dose: 10 mg Digoxin (Lanoxin) 0.25 mg PO DAILY [facility] Last Admin: 10/24/18 09:15 Dose: 0.25 mg Enoxaparin Sodium (Lovenox) 70 mg 1 mg/kg (70 mg) SC Q12@0900,2100 [facility]; Protocol Last Admin: 10/24/18 09:15 Dose: 70 mg Famotidine (Pepcid) 20 mg PO BID [facility] Last Admin: 10/24/18 09:15 Dose: 20 mg Furosemide (Lasix) 40 mg PO DAILY [facility] Last Admin: 10/24/18 09:14 Dose: 40 mg Ipratropium [place] (Atrovent) 0.5 mg IH RQID PRN PRN Reason: wheezing Last Admin: 10/20/18 11:19 Dose: 0.5 mg Levalbuterol HCl (Xopenex) 0.63 mg INH RQ4 PRN PRN Reason: Shortness of Breath Methylprednisolone (Medrol) 4 mg PO DAILY [facility] Last Admin: 10/24/18 09:14 Dose: 4 mg Metoprolol Tartrate (Lopressor) 50 mg PO Q12 [facility] Last Admin: 10/24/18 09:14 Dose: 50 mg Potassium Chloride (K-Dur 20 Meq Er Tab) 20 meq PO BID [facility] Last Admin: 10/24/18 09:15 Dose: 20 meq - Labs Labs: 10/24/18 04:30 10/24/18 04:30 Assessment and Plan (1) Acute on chronic systolic congestive heart failure Status: Acute (2) COPD (chronic obstructive pulmonary disease) Status: Chronic (3) Atrial fibrillation with rapid ventricular response Status: Acute (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
[2018-10-25] MEDS: Digoxin 250 mcg (0.25 mg) Tab PO SCH (08:24)
[2018-10-25] MEDS: Potassium Chloride 20 mEq ER Tab PO SCH ×2 (08:25→16:15)
[2018-10-25] MEDS: Enoxaparin 80 mg Syringe SC SCH ×2 (08:26→22:00)
--- NOTE | 2018-10-25 10:21 | CP.PCM.PN ---
Subjective - Date & Time of Evaluation Date of Evaluation: 10/25/18 Time of Evaluation: 10:00 - Subjective Subjective: feels well wants to go home needs further PT for ambulation before he can manage at home for transfer to TCU Objective - Vital Signs/Intake and Output Vital Signs (last 24 hours): Temp Pulse Resp BP Pulse Ox 97.4 F L 125 H 18 118/87 92 L 10/25/18 08:17 10/25/18 08:26 10/25/18 08:17 10/25/18 08:26 10/25/18 08:17 - Medications Medications: Current Medications Benzonatate (Tessalon Perles) 200 mg PO Q8 PRN PRN Reason: Cough Last Admin: 10/21/18 03:47 Dose: 200 mg Clotrimazole (Mycelex Perez) 10 mg MT 5XD [facility] Last Admin: 10/25/18 08:25 Dose: 10 mg Digoxin (Lanoxin) 0.25 mg PO DAILY [facility] Last Admin: 10/25/18 08:24 Dose: 0.25 mg Enoxaparin Sodium (Lovenox) 70 mg 1 mg/kg (70 mg) SC Q12@0900,2100 [facility]; Protocol Last Admin: 10/25/18 08:26 Dose: 70 mg Famotidine (Pepcid) 20 mg PO BID [facility] Last Admin: 10/25/18 08:25 Dose: 20 mg Furosemide (Lasix) 40 mg PO DAILY [facility] Last Admin: 10/25/18 08:25 Dose: 40 mg Ipratropium [place] (Atrovent) 0.5 mg IH RQID PRN PRN Reason: wheezing Last Admin: 10/20/18 11:19 Dose: 0.5 mg Levalbuterol HCl (Xopenex) 0.63 mg INH RQ4 PRN PRN Reason: Shortness of Breath Methylprednisolone (Medrol) 4 mg PO DAILY [facility] Last Admin: 10/25/18 08:24 Dose: 4 mg Metoprolol Tartrate (Lopressor) 50 mg PO Q12 [facility] Last Admin: 10/25/18 08:26 Dose: 50 mg Potassium Chloride (K-Dur 20 Meq Er Tab) 20 meq PO BID [facility] Last Admin: 10/25/18 08:25 Dose: 20 meq - Labs Labs: 10/24/18 04:30 10/24/18 04:30 Assessment and Plan (1) Acute on chronic systolic congestive heart failure Status: Acute (2) COPD (chronic obstructive pulmonary disease) Status: Chronic (3) Atrial fibrillation with rapid ventricular response Status: Acute (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
[2018-10-26] MEDS: Digoxin 250 mcg (0.25 mg) Tab PO SCH (08:39)
[2018-10-26] MEDS: Potassium Chloride 20 mEq ER Tab PO SCH ×2 (08:39→16:29)
[2018-10-26] MEDS: Enoxaparin 80 mg Syringe SC SCH ×2 (08:40→21:03)
--- NOTE | 2018-10-26 09:05 | CP.PCM.PN ---
Subjective - Date & Time of Evaluation Date of Evaluation: 10/26/18 Time of Evaluation: 08:58 - Subjective Subjective: Seen on nrounds seated on EOB. Still has a congested cough, non-productive. SpO2 91% on nasal canula @ 3 LPM. Vital signs have been stable and he remains afebrile. Was able to participate with physical therapy. Trace dependant edema both ankles, no cyanosis. No calf tenderness, no palpable venous cords. Neck is supple and trachea midline. Tongue remains coated despite decreased steroids and Mycelex troches. Dullness on percussion of thorax posteriorly at the bases. Breath sounds are markedly diminished bilaterally with few basal rhonchi. No audible wheezes or bronchial breath sounds. Heart sounds are very distant, irregular. CPT with Acapella. Mucolytic with Mucinex. D/C medrol, D/C Mycelex. Diflucan PO with monitoring of LFTs. Physical therapy on nasal oxygen @ 4 LPM. Objective - Vital Signs/Intake and Output Vital Signs (last 24 hours): Temp Pulse Resp BP Pulse Ox 97.4 F L 102 H 18 157/78 H 88 L 10/26/18 07:51 10/26/18 08:38 10/26/18 07:51 10/26/18 08:39 10/26/18 07:51 Intake and Output: 10/25/18 10/26/18 23:59 11:59 Intake Total 950 Output Total 1350 Balance -400 - Medications Medications: Current Medications Digoxin (Lanoxin) 0.25 mg PO DAILY [facility] Last Admin: 10/26/18 08:39 Dose: 0.25 mg Enoxaparin Sodium (Lovenox) 70 mg 1 mg/kg (70 mg) SC Q12@0900,2100 [facility]; Protocol Last Admin: 10/26/18 08:40 Dose: 70 mg Famotidine (Pepcid) 20 mg PO BID [facility] Last Admin: 10/26/18 08:39 Dose: 20 mg Furosemide (Lasix) 40 mg PO DAILY [facility] Last Admin: 10/26/18 08:39 Dose: 40 mg Guaifenesin (Mucinex La) 600 mg PO Q12 [facility] Ipratropium [place] (Atrovent) 0.5 mg IH RQID PRN PRN Reason: wheezing Last Admin: 02/07/19 11:19 Dose: 0.5 mg Levalbuterol HCl (Xopenex) 0.63 mg INH RQ4 PRN PRN Reason: Shortness of Breath Metoprolol Tartrate (Lopressor) 50 mg PO Q12 [facility] Last Admin: 10/26/18 08:38 Dose: 50 mg Potassium Chloride (K-Dur 20 Meq Er Tab) 20 meq PO BID [facility] Last Admin: 10/26/18 08:39 Dose: 20 meq - Labs Labs: 10/24/18 04:30 10/24/18 04:30 Assessment and Plan (1) CHF (congestive heart failure) Status: Acute (2) COPD (chronic obstructive pulmonary disease) Status: Chronic (3) Atrial fibrillation with rapid ventricular response Status: Acute
--- NOTE | 2018-10-26 10:15 | CP.PCM.PN ---
Subjective - Date & Time of Evaluation Date of Evaluation: 10/26/18 Time of Evaluation: 09:00 - Subjective Subjective: pt is doing well awaiting transfer to TCU Objective - Vital Signs/Intake and Output Vital Signs (last 24 hours): Temp Pulse Resp BP Pulse Ox 97.4 F L 102 H 18 157/78 H 88 L 10/26/18 07:51 10/26/18 08:38 10/26/18 07:51 10/26/18 08:39 10/26/18 07:51 Intake and Output: 10/26/18 10/26/18 06:59 18:59 Intake Total 300 Output Total 500 Balance -200 - Medications Medications: Current Medications Digoxin (Lanoxin) 0.25 mg PO DAILY [facility] Last Admin: 10/26/18 08:39 Dose: 0.25 mg Enoxaparin Sodium (Lovenox) 70 mg 1 mg/kg (70 mg) SC Q12@0900,2100 [facility]; Protocol Last Admin: 10/26/18 08:40 Dose: 70 mg Famotidine (Pepcid) 20 mg PO BID [facility] Last Admin: 10/26/18 08:39 Dose: 20 mg Furosemide (Lasix) 40 mg PO DAILY [facility] Last Admin: 10/26/18 08:39 Dose: 40 mg Guaifenesin (Mucinex [place]) 600 mg PO Q12 [facility] Ipratropium [place] (Atrovent) 0.5 mg IH RQID PRN PRN Reason: wheezing Last Admin: 10/20/18 11:19 Dose: 0.5 mg Levalbuterol HCl (Xopenex) 0.63 mg INH RQ4 PRN PRN Reason: Shortness of Breath Metoprolol Tartrate (Lopressor) 50 mg PO Q12 [facility] Last Admin: 10/26/18 08:38 Dose: 50 mg Potassium Chloride (K-Dur 20 Meq Er Tab) 20 meq PO BID [facility] Last Admin: 10/26/18 08:39 Dose: 20 meq - Labs Labs: 10/24/18 04:30 10/24/18 04:30 Assessment and Plan (1) Acute on chronic systolic congestive heart failure Status: Acute (2) COPD (chronic obstructive pulmonary disease) Status: Chronic (3) Atrial fibrillation with rapid ventricular response Status: Acute (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
--- NOTE | 2018-10-26 13:36 | PQF ---
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 Does not appear to be mac. REVIEWER QUERY TEXT: Medication Correlation for Diagnosis Your help is needed in capturing diagnoses for the corresponding medications ordered. Please clarify in the documentation diagnoses for the following medication(s). Medications: Mycelex Perez The patient's Clinical Indicators include: Documentation of tongue remains coated, pharynx injected Rx: steroids Query created by: Nerissa Singh on 10/26/2018 1:22 PM Electronically signed by: Nba Ag MD 10/26/2018 1:33 PM
[2018-10-26] MEDS: guaiFENesin 600 mg ER Tab PO SCH ×2 (16:30→21:03)
[2018-10-27 05:33] LABS: HEMOGLOBIN 12.2 g/dL (12.0-18.0); MEAN CELL VOLUME 102.9 fl (80.0-94.0); MEAN CORPUSCULAR HEMOGLOBIN 34.9 pg (27.0-31.0); MEAN CORPUSCULAR HGB CONC 33.9 g/dL (33.0-37.0); RBC 3.5 Mil/uL (4.40-5.90); RED CELL DISTRIBUTION WIDTH 13.8 % (11.5-14.5); WHITE BLOOD COUNT 7.1 K/uL (4.8-10.8)
[2018-10-27 05:53] LABS: ALB/GLOB RATIO 0.9 (1.0-2.1); ALT/SGPT 97 U/L (21-72); AST/SGOT 41 U/L (17-59); BLOOD UREA NITROGEN 13 mg/dl (9-20); CALCIUM 8.3 mg/dL (8.4-10.2); GFR NON-AFRICAN AMERICAN > 60
[2018-10-27] MEDS: Enoxaparin 80 mg Syringe SC SCH (08:23)
[2018-10-27] MEDS: guaiFENesin 600 mg ER Tab PO SCH ×2 (08:24→21:09)
[2018-10-27] MEDS: Potassium Chloride 20 mEq ER Tab PO SCH ×2 (08:24→16:29)
[2018-10-27] MEDS: Digoxin 250 mcg (0.25 mg) Tab PO SCH (08:25)
--- NOTE | 2018-10-27 09:10 | CP.PCM.PN ---
Subjective - Date & Time of Evaluation Date of Evaluation: 10/27/18 Time of Evaluation: 09:10 - Subjective Subjective: Claims he is feeling improved this morning. Lying in bed, asleep but easily awakens. No complaint of chest pain, occasional non-productive cough. Remains afebrile, still in a fib, rate better controlled. Trace ankle edema noted bilaterally, no cyanosis. No dullness on chest percussion. Markedly diminished breath sounds bilaterally. Scattered sonorous rhonchi w/o wheezing or bronchial breathing. Rare dry to medium rales in lower lobes of both lungs. Heart sounds are very distant, irregular rhythm. Has remained OFF scheduled bronchodilators and steroids have been tapered. Objective - Vital Signs/Intake and Output Vital Signs (last 24 hours): Temp Pulse Resp BP Pulse Ox 97.3 F L 84 18 147/81 97 10/27/18 08:01 10/27/18 08:24 10/27/18 08:01 10/27/18 08:24 10/27/18 08:01 - Medications Medications: Current Medications Digoxin (Lanoxin) 0.25 mg PO DAILY [facility] Last Admin: 10/27/18 08:25 Dose: 0.25 mg Enoxaparin Sodium (Lovenox) 70 mg 1 mg/kg (70 mg) SC Q12@0900,2100 [facility]; Protocol Last Admin: 10/27/18 08:23 Dose: 70 mg Famotidine (Pepcid) 20 mg PO BID [facility] Last Admin: 10/27/18 08:23 Dose: 20 mg Furosemide (Lasix) 40 mg PO DAILY [facility] Last Admin: 10/27/18 08:24 Dose: 40 mg Guaifenesin (Mucinex [place]) 600 mg PO Q12 [facility] Last Admin: 10/27/18 08:24 Dose: 600 mg Ipratropium [place] (Atrovent) 0.5 mg IH RQID PRN PRN Reason: wheezing Last Admin: 10/20/18 11:19 Dose: 0.5 mg Levalbuterol HCl (Xopenex) 0.63 mg INH RQ4 PRN PRN Reason: Shortness of Breath Metoprolol Tartrate (Lopressor) 50 mg PO Q12 [facility] Last Admin: 10/27/18 08:24 Dose: 50 mg Potassium Chloride (K-Dur 20 Meq Er Tab) 20 meq PO BID [facility] Last Admin: 10/27/18 08:24 Dose: 20 meq - Labs Labs: 10/27/18 04:55 10/27/18 04:55 Assessment and Plan (1) CHF (congestive heart failure) Status: Acute (2) COPD (chronic obstructive pulmonary disease) Status: Chronic (3) Atrial fibrillation with rapid ventricular response Status: Acute
--- NOTE | 2018-10-27 10:39 | CP.PCM.PN ---
Subjective - Date & Time of Evaluation Date of Evaluation: 10/27/18 Time of Evaluation: 09:00 - Subjective Subjective: The patient was found resting comfortably in bed and had finished eating his breakfast. Patient reports significant improvement in his breathing capacity since his admission. Telemetry shows persistent atrial fibrillation with a heart rate between 70 and 90 bpm. Blood pressure 114/70 mmHg. Jugular venous pressure was not elevated and minimal pitting edema was evident on his lower extremities. Lab data was noted. The patient is stable from cardiovascular and pulmonary point of view. He is on maintenance doses of his medications. I have started the patient on oral anticoagulation in anticipation of his eventual discharge. The patient awaits transfer to the transitional care unit for a period of physical therapy prior to returning home. Objective - Vital Signs/Intake and Output Vital Signs (last 24 hours): Temp Pulse Resp BP Pulse Ox 97.3 F L 84 18 147/81 97 10/27/18 08:01 10/27/18 08:24 10/27/18 08:01 10/27/18 08:24 10/27/18 08:01 - Medications Medications: Current Medications Digoxin (Lanoxin) 0.25 mg PO DAILY [facility] Last Admin: 10/27/18 08:25 Dose: 0.25 mg Enoxaparin Sodium (Lovenox) 70 mg 1 mg/kg (70 mg) SC Q12@0900,2100 [facility]; Protocol Last Admin: 10/27/18 08:23 Dose: 70 mg Famotidine (Pepcid) 20 mg PO BID [facility] Last Admin: 10/27/18 08:23 Dose: 20 mg Furosemide (Lasix) 40 mg PO DAILY [facility] Last Admin: 10/27/18 08:24 Dose: 40 mg Guaifenesin (Mucinex [place]) 600 mg PO Q12 [facility] Last Admin: 10/27/18 08:24 Dose: [address] [place] (Atrovent) 0.5 mg IH RQID PRN PRN Reason: wheezing Last Admin: 10/20/18 11:19 Dose: 0.5 mg Levalbuterol HCl (Xopenex) 0.63 mg INH RQ4 PRN PRN Reason: Shortness of Breath Metoprolol Tartrate (Lopressor) 50 mg PO Q12 [facility] Last Admin: 10/27/18 08:24 Dose: 50 mg Potassium Chloride (K-Dur 20 Meq Er Tab) 20 meq PO BID [facility] Last Admin: 10/27/18 08:24 Dose: 20 meq Rivaroxaban (Xarelto) 20 mg PO QD5 [facility]; Protocol - Labs Labs: 10/27/18 04:55 10/27/18 04:55
[2018-10-28] MEDS: Potassium Chloride 20 mEq ER Tab PO SCH ×2 (09:12→17:07)
[2018-10-28] MEDS: Digoxin 250 mcg (0.25 mg) Tab PO SCH (09:13)
[2018-10-28] MEDS: guaiFENesin 600 mg ER Tab PO SCH ×2 (09:16→21:45)
--- NOTE | 2018-10-28 09:52 | CP.PCM.PN ---
Subjective - Date & Time of Evaluation Date of Evaluation: 10/28/18 Time of Evaluation: 09:52 - Subjective Subjective: Sitting up in bed, claims to feel okay. Sleeping well, ambulates to the bathroom. SpO2 on 3 LPM NC is 91%. In a fib with variable HR up to 130 at times. Trace dependant edema. No cyanosis, extremities are warm to touch. Neck is supple and trachea midline. No dullness on chest percussion. Breath sounds are markedly diminished bilaterally. No audible wheezing or bronchial breathing. Heart sounds are very distant, irregular. Has remained stable from a respiratory standpoint with nebs as PRN. Objective - Vital Signs/Intake and Output Vital Signs (last 24 hours): Temp Pulse Resp BP Pulse Ox 97.3 F L 65 18 118/76 96 10/28/18 08:05 10/28/18 09:19 10/28/18 08:05 10/28/18 09:19 10/28/18 08:05 - Medications Medications: Current Medications Digoxin (Lanoxin) 0.25 mg PO DAILY [facility] Last Admin: 10/28/18 09:13 Dose: 0.25 mg Famotidine (Pepcid) 20 mg PO BID [facility] Last Admin: 10/28/18 09:16 Dose: 20 mg Furosemide (Lasix) 40 mg PO DAILY [facility] Last Admin: 10/28/18 09:13 Dose: 40 mg Guaifenesin (Mucinex La) 600 mg PO Q12 [facility] Last Admin: 10/28/18 09:16 Dose: 600 mg Ipratropium [place] (Atrovent) 0.5 mg IH RQID PRN PRN Reason: wheezing Last Admin: 10/20/18 11:19 Dose: 0.5 mg Levalbuterol HCl (Xopenex) 0.63 mg INH RQ4 PRN PRN Reason: Shortness of Breath Metoprolol Tartrate (Lopressor) 75 mg PO Q12 [facility] Last Admin: 10/28/18 09:19 Dose: 75 mg Potassium Chloride (K-Dur 20 Meq Er Tab) 20 meq PO BID [facility] Last Admin: 10/28/18 09:12 Dose: 20 meq Rivaroxaban (Xarelto) 20 mg PO QD5 [facility]; Protocol Last Admin: 10/27/18 16:29 Dose: 20 mg - Labs Labs: 10/27/18 04:55 10/27/18 04:55 Assessment and Plan (1) CHF (congestive heart failure) Status: Acute (2) COPD (chronic obstructive pulmonary disease) Status: Chronic (3) Atrial fibrillation with rapid ventricular response Status: Acute
[2018-10-29] MEDS: Digoxin 250 mcg (0.25 mg) Tab PO SCH (08:32)
[2018-10-29] MEDS: Potassium Chloride 20 mEq ER Tab PO SCH ×2 (08:32→17:27)
[2018-10-29] MEDS: guaiFENesin 600 mg ER Tab PO SCH ×2 (08:33→22:48)
--- NOTE | 2018-10-29 11:44 | CP.PCM.PN ---
Subjective - Date & Time of Evaluation Date of Evaluation: 10/29/18 Time of Evaluation: 10:00 - Subjective Subjective: Continues to be fatigued and exhausted but otherwise has no particular symptoms. Still has mild to moderate dyspnea at rest with a respiratory rate of 18-20 breaths/min. With telemetry shows persistent atrial fibrillation with a heart rate between 70 and 90 bpm. His blood pressure was 110/70 mmHg. There is a persistent bilateral rhonchi. There was no pedal edema and his jugular venous pressure was not elevated. The patient will participate in physical therapy and if he tolerates it plans are to send him to a transitional care unit before returning home. Objective - Vital Signs/Intake and Output Vital Signs (last 24 hours): Temp Pulse Resp BP Pulse Ox 98.1 F 55 L 19 114/46 L 94 L 10/29/18 08:40 10/29/18 08:40 10/29/18 08:40 10/29/18 08:40 10/29/18 08:40 - Medications Medications: Current Medications Digoxin (Lanoxin) 0.25 mg PO DAILY [facility] Last Admin: 10/29/18 08:32 Dose: 0.25 mg Famotidine (Pepcid) 20 mg PO BID [facility] Last Admin: 10/29/18 08:31 Dose: 20 mg Furosemide (Lasix) 40 mg PO DAILY [facility] Last Admin: 10/29/18 08:33 Dose: 40 mg Guaifenesin (Mucinex La) 600 mg PO Q12 [facility] Last Admin: 10/29/18 08:33 Dose: 600 mg Ipratropium [place] (Atrovent) 0.5 mg IH RQID PRN PRN Reason: wheezing Last Admin: 10/20/18 11:19 Dose: 0.5 mg Levalbuterol HCl (Xopenex) 0.63 mg INH RQ4 PRN PRN Reason: Shortness of Breath Metoprolol Tartrate (Lopressor) 75 mg PO Q12 [facility] Last Admin: 10/29/18 08:33 Dose: 75 mg Potassium Chloride (K-Dur 20 Meq Er Tab) 20 meq PO BID [facility] Last Admin: 10/29/18 08:32 Dose: 20 meq Rivaroxaban (Xarelto) 20 mg PO QD5 [facility]; Protocol Last Admin: 10/28/18 17:07 Dose: 20 mg - Labs Labs: 10/27/18 04:55 10/27/18 04:55
[2018-10-30 07:27] LABS: HEMOGLOBIN 12.4 g/dL (12.0-18.0); MEAN CELL VOLUME 102.4 fl (80.0-94.0); MEAN CORPUSCULAR HEMOGLOBIN 34.2 pg (27.0-31.0); MEAN CORPUSCULAR HGB CONC 33.4 g/dL (33.0-37.0); RBC 3.63 Mil/uL (4.40-5.90); RED CELL DISTRIBUTION WIDTH 13.9 % (11.5-14.5); WHITE BLOOD COUNT 6.2 K/uL (4.8-10.8)
[2018-10-30 07:49] LABS: ALB/GLOB RATIO 0.9 (1.0-2.1); ALT/SGPT 88 U/L (21-72); AST/SGOT 32 U/L (17-59); BLOOD UREA NITROGEN 11 mg/dl (9-20); CALCIUM 8.2 mg/dL (8.4-10.2); GFR NON-AFRICAN AMERICAN > 60
[2018-10-30] MEDS: Potassium Chloride 20 mEq ER Tab PO SCH ×2 (08:30→16:27)
[2018-10-30] MEDS: guaiFENesin 600 mg ER Tab PO SCH ×2 (08:30→21:21)
[2018-10-30] MEDS: Digoxin 250 mcg (0.25 mg) Tab PO SCH (08:30)
--- NOTE | 2018-10-30 13:27 | CP.PCM.PN ---
Subjective - Date & Time of Evaluation Date of Evaluation: 10/30/18 Time of Evaluation: 10:35 - Subjective Subjective: The patient was found resting comfortably in bed and reports that he is able to ambulate to the bathroom and back without much difficulty. Telemetry shows atrial fibrillation with a heart rate that ranges mostly between 70 and 90 bpm. His jugular venous pressure was not elevated and there was no pitting edema over sacrum or ankles. His blood pressure was 110/70 mmHg. His lab tests show stable BUN and creatinine and a persistent mild hyponatremia probably secondary to furosemide. The patient indicates that he feels secure ambulating in the corridor. If he continues to show this improvement he may be ready to return home soon. Objective - Vital Signs/Intake and Output Vital Signs (last 24 hours): Temp Pulse Resp BP Pulse Ox 97.5 F L 64 22 141/71 97 10/30/18 12:58 10/30/18 12:58 10/30/18 12:58 10/30/18 12:58 10/30/18 12:58 - Medications Medications: Current Medications Digoxin (Lanoxin) 0.25 mg PO DAILY [facility] Last Admin: 10/30/18 08:30 Dose: 0.25 mg Famotidine (Pepcid) 20 mg PO BID [facility] Last Admin: 10/30/18 08:30 Dose: 20 mg Furosemide (Lasix) 40 mg PO DAILY [facility] Last Admin: 10/30/18 08:30 Dose: 40 mg Guaifenesin (Mucinex La) 600 mg PO Q12 [facility] Last Admin: 10/30/18 08:30 Dose: 600 mg Ipratropium [place] (Atrovent) 0.5 mg IH RQID PRN PRN Reason: wheezing Last Admin: 10/20/18 11:19 Dose: 0.5 mg Levalbuterol HCl (Xopenex) 0.63 mg INH RQ4 PRN PRN Reason: Shortness of Breath Metoprolol Tartrate (Lopressor) 75 mg PO Q12 [facility] Last Admin: 10/30/18 08:31 Dose: 75 mg Potassium Chloride (K-Dur 20 Meq Er Tab) 20 meq PO BID [facility] Last Admin: 10/30/18 08:30 Dose: 20 meq Rivaroxaban (Xarelto) 20 mg PO QD5 [facility]; Protocol Last Admin: 10/29/18 17:27 Dose: 20 mg - Labs Labs: 10/30/18 05:40 10/30/18 05:40
--- NOTE | 2018-10-31 08:45 | CP.PCM.PN ---
Subjective - Date & Time of Evaluation Date of Evaluation: 10/31/18 Time of Evaluation: 08:20 - Subjective Subjective: Lying in bed when seen on rounds. Asleep, but easily awakens. Claims to feel relatively well. Able to ambulate to the bathroom. Was able to ambulate in the [place] over the weekend with O2. Remains in atrial fib, rate controlled VR. Breath sounds markedly diminished bilaterally. Scattered sonorous rhonchi bilaterally. Few dry basal rales, no wheezes. SpO2 at rest on room air-84%. SpO2 at rest on 2LPM NC-90%. Will require home oxygen @2LPM NC. To use Atrovent, PRN only because of cardiac arrhythmia. Prescriptions placed in chart. Objective - Vital Signs/Intake and Output Vital Signs (last 24 hours): Temp Pulse Resp BP Pulse Ox 97.5 F L 73 18 109/74 92 L 10/31/18 07:56 10/31/18 07:56 10/31/18 07:56 10/31/18 07:56 10/31/18 07:56 Intake and Output: 10/30/18 10/31/18 23:59 11:59 Intake Total 750 Output Total 1250 Balance -500 - Medications Medications: Current Medications Digoxin (Lanoxin) 0.25 mg PO DAILY [facility] Last Admin: 10/30/18 08:30 Dose: 0.25 mg Famotidine (Pepcid) 20 mg PO BID [facility] Last Admin: 10/30/18 16:27 Dose: 20 mg Furosemide (Lasix) 40 mg PO DAILY [facility] Last Admin: 10/30/18 08:30 Dose: 40 mg Guaifenesin (Mucinex La) 600 mg PO Q12 [facility] Last Admin: 10/30/18 21:21 Dose: 600 mg Ipratropium [place] (Atrovent) 0.5 mg IH RQID PRN PRN Reason: wheezing Last Admin: 10/20/18 11:19 Dose: 0.5 mg Levalbuterol HCl (Xopenex) 0.63 mg INH RQ4 PRN PRN Reason: Shortness of Breath Metoprolol Tartrate (Lopressor) 75 mg PO Q12 [facility] Last Admin: 10/30/18 21:22 Dose: 75 mg Potassium Chloride (K-Dur 20 Meq Er Tab) 20 meq PO BID [facility] Last Admin: 10/30/18 16:27 Dose: 20 meq Rivaroxaban (Xarelto) 20 mg PO QD5 [facility]; Protocol Last Admin: 10/30/18 16:26 Dose: 20 mg - Labs Labs: 10/30/18 05:40 10/30/18 05:40 Assessment and Plan (1) CHF (congestive heart failure) Status: Acute (2) COPD (chronic obstructive pulmonary disease) Status: Chronic (3) Atrial fibrillation with rapid ventricular response Status: Acute
[2018-10-31] MEDS: Potassium Chloride 20 mEq ER Tab PO SCH (08:55)
[2018-10-31] MEDS: Digoxin 250 mcg (0.25 mg) Tab PO SCH (08:56)
[2018-10-31] MEDS: guaiFENesin 600 mg ER Tab PO SCH (08:58)
[2018-10-31 08:59] VITALS: PULSE 76
[2018-10-31 12:09] VITALS: O2SAT 95
[2018-10-31 16:05] VITALS: BP 108/68; PULSE 65; RESP 22; TEMP 97.6
== END 2018-10-31 17:10 | DRG 291 ==
LOC: H.ER 06:34 → H.ERHOLD 09:02 → H.ICU/CCU 10:57 → H.TEL 10-14 18:06
PROVIDERS: ADMIT Internal Medicine Cardiovascular Disease; ATTEND Internal Medicine Cardiovascular Disease
PROC: 5A0955Z Assistance with Respiratory Ventilation, Greater than 96 Consecutive Hours (ICD-10-PCS; principal; 2018-10-11)
DX: I11.0 Hypertensive heart disease with heart failure (principal); J96.02 Acute respiratory failure with hypercapnia; J44.1 Chronic obstructive pulmonary disease with (acute) exacerbation; I48.1 Persistent atrial fibrillation; E87.1 Hypo-osmolality and hyponatremia; B48.8 Other specified mycoses; I50.23 Acute on chronic systolic (congestive) heart failure; I44.7 Left bundle-branch block, unspecified; Z85.51 Personal history of malignant neoplasm of bladder; I42.0 Dilated cardiomyopathy; F17.210 Nicotine dependence, cigarettes, uncomplicated; T50.1X5A Adverse effect of loop [high-ceiling] diuretics, initial encounter; T38.0X5A Adverse effect of glucocorticoids and synthetic analogues, initial encounter

== ENCOUNTER 2018-10-31 12:04 | Inpatient (IN) | payer MEDICARE, OTHER ==
[2018-10-31 17:09] VITALS: BMI 20.5
[2018-10-31] MEDS ORDERED: Levalbuterol 0.63 MG/3 ML Inhal Soln UD INH PRN (21:00)
[2018-10-31] MEDS: Potassium Chloride 20 mEq ER Tab PO SCH (22:40)
[2018-10-31] MEDS: guaiFENesin 600 mg ER Tab PO SCH (22:41)
--- NOTE | 2018-11-01 06:51 | CP.PCM.HP ---
History of Present Illness - History of Present Illness History of Present Illness: 78 y/o w/m admitted with SOB / JONAS x 3-4 days Has had Increased temp at home w/ Productive cough Exacerbation of COPD Pt still smokes Also, new onset Atrial Fibrillation w/ RVR PMH: CA Bladder w/ resection [address] Cat and again in 09/2016 @ [place] Hypertension COPD Continues to smoke CLBBB Acute on Chronic Left Systolic CHF Present on Admission - Present on Admission Any Indicators Present on Admission: No Past Patient History - Past Medical History & Family History Past Medical History?: Yes - Past Social History Smoking Status: Heavy Smoker > 10 Cigarettes Daily - CARDIAC Hx Atrial Fibrillation: Yes Hx Cardia Arrhythmia: Yes Hx Congestive Heart Failure: Yes Hx Hypertension: Yes - PULMONARY Hx Respiratory Disorders: Yes Hx Chronic Obstructive Pulmonary Disease (COPD): Yes Hx Pneumonia: Yes (childhood) - NEUROLOGICAL Hx Neurological Disorder: Yes - HEENT Hx HEENT Problems: No - RENAL Hx Chronic Kidney Disease: No Other/Comment: bladder wall ca with resection 2015 - ENDOCRINE/METABOLIC Hx Endocrine Disorders: No - HEMATOLOGICAL/ONCOLOGICAL Hx Anemia: No Hx Human Immunodeficiency Virus (HIV): No Hx Sickle Cell Disease: No - INTEGUMENTARY Hx Dermatological Problems: No - MUSCULOSKELETAL/RHEUMATOLOGICAL Hx Musculoskeletal Disorders: No - GASTROINTESTINAL Hx Gastrointestinal Disorders: No - GENITOURINARY/GYNECOLOGICAL Hx Genitourinary Disorders: Yes Hx Bladder Cancer: Yes (resection done 2015) - PSYCHIATRIC Hx Psychophysiologic Disorder: No - SURGICAL HISTORY Other/Comment: TURBT - ANESTHESIA Hx Anesthesia: Yes Hx Anesthesia Reactions: No Hx Malignant Hyperthermia: No Meds Allergies/Adverse Reactions: Allergies Allergy/AdvReac Type Severity Reaction Status Date / Time No Known Allergies Allergy Verified 10/31/18 17:09 Results - Vital Signs Recent Vital Signs: Last Vital Signs Temp 97.6 F 10/31/18 20:00 Pulse 92 H 10/31/18 22:41 Resp 20 10/31/18 20:51 BP 146/78 10/31/18 22:41 Pulse Ox 95 10/31/18 20:51 Assessment & Plan (1) Atrial fibrillation Status: Acute Priority: High (2) COPD exacerbation Status: Acute Priority: High (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
[2018-11-01] MEDS: Ipratropium 0.02% Inhal Soln (0.5 mg/2.5 ml) UD IH SCH ×4 (07:26→19:20)
[2018-11-01] MEDS: guaiFENesin 600 mg ER Tab PO SCH ×2 (08:36→20:31)
[2018-11-01] MEDS: Potassium Chloride 20 mEq ER Tab PO SCH ×2 (08:36→16:36)
[2018-11-01] MEDS: Digoxin 250 mcg (0.25 mg) Tab PO SCH (08:37)
--- NOTE | 2018-11-01 10:34 | CP.PCM.CON ---
History of Present Illness - History of Present Illness History of Present Illness: Re-consult in [facility] for this 78 year old male with atrial fibrillation and COPD. He was initially admitted to acute medicine because of a new onset fib with RVR and treated medically for rate control. He also has cigarette related COPD which was initially treated with aerosol therapy - albuterol and ipratropium. He continued to have tachyarrhythmia and the aerosol treatments were changed to PRN only because of this. He had also been treated with parenteral corticosteroids which were tapered and discontinued without ill effect. He has been stable with ipratropium PRN and has required no treatments. He does have a mild congested co ugh and difficulty expectoratng sputum. He remains well oxygenated on nasal canula supplemental O2 at 3 LPM. Past Patient History - Past Medical History & Family History Past Medical History?: Yes - Past Social History Smoking Status: Heavy Smoker > 10 Cigarettes Daily (stopped on admission to hospital) Chewing Tobacco Use: No Cigar Use: No Alcohol: > 2 Drinks/Day Drugs: Denies Home Situation {Lives}: Alone - CARDIAC Hx Atrial Fibrillation: Yes Hx Cardia Arrhythmia: Yes Hx Congestive Heart Failure: Yes Hx Hypertension: Yes - PULMONARY Hx Chronic Obstructive Pulmonary Disease (COPD): Yes Hx Pneumonia: Yes (childhood) - NEUROLOGICAL Hx Neurological Disorder: No - HEENT Hx HEENT Problems: No - RENAL Hx Chronic Kidney Disease: Yes Other/Comment: bladder ca with resection 2015 - ENDOCRINE/METABOLIC Hx Endocrine Disorders: No - HEMATOLOGICAL/ONCOLOGICAL Hx Cancer: Yes (bladder) Hx Human Immunodeficiency Virus (HIV): No - INTEGUMENTARY Hx Dermatological Problems: No - MUSCULOSKELETAL/RHEUMATOLOGICAL Hx Musculoskeletal Disorders: No - GASTROINTESTINAL Hx Gastrointestinal Disorders: No - GENITOURINARY/GYNECOLOGICAL Hx Bladder Cancer: Yes (resection done 2015) - PSYCHIATRIC Hx Psychophysiologic Disorder: No - SURGICAL HISTORY Other/Comment: TURBT - ANESTHESIA Hx Anesthesia: Yes Hx Anesthesia Reactions: No Hx Malignant Hyperthermia: No Meds Allergies/Adverse Reactions: Allergies Allergy/AdvReac Type Severity Reaction Status Date / Time No Known Allergies Allergy Verified 10/31/18 17:09 - Medications Medications: Current Medications Digoxin (Lanoxin) 0.25 mg PO DAILY [facility] Last Admin: 11/01/18 08:37 Dose: 0.25 mg Famotidine (Pepcid) 20 mg PO BID [facility] Last Admin: 11/01/18 08:36 Dose: 20 mg Furosemide (Lasix) 40 mg PO DAILY [facility] Last Admin: 11/01/18 08:36 Dose: 40 mg Guaifenesin (Mucinex La) 600 mg PO Q12 [facility] Last Admin: 11/01/18 08:36 Dose: 600 mg Ipratropium [place] (Atrovent) 0.5 mg IH RQID [facility] Last Admin: 11/01/18 07:26 Dose: 0.5 mg Levalbuterol HCl (Xopenex) 0.63 mg INH RQ4 PRN PRN Reason: Shortness of Breath Metoprolol Tartrate (Lopressor) 75 mg PO Q12 [facility] Last Admin: 11/01/18 08:36 Dose: 75 mg Potassium Chloride (K-Dur 20 Meq Er Tab) 20 meq PO BID [facility] Last Admin: 11/01/18 08:36 Dose: 20 meq Rivaroxaban (Xarelto) 20 mg PO QD5 [facility]; Protocol Last Admin: 10/31/18 22:46 Dose: 20 mg Physical Exam - Additional Findings Additional findings: Thin, slightly disheveled male in no acute distress. Oriented X 3, cooperative with exam, seated on EOB. Neck is supple and trachea midline. No palpable lymphadenopathy. No dependant edema, no cyanosis. Extremities are warm to touch, no calf tenderness. No dullness on chest percussion. Breath sounds are diminished bilaterally. No audible wheezes or bronchial breath sounds. Few dry to medium rales with scattered rhonchi in bases. Heart sounds are distant, rhythm irregular. Abdomen is soft and non-tender. Results - Vital Signs Recent Vital Signs: Last Vital Signs Temp 98.3 F 11/01/18 08:00 Pulse 84 11/01/18 08:36 Resp 20 11/01/18 08:00 BP 117/80 11/01/18 08:36 Pulse Ox 92 L 11/01/18 08:00 Assessment & Plan (1) Atrial fibrillation Status: Chronic Priority: High (2) CHF (congestive heart failure) Assessment and Plan: compensated. Status: Chronic Priority: High (3) COPD (chronic obstructive pulmonary disease) Assessment and Plan: asymptomatic. Status: Chronic Priority: High - Assessment and Plan (Free Text) Plan: Continue current medical and aerosol regimen. - Date & Time Date: 11/01/18 Time: 10:34
[2018-11-02] MEDS: Ipratropium 0.02% Inhal Soln (0.5 mg/2.5 ml) UD IH SCH ×2 (07:31→15:21)
[2018-11-02] MEDS: guaiFENesin 600 mg ER Tab PO SCH (08:07)
[2018-11-02] MEDS: Potassium Chloride 20 mEq ER Tab PO SCH (08:07)
[2018-11-02] MEDS: Digoxin 250 mcg (0.25 mg) Tab PO SCH (08:08)
[2018-11-02 08:09] VITALS: PULSE 78
--- NOTE | 2018-11-02 10:33 | CP.PCM.PN ---
Subjective - Date & Time of Evaluation Date of Evaluation: 11/02/18 Time of Evaluation: 10:32 - Subjective Subjective: Seen on rounds in the gym. Wearing nasal oxygen during exercise. SpO2 91%, HR 84 irregular. Doing well on current regimen. Objective - Vital Signs/Intake and Output Vital Signs (last 24 hours): Temp Pulse Resp BP Pulse Ox 97.4 F L 78 18 127/74 95 11/02/18 07:34 11/02/18 08:08 11/02/18 07:34 11/02/18 08:08 11/02/18 07:34 - Medications Medications: Current Medications Digoxin (Lanoxin) 0.25 mg PO DAILY [facility] Last Admin: 11/02/18 08:08 Dose: 0.25 mg Famotidine (Pepcid) 20 mg PO BID [facility] Last Admin: 11/02/18 08:09 Dose: 20 mg Furosemide (Lasix) 40 mg PO DAILY [facility] Last Admin: 11/02/18 08:08 Dose: 40 mg Guaifenesin (Mucinex La) 600 mg PO Q12 [facility] Last Admin: 11/02/18 08:07 Dose: 600 mg Ipratropium [place] (Atrovent) 0.5 mg IH RQID [facility] Last Admin: 11/02/18 07:31 Dose: 0.5 mg Levalbuterol HCl (Xopenex) 0.63 mg INH RQ4 PRN PRN Reason: Shortness of Breath Last Admin: 11/02/18 03:46 Dose: 0.63 mg Metoprolol Tartrate (Lopressor) 75 mg PO Q12 [facility] Last Admin: 11/02/18 08:08 Dose: 75 mg Potassium Chloride (K-Dur 20 Meq Er Tab) 20 meq PO BID [facility] Last Admin: 11/02/18 08:07 Dose: 20 meq Rivaroxaban (Xarelto) 20 mg PO QD5 [facility]; Protocol Last Admin: 11/01/18 16:36 Dose: 20 mg Assessment and Plan (1) Atrial fibrillation Status: Chronic (2) CHF (congestive heart failure) Status: Chronic (3) COPD (chronic obstructive pulmonary disease) Status: Chronic
--- NOTE | 2018-11-02 11:01 | CP.PCM.PN ---
Subjective - Date & Time of Evaluation Date of Evaluation: 11/02/18 Time of Evaluation: 11:01 - Subjective Subjective: Feels well no complaints ambulates with assistance Objective - Vital Signs/Intake and Output Vital Signs (last 24 hours): Temp Pulse Resp BP Pulse Ox 97.4 F L 78 18 127/74 95 11/02/18 07:34 11/02/18 08:08 11/02/18 07:34 11/02/18 08:08 11/02/18 07:34 - Medications Medications: Current Medications Digoxin (Lanoxin) 0.25 mg PO DAILY [facility] Last Admin: 11/02/18 08:08 Dose: 0.25 mg Famotidine (Pepcid) 20 mg PO BID [facility] Last Admin: 11/02/18 08:09 Dose: 20 mg Furosemide (Lasix) 40 mg PO DAILY [facility] Last Admin: 11/02/18 08:08 Dose: 40 mg Guaifenesin (Mucinex La) 600 mg PO Q12 [facility] Last Admin: 11/02/18 08:07 Dose: 600 mg Ipratropium [place] (Atrovent) 0.5 mg IH RQID [facility] Last Admin: 11/02/18 07:31 Dose: 0.5 mg Levalbuterol HCl (Xopenex) 0.63 mg INH RQ4 PRN PRN Reason: Shortness of Breath Last Admin: 11/02/18 03:46 Dose: 0.63 mg Metoprolol Tartrate (Lopressor) 75 mg PO Q12 [facility] Last Admin: 11/02/18 08:08 Dose: 75 mg Potassium Chloride (K-Dur 20 Meq Er Tab) 20 meq PO BID [facility] Last Admin: 11/02/18 08:07 Dose: 20 meq Rivaroxaban (Xarelto) 20 mg PO QD5 [facility]; Protocol Last Admin: 11/01/18 16:36 Dose: 20 mg Assessment and Plan (1) Atrial fibrillation Status: Chronic (2) COPD exacerbation Status: Acute (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
[2018-11-02 15:29] LABS: BASO % 0.4 % (0.0-2.0); EOS % 0.3 % (0.0-4.0); HEMOGLOBIN 12.1 g/dL (12.0-18.0); LYMPH # 0.9 K/uL (1.0-4.3); LYMPH % 13.5 % (20.0-40.0); MEAN CORPUSCULAR HEMOGLOBIN 33.7 pg (27.0-31.0); MEAN PLATELET VOLUME 7.5 fl (7.2-11.7); MONO # 0.7 K/uL (0.0-0.8); MONO % 10.9 % (0.0-10.0); NEUT # 4.7 K/uL (1.8-7.0); NEUT % 74.9 % (50.0-75.0); RBC 3.58 Mil/uL (4.40-5.90); RED CELL DISTRIBUTION WIDTH 14.4 % (11.5-14.5); WHITE BLOOD COUNT 6.3 K/uL (4.8-10.8)
[2018-11-02 15:33] VITALS: BP 142/78; PULSE 50; RESP 20; TEMP 97.6; O2SAT 90
[2018-11-02 15:33] LABS: INR 1.2; PROTHROMBIN TIME 13.5 Seconds (9.8-13.1)
[2018-11-02 15:35] LABS: ALB/GLOB RATIO 0.9 (1.0-2.1); ALT/SGPT 75 U/L (21-72); AST/SGOT 32 U/L (17-59); BLOOD UREA NITROGEN 17 mg/dl (9-20); CALCIUM 8.4 mg/dL (8.4-10.2); GFR NON-AFRICAN AMERICAN > 60; PARTIAL THROMBOPLASTIN TIME 28.9 Seconds (25.6-37.1)
--- NOTE | 2018-11-02 15:40 | PCM.RRT ---
<Fabiola Colon - Last Filed: 11/02/18 16:02> I.Reason for DISCHARGE RN - A) Acute Change in Patient: Subjective: DISCHARGE RN DISCHARGE RN Time: 3:09pm DISCHARGE RN Location: TCU 70- DISCHARGE RN Arrival: 3:10pm DISCHARGE RN Reason: AMS S: 78 yo M pmhx of CHF, A fib, COPD in TCU for PT was alert and oriented this morning, nurse found him with AMS, aphasic, slurred speach, not able to answer commands. O: DISCHARGE RN Vitals: HR 70, RR 15, O2 Sat 100% RA General: Lying in bed, Slurred speech, AMS, Aphasic HEENT: No facial droop, wearing Nasal canula Cardiac: Irregular rhythm, + S1S2 Resp: B/L rales, no wheezes or rhonchi Abdo: Soft, nontender to palpation, + BS throughout Neuro: NIHSS scale 6, can move all four extremities, Awake, Alert, Altered, not able to answer commands. Oriented to time person not place. Extrem: no edema DISCHARGE RN intervention: -BS 96 -CBC w. diff -CMP -MG -Phos -Coags -Head CT without contrast -CXR -Neuro consult Dr. Lawson reccs appreciated (MRI of Brain without contrast, [facility]) -Code stroke called brought to CT and ED A/P: DISCHARGE RN Outcome: Code stroke called brought to CT and ED DISCHARGE RN vitals: BP: 102/38, HR:76, RR 20 DISCHARGE RN end: 3:30pm DISCHARGE RN Leader: Dr. Gilmore DISCHARGE RN residents: Dr. Cheung, Dr. Neville, Dr. Wu, Dr. Colon <Gunjan Gilmore - Last Filed: 11/03/18 09:08> DISCHARGE RN Nurse Assessment - Vital Signs Vital Signs: Rapid Response Vital Sign Blood Pressure 117/68 Pulse Rate 86 Respiratory Rate 24 Oxygen Saturation 98 - Vital Signs at end of DISCHARGE RN Vital Signs at end of DISCHARGE RN: Rapid Response End Vital Sign Blood Pressure 102/38 Pulse Rate 84 Respiratory Rate 24 O2 Sat by Pulse Oximetry 97 Attending/Attestation - Attestation I have personally seen and examined this patient.: Yes I have fully participated in the care of the patient.: Yes I have reviewed all pertinent clinical information, including history, physical exam and plan: Yes Notes (Text): 11/03/18 09:08 Agree with findings and plan as above.
== END 2018-11-02 15:40 | disposition short-term general hospital (02) | DRG 309 ==
LOC: H.TCU 18:33
PROVIDERS: ADMIT Internal Medicine Cardiovascular Disease; ATTEND Internal Medicine Cardiovascular Disease
PROC: F08Z4FZ Home Management Treatment using Assistive, Adaptive, Supportive or Protective Equipment (ICD-10-PCS; principal; 2018-10-31)
PROC: F07Z9FZ Gait Training/Functional Ambulation Treatment using Assistive, Adaptive, Supportive or Protective Equipment (ICD-10-PCS; 2018-10-31)
PROC: F07Z8FZ Transfer Training Treatment using Assistive, Adaptive, Supportive or Protective Equipment (ICD-10-PCS; 2018-10-31)
PROC: F07L6GZ Therapeutic Exercise Treatment of Musculoskeletal System - Lower Back / Lower Extremity using Aerobic Endurance and Conditioning Equipment (ICD-10-PCS; 2018-10-31)
PROC: 5A0945Z Assistance with Respiratory Ventilation, 24-96 Consecutive Hours (ICD-10-PCS; 2018-10-31)
DX: I48.2 Chronic atrial fibrillation (principal); I13.0 Hypertensive heart and chronic kidney disease with heart failure and stage 1 through stage 4 chronic kidney disease, or unspecified chronic kidney disease; I50.22 Chronic systolic (congestive) heart failure; J44.1 Chronic obstructive pulmonary disease with (acute) exacerbation; N18.9 Chronic kidney disease, unspecified; Z85.51 Personal history of malignant neoplasm of bladder; F17.210 Nicotine dependence, cigarettes, uncomplicated

== ENCOUNTER 2018-11-02 15:20 | Inpatient (IN) | payer MEDICARE, OTHER ==
[2018-11-02 15:20] VITALS: BMI 20.5
[2018-11-02] MEDS ORDERED: levETIRAcetam 1,000 MG in Sodium Chloride 0.9% 100 ML IVPB ONE (15:27)
--- NOTE | 2018-11-02 15:54 | CT ---
Date of service: 11/02/2018 PROCEDURE: CT HEAD WITHOUT CONTRAST. HISTORY: slurred speech COMPARISON: None available. TECHNIQUE: Axial computed tomography images were obtained through the head/brain without intravenous contrast. Radiation dose: Total exam DLP = 902.87 mGy-cm. This CT exam was performed using one or more of the following dose reduction techniques: Automated exposure control, adjustment of the mA and/or kV according to patient size, and/or use of iterative reconstruction technique. FINDINGS: HEMORRHAGE: No intracranial hemorrhage. BRAIN: No mass-effect is identified. Instead, there is mild expansion of the ventricular sulcal and cisternal spaces compatible diffuse cerebral atrophy. Further, periventricular white matter lucency is appreciated surrounding the bilateral lateral ventricles as well as centrum semiovale and subcortical white matter compatible chronic microangiopathy. Both features appear age appropriate for this patient. No definite cortical edema is appreciated to suggest potential acute or subacute ischemic infarction at this time. Small areas of cortical loss and subcortical cystic encephalomalacia are identified at the left frontal and right parietal lobes compatible small chronic infarcts. Chronic periventricular lacune is seen at the right frontal parietal-occipital junction and potentially at the central eliud. A small chronic lobar infarction is identified at the inferior left cerebellar hemisphere with posterior fossa contents otherwise unremarkable. VENTRICLES: Unremarkable. No hydrocephalus. CALVARIUM: Unremarkable. PARANASAL SINUSES: Unremarkable as visualized. No significant inflammatory changes. MASTOID AIR CELLS: Unremarkable as visualized. No inflammatory changes. OTHER FINDINGS: None. IMPRESSION: No intracranial hemorrhage, mass effect or definite CT pattern of an acute or subacute brain infarction at this time. Follow-up CT or MRI are advised. Small chronic lobar infarctions are identified in the left frontal and right parietal occipital distribution with a chronic lacune at the right basal ganglia and possibly the central eliud. Age-related neuro degenerative changes as per above. Discussed with Dr. Haines with written down and read back verification 11/02/2018 3:41 p.m..
[2018-11-02 16:11] LABS: ALB/GLOB RATIO 0.9 (1.0-2.1); ALBUMIN 2.9 g/dL (3.5-5.0); ALT/SGPT 67 U/L (21-72); AST/SGOT 30 U/L (17-59); BLOOD UREA NITROGEN 17 mg/dl (9-20); CALCIUM 8.2 mg/dL (8.4-10.2); GFR NON-AFRICAN AMERICAN > 60; HDL CHOLESTEROL 40 MG/DL (30-70)
--- NOTE | 2018-11-02 16:11 | ED PDOC ---
HPI: Altered Mental Status Time Seen by Provider: 11/02/18 15:26 Chief Complaint (Nursing): Weakness/Neurological Deficit Chief Complaint (Provider): Weakness/Neurological Deficit History Per: Patient Onset/Duration Of Symptoms: Sudden Onset Onset Of Symptoms: Cannot Confirm Onset Current Symptoms Are (Timing): Better Description Of Symptoms: Unresponsive Additional Complaint(s): 78 year old male with a history of CHF, atrial fibrillation, COPD, chronic LBBB, HTN and bladder cancer (resection in 2016 and 2017) was brought to the ED from the TCU for evaluation after stroke code called. While in TCU, patient became extremely sluggish and unresponsive. Code Stroke was called there and patient had a CT performed before arrival and Dr Lawson consulted by Dr Hoang. CT shows no acute findings. Patient is currently completely awake and oriented. Offers no complaints. PMD: Dr. Restrepo NIHSS Stroke Scale - Date/Time Evaluation Performed Date Performed: 11/02/18 When Was NIHSS Performed: Baseline - How Severe is the Stroke Level of Consciousness: 0=Alert LOC to Questions: 0=Both comments correct LOC to commands: 0=Obeys both correctly Best Gaze: 0=Normal Visual: 0=No visual loss Facial: 0=Normal Motor Arm - Left: 0=No drift Motor Arm - Right: 0=No drift Motor Leg - Left: 0=No drift Motor Leg - Right: 0=No drift Limb Ataxia: 0=Absent Sensory: 0=Normal Best Language: 0=No aphasia Dysarthia: 0=Normal articulation Extinction & Inattention (Neglect): 0=Normal, no object Score: 0 rTPA Inclusion/Exclusion - Refusal of Treatment Patient Refused Treatment: No - Inclusion Criteria for Altepase Patient is 18 years or Older: Yes Clinical DX Ischemic Stroke Cause Neurological Deficit: No Time of Onset Established Less Than 270 Mins Before TX Begin: No Risk/Benefit Discussed With Patient/Family Member Present: No - Exclusion Criteria for Altepase Uncontrolled Hypertension at Time of TX (SBP>185 or DBP>110): No Active Internal Bleeding: No Known Bleeding Diathesis: No Evidence of an Intracranial Hemorrhage: No Evidence Major Acute Infarct w/ Signs Greater Than 1/3 MCA: No Suspicion of Subarachnoid Bleed on PreTX Eval(CT: neg bleed): No - Warning to TPA With Conditions Following Conditions Weighed Against Anticipated Benefit: No Past Medical History Reviewed: Historical Data, Nursing Documentation, Vital Signs Vital Signs: Last Vital Signs Temp Pulse 74 11/02/18 15:48 Resp 20 11/02/18 15:48 BP 150/76 11/02/18 15:48 Pulse Ox 94 L 11/02/18 15:48 - Medical History PMH: Atrial Fibrillation, Cardia Arrhythmia, CHF, COPD, HTN, Pneumonia (childhood), Chronic Kidney Disease Denies: Alzheimer's Disease, Anemia, Asthma, Bronchitis, CAD, Dementia, HIV, Hypercholesterolemia, Migraine, Mitral Valve Prolapse, Multiple Sclerosis, Parkinson's Disease, Peripheral Edema, Pulmonary Embolism, Seizures, Sickle Cell Disease, Sleep Apnea (brother from sleep apnea), TIA - Surgical History Surgical History: Denies: Pacemaker Other surgeries: bladder cancer resection - Family History Family History: States: Unknown Family Hx - Social History Current smoker - smoking cessation education provided: Yes Alcohol: None Drugs: Denies - Home Medications Home Medications: Ambulatory Orders Medication Instructions Recorded RX: Digoxin [Lanoxin] 0.25 mg PO DAILY tab 10/07/18 RX: Ipratropium 0.02% [Atrovent] 0.5 mg IH RQID neb 10/07/18 RX: guaiFENesin [Mucinex LA] 600 mg PO Q12 10/11/18 RX: Furosemide [Lasix] 40 mg PO DAILY tab 10/24/18 RX: Levalbuterol [Xopenex] 0.63 mg INH RQ4 PRN neb 10/24/18 RX: Potassium Chloride [K-Dur 20 20 meq PO BID tab 10/24/18 mEq ER Tab] RX: Metoprolol Tartrate [Lopressor] 75 mg PO Q12 tab 10/31/18 Famotidine [Pepcid] 20 mg PO BID 11/02/18 Rivaroxaban [Xarelto] 20 mg PO QD5 11/02/18 - Allergies Allergies/Adverse Reactions: Allergies Allergy/AdvReac Type Severity Reaction Status Date / Time No Known Allergies Allergy Verified 10/31/18 17:09 Review of Systems ROS Statement: Except As Marked, All Systems Reviewed And Found Negative Constitutional: Negative for: Fever Neurological: Positive for: Altered Mental Status Physical Exam - Reviewed Nursing Documentation Reviewed: Yes Vital Signs Reviewed: Yes - Physical Exam Appears: Positive for: No Acute Distress (thin, cacechtic) Head Exam: Positive for: ATRAUMATIC, NORMAL INSPECTION, NORMOCEPHALIC Skin: Positive for: Normal Color, Warm, Dry Eye Exam: Positive for: EOMI, Normal appearance, PERRL ENT: Positive for: Normal ENT Inspection Neck: Positive for: Normal, Painless ROM, Supple Cardiovascular/Chest: Positive for: Regular Rate, Rhythm Respiratory: Positive for: Decreased Breath Sounds (bilaterally). Negative for: Respiratory Distress Gastrointestinal/Abdominal: Positive for: Normal Exam, Soft. Negative for: Tenderness Extremity: Positive for: Normal ROM (moving all extremities fully without deficits). Negative for: Deformity Neurologic/Psych: Positive for: Alert, superintendent measurement II-XII (grossly intact), Oriented (x 3). Negative for: Motor/Sensory Deficits, Aphasia, Facial Droop - Laboratory Results Result Diagrams: 11/02/18 15:48 11/02/18 15:48 - ECG O2 Sat by Pulse Oximetry: 94 (RA) Pulse Ox Interpretation: Normal Medical Decision Making Medical Decision Makin:40 Impression: code stroke, here with deficits resolved Initial Plan: --Blood type --EKG --CMP --CBC --Lipid panel --Troponin --PTT --PT --CXR --Keppra 1,000 mg in NS IVPB --Code Stroke protocol Dr. Lawson, neurologist, was notified by the inpatient team and recommends Keppra and MRI. Both were already ordered by Dr. Hoang. CT head no acute findings (see full report) will not give ASA as pt on xarelto 16:[address] Marie pts primary doc who agreed to admitting patient to telemetry for stroke workup. pt aaware. Scribe Attestation: Documented by Ania Salcedo acting as a scribe for Jena Haines MD Provider Scribe Attestation: All medical record entries made by the Scribe were at my direction and personally dictated by me. I have reviewed the chart and agree that the record accurately reflects my personal performance of the history, physical exam, medical decision making, and the department course for this patient. I have also personally directed, reviewed, and agree with the discharge instructions and disposition. Disposition - Clinical Impression Clinical Impression: Acute on chronic congestive heart failure, Altered mental status - Patient ED Disposition Is Patient to be Admitted: Yes Counseled Patient/Family Regarding: Studies Performed, Diagnosis - Disposition Disposition Time: 16:55 Condition: STABLE - Pt Status Changed To: Hospital Disposition Of: Inpatient - Admit Certification Admit to Inpatient:: After my assessment, the patient will require hospitalization for at least two midnights. This is because of the severity of symptoms shown, intensity of services needed, and/or the medical risk in this patient being treated as an outpatient.
[2018-11-02 16:13] LABS: BASO % 0.3 % (0.0-2.0); EOS % 0.3 % (0.0-4.0); HEMOGLOBIN 11.7 g/dL (12.0-18.0); LYMPH # 0.8 K/uL (1.0-4.3); LYMPH % 12.8 % (20.0-40.0); MEAN CELL VOLUME 101.9 fl (80.0-94.0); MEAN CORPUSCULAR HGB CONC 33.4 g/dL (33.0-37.0); MEAN PLATELET VOLUME 7.8 fl (7.2-11.7); MONO # 0.7 K/uL (0.0-0.8); MONO % 11.3 % (0.0-10.0); NEUT # 4.7 K/uL (1.8-7.0); NEUT % 75.3 % (50.0-75.0); NRBC % 0.1 % (0.0-0.0); RBC 3.43 Mil/uL (4.40-5.90); RED CELL DISTRIBUTION WIDTH 14.3 % (11.5-14.5); WHITE BLOOD COUNT 6.3 K/uL (4.8-10.8)
--- NOTE | 2018-11-02 16:13 | RAD ---
Date of service: 11/02/2018 HISTORY: Code Stroke COMPARISON: 10/20/2018 FINDINGS: LUNGS: No active pulmonary disease. PLEURA: No significant pleural effusion identified, no pneumothorax apparent. CARDIOVASCULAR: Normal heart size. Atherosclerotic calcification of the aortic arch. Prominence of the ascending thoracic aorta consistent with known aneurysmal dilatation of the ascending thoracic aorta from CT examination of 09/29/2018. On that examination, the ascending thoracic aorta measured up to 4.5 cm in diameter. No pulmonary vascular congestion. OSSEOUS STRUCTURES: No significant abnormalities. VISUALIZED UPPER ABDOMEN: Normal. OTHER FINDINGS: None. IMPRESSION: No acute infiltrate.
[2018-11-02 16:15] LABS: INR 1.2; PROTHROMBIN TIME 13.7 Seconds (9.8-13.1)
[2018-11-02 16:17] LABS: PARTIAL THROMBOPLASTIN TIME 29.6 Seconds (25.6-37.1)
[2018-11-02 16:22] LABS: LDL CHOLESTEROL 74 mg/dL (0-129)
--- NOTE | 2018-11-02 21:04 | CP.PCM.HP ---
History of Present Illness - History of Present Illness History of Present Illness: 78 y/o w/m admitted to telemetry from TCU [employer] was called because of altered mental status/agitation Transferred to Telemetry PMH: Atrial Fibrillation CA Bladder w/ resection [address] Cat and again in 09/2016 @ [facility] Hypertension COPD Continues to smoke CLBBB Acute on Chronic Left Systolic CHF Present on Admission - Present on Admission Any Indicators Present on Admission: No Past Patient History - Past Medical History & Family History Past Medical History?: Yes - Past Social History Alcohol: None Drugs: Denies - CARDIAC Hx Cardiac Disorders: Yes - PULMONARY Hx Respiratory Disorders: Yes - NEUROLOGICAL Hx Neurological Disorder: Yes - HEENT Hx HEENT Problems: No - RENAL Hx Chronic Kidney Disease: Yes - ENDOCRINE/METABOLIC Hx Endocrine Disorders: No - HEMATOLOGICAL/ONCOLOGICAL Hx Blood Disorders: Yes - INTEGUMENTARY Hx Dermatological Problems: No - MUSCULOSKELETAL/RHEUMATOLOGICAL Hx Musculoskeletal Disorders: No - GASTROINTESTINAL Hx Gastrointestinal Disorders: No - GENITOURINARY/GYNECOLOGICAL Hx Genitourinary Disorders: Yes Hx Bladder Cancer: Yes (resection done 2015) - PSYCHIATRIC Hx Psychophysiologic Disorder: No Hx Substance Use: No - SURGICAL HISTORY Other/Comment: TURBT - ANESTHESIA Hx Anesthesia: Yes Hx Anesthesia Reactions: No Hx Malignant Hyperthermia: No Meds Allergies/Adverse Reactions: Allergies Allergy/AdvReac Type Severity Reaction Status Date / Time No Known Allergies Allergy Verified 10/31/18 17:09 Results - Vital Signs Recent Vital Signs: Last Vital Signs Temp 97.3 F L 11/02/18 19:34 Pulse 90 11/02/18 19:34 Resp 21 11/02/18 19:34 BP 110/71 11/02/18 19:34 Pulse Ox 96 11/02/18 19:34 - Labs Result Diagrams: 11/02/18 15:48 11/02/18 15:48 Labs: Laboratory Results - last 24 hr 11/02/18 11/02/18 11/02/18 15:45 15:48 15:48 WBC 6.3 RBC 3.43 L Hgb 11.7 L Hct 34.9 L MCV 101.9 H MCH 34.0 H MCHC 33.4 RDW 14.3 Plt Count 217 MPV 7.8 Neut % (Auto) 75.3 H Lymph % (Auto) 12.8 L [place] % (Auto) 11.3 H Eos % (Auto) 0.3 Baso % (Auto) 0.3 Neut # (Auto) 4.7 Lymph # (Auto) 0.8 L [place] # (Auto) 0.7 Eos # (Auto) 0.0 Baso # (Auto) 0.0 PT INR APTT Sodium 131 L Potassium 4.2 Chloride 89 L Carbon Dioxide 35 H Anion Gap 11 BUN 17 Creatinine 0.6 L Est GFR ( Amer) > 60 Est GFR (Non-Af Amer) > 60 POC Glucose (mg/dL) 103 Random Glucose 98 Hemoglobin A1c Calcium 8.2 L Total Bilirubin 0.3 AST 30 ALT 67 Alkaline Phosphatase 75 Troponin I 0.0340 Total Protein 6.3 Albumin 2.9 L Globulin 3.3 Albumin/Globulin Ratio 0.9 L Triglycerides 82 Cholesterol 129 LDL Cholesterol Direct 74 HDL Cholesterol 40 Blood Type Antibody Screen BBK History Checked 11/02/18 11/02/18 11/02/18 15:48 15:48 15:48 WBC RBC Hgb Hct MCV MCH MCHC RDW Plt Count MPV Neut % (Auto) Lymph % (Auto) [place] % (Auto) Eos % (Auto) Baso % (Auto) Neut # (Auto) Lymph # (Auto) [place] # (Auto) Eos # (Auto) Baso # (Auto) PT 13.7 H INR 1.2 APTT 29.6 Sodium Potassium Chloride Carbon Dioxide Anion Gap BUN Creatinine Est GFR ( Amer) Est GFR (Non-Af Amer) POC Glucose (mg/dL) Random Glucose Hemoglobin A1c 6.7 H Calcium Total Bilirubin AST ALT Alkaline Phosphatase Troponin I Total Protein Albumin Globulin Albumin/Globulin Ratio Triglycerides Cholesterol LDL Cholesterol Direct HDL Cholesterol Blood Type A POSITIVE Antibody Screen Negative BBK History Checked No verified bt Assessment & Plan (1) Altered mental status Assessment and Plan: ? TIA Status: Acute (2) COPD exacerbation Status: Acute Priority: High (3) Essential (primary) hypertension Status: Acute (4) Left bundle branch block (LBBB) Status: Acute Priority: High (5) Atrial fibrillation Status: Chronic Priority: High
[2018-11-03] MEDS ORDERED: Enoxaparin 40 mg Syringe SC SCH (09:00)
[2018-11-03] MEDS: Digoxin 250 mcg (0.25 mg) Tab PO SCH (09:33)
[2018-11-03] MEDS: guaiFENesin 600 mg ER Tab PO SCH ×2 (09:34→21:25)
--- NOTE | 2018-11-03 13:26 | MRI ---
Date of service: 11/03/2018 PROCEDURE: MRI BRAIN WITHOUT CONTRAST HISTORY: CVA COMPARISON: Unenhanced head CT 11/02/2018. TECHNIQUE: Multiplanar, multisequence MR images of the brain were obtained without intravenous contrast enhancement. FINDINGS: HEMORRHAGE: None DWI: Restricted diffusion is identified within a gyrus at the left frontal lobe compatible with an acute or subacute infarction. A punctate area of increased diffusion-weighted signal is seen at the left parietal lobe posteriorly but this corresponds to increased signal on the ADC map and is compatible with T2 shine through effect. No additional acute or subacute brain infarction throughout the brain. BRAIN PARENCHYMA: Diffuse cerebral atrophy and chronic microangiopathy are reiterated chronic lobar infarctions appearing [id number] size at the right occipital lobe and the mid to superior left cerebellum. Chronic lacune is identified at the right frontal periventricular white matter. No significant mass effect throughout the brain. No suspicious extra-axial collection is identified with midline brain anatomy unremarkable. Chronic microangiopathy is seen at the eliud. VENTRICLES: Unremarkable. No hydrocephalus. CRANIUM: Unremarkable. ORBITS: Grossly unremarkable. PARANASAL SINUSES/MASTOIDS: Extensive right and mild left mastoid effusions are identified. Extensive bilateral sphenoid and moderate bilateral ethmoid sinusitis changes are noted. Severe right maxillary and [id number] left maxillary sinusitis changes are identified. VASCULAR SYSTEM: Skull base flow voids intact. OTHER FINDINGS: None. IMPRESSION: 1. A small lobar infarction is acute or subacute at the left frontal lobe. 2. Chronic lobar infarction right occipital lobe reiterated as well as at the left cerebellum. Chronic lacune right frontal periventricular white matter. 3. No significant mass effect. Reiteration of age related neuro degenerative findings is identified. 4. Incidental extensive sinusitis with right greater than left mastoid effusions identified.
--- NOTE | 2018-11-03 14:53 | CP.PCM.CON ---
History of Present Illness - History of Present Illness History of Present Illness: Neurology consult called by Er physician. 78 yr old male who presents with new onset aphasia and dysarthria, not TPA candidate, now with new left frontal lobe stroke, that appears to be ischemic. NIHSS: 2. Past Patient History - Past Medical History & Family History Past Medical History?: Yes - Past Social History Alcohol: None Drugs: Denies - CARDIAC Hx Cardiac Disorders: Yes - PULMONARY Hx Respiratory Disorders: Yes - NEUROLOGICAL Hx Neurological Disorder: Yes - HEENT Hx HEENT Problems: No - RENAL Hx Chronic Kidney Disease: Yes - ENDOCRINE/METABOLIC Hx Endocrine Disorders: No - HEMATOLOGICAL/ONCOLOGICAL Hx Blood Disorders: Yes - INTEGUMENTARY Hx Dermatological Problems: No - MUSCULOSKELETAL/RHEUMATOLOGICAL Hx Musculoskeletal Disorders: No - GASTROINTESTINAL Hx Gastrointestinal Disorders: No - GENITOURINARY/GYNECOLOGICAL Hx Genitourinary Disorders: Yes Hx Bladder Cancer: Yes (resection done 2016) - PSYCHIATRIC Hx Psychophysiologic Disorder: No Hx Substance Use: No - SURGICAL HISTORY Other/Comment: TURBT - ANESTHESIA Hx Anesthesia: Yes Hx Anesthesia Reactions: No Hx Malignant Hyperthermia: No Meds Allergies/Adverse Reactions: Allergies Allergy/AdvReac Type Severity Reaction Status Date / Time No Known Allergies Allergy Verified 10/31/18 17:09 - Medications Medications: Current Medications Atorvastatin Calcium (Lipitor) 10 mg PO DAILY [facility] Last Admin: 11/03/18 13:40 Dose: 10 mg Digoxin (Lanoxin) 0.25 mg PO DAILY [facility] Last Admin: 11/03/18 09:33 Dose: 0.25 mg Famotidine (Pepcid) 20 mg PO BID [facility] Last Admin: 11/03/18 09:34 Dose: 20 mg Guaifenesin (Mucinex La) 600 mg PO Q12 [facility] Last Admin: 11/03/18 09:34 Dose: 600 mg Ipratropium [place] (Atrovent) 0.5 mg IH RQID [facility] Levalbuterol HCl (Xopenex) 0.63 mg INH RQ4 PRN PRN Reason: Shortness of Breath Metoprolol Tartrate (Lopressor) 50 mg PO BID [facility] Last Admin: 11/03/18 09:33 Dose: 50 mg Potassium Chloride (K-Dur 20 Meq Er Tab) 20 meq PO BID [facility] Rivaroxaban (Xarelto) 20 mg PO DIN [facility]; Protocol Results - Vital Signs Recent Vital Signs: Last Vital Signs Temp 97.6 F 02/21/19 12:30 Pulse 75 11/03/18 12:30 Resp 18 11/03/18 12:30 BP 101/57 L 11/03/18 12:30 Pulse Ox 93 L 11/03/18 12:30 - Labs Result Diagrams: 11/02/18 15:48 11/02/18 15:48 Labs: Laboratory Results - last 24 hr 11/02/18 11/02/18 11/02/18 15:45 15:48 15:48 WBC 6.3 RBC 3.43 L Hgb 11.7 L Hct 34.9 L MCV 101.9 H MCH 34.0 H MCHC 33.4 RDW 14.3 Plt Count 217 MPV 7.8 Neut % (Auto) 75.3 H Lymph % (Auto) 12.8 L [place] % (Auto) 11.3 H Eos % (Auto) 0.3 Baso % (Auto) 0.3 Neut # (Auto) 4.7 Lymph # (Auto) 0.8 L [place] # (Auto) 0.7 Eos # (Auto) 0.0 Baso # (Auto) 0.0 PT INR APTT Sodium 131 L Potassium 4.2 Chloride 89 L Carbon Dioxide 35 H Anion Gap 11 BUN 17 Creatinine 0.6 L Est GFR ( Amer) > 60 Est GFR (Non-Af Amer) > 60 POC Glucose (mg/dL) 103 Random Glucose 98 Hemoglobin A1c Calcium 8.2 L Total Bilirubin 0.3 AST 30 ALT 67 Alkaline Phosphatase 75 Troponin I 0.0340 Total Protein 6.3 Albumin 2.9 L Globulin 3.3 Albumin/Globulin Ratio 0.9 L Triglycerides 82 Cholesterol 129 LDL Cholesterol Direct 74 HDL Cholesterol 40 Blood Type Antibody Screen BBK History Checked 11/02/18 11/02/18 11/02/18 15:48 15:48 15:48 WBC RBC Hgb Hct MCV MCH MCHC RDW Plt Count MPV Neut % (Auto) Lymph % (Auto) [place] % (Auto) Eos % (Auto) Baso % (Auto) Neut # (Auto) Lymph # (Auto) [place] # (Auto) Eos # (Auto) Baso # (Auto) PT 13.7 H INR 1.2 APTT 29.6 Sodium Potassium Chloride Carbon Dioxide Anion Gap BUN Creatinine Est GFR ( Amer) Est GFR (Non-Af Amer) POC Glucose (mg/dL) Random Glucose Hemoglobin A1c 6.7 H Calcium Total Bilirubin AST ALT Alkaline Phosphatase Troponin I Total Protein Albumin Globulin Albumin/Globulin Ratio Triglycerides Cholesterol LDL Cholesterol Direct HDL Cholesterol Blood Type A POSITIVE Antibody Screen Negative BBK History Checked No verified bt Assessment & Plan - Assessment and Plan (Free Text) Assessment: 78 yr old male with new onset left frontal stroke, ischemic in nature that will need stroke workup. Plan: 1. ECHo 2. Add aspirin to xarelto 3. PT ST OT 4. Telemetry 5. CTA head and neck Our team will follow Thank you Dr. Lawson Neurology
[2018-11-03] MEDS: Ipratropium 0.02% Inhal Soln (0.5 mg/2.5 ml) UD IH SCH ×2 (15:53→19:42)
[2018-11-03] MEDS ORDERED: Potassium Chloride 20 mEq ER Tab PO SCH (17:00)
[2018-11-04] MEDS: Ipratropium 0.02% Inhal Soln (0.5 mg/2.5 ml) UD IH SCH ×4 (07:51→19:11)
[2018-11-04] MEDS: guaiFENesin 600 mg ER Tab PO SCH ×2 (09:20→21:13)
[2018-11-04] MEDS: Digoxin 250 mcg (0.25 mg) Tab PO SCH (09:20)
--- NOTE | 2018-11-04 10:46 | CP.PCM.PN ---
Subjective - Date & Time of Evaluation Date of Evaluation: 11/04/18 Time of Evaluation: 10:00 - Subjective Subjective: 78 y/o male awake alert Dr Lawson note apprec new onset left frontal stroke, ischemic in nature that will need stroke workup. Hr controlled but elevates with exertion will add cardizem PO TID Objective - Vital Signs/Intake and Output Vital Signs (last 24 hours): Temp Pulse Resp BP Pulse Ox 97.1 F L 102 H 18 119/85 94 L 11/04/18 07:58 11/04/18 09:20 11/04/18 07:58 11/04/18 09:20 11/04/18 07:58 - Medications Medications: Current Medications Aspirin (Aspirin Chewable) 81 mg PO DAILY [facility] Last Admin: 11/04/18 09:19 Dose: 81 mg Atorvastatin Calcium (Lipitor) 10 mg PO DAILY [facility] Last Admin: 11/04/18 09:20 Dose: 10 mg Digoxin (Lanoxin) 0.25 mg PO DAILY [facility] Last Admin: 11/04/18 09:20 Dose: 0.25 mg Diltiazem HCl (Cardizem) 30 mg PO TID [facility] Famotidine (Pepcid) 20 mg PO BID [facility] Last Admin: 11/04/18 09:21 Dose: 20 mg Guaifenesin (Mucinex La) 600 mg PO Q12 [facility] Last Admin: 11/04/18 09:20 Dose: 600 mg Ipratropium [place] (Atrovent) 0.5 mg IH RQID [facility] Last Admin: 11/04/18 07:51 Dose: 0.5 mg Levalbuterol HCl (Xopenex) 0.63 mg INH RQ4 PRN PRN Reason: Shortness of Breath Metoprolol Tartrate (Lopressor) 50 mg PO BID [facility] Last Admin: 11/04/18 09:20 Dose: 50 mg Rivaroxaban (Xarelto) 20 mg PO DIN [facility]; Protocol - Labs Labs: 11/02/18 15:48 11/02/18 15:48 PT 13.7 Seconds (9.8-13.1) H 11/02/18 15:48 INR 1.2 11/02/18 15:48 APTT 29.6 Seconds (25.6-37.1) 11/02/18 15:48 Assessment and Plan (1) Altered mental status Status: Acute (2) COPD exacerbation Status: Acute (3) Essential (primary) hypertension Status: Acute (4) Left bundle branch block (LBBB) Status: Acute (5) Atrial fibrillation Status: Chronic
--- NOTE | 2018-11-04 11:05 | PCM.STROKE ---
Interval History Stroke Date: 11/02/18 No other interval changes in current, PMHx, FHx, SocHx, ROS: other than on note by: (H&P; neuro consultation note) - Treatment Antiplatelet: Acetylsalicylic acid (ASA) Anticoagulation: Xareltol Statin: Atrovastatin - Education Written Stroke Education provided regarding: personal risk factors, stroke warning sign/symptoms, how to activate emergency medical services, need to follow up after discharge Hx Atrial Fibrillation: Yes Hx Atrial Flutter: No - Therapy Notes Physical therapy notes date reviewed: 11/04/18 Occupational therapy notes date reviewed: 11/04/18 Speech therapy notes date reviewed: 11/04/18 I have reviewed care of the patient with: Dr. Lawson NIHSS Stroke Scale - Date/Time Evaluation Performed Date Performed: 11/04/18 Time Performed: 11:10 When Was NIHSS Performed: Re-evaluation - How Severe is the Stroke Level of Consciousness: 0=Alert LOC to Questions: 0=Both comments correct LOC to commands: 0=Obeys both correctly Best Gaze: 0=Normal Visual: 0=No visual loss Facial: 0=Normal Motor Arm - Left: 0=No drift Motor Arm - Right: 0=No drift Motor Leg - Left: 0=No drift Motor Leg - Right: 0=No drift Limb Ataxia: 0=Absent Sensory: 0=Normal Best Language: 0=No aphasia Dysarthia: 0=Normal articulation Extinction & Inattention (Neglect): 0=Normal, no object Score: 0 Exam - Vital Sign Vital Signs: Temp Pulse Resp BP Pulse Ox 97.1 F L 102 H 18 119/85 94 L 11/04/18 07:58 11/04/18 09:20 11/04/18 07:58 11/04/18 09:20 11/04/18 07:58 Constitutional: No distress, Normal appearing Ophthalmoscopic: absent: papilledema, hemorrhage Right Pupil: Reactive Right Pupil Size (in mm): 2 Left Pupil: Reactive Left Pupil Size (in mm): 2 Cardiovascular: Other (afib) Mental Status: Normal: Orientation, Memory, Attention, Language, Fund of Knowledge Cranial Nerve: Normal: Visual Berry, Extraocular movement intact, Facial Sensation. 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 4/5), Right Upper Extremity: 4 (machine burrer 4/5), Left Lower Extremity: 4 (plantar flexion 4/4), Right L ower Extremity: 4 (plantar flexion 4/4) Sensation: Intact to pin DTR: Patellar Left: 1+, Patellar Right: 1+ Coordination: absent: Finger/nose (able to complete task however not coordinated b/l) Vascular Risk: Atrial Fibrillation - Data reviewed Laboratory results: 11/02/18 15:48 11/02/18 15:48 Triglycerides 82 mg/DL (0-149) 11/02/18 15:48 Cholesterol 129 mg/dL (0-199) 11/02/18 15:48 LDL Cholesterol Direct 74 mg/dL (0-129) 11/02/18 15:48 HDL Cholesterol 40 MG/DL (30-70) 11/02/18 15:48 Hemoglobin A1c 6.7 % (4.2-6.5) H 11/02/18 15:48 Assessment and Plan (1) CVA (cerebral vascular accident) Assessment & Plan: Imaging reviewed: -MRI Brain (11/03/18): 1. A small lobar infarction is acute or subacute at the left frontal lobe. 2. Chronic lobar infarction right occipital lobe reiterated as well as at the left cerebellum. Chronic lacune right frontal periventricular white matter. 3. No significant mass effect. Reiteration of age related neuro degenerative findings is identified. 4. Incidental extensive sinusitis with right greater than left mastoid effusions identified -CT Head (11/02/18): No intracranial hemorrhage, mass effect or definite CT pattern of an acute or subacute brain infarction at this time. Follow-up CT or MRI are advised. Small chronic lobar infarctions are identified in the left frontal and right parietal occipital distribution with a chronic lacune at the right basal ganglia and possibly the central eliud. Age-related neuro degenerative changes as per above. -Continue ASA, Statin, and Xarelto -Recommend ECHO--last one was done in September 2018, shows poor EF. -CTA Head and Neck ordered--will f/u with results once completed. -Continue PT/OT/ST -Continue telemetry monitoring -Notify neuro team of any acute changes in pt's condition. Estrella De La Fuente, RYDER, [employer] SAL[employer] Case discussed with Dr. Lawson Status: Acute
[2018-11-04] MEDS ORDERED: Iodixanol 320 MG/ML 100 ML BOTTLE IV ONE (16:16)
[2018-11-04] MEDS ORDERED: Sodium Chloride 0.9% 50 ML IV ONE (16:16)
--- NOTE | 2018-11-04 19:02 | CT ---
Date of service: 11/04/2018 PROCEDURE: CT Angiography of the neck and brain HISTORY: Acute left frontal lobe infarct COMPARISON: None. TECHNIQUE: Contiguous axial images of the neck were obtained from the level of the vertex of the skull to the superior mediastinum in the arteriographic phase of enhancement. Coronal and sagittal reformats or also generated. IV contrast dose: 90 cc Visipaque 320 contrast material. Radiation dose: Total exam DLP = 452.2 mGy-cm. This CT exam was performed using one or more of the following dose reduction techniques: Automated exposure control, adjustment of the mA and/or kV according to patient size, and/or use of iterative reconstruction technique. FINDINGS: The aortic arch is patent despite atherosclerotic plaque seen along the partially calcified atherosclerotic plaque seen along the aortic arch however the aortic arch is patent. There also calcified plaque changes seen at the origins of the right brachiocephalic, left common carotid artery and left subclavian arteries. The common carotid arteries are patent with no evidence of occlusion or dissection however note made of minor calcified plaque changes seen scattered along the common carotid arteries. More significant partially calcified atherosclerotic plaque seen at both carotid bifurcations and proximal internal carotid arteries. There is stenosis at the left proximal internal carotid artery estimated at approximately sixt %percent%. Severe high-grade stenosis at the origin of the right internal carotid artery probably greater than 90+ %. The distal internal carotid arteries including the petrous cavernous and supraclinoid segments are patent. There are partially calcified atherosclerotic plaque changes seen along the petrous segments right greater than left. There is also more significant calcified atherosclerotic plaque both carotid siphons with moderate to fairly significant stenotic changes. There is marked asymmetry of the vertebral arteries left-sided which is much larger in caliber/more dominant than the right-side. The distal aspect of the cervical vertebral artery at and just distal to the C2 segment not visualized. The vertebral artery as it extends between the C1 segment and the occiput is not seen with certainty. And may be occluded however there does appear to be opacification distal most aspect (proximal intradural segment) of the right vertebral artery is visualized and this may possibly be secondary to retrograde flow. Basilar artery is patent. The visualized distal branches of the anterior middle and posterior cerebral arteries are also patent and appear relatively symmetric. No evidence of large aneurysm nor vascular malformation. OTHER FINDINGS: Significant centrilobular emphysematous changes seen in the upper lobes. IMPRESSION: There is stenosis at the left proximal internal carotid artery estimated at approximately 60 %. Severe high-grade stenosis at the origin of the right internal carotid artery probably greater than 90+ %. Marked asymmetry of the vertebral arteries left-sided which is much larger in caliber/more dominant than the right-side. The distal aspect of the cervical vertebral artery at and just distal to the C2 segment not visualized. The vertebral artery as it extends between the C1 segment and the occiput is not seen with certainty. And may be occluded however there does appear to be opacification distal most aspect (proximal intradural segment) of the right vertebral artery is visualized and this may possibly be secondary to retrograde flow. Significant calcified atherosclerotic plaque both carotid siphons with moderate to fairly significant stenotic changes. The intra cerebral vasculature patent.
--- NOTE | 2018-11-05 00:44 | CARD ---
APPROVED REPORT Date of service: 11/04/2018 EXAM: Two-dimensional and M-mode echocardiogram with Doppler and color Doppler. 2D DIMENSIONS IVSd1.28 (0.7-1.1cm)LVDd5.98 (3.9-5.9cm) LVOT Diameter2.26 (1.8-2.4cm)PWd0.94 (0.7-1.1cm) IVSs1.19 (0.8-1.2cm)LVDs4.73 (2.5-4.0cm) FS (%) 20.9 %PWs1.43 (0.8-1.2cm) M-Mode DIMENSIONS Left Atrium (MM)4.96 (2.5-4.0cm)IVSd1.08 (0.7-1.1cm) Aortic Root3.67 (2.2-3.7cm)LVDd6.46 (4.0-5.6cm) Aortic Cusp Exc.1.75 (1.5-2.0cm)PWd0.98 (0.7-1.1cm) IVSs1.50 cmFS (%) 7 % LVDs6.01 (2.0-3.8cm)PWs1.12 cm Aortic Valve AoV Peak Sogazsoo196.4cm/sAoV VTI21.6cmAO Peak GR.10mmHg LVOT Peak Xrriesem62.2cm/sLVOT VTI14.58cmAO Mean GR.5mmHg MELVIN (VMAX)1.71dp3DYR (VTI)1.49cm2 Mitral Valve E/A ratio0.0 TDI E/Lateral E'0.0E/Medial E'0.0 LEFT VENTRICLE The Left Ventricle is mildly dilated. There is mild concentric left ventricular hypertrophy. The systolic function is moderately impaired. LVEF is 35-40%. No regional wall motion abnormalities noted.. The left ventricular diastolic function is normal. No left ventricle thrombus noted on this study. There is no ventricular septal defect visualized. There is no left ventricular aneurysm. There is no mass noted in the left ventricle. RIGHT VENTRICLE The right ventricle is normal size. There is normal right ventricular wall thickness. The right ventricular systolic function is normal. ATRIA The left atrium size is normal. The right atrium size is normal. The interatrial septum is intact with no evidence for an atrial septal defect. AORTIC VALVE The aortic valve is mildly thickened. The aortic valve is mildly sclerotic. No aortic regurgitation is present. There is no aortic valvular stenosis. There is no aortic valvular vegetation. MITRAL VALVE The mitral valve is normal in structure. There is no evidence of mitral valve prolapse. There is no mitral valve stenosis. Mitral regurgitation is trace. TRICUSPID VALVE The tricuspid valve is normal in structure. There is trace tricuspid regurgitation. There is no tricuspid valve prolapse or vegetation. There is no tricuspid valve stenosis. PULMONIC VALVE The pulmonary valve is normal in structure. There is no pulmonic valvular regurgitation. There is no pulmonic valvular stenosis. GREAT VESSELS The aortic root is normal in size. The ascending aorta is normal in size. The pulmonary artery is normal. The IVC is normal in size and collapses >50% with inspiration. PERICARDIAL EFFUSION There is no pericardial effusion. There is no pleural effusion. <Conclusion> Mild LV enlargement with mild concentric LVH Moderate LV systolic dysfunction The estimated ejection fraction is 35-40% Trace MR and TR Atrial fibrillation
[2018-11-05] MEDS: Levalbuterol 0.63 MG/3 ML Inhal Soln UD INH PRN (07:12)
[2018-11-05] MEDS: Ipratropium 0.02% Inhal Soln (0.5 mg/2.5 ml) UD IH SCH ×4 (07:12→19:02)
[2018-11-05] MEDS: guaiFENesin 600 mg ER Tab PO SCH ×3 (08:28→21:41)
[2018-11-05] MEDS: Digoxin 250 mcg (0.25 mg) Tab PO SCH (08:28)
--- NOTE | 2018-11-05 11:56 | CP.PCM.PN ---
Subjective - Date & Time of Evaluation Date of Evaluation: 11/05/18 Time of Evaluation: 10:00 - Subjective Subjective: Doing well oriented no confusion HR controlled Objective - Vital Signs/Intake and Output Vital Signs (last 24 hours): Temp Pulse Resp BP Pulse Ox 97.6 F 112 H 20 144/76 94 L 11/05/18 08:05 11/05/18 08:29 11/05/18 08:29 11/05/18 08:29 11/05/18 08:29 - Medications Medications: Current Medications Aspirin (Aspirin Chewable) 81 mg PO DAILY ON [facility] OF [facility] Last Admin: 11/05/18 08:30 Dose: 81 mg Atorvastatin Calcium (Lipitor) 10 mg PO DAILY ON [facility] Last Admin: 11/05/18 08:30 Dose: 10 mg Digoxin (Lanoxin) 0.25 mg PO DAILY [facility] Last Admin: 11/05/18 08:28 Dose: 0.25 mg Diltiazem HCl (Cardizem) 30 mg PO TID ON [facility] OF [facility] Last Admin: 11/05/18 08:29 Dose: 30 mg Famotidine (Pepcid) 20 mg PO BID [facility] Last Admin: 11/05/18 08:28 Dose: 20 mg Guaifenesin (Mucinex La) 600 mg PO Q12 ON [facility] OF [facility] Last Admin: 11/05/18 08:28 Dose: 600 mg Ipratropium [place] (Atrovent) 0.5 mg IH RQID ON [facility] OF [facility] Last Admin: 11/05/18 11:14 Dose: 0.5 mg Levalbuterol HCl (Xopenex) 0.63 mg INH RQ4 PRN PRN Reason: Shortness of Breath Last Admin: 11/05/18 07:12 Dose: 0.63 mg Metoprolol Tartrate (Lopressor) 50 mg PO BID ON [facility] Last Admin: 11/05/18 08:28 Dose: 50 mg Rivaroxaban (Xarelto) 20 mg PO DIN ON LICENSE OF [facility]; Protocol Last Admin: 11/04/18 17:51 Dose: 20 mg - Labs Labs: 11/02/18 15:48 11/02/18 15:48 PT 13.7 Seconds (9.8-13.1) H 11/02/18 15:48 INR 1.2 11/02/18 15:48 APTT 29.6 Seconds (25.6-37.1) 11/02/18 15:48 Assessment and Plan (1) Altered mental status Status: Acute (2) COPD exacerbation Status: Acute (3) Essential (primary) hypertension Status: Acute (4) Left bundle branch block (LBBB) Status: Acute (5) Atrial fibrillation Status: Chronic
[2018-11-06] MEDS: Ipratropium 0.02% Inhal Soln (0.5 mg/2.5 ml) UD IH SCH ×4 (07:50→19:28)
[2018-11-06] MEDS ORDERED: levETIRAcetam 1,000 MG in Sodium Chloride 0.9% 100 ML IVPB ONE (08:56)
[2018-11-06 09:11] LABS: ABG ALLEN TEST YES; ARTERIAL BLOOD GAS HCO3 29.2 mmol/L (21-28); ARTERIAL BLOOD GAS PCO2 45 mm/Hg (35-45); ARTERIAL BLOOD GAS PH 7.44 (7.35-7.45); ARTERIAL BLOOD GAS PO2 74 mm/Hg (80-100)
[2018-11-06] MEDS: Digoxin 250 mcg (0.25 mg) Tab PO SCH (09:18)
[2018-11-06] MEDS: guaiFENesin 600 mg ER Tab PO SCH ×2 (09:19→21:24)
--- NOTE | 2018-11-06 09:27 | PCM.RRT ---
I.Reason for BOOKKEEPER RECEPTIONIST - A) Acute Change in Patient: Subjective: BOOKKEEPER RECEPTIONIST BOOKKEEPER RECEPTIONIST Time: 9:08 BOOKKEEPER RECEPTIONIST Location: [facility] [place] BOOKKEEPER RECEPTIONIST Arrival: 9:09 BOOKKEEPER RECEPTIONIST Reason: AMS S: Pt is a 78 yo M with pmhx of HTN, A fib w/ LBBB, CHF, COPD,and bladder ca admitted due to TIA vs Seizure pt had a previous MRI on 11/02/18 shows a small lobar infarction acute or subacute at the L frontal lobe as well as chronic infarcts noted. Pt was found to be confused by the nurse, lethargic, unresponsive this am. O: BOOKKEEPER RECEPTIONIST Vitals: BP: 113/67/ HR:73 RR:16 O2 Sat 97% on 2L NC General: Altered, intermittent responsiveness, arouses to stimulation HEENT: No facial droop noted Cardiac: Irregulary irregular, + S1S2 Resp: CTA , No wheezes, rales, rhonchi Abdo: Soft nontender non distended, + BS throughout Neuro: Awake, altered, strength 5/5 B/L LE and UE, NIHSS scale 4 BOOKKEEPER RECEPTIONIST intervention: -POC 147 -CBC -CMP -MG -PHOS -PT/PTT/INR -Prolactin -Troponin -EKG -EEG bedside -Head CT without Contrast -Keppra 1000mg Once -D5 NS @ 60cc/hr -Neuro-Dr. Lawson notified startes Keppra 500mg BID -Cardio- Dr. Acosta Notified A/P: Pt is a 78 yo M with pmhx of HTN, A fib w/ LBBB, CHF, COPD,and bladder ca admitted due to TIA vs Seizure BOOKKEEPER RECEPTIONIST was called due to AMS BOOKKEEPER RECEPTIONIST Outcome: Pt regained responsiveness, mild confusion Events BOOKKEEPER RECEPTIONIST vitals: T 97.7 HR 66 BP:124/84 O2Sat 99% 2L NC BOOKKEEPER RECEPTIONIST end: 9:20am BOOKKEEPER RECEPTIONIST Leader: Dr. Prieto BOOKKEEPER RECEPTIONIST residents: Dr. Cheung, Dr. Mccabe, Dr. Colon
[2018-11-06 09:31] LABS: INR 1.1
[2018-11-06 09:32] LABS: BASO % 0.6 % (0.0-2.0); EOS # 0.1 K/uL (0.0-0.7); EOS % 1.1 % (0.0-4.0); HEMOGLOBIN 11.6 g/dL (12.0-18.0); LYMPH # 0.8 K/uL (1.0-4.3); MEAN CELL VOLUME 101.1 fl (80.0-94.0); MEAN CORPUSCULAR HEMOGLOBIN 33.8 pg (27.0-31.0); MEAN CORPUSCULAR HGB CONC 33.5 g/dL (33.0-37.0); MEAN PLATELET VOLUME 7.7 fl (7.2-11.7); MONO # 0.5 K/uL (0.0-0.8); MONO % 10.9 % (0.0-10.0); NEUT # 3.5 K/uL (1.8-7.0); NEUT % 70.4 % (50.0-75.0); NRBC % 0.1 % (0.0-0.0); RBC 3.43 Mil/uL (4.40-5.90); RED CELL DISTRIBUTION WIDTH 14.5 % (11.5-14.5); WHITE BLOOD COUNT 4.9 K/uL (4.8-10.8)
[2018-11-06 09:42] LABS: TROPONIN I 0.03 ng/mL (0.00-0.120)
[2018-11-06 09:55] LABS: ALB/GLOB RATIO 0.9 (1.0-2.1); ALBUMIN 2.8 g/dL (3.5-5.0); ALT/SGPT 44 U/L (21-72); AST/SGOT 26 U/L (17-59); BLOOD UREA NITROGEN 9 mg/dl (9-20); CALCIUM 8.2 mg/dL (8.4-10.2); GFR NON-AFRICAN AMERICAN > 60
--- NOTE | 2018-11-06 09:59 | CT ---
Date of service: 11/06/2018 PROCEDURE: CT HEAD WITHOUT CONTRAST. HISTORY: [employer] COMPARISON: 11/02/2018 CT head. 11/03/2018. MRI brain. Summary of findings on the comparison examination: A small lobar infarction is acute or subacute at the left frontal lobe. TECHNIQUE: Axial computed tomography images were obtained through the head/brain without intravenous contrast. Supplemental Coronal and Sagittal projections created and reviewed. Radiation dose: Total exam DLP = 983.51 mGy-cm. This CT exam was performed using one or more of the following dose reduction techniques: Automated exposure control, adjustment of the mA and/or kV according to patient size, and/or use of iterative reconstruction technique. FINDINGS: HEMORRHAGE: No intracranial hemorrhage. BRAIN: No mass effect or edema. Cortical and cerebellar atrophy, periventricular small vessel disease. Stable encephalomalacia areas right occipital lobe. Multiple punctate lacune or infarcts bilaterally. VENTRICLES: Unremarkable. No hydrocephalus. CALVARIUM: Unremarkable. PARANASAL SINUSES: Chronic maxillary sinus disease bilaterally right greater than left. MASTOID AIR CELLS: Unremarkable as visualized. No inflammatory changes. OTHER FINDINGS: None. IMPRESSION: No acute intracranial abnormalities. No significant findings to account for the clinical presentation. No significant interval change compared to the prior examination(s).
[2018-11-06] MEDS: Dextrose 5%/0.9% NS 1,000 ML IV SCH (10:02)
--- NOTE | 2018-11-06 11:03 | CP.PCM.PN ---
Subjective - Date & Time of Evaluation Date of Evaluation: 11/06/18 Time of Evaluation: 10:00 - Subjective Subjective: Lethargic / sl confused this AM [employer]TER had been called earlier Objective - Vital Signs/Intake and Output Vital Signs (last 24 hours): Temp Pulse Resp BP Pulse Ox 97.7 F 66 18 124/84 95 11/06/18 08:03 11/06/18 08:03 11/06/18 08:03 11/06/18 08:03 11/06/18 08:03 - Medications Medications: Current Medications Aspirin (Aspirin Chewable) 81 mg PO DAILY [facility] Last Admin: 11/06/18 09:17 Dose: Not Given Atorvastatin Calcium (Lipitor) 10 mg PO DAILY [facility] Last Admin: 11/06/18 09:18 Dose: Not Given Digoxin (Lanoxin) 0.25 mg PO DAILY [facility] Last Admin: 11/06/18 09:18 Dose: Not Given Diltiazem HCl (Cardizem) 30 mg PO Q8@0100,0900,1700 [facility] Last Admin: 11/06/18 09:17 Dose: Not Given Famotidine (Pepcid) 20 mg PO BID [facility] Last Admin: 11/06/18 09:19 Dose: Not Given Guaifenesin (Mucinex La) 600 mg PO Q12 [facility] Last Admin: 11/06/18 09:19 Dose: Not Given Dextrose/Sodium Chloride (Dextrose 5%/0.9% Ns 1000 Ml) 1,000 mls @ 60 mls/hr IV .[id number] [facility] Stop: 11/07/18 09:04 Last Admin: 11/06/18 10:02 Dose: 60 mls/hr Levetiracetam 500 mg/ Sodium (Chloride) 105 mls @ 210 mls/hr IVPB Q12 [facility] Ipratropium [place] (Atrovent) 0.5 mg IH RQID [facility] Last Admin: 11/06/18 07:50 Dose: 0.5 mg Levalbuterol HCl (Xopenex) 0.63 mg INH RQ4 PRN PRN Reason: Shortness of Breath Last Admin: 11/05/18 07:12 Dose: 0.63 mg Metoprolol Tartrate (Lopressor) 50 mg PO BID [facility] Last Admin: 11/06/18 09:18 Dose: Not Given Rivaroxaban (Xarelto) 20 mg PO DIN [facility]; Protocol Last Admin: 11/05/18 17:41 Dose: 20 mg - Labs Labs: 11/06/18 09:05 11/06/18 09:05 PT 13.0 Seconds (9.8-13.1) 11/06/18 09:05 INR 1.1 11/06/18 09:05 APTT 29.6 Seconds (25.6-37.1) 11/02/18 15:48 Assessment and Plan (1) Altered mental status Status: Acute (2) COPD exacerbation Status: Acute (3) Essential (primary) hypertension Status: Acute (4) Left bundle branch block (LBBB) Status: Acute (5) Atrial fibrillation Status: Chronic
[2018-11-06] MEDS ORDERED: Digoxin 500 mcg/2ml (0.5 mg/2ml) Inj IVP SCH (11:15)
[2018-11-07] MEDS: Dextrose 5%/0.9% NS 1,000 ML IV SCH (03:10)
[2018-11-07] MEDS: Levalbuterol 0.63 MG/3 ML Inhal Soln UD INH PRN (05:09)
[2018-11-07] MEDS: Ipratropium 0.02% Inhal Soln (0.5 mg/2.5 ml) UD IH SCH ×4 (08:10→19:29)
[2018-11-07] MEDS ORDERED: levETIRAcetam 500 MG in Sodium Chloride 0.9% 100 ML IVPB SCH (09:00)
--- NOTE | 2018-11-07 09:08 | CARD ---
APPROVED REPORT Date of service: 11/06/2018 EKG Measurement Heart [id number] <Conclusion> Atrial fibrillation Left bundle branch block Abnormal ECG
[2018-11-07] MEDS: Digoxin 250 mcg (0.25 mg) Tab PO SCH (10:17)
[2018-11-07] MEDS: guaiFENesin 600 mg ER Tab PO SCH ×2 (10:19→23:11)
--- NOTE | 2018-11-07 10:50 | PCM.STROKE ---
Interval History Stroke Date: 11/04/18 - Treatment Antiplatelet: Acetylsalicylic acid (ASA) Anticoagulation: Xareltol Statin: Atrovastatin - Education Written Stroke Education provided regarding: personal risk factors, stroke warning sign/symptoms, how to activate emergency medical services, need to follow up after discharge Hx Atrial Fibrillation: Yes Hx Atrial Flutter: No - Therapy Notes Physical therapy notes date reviewed: 11/07/18 Occupational therapy notes date reviewed: 11/07/18 Speech therapy notes date reviewed: 11/07/18 I have reviewed care of the patient with: Dr. Salas NIHSS Stroke Scale - Date/Time Evaluation Performed Date Performed: 11/07/18 Time Performed: 10:48 - How Severe is the Stroke Level of Consciousness: 0=Alert LOC to Questions: 0=Both comments correct LOC to commands: 0=Obeys both correctly Best Gaze: 0=Normal Visual: 0=No visual loss Facial: 0=Normal Motor Arm - Left: 0=No drift Motor Arm - Right: 0=No drift Motor Leg - Left: 0=No drift Motor Leg - Right: 0=No drift Limb Ataxia: 0=Absent Sensory: 0=Normal Best Language: 0=No aphasia Dysarthia: 0=Normal articulation Extinction & Inattention (Neglect): 0=Normal, no object Score: 0 Exam - Vital Sign Vital Signs: Temp Pulse Resp BP Pulse Ox 97.8 F 84 18 131/83 97 11/07/18 07:52 11/07/18 10:16 11/07/18 07:52 11/07/18 07:52 11/07/18 07:52 Constitutional: No distress, Normal appearing Ophthalmoscopic: absent: papilledema, hemorrhage Right Pupil: Reactive Left Pupil: Reactive Cardiovascular: absent: Regular rate & rhythm (afib on tele monitor between 70's-90's) Mental Status: Normal: Orientation, Attention, Language, Fund of Knowledge Cranial Nerve: Normal: Visual Berry, Extraocular movement intact, Facial Sensation. Abnormal: Hearing ([place]) Motor: Tone Neuro motor strength exam: Left Upper Extremity: 4 (planisher 4/4), Right Upper Extr emity: 4 (planisher 4/5), Left Lower Extremity: 4 (plantar flexion 5/5), Right Lower Extremity: 4 (plantar flexion 5/5) Sensation: Intact to pin DTR: Patellar Left: 1+, Patellar Right: 1+ Flexor Plantar Reflex: Normal Coordination: absent: Finger/nose (Able to complete task however not coordinated b/l) Vascular Risk: Atrial Fibrillation - Data reviewed Laboratory results: 11/06/18 09:05 11/06/18 09:05 Triglycerides 82 mg/DL (0-149) 11/02/18 15:48 Cholesterol 129 mg/dL (0-199) 11/02/18 15:48 LDL Cholesterol Direct 74 mg/dL (0-129) 11/02/18 15:48 HDL Cholesterol 40 MG/DL (30-70) 11/02/18 15:48 Hemoglobin A1c 6.7 % (4.2-6.5) H 11/02/18 15:48 Assessment and Plan (1) CVA (cerebral vascular accident) Assessment & Plan: Imaging reviewed: -CTA Head and neck (11/04/18): There is stenosis at the left proximal internal carotid artery estimated at approximately 60 %. Severe high-grade stenosis at the origin of the right internal carotid artery probably greater than 90+ %. Marked asymmetry of the vertebral arteries left-sided which is much larger in c aliber/more dominant than the right-side. The distal aspect of the cervical vertebral artery at and just distal to the C2 segment not visualized. The vertebral artery as it extends between the C1 segment and the occiput is not seen with certainty. And may be occluded however there does appear to be opacification distal most aspect (proximal intradural segment) of the right vertebral artery is visualized and this may possibly be secondary to retrograde flow. Significant calcified atherosclerotic plaque both carotid siphons with moderate to fairly significant stenotic changes. The intra cerebral vasculature patent. -MRI Brain (11/03/18): 1. A small lobar infarction is acute or subacute at the left frontal lobe. 2. Chronic lobar infarction right occipital lobe reiterated as well as at the left cerebellum. Chronic lacune right frontal periventricular white matter. 3. No significant mass effect. Reiteration of age related neuro degenerative findings is identified. 4. Incidental extensive sinusitis with right greater than left mastoid effusions identified -CT Head (11/02/18): No intracranial hemorrhage, mass effect or definite CT pattern of an acute or subacute brain infarction at this time. Follow-up CT or MRI are advised. Small chronic lobar infarctions are identified in the left frontal and right parietal occipital distribution with a chronic lacune at the right basal ganglia and possibly the central eliud. Age-related neuro degenerative changes as per above. -ECHO (11/04/18): EF 35-40%, trace MR and TR, afib, milg LV enlargement with LVH, moderate LV systolic dysfunction. -EEG (11/03/18): results pending -Consult neurointerventional team for CTA results; Dr. Cabrera made aware of consult (for high grade stenosis of the Right ICA; cannot rule out occlusion of the vertebral artery as it extends between the C1 segment and the occiput)--will f/u with their recommendations. -Continue ASA, Statin, and Xarelto -Continue Keppra 500 mg IV Q12 hours. May be switched to PO once pt is not NPO. -Continue seizure precautions. -Continue PT/OT/ST -Notify neuro team of any acute changes in pt's condition. Estrella De La Fuente DNP, [employer] TECHNICIAN Case discussed with Dr. Salas Status: Acute
--- NOTE | 2018-11-07 15:43 | CP.PCM.PN ---
Subjective - Date & Time of Evaluation Date of Evaluation: 11/07/18 Time of Evaluation: 10:00 - Subjective Subjective: Pt is AAO taking in liquids and solids will switch all meds back to PO d/c IV Keppra start PO Keppra will transfer to TCU Objective - Vital Signs/Intake and Output Vital Signs (last 24 hours): Temp Pulse Resp BP Pulse Ox 97.7 F 73 18 110/69 96 11/07/18 12:00 11/07/18 15:03 11/07/18 12:00 11/07/18 12:00 11/07/18 15:03 - Medications Medications: Current Medications Aspirin (Aspirin Chewable) 81 mg PO DAILY [facility] Last Admin: 11/07/18 10:17 Dose: 81 mg Atorvastatin Calcium (Lipitor) 10 mg PO DAILY [facility] Last Admin: 11/07/18 10:18 Dose: 10 mg Digoxin (Lanoxin) 0.25 mg PO DAILY [facility] Last Admin: 11/07/18 10:17 Dose: 0.25 mg Diltiazem HCl (Cardizem) 30 mg PO Q8@0100,0900,1700 [facility] Last Admin: 11/07/18 10:16 Dose: 30 mg Famotidine (Pepcid) 20 mg PO BID [facility] Last Admin: 11/07/18 10:19 Dose: 20 mg Guaifenesin (Mucinex La) 600 mg PO Q12 [facility] Last Admin: 11/07/18 10:19 Dose: 600 mg Ipratropium [place] (Atrovent) 0.5 mg IH RQID [facility] Last Admin: 11/07/18 15:22 Dose: 0.5 mg Levalbuterol HCl (Xopenex) 0.63 mg INH RQ4 PRN PRN Reason: Shortness of Breath Last Admin: 11/07/18 05:09 Dose: 0.63 mg Levetiracetam (Keppra) 500 mg PO BID [facility] Metoprolol Tartrate (Lopressor) 50 mg PO BID [facility] Last Admin: 11/07/18 10:18 Dose: 50 mg Rivaroxaban (Xarelto) 20 mg PO DIN [facility]; Protocol Last Admin: 11/06/18 17:46 Dose: Not Given - Labs Labs: 11/06/18 09:05 11/06/18 09:05 PT 13.0 Seconds (9.8-13.1) 11/06/18 09:05 INR 1.1 11/06/18 09:05 APTT 29.6 Seconds (25.6-37.1) 11/02/18 15:48 Assessment and Plan (1) Altered mental status Status: Acute (2) COPD exacerbation Status: Acute (3) Essential (primary) hypertension Status: Acute (4) Left bundle branch block (LBBB) Status: Acute (5) Atrial fibrillation Status: Chronic
[2018-11-08 04:51] VITALS: RESP 18
--- NOTE | 2018-11-08 07:08 | PQF ---
PROVIDER RESPONSE TEXT: Pt at this time is not in acute CHF Heis norm is Chronic L systolic CHF REVIEWER QUERY TEXT: Conflicting Documentation Clarification Acute CHF versus a hIstory. of CHF and not a currently treated condition: i.e. -Acute on Chronic CHF --Chronic CHF -- CHF Ruled out -- Other, please specify 11/02: CXR:Impression: No acute infiltrate 11/05 Echo conclusion: <Conclusion> Mild LV enlargement with mild concentric LVH Moderate LV systolic dysfunction The estimated ejection fraction is 35-40% Trace MR and TR Atrial fibrillation ER; PE; Respiratory : Negative for: Respiratory Distress Clinical Impression: Acute on chronic congestive heart failure, Altered mental status Admission order: Diagnoses include: TIA versus Seizure H and P: includes: PMH: Acute on Chronic Left Systolic CHF Assessment: (1) Altered mental status : ? TIA Status: Acute (2) COPD exacerbation Status: Acute Priority: High (3) Essential (primary) HTN Status: Acute (4) Left bundle branch block (LBBB) Status: Acute (5) Atrial fibrillation Status: Chronic -digoxin The patient's Clinical Indicators include: --- Query created by: Aileen Payne on 11/07/2018 10:06 AM Electronically signed by: Rory Marie MD 11/08/2018 7:05 AM
[2018-11-08] MEDS: Ipratropium 0.02% Inhal Soln (0.5 mg/2.5 ml) UD IH SCH ×4 (07:53→19:01)
[2018-11-08] MEDS: Digoxin 250 mcg (0.25 mg) Tab PO SCH (09:01)
[2018-11-08 09:02] VITALS: PULSE 120
[2018-11-08] MEDS: guaiFENesin 600 mg ER Tab PO SCH ×2 (09:02→20:39)
--- NOTE | 2018-11-08 10:37 | CP.PCM.PN ---
Subjective - Date & Time of Evaluation Date of Evaluation: 11/08/18 Time of Evaluation: 10:00 - Subjective Subjective: doing well no complaints awake alert has been accepted in Acute rehab Objective - Vital Signs/Intake and Output Vital Signs (last 24 hours): Temp Pulse Resp BP Pulse Ox 97.8 F 120 H 18 106/64 95 11/08/18 07:54 11/08/18 09:01 11/08/18 09:00 11/08/18 09:01 11/08/18 09:00 - Medications Medications: Current Medications Aspirin (Aspirin Chewable) 81 mg PO DAILY [facility] Last Admin: 11/08/18 09:00 Dose: 81 mg Atorvastatin Calcium (Lipitor) 10 mg PO DAILY [facility] Last Admin: 11/08/18 09:01 Dose: 10 mg Digoxin (Lanoxin) 0.25 mg PO DAILY [facility] Last Admin: 11/08/18 09:01 Dose: 0.25 mg Diltiazem HCl (Cardizem) 30 mg PO Q8@0100,0900,1700 [facility] Last Admin: 11/08/18 09:00 Dose: 30 mg Famotidine (Pepcid) 20 mg PO BID [facility] Last Admin: 11/08/18 09:02 Dose: 20 mg Guaifenesin (Mucinex La) 600 mg PO Q12 [facility] Last Admin: 11/08/18 09:02 Dose: 600 mg Ipratropium [place] (Atrovent) 0.5 mg IH RQID [facility] Last Admin: 11/08/18 07:53 Dose: 0.5 mg Levalbuterol HCl (Xopenex) 0.63 mg INH RQ4 PRN PRN Reason: Shortness of Breath Last Admin: 11/07/18 05:09 Dose: 0.63 mg Levetiracetam (Keppra) 500 mg PO BID [facility] Last Admin: 11/08/18 09:01 Dose: 500 mg Metoprolol Tartrate (Lopressor) 50 mg PO BID [facility] Last Admin: 11/08/18 09:01 Dose: 50 mg Rivaroxaban (Xarelto) 20 mg PO DIN [facility]; Protocol Last Admin: 11/07/18 17:01 Dose: 20 mg - Labs Labs: 11/06/18 09:05 11/06/18 09:05 PT 13.0 Seconds (9.8-13.1) 11/06/18 09:05 INR 1.1 11/06/18 09:05 APTT 29.6 Seconds (25.6-37.1) 11/02/18 15:48 Assessment and Plan (1) Altered mental status Status: Acute (2) COPD exacerbation Status: Acute (3) Essential (primary) hypertension Status: Acute (4) Left bundle branch block (LBBB) Status: Acute (5) Atrial fibrillation Status: Chronic
--- NOTE | 2018-11-08 15:15 | CP.PCM.CON ---
History of Present Illness - History of Present Illness History of Present Illness: [facility] Dr.Farkas Dr.Arcot Dr.Turkell-Parrella Dr.Liff [facility] MSNA,AGNP-BC, [employer] Mr.Robert Escalona is a 78 year old male patient with a PmHx significant for atrial fibrillation, chronic LBBB,CHF, COPD, HTN, bladder CA, smoking 120 pack/year PmSx history significant for bladder resection 2015 and 2016 was transferred to the ED from the TCU after stroke code was called. Pt was observed as "sluggish then unresponsive." CT head with no acute findings at that time. All symptoms had resolved. On 11/04/18 head/neck CTA estimated 60% left proximal ICA, severe high-grade stenosis probably greater than 90+% at the origin of the right ICA. significant calcified atherosclerotic plaque both carorid siphons with moderate to fairly significant stenotic changes. Pt denies headache, visiual changes, numbness,weakness or difficulty with speech at this time. Review of Systems - Constitutional Constitutional: As Per HPI Past Patient History - Past Medical History & Family History Past Medical History?: Yes - Past Social History Smoking Status: Heavy Smoker > 10 Cigarettes Daily (120 pack/year) Alcohol: None Drugs: Denies - CARDIAC Hx Atrial Fibrillation: Yes - PULMONARY Hx Respiratory Disorders: Yes - NEUROLOGICAL Hx Neurological Disorder: Yes - HEENT Hx HEENT Problems: No - RENAL Hx Chronic Kidney Disease: Yes - ENDOCRINE/METABOLIC Hx Endocrine Disorders: No - HEMATOLOGICAL/ONCOLOGICAL Hx Blood Disorders: Yes - INTEGUMENTARY Hx Dermatological Problems: No - MUSCULOSKELETAL/RHEUMATOLOGICAL Hx Musculoskeletal Disorders: No - GASTROINTESTINAL Hx Gastrointestinal Disorders: No - GENITOURINARY/GYNECOLOGICAL Hx Genitourinary Disorders: Yes Hx Bladder Cancer: Yes (resection done 2015) - PSYCHIATRIC Hx Psychophysiologic Disorder: No Hx Substance Use: No - SURGICAL HISTORY Other/Comment: TURBT - ANESTHESIA Hx Anesthesia: Yes Hx Anesthesia Reactions: No Hx Malignant Hyperthermia: No Meds Home Medications: Home Medication List Medication Instructions Recorded Confirmed Type Aspirin [Aspirin Chewable] 81 mg PO DAILY chew 11/08/18 Rx Atorvastatin [Lipitor] 10 mg PO DAILY tab 11/08/18 Rx Famotidine [Pepcid] 20 mg PO BID tab 11/08/18 Rx Metoprolol Tartrate [Lopressor] 50 mg PO BID tab 11/08/18 Rx diltiaZEM [Cardizem] 30 mg PO Q8@0100,0900,1700 tab 11/08/18 Rx levETIRAcetam [Keppra] 500 mg PO BID tab 11/08/18 Rx Allergies/Adverse Reactions: Allergies Allergy/AdvReac Type Severity Reaction Status Date / Time No Known Allergies Allergy Verified 10/31/18 17:09 - Medications Medications: Current Medications Aspirin (Aspirin Chewable) 81 mg PO DAILY [facility] Last Admin: 11/08/18 09:00 Dose: 81 mg Atorvastatin Calcium (Lipitor) 10 mg PO DAILY [facility] Last Admin: 11/08/18 09:01 Dose: 10 mg Digoxin (Lanoxin) 0.25 mg PO DAILY [facility] Last Admin: 11/08/18 09:01 Dose: 0.25 mg Diltiazem HCl (Cardizem) 30 mg PO Q8@0100,0900,1700 [facility] Last Admin: 11/08/18 09:00 Dose: 30 mg Famotidine (Pepcid) 20 mg PO BID [facility] Last Admin: 11/08/18 09:02 Dose: 20 mg Guaifenesin (Mucinex La) 600 mg PO Q12 [facility] Last Admin: 11/08/18 09:02 Dose: 600 mg Ipratropium [place] (Atrovent) 0.5 mg IH RQID [facility] Last Admin: 11/08/18 11:22 Dose: 0.5 mg Levalbuterol HCl (Xopenex) 0.63 mg INH RQ4 PRN PRN Reason: Shortness of Breath Last Admin: 11/07/18 05:09 Dose: 0.63 mg Metoprolol Tartrate (Lopressor) 50 mg PO BID [facility] Last Admin: 11/08/18 09:01 Dose: 50 mg Rivaroxaban (Xarelto) 20 mg PO DIN [facility]; Protocol Last Admin: 11/07/18 17:01 Dose: 20 mg Physical Exam - Constitutional Appears: No Acute Distress - Head Exam Head Exam: ATRAUMATIC - Eye Exam Eye Exam: EOMI, Normal appearance Pupil Exam: NORMAL ACCOMODATION, PERRL - Rectal Exam Rectal Exam: Deferred - Neurological Exam Neurological exam: Alert, Oriented x3 - Psychiatric Exam Psychiatric exam: Normal Affect - Skin Skin Exam: Abrasion (skin tear noted right forearm) Results - Vital Signs Recent Vital Signs: Last Vital Signs Temp 97.5 F L 11/08/18 12:00 Pulse 66 11/08/18 12:00 Resp 18 11/08/18 12:00 BP 103/63 11/08/18 12:00 Pulse Ox 94 L 11/08/18 12:00 - Labs Result Diagrams: 11/06/18 09:05 11/06/18 09:05 Assessment & Plan - Assessment and Plan (Free Text) Assessment: NEUROLOGICAL ASSESSMENT; General: awake, sitting up in bed Mental Status: alert and oriented to person, place and time, following commands, regards on both sides Speech: no dysarthria, speech fluent Cranial Nerves: PERRL, BTT bilaterally, EOMI, no facial asymmetry, tongue midlin e Motor: 5/5 left and right U/L extremities Sensory: intact bilaterally Coordination: [id number] no dysmetria Gait: deferred Mr. Escalona is a 78 year old male admitted for chronic acute CHF became sluggish/unresponsive in TCU, stroke code called transferred to ER, not a candidate for TPA, symptoms resolved. Head/neck CTA estimated 60% left proximal ICA, severe high grade stenosis probably greater than 90+% at origin of the right ICA. Pt remains asymptomatic with NIHSS 0 neuro exam normal. Plan: 1-may consider increase in dose of lipitor form 10mg 2-imaging reviewed consider DCA prior to discharge 3-PT/OT 4-If we can be of further assistance please contact [phone] Consult 45 min spent on assessment and plan
[2018-11-08 20:04] VITALS: BP 113/77; PULSE 80; TEMP 97.4; O2SAT 95
== END 2018-11-08 20:45 | DRG 65 ==
LOC: H.ER 15:20 → H.ERHOLD 16:47 → H.TEL 18:31
PROVIDERS: ADMIT Internal Medicine Cardiovascular Disease; ATTEND Internal Medicine Cardiovascular Disease
DX: I63.89 Other cerebral infarction (principal); J44.1 Chronic obstructive pulmonary disease with (acute) exacerbation; I13.0 Hypertensive heart and chronic kidney disease with heart failure and stage 1 through stage 4 chronic kidney disease, or unspecified chronic kidney disease; I50.22 Chronic systolic (congestive) heart failure; I48.2 Chronic atrial fibrillation; R47.01 Aphasia; I44.7 Left bundle-branch block, unspecified; Z85.51 Personal history of malignant neoplasm of bladder; F17.210 Nicotine dependence, cigarettes, uncomplicated; N18.9 Chronic kidney disease, unspecified; Z79.82 Long term (current) use of aspirin; R47.1 Dysarthria and anarthria; R29.700 NIHSS score 0

== ENCOUNTER 2018-11-29 17:04 | Inpatient (IN) | payer MEDICARE ==
--- NOTE | 2018-11-29 17:21 | ED PDOC ---
HPI: SOB/CHF/COPD Time Seen by Provider: 11/29/18 17:06 Chief Complaint (Nursing): Respiratory Distress History Per: Patient, Other Onset/Duration Of Symptoms: Days (1) Current Symptoms Are (Timing): Still Present Severity: Mild Additional Complaint(s): Transferred from rehab for hypoxemia noted on pulse oximetry. Subsequent ABG revealed hypoxemia. Pt denies chest pain or SOB. Has congestion and cough, but pt states is not new. Rehab staff noted increasing weakness on left side with h/o old CVA. Pt denies headache or perceived new weakness. Past Medical History - Medical History PMH: Atrial Fibrillation, Cardia Arrhythmia, CHF, COPD, CVA, HTN, Pneumonia (childhood), Chronic Kidney Disease Denies: Alzheimer's Disease, Anemia, Asthma, Bronchitis, CAD, Dementia, HIV, Hypercholesterolemia, Migraine, Mitral Valve Prolapse, Multiple Sclerosis, Parkinson's Disease, Peripheral Edema, Pulmonary Embolism, Seizures, Sickle Cell Disease, Sleep Apnea (brother from sleep apnea), TIA - Surgical History Surgical History: Denies: Pacemaker - Family History Family History: States: Unknown Family Hx - Home Medications Home Medications: Ambulatory Orders Medication Instructions Recorded Digoxin [Lanoxin] 0.25 mg PO DAILY tab 10/07/18 Ipratropium 0.02% [Atrovent] 0.5 mg IH RQID neb 10/07/18 guaiFENesin [Mucinex LA] 600 mg PO Q12 10/11/18 Levalbuterol [Xopenex] 0.63 mg INH RQ4 PRN neb 10/24/18 Famotidine [Pepcid] 20 mg PO BID 11/02/18 Aspirin [Aspirin Chewable] 81 mg PO DAILY chew 11/08/18 diltiaZEM [Cardizem] 30 mg PO Q8@0100,0900,1700 tab 11/08/18 Atorvastatin [Lipitor] 10 mg PO HS 11/29/18 Bacitracin OINT 1 appl TOP BID 11/29/18 Docusate [Colace] 100 mg PO BID 11/29/18 Magnesium Hydroxide [Milk Of 30 ml PO DAILY PRN 11/29/18 Magnesia] Multimineral/Multivitamin 1 tab PO DAILY 11/29/18 [Therapeutic-M Tab] - Allergies Allergies/Adverse Reactions: Allergies Allergy/AdvReac Type Severity Reaction Status Date / Time No Known Allergies Allergy Verified 11/08/18 21:20 Review of Systems ROS Statement: Except As Marked, All Systems Reviewed And Found Negative Respiratory: Positive for: Shortness of Breath Physical Exam - Reviewed Nursing Documentation Reviewed: Yes Vital Signs Reviewed: Yes - Physical Exam Appears: Positive for: Non-toxic, No Acute Distress Head Exam: Positive for: ATRAUMATIC, NORMAL INSPECTION, NORMOCEPHALIC Skin: Positive for: Normal Color, Warm, DRY Eye Exam: Positive for: EOMI, Normal appearance, PERRL ENT: Positive for: Normal ENT Inspection Neck: Positive for: Normal, Painless ROM Cardiovascular/Chest: Positive for: Tachycardia, Irregularly Irregular Respiratory: Positive for: Rhonchi. Negative for: Wheezing, Respiratory Distress Gastrointestinal/Abdominal: Positive for: Normal Exam, Soft Back: Positive for: Normal Inspection Extremity: Positive for: Normal ROM Neurological/Psych: Positive for: Awake, Alert, Normal Tone - Laboratory Results Result Diagrams: 11/29/18 17:59 - Critical Care Total Time (In Min): 45 Documented Critical Care: Time excludes all time spent performint seperately billable procedures Medical Decision Making Medical Decision Making: EKG reveals afib rate 95-100 with LLBB old. Will holdCardizem as rate appaers to be better controlled. CXR reveals pleural effusion on right which appears more pronounced than CXR on 11/21. Will tx with Lasix. Pt does not have fever and WBC is not elevated, does not appear to be new pneumonia Disposition - Clinical Impression Clinical Impression: Atrial fibrillation with controlled ventricular rate, Pleural effusion - Patient ED Disposition Is Patient to be Admitted: Yes - Disposition Disposition Time: 18:26 Condition: FAIR Forms: [place] [employer] ([place]) - Pt Status Changed To: Hospital Disposition Of: Inpatient - Admit Certification Admit to Inpatient:: After my assessment, the patient will require hospitalization for at least two midnights. This is because of the severity of symptoms shown, intensity of services needed, and/or the medical risk in this patient being treated as an outpatient. - POA Present On Arrival: None
--- NOTE | 2018-11-29 18:03 | CT ---
Date of service: 11/29/2018 PROCEDURE: CT HEAD WITHOUT CONTRAST. HISTORY: r/o bleed COMPARISON: Noncontrast head CT performed 11/06/18 TECHNIQUE: Axial computed tomography images were obtained through the head/brain without intravenous contrast. Radiation dose: Total exam DLP = 793.21 mGy-cm. This CT exam was performed using one or more of the following dose reduction techniques: Automated exposure control, adjustment of the mA and/or kV according to patient size, and/or use of iterative reconstruction technique. FINDINGS: HEMORRHAGE: No intracranial hemorrhage. BRAIN: Diffuse atrophy with prominence of the ventricles and sulci noted. No mass effect or edema. Intracranial atherosclerosis. Moderate scattered white matter hypodensities, which are nonspecific, but often seen with chronic microvascular ischemic disease. 5 mm right lacunar infarct appears chronic. Encephalomalacia in the left frontal lobe. Please note that MRI with diffusion imaging is more sensitive in the detection of acute ischemic event. VENTRICLES: No hydrocephalus. CALVARIUM: Unremarkable. PARANASAL SINUSES: Partial opacification of bilateral sphenoid sinuses and partially imaged left maxillary sinus. MASTOID AIR CELLS: Unremarkable as visualized. No inflammatory changes. OTHER FINDINGS: None. IMPRESSION: Left frontal encephalomalacia. Moderate nonspecific white matter changes. 5 mm right lobe for infarct appears chronic.
[2018-11-29 18:11] LABS: BASO % 0.2 % (0.0-2.0); HEMOGLOBIN 12.3 g/dL (12.0-18.0); LYMPH # 0.7 K/uL (1.0-4.3); MEAN CELL VOLUME 101.9 fl (80.0-94.0); MEAN CORPUSCULAR HEMOGLOBIN 33.8 pg (27.0-31.0); MEAN CORPUSCULAR HGB CONC 33.1 g/dL (33.0-37.0); MEAN PLATELET VOLUME 7.4 fl (7.2-11.7); MONO # 0.9 K/uL (0.0-0.8); MONO % 9.1 % (0.0-10.0); NEUT # 8.6 K/uL (1.8-7.0); NEUT % 83.7 % (50.0-75.0); NRBC % 0.2 % (0.0-0.0); PLATELET COUNT 361 K/uL (130-400); RBC 3.63 Mil/uL (4.40-5.90); RED CELL DISTRIBUTION WIDTH 15.5 % (11.5-14.5); WHITE BLOOD COUNT 10.3 K/uL (4.8-10.8)
--- NOTE | 2018-11-29 18:36 | RAD ---
HISTORY: cough COMPARISON: Chest x-ray performed 11/21/18 TECHNIQUE: Chest, one view. FINDINGS: Examination limited by habitus. LUNGS: Chronic appearing interstitial markings; mild superimposed infection or edema not excluded. Small right pleural effusion and/or consolidation. No definite pneumothorax. CARDIOVASCULAR: Cardiomegaly. Ectatic aorta. Dense atherosclerotic calcifications of the aorta. OSSEOUS STRUCTURES: Osseous demineralization. Degenerative changes. VISUALIZED UPPER ABDOMEN: Elevation of the right hemidiaphragm. OTHER FINDINGS: None. IMPRESSION: Chronic appearing interstitial markings; mild superimposed infection or edema not excluded. Small right pleural effusion and/or consolidation. Cardiomegaly. Ectatic aorta. Dense atherosclerotic calcifications.
[2018-11-29 18:43] LABS: ALB/GLOB RATIO 0.9 (1.0-2.1); ALBUMIN 3.2 g/dL (3.5-5.0); ALT/SGPT 52 U/L (21-72); AST/SGOT 25 U/L (17-59); BLOOD UREA NITROGEN 21 mg/dl (9-20); CALCIUM 8.7 mg/dL (8.4-10.2); GFR NON-AFRICAN AMERICAN > 60
[2018-11-29 18:47] LABS: B-TYPE NATRIURETIC PEPTIDE 23900 pg/ml (0-900)
[2018-11-29 19:33] LABS: BANDS 2 % (0-2); EOSINOPHIL 1 % (0-7); LYMPHOCYTE 10 % (20-50); MONOCYTE 8 % (0-10); NEUTROPHIL 79 % (42-75); PLATELET ESTIMATE NORMAL (NORMAL); TOTAL CELLS COUNTED 100
[2018-11-29 19:34] LABS: ANISOCYTOSIS SLIGHT
--- NOTE | 2018-11-29 20:45 | CP.PCM.CON ---
History of Present Illness - History of Present Illness History of Present Illness: CC/Reason for ICU: Resp failure, possible new R sided CVA HPI: This is a 78 y/o patient who was admitted in Sep 2018 for COPD exac and subsequently sent to TCU from where he was readmitted 11/03/2018 for L CVA. He was back in TCU for rehab but then transferred to the ER this afternoon for persistent hypoxia and possibly increasing L sided weakness. In ED he had NIHSS done which was 5. He was not deemed appropriate for TPA, however was sent for further w/u with MRI. At MRI he became ashen, lethargic, and dropped O2 sat, so he was brought back without the study being done, and he was placed on BiPAP and upgraded to ICU. MHx: COPD, HTN, A fib, CHF with EF 15 %, prior bladder cancer SHx: Bladder cancer surgery Allergies: NKDA Medications: Per med rec Social Hx: Patient cannot provide due to AMS/bipap Family Hx: Patient cannot provide due to AMS/bipap Review of Systems - Review of Systems Systems not reviewed;Unavailable: Acuity of Condition, Altered Mental Status, Other (Bipap) Past Patient History - Infectious Disease Hx of Infectious Diseases: None - Past Medical History & Family History Past Medical History?: Yes - Past Social History Smoking Status: Heavy Smoker > 10 Cigarettes Daily - CARDIAC Hx Atrial Fibrillation: Yes Hx Cardia Arrhythmia: Yes Hx Congestive Heart Failure: Yes Hx Hypercholesterolemia: No Hx Hypertension: Yes Hx Mitral Valve Prolapse: No Hx Pacemaker: No Hx Peripheral Edema: No - PULMONARY Hx Asthma: No Hx Bronchitis: No Hx Chronic Obstructive Pulmonary Disease (COPD): Yes Hx Pneumonia: Yes (childhood) Hx Pulmonary Embolism: No Hx Sleep Apnea: No (brother from sleep apnea) - NEUROLOGICAL Hx Alzheimer's Disease: No Hx Dementia: No Hx Migraine: No Hx Multiple Sclerosis: No Hx Parkinson's Disease: No Hx Seizures: No Hx Transient Ischemic Attacks (TIA): No - HEENT Hx HEENT Problems: No - RENAL Hx Chronic Kidney Disease: Yes - ENDOCRINE/METABOLIC Hx Endocrine Disorders: No - HEMATOLOGICAL/ONCOLOGICAL Hx Anemia: No Hx Human Immunodeficiency Virus (HIV): No Hx Sickle Cell Disease: No - INTEGUMENTARY Hx Dermatological Problems: No - MUSCULOSKELETAL/RHEUMATOLOGICAL Hx Falls: Yes ((Patient did not recall number of falls in the last 3 months) - GASTROINTESTINAL Hx Gastrointestinal Disorders: No - GENITOURINARY/GYNECOLOGICAL Hx Genitourinary Disorders: Yes Hx Bladder Cancer: Yes (resection done 2015 and 2016) - PSYCHIATRIC Hx Psychophysiologic Disorder: No Hx Substance Use: No - SURGICAL HISTORY Hx Surgeries: Yes Other/Comment: - Bladder resection (hx: bladder CA) [address] Cat - ANESTHESIA Hx Anesthesia: Yes Hx Anesthesia Reactions: No Hx Malignant Hyperthermia: No Meds Allergies/Adverse Reactions: Allergies Allergy/AdvReac Type Severity Reaction Status Date / Time No Known Allergies Allergy Verified 11/08/18 21:20 - Medications Medications: Current Medications Aspirin (Aspirin Chewable) 81 mg PO DAILY [facility] Atorvastatin Calcium (Lipitor) 10 mg PO HS [facility] Bacitracin (Bacitracin Oint) 1 applic TOP BID [facility] Digoxin (Lanoxin) 0.25 mg PO DAILY [facility] Enoxaparin Sodium (Lovenox) 40 mg SC DAILY [facility]; Protocol Famotidine (Pepcid) 20 mg PO BID [facility] Ipratropium [place] (Atrovent) 0.5 mg IH RQID [facility] Levalbuterol HCl (Xopenex) 0.63 mg INH RQ4 PRN PRN Reason: Shortness of Breath Ondansetron HCl (Zofran Inj) 4 mg IVP Q6H PRN PRN Reason: Nausea/Vomiting Physical Exam - Constitutional Appears: Confused, Chronically Ill - Head Exam Head Exam: ATRAUMATIC, NORMOCEPHALIC - Eye Exam Eye Exam: EOMI, PERRL - ENT Exam ENT Exam: Mucous Membranes Moist - Neck Exam Neck exam: Positive for: Full Rom - Respiratory Exam Respiratory Exam: Decreased Breath Sounds, Rhonchi, Wheezes, Respiratory Distress - Cardiovascular Exam Cardiovascular Exam: Tachycardia, Irregular Rhythm - GI/Abdominal Exam GI & Abdominal Exam: Normal Bowel Sounds, Soft - Extremities Exam Extremities exam: Positive for: full ROM, pedal edema - Neurological Exam Additional comments: arousable, but confused - Skin Skin Exam: Dry, Warm Results - Vital Signs Recent Vital Signs: Last Vital Signs Temp 97.6 F 11/29/18 17:15 Pulse 89 11/29/18 20:35 Resp 14 11/29/18 20:35 BP 131/98 H 11/29/18 20:35 Pulse Ox 94 L 11/29/18 20:35 - Labs Result Diagrams: 11/29/18 17:59 11/29/18 17:59 Labs: Laboratory Results - last 24 hr 11/29/18 11/29/18 17:59 17:59 WBC 10.3 RBC 3.63 L Hgb 12.3 Hct 37.0 MCV 101.9 H MCH 33.8 H MCHC 33.1 RDW 15.5 H Plt Count 361 MPV 7.4 Neut % (Auto) 83.7 H Lymph % (Auto) 7.0 L [place] % (Auto) 9.1 Eos % (Auto) 0.0 Baso % (Auto) 0.2 Neut # (Auto) 8.6 H Lymph # (Auto) 0.7 L [place] # (Auto) 0.9 H Eos # (Auto) 0.0 Baso # (Auto) 0.0 Neutrophils % (Manual) 79 H Band Neutrophils % 2 Lymphocytes % (Manual) 10 L Monocytes % (Manual) 8 Eosinophils % (Manual) 1 Platelet Estimate Normal Anisocytosis (manual) Slight Macrocytosis (manual) Slight Sodium 133 Potassium 5.0 Chloride 91 L Carbon Dioxide 30 Anion Gap 17 BUN 21 H Creatinine 0.4 L Est GFR ( Amer) > 60 Est GFR (Non-Af Amer) > 60 Random Glucose 137 H Calcium 8.7 Total Bilirubin 0.4 AST 25 ALT 52 Alkaline Phosphatase 110 Troponin I 0.0340 NT-Pro-B Natriuret Pep 01915 H Total Protein 6.7 Albumin 3.2 L Globulin 3.5 Albumin/Globulin Ratio 0.9 L - EKG Data EKG Interpreted by: Myself - EKG Data EKG comments: a fib with aberrant conduction, LBBB chronic - Imaging and Cardiology Chest x-ray Status: Image reviewed by me (R sided pleural effusion) CT scan - head Status: Image reviewed by me, Report reviewed by me (5 mm R lob old infarct, frontal lobe encephalomalacia) Assessment & Plan (1) Pleural effusion Assessment and Plan: Pleural effusion likely 2/2 to systolic CHF -Admit ICU -Cont Bipap -ABG this evening after 1-2 hours on Bipap -Patient received 1 dose IV Lasix 40 mg with almost 700 cc UOP thus far; Will monitor for now as do not want to risk dropping BP too much in this setting of possible CVA; re-assess and re-dose in AM as needed -Defer possible thoracentesis to primary team Status: Acute (2) Acute on chronic congestive heart failure Status: Acute Priority: High (3) CVA (cerebral vascular accident) Assessment and Plan: Patient with report of increased L sided weakness. Also confused. -Admit to ICU -Serial trops -Cont ASA -Cont Statin -MRI possibly in AM when patient is more stable and cooperative -Neuro consult in AM Status: Acute (4) Altered mental status Assessment and Plan: Possible 2/2 to respiratory failure and/or CVA, mgmt as above. Status: Acute (5) Atrial fibrillation with rapid ventricular response Assessment and Plan: RVR to 120-130s -Cont digoxin -Hold diltiazem for right now so as to let BP run higher given possible CVA; if rate is persistently uncontrolled will give 1x dose of IV metoprolol or diltiazem Status: Acute Priority: High (6) DVT prophylaxis Assessment and Plan: SQ lovenox; hold in AM if planning for thoracentesis Status: Acute
[2018-11-29 23:45] LABS: ABG ALLEN TEST YES; ARTERIAL BLOOD GAS HCO3 33.5 mmol/L (21-28); ARTERIAL BLOOD GAS HEMOGLOBIN 12.6 g/dL (11.7-17.4); ARTERIAL BLOOD GAS O2 CAPACITY 17.2 mL/dL (16-24); ARTERIAL BLOOD GAS O2 CONTENT 17.2 ML/dL (15-23); ARTERIAL BLOOD GAS O2 SAT 99.9 % (95-98); ARTERIAL BLOOD GAS PCO2 58 mm/Hg (35-45); ARTERIAL BLOOD GAS PH 7.42 (7.35-7.45); ARTERIAL BLOOD GAS PO2 115 mm/Hg (80-100); ARTERIAL BLOOD GAS TCO2 39.4 mmol/L (22-28)
[2018-11-30] MEDS ORDERED: Chlorhexidine Gluconate 1 APPL/PKT TP ONE (03:04)
[2018-11-30] MEDS: Levalbuterol 0.63 MG/3 ML Inhal Soln UD INH PRN ×2 (04:01→19:59)
[2018-11-30 05:47] LABS: HEMOGLOBIN 12.4 g/dL (12.0-18.0); MEAN CELL VOLUME 101.7 fl (80.0-94.0); MEAN CORPUSCULAR HEMOGLOBIN 33.6 pg (27.0-31.0); RBC 3.71 Mil/uL (4.40-5.90); RED CELL DISTRIBUTION WIDTH 15.2 % (11.5-14.5)
[2018-11-30 05:51] LABS: BLOOD UREA NITROGEN 20 mg/dl (9-20); CALCIUM 8.7 mg/dL (8.4-10.2); GFR NON-AFRICAN AMERICAN > 60
--- NOTE | 2018-11-30 07:10 | CP.PCM.HP ---
History of Present Illness - History of Present Illness History of Present Illness: 78 y/o male transferred to ICU from Acute rehab pt had developed acute respiratory distress and Left sided weakness Pt has been in Atrial Fibrillation but became tachycardic BNP: 23,900 PMH: Atrial Fibrillation CA Bladder w/ resection [address] Cat and again in 09/2016 @ [place] Hypertension COPD Continues to smoke [facility]BB[facility] Acute on Chronic Left Systolic CHF Present on Admission - Present on Admission Any Indicators Present on Admission: Yes Decubitus Ulcer Present: Yes Decubitus Ulcer Location: sacrum Decubitus Ulcer Stage: I Review of Systems - Review of Systems Systems not reviewed;Unavailable: Respiratory Distress Past Patient History - Infectious Disease Hx of Infectious Diseases: None - Past Medical History & Family History Past Medical History?: Yes - Past Social History Smoking Status: Heavy Smoker > 10 Cigarettes Daily - CARDIAC Hx Cardiac Disorders: Yes - PULMONARY Hx Respiratory Disorders: Yes - NEUROLOGICAL Hx Neurological Disorder: Yes - HEENT Hx HEENT Problems: No - RENAL Hx Chronic Kidney Disease: Yes - ENDOCRINE/METABOLIC Hx Endocrine Disorders: No - HEMATOLOGICAL/ONCOLOGICAL Hx Blood Disorders: Yes - INTEGUMENTARY Hx Dermatological Problems: No - MUSCULOSKELETAL/RHEUMATOLOGICAL Hx Musculoskeletal Disorders: Yes - GASTROINTESTINAL Hx Gastrointestinal Disorders: No - GENITOURINARY/GYNECOLOGICAL Hx Genitourinary Disorders: Yes - PSYCHIATRIC Hx Psychophysiologic Disorder: No - SURGICAL HISTORY Hx Surgeries: Yes Other/Comment: - Bladder resection (hx: bladder CA) [address] Cat - ANESTHESIA Hx Anesthesia: Yes Hx Anesthesia Reactions: No Hx Malignant Hyperthermia: No Meds Allergies/Adverse Reactions: Allergies Allergy/AdvReac Type Severity Reaction Status Date / Time No Known Allergies Allergy Verified 11/08/18 21:20 Physical Exam - Constitutional Appears: In Acute Distress, Confused - Respiratory Exam Respiratory Exam: Decreased Breath Sounds - Cardiovascular Exam Cardiovascular Exam: Irregular Rhythm Results - Vital Signs Recent Vital Signs: Last Vital Signs Temp 98.8 F 11/30/18 04:00 Pulse 95 H 11/30/18 04:02 Resp 21 11/30/18 04:00 BP 117/87 11/30/18 04:00 Pulse Ox 98 11/30/18 04:00 - Labs Result Diagrams: 12/03/18 04:30 12/03/18 04:30 Labs: Laboratory Results - last 24 hr 11/29/18 11/29/18 11/29/18 17:59 17:59 23:32 WBC 10.3 RBC 3.63 L Hgb 12.3 Hct 37.0 MCV 101.9 H MCH 33.8 H MCHC 33.1 RDW 15.5 H Plt Count 361 MPV 7.4 Neut % (Auto) 83.7 H Lymph % (Auto) 7.0 L [place] % (Auto) 9.1 Eos % (Auto) 0.0 Baso % (Auto) 0.2 Neut # (Auto) 8.6 H Lymph # (Auto) 0.7 L [place] # (Auto) 0.9 H Eos # (Auto) 0.0 Baso # (Auto) 0.0 Neutrophils % (Manual) 79 H Band Neutrophils % 2 Lymphocytes % (Manual) 10 L Monocytes % (Manual) 8 Eosinophils % (Manual) 1 Platelet Estimate Normal Anisocytosis (manual) Slight Macrocytosis (manual) Slight pCO2 58 H pO2 115 H HCO3 33.5 H ABG pH 7.42 ABG Total CO2 39.4 H ABG O2 Saturation 99.9 H ABG O2 Content 17.2 ABG Base Excess 11.0 H ABG Hemoglobin 12.6 ABG Carboxyhemoglobin 2.5 H POC ABG HHb (Measured) 0.1 ABG Methemoglobin 1.2 ABG O2 Capacity 17.2 Sascha Test Yes A-a O2 Difference 98.0 Hgb O2 Saturation 96.2 Mechanical Rate 14 FiO2 40.0 Inspiratory BiPAP 12 Expiratory BiPAP 6 Sodium 133 Potassium 5.0 Chloride 91 L Carbon Dioxide 30 Anion Gap 17 BUN 21 H Creatinine 0.4 L Est GFR ( Amer) > 60 Est GFR (Non-Af Amer) > 60 Random Glucose 137 H Lactic Acid Calcium 8.7 Total Bilirubin 0.4 AST 25 ALT 52 Alkaline Phosphatase 110 Troponin I 0.0340 NT-Pro-B Natriuret Pep 48156 H Total Protein 6.7 Albumin 3.2 L Globulin 3.5 Albumin/Globulin Ratio 0.9 L 11/30/18 11/30/18 11/30/18 05:05 05:05 05:05 WBC 11.0 H RBC 3.71 L Hgb 12.4 Hct 37.7 MCV 101.7 H MCH 33.6 H MCHC 33.0 RDW 15.2 H Plt Count 369 MPV Neut % (Auto) Lymph % (Auto) [place] % (Auto) Eos % (Auto) Baso % (Auto) Neut # (Auto) Lymph # (Auto) [place] # (Auto) Eos # (Auto) Baso # (Auto) Neutrophils % (Manual) Band Neutrophils % Lymphocytes % (Manual) Monocytes % (Manual) Eosinophils % (Manual) Platelet Estimate Anisocytosis (manual) Macrocytosis (manual) pCO2 pO2 HCO3 ABG pH ABG Total CO2 ABG O2 Saturation ABG O2 Content ABG Base Excess ABG Hemoglobin ABG Carboxyhemoglobin POC ABG HHb (Measured) ABG Methemoglobin ABG O2 Capacity Sascha Test A-a O2 Difference Hgb O2 Saturation Mechanical Rate FiO2 Inspiratory BiPAP Expiratory BiPAP Sodium 135 Potassium 4.7 Chloride 91 L Carbon Dioxide 34 H Anion Gap 15 BUN 20 Creatinine 0.6 L Est GFR ( Amer) > 60 Est GFR (Non-Af Amer) > 60 Random Glucose 130 H Lactic Acid 1.4 Calcium 8.7 Total Bilirubin AST ALT Alkaline Phosphatase Troponin I 0.0480 NT-Pro-B Natriuret Pep Total Protein Albumin Globulin Albumin/Globulin Ratio Assessment & Plan (1) COPD exacerbation Status: Acute Priority: High (2) Acute on chronic systolic congestive heart failure Status: Acute (3) Altered mental status Status: Acute (4) Atrial fibrillation with rapid ventricular response Status: Acute Priority: High (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 - Date & Time Date: 11/30/18 Time: 07:16 Decision To Admit - Pt Status Changed To: Hospital Disposition Of: Inpatient - Admit Certification Admit to Inpatient:: After my assessment, the patient will require hospitalization for at least two midnights. This is because of the severity of symptoms shown, intensity of services needed, and/or the medical risk in this patient being treated as an outpatient. - . Bed Request Type: Intensive Care Admitting Physician: Rory Marie
[2018-11-30] MEDS: Ipratropium 0.02% Inhal Soln (0.5 mg/2.5 ml) UD IH SCH ×4 (07:51→19:59)
[2018-11-30] MEDS ORDERED: Digoxin 250 mcg (0.25 mg) Tab PO SCH (09:00)
--- NOTE | 2018-11-30 09:01 | CARD ---
APPROVED REPORT Date of service: 11/29/2018 EKG Measurement Heart [id number] <Conclusion> Atrial fibrillation with premature ventricular or aberrantly conducted complexes Left bundle branch block Abnormal ECG
--- NOTE | 2018-11-30 09:06 | CP.PCM.CON ---
History of Present Illness - History of Present Illness History of Present Illness: All this 73-year-old male is well-known to me from previous hospitalization. He is known to suffer from chronic obstructive pulmonary disease and has been hospitalized with atrial fibrillation and CVA as well. He was in acute rehabil itation when he began to have oxygen desaturations with increased confusion and increased weakness in the left upper extremity at which time he was transferred to the emergency department and readmitted to acute medicine. A chest x-ray done at this time shows increased density at the right base suggesting possible pleural effusion and potential underlying pulmonary infiltrate as well as retrocardiac density and indistinct left hemidiaphragm possibly reflecting a similar process on that side. Past Patient History - Infectious Disease Hx of Infectious Diseases: None - Past Medical History & Family History Past Medical History?: Yes - Past Social History Smoking Status: Heavy Smoker > 10 Cigarettes Daily Alcohol: Social Drugs: Denies Home Situation {Lives}: Alone - CARDIAC Hx Atrial Fibrillation: Yes Hx Congestive Heart Failure: Yes - PULMONARY Hx Chronic Obstructive Pulmonary Disease (COPD): Yes Other/Comment: pleural effusion - NEUROLOGICAL HX Cerebrovascular Accident: Yes - HEENT Hx Macular Degeneration: Yes - RENAL Hx Chronic Kidney Disease: Yes - ENDOCRINE/METABOLIC Hx Endocrine Disorders: No - HEMATOLOGICAL/ONCOLOGICAL Hx Cancer: Yes (bladder) - INTEGUMENTARY Hx Dermatological Problems: No - MUSCULOSKELETAL/RHEUMATOLOGICAL Hx Arthritis: Yes - GASTROINTESTINAL Hx Gastrointestinal Disorders: No - GENITOURINARY/GYNECOLOGICAL Hx Bladder Cancer: Yes - PSYCHIATRIC Hx Psychophysiologic Disorder: No - SURGICAL HISTORY Hx Surgeries: Yes Other/Comment: - Bladder resection (hx: bladder CA) [address] Cat - ANESTHESIA Hx Anesthesia: Yes Hx Anesthesia Reactions: No Hx Malignant Hyperthermia: No Meds Allergies/Adverse Reactions: Allergies Allergy/AdvReac Type Severity Reaction Status Date / Time No Known Allergies Allergy Verified 11/08/18 21:20 - Medications Medications: Current Medications Aspirin (Aspirin Chewable) 81 mg PO DAILY [facility] Atorvastatin Calcium (Lipitor) 10 mg PO HS [facility] Last Admin: 11/29/18 22:52 Dose: Not Given Bacitracin (Bacitracin Oint) 1 applic TOP BID [facility] Digoxin (Lanoxin) 0.25 mg IVP DAILY [facility] Enoxaparin Sodium (Lovenox) 40 mg SC DAILY [facility]; Protocol Famotidine (Pepcid) 20 mg PO BID [facility] Ipratropium [place] (Atrovent) 0.5 mg IH RQID [facility] Last Admin: 11/30/18 07:51 Dose: 0.5 mg Levalbuterol HCl (Xopenex) 0.63 mg INH RQ4 PRN PRN Reason: Shortness of Breath Last Admin: 11/30/18 04:01 Dose: 0.63 mg Ondansetron HCl (Zofran Inj) 4 mg IVP Q6H PRN PRN Reason: Nausea/Vomiting Physical Exam - Additional Findings Additional findings: Awake, disheveled appearance, garbled speech which is difficult to understand. No palpable lymphadenopathy. Pharynx is pink and mucous membranes are moist. Neck is supple and trachea is midline. No dullness on chest percussion. Equal expansion. Breath sounds are well heard anteriorly with scattered rhonchi. Breath sounds are diminished posteriorly. No audible wheezing. Heart sounds are distantand the rhyth his irregular/tachycardic. Abdomen is soft, nontender with normal bowel sounds. There appears to be weakness of the left upper extremity. Results - Vital Signs Recent Vital Signs: Last Vital Signs Temp 99.5 F 11/30/18 08:00 Pulse 120 H 11/30/18 08:00 Resp 18 11/30/18 08:00 BP 134/100 H 11/30/18 08:00 Pulse Ox 95 11/30/18 08:00 - Labs Result Diagrams: 11/30/18 05:05 11/30/18 05:05 Labs: Laboratory Results - last 24 hr 11/29/18 11/29/18 11/29/18 17:59 17:59 23:32 WBC 10.3 RBC 3.63 L Hgb 12.3 Hct 37.0 MCV 101.9 H MCH 33.8 H MCHC 33.1 RDW 15.5 H Plt Count 361 MPV 7.4 Neut % (Auto) 83.7 H Lymph % (Auto) 7.0 L [place] % (Auto) 9.1 Eos % (Auto) 0.0 Baso % (Auto) 0.2 Neut # (Auto) 8.6 H Lymph # (Auto) 0.7 L [place] # (Auto) 0.9 H Eos # (Auto) 0.0 Baso # (Auto) 0.0 Neutrophils % (Manual) 79 H Band Neutrophils % 2 Lymphocytes % (Manual) 10 L Monocytes % (Manual) 8 Eosinophils % (Manual) 1 Platelet Estimate Normal Anisocytosis (manual) Slight Macrocytosis (manual) Slight pCO2 58 H pO2 115 H HCO3 33.5 H ABG pH 7.42 ABG Total CO2 39.4 H ABG O2 Saturation 99.9 H ABG O2 Content 17.2 ABG Base Excess 11.0 H ABG Hemoglobin 12.6 ABG Carboxyhemoglobin 2.5 H POC ABG HHb (Measured) 0.1 ABG Methemoglobin 1.2 ABG O2 Capacity 17.2 Sascha Test Yes A-a O2 Difference 98.0 Hgb O2 Saturation 96.2 Mechanical Rate 14 FiO2 40.0 Inspiratory BiPAP 12 Expiratory BiPAP 6 Sodium 133 Potassium 5.0 Chloride 91 L Carbon Dioxide 30 Anion Gap 17 BUN 21 H Creatinine 0.4 L Est GFR ( Amer) > 60 Est GFR (Non-Af Amer) > 60 Random Glucose 137 H Lactic Acid Calcium 8.7 Total Bilirubin 0.4 AST 25 ALT 52 Alkaline Phosphatase 110 Troponin I 0.0340 NT-Pro-B Natriuret Pep 65555 H Total Protein 6.7 Albumin 3.2 L Globulin 3.5 Albumin/Globulin Ratio 0.9 L 11/30/18 11/30/18 11/30/18 05:05 05:05 05:05 WBC 11.0 H RBC 3.71 L Hgb 12.4 Hct 37.7 MCV 101.7 H MCH 33.6 H MCHC 33.0 RDW 15.2 H Plt Count 369 MPV Neut % (Auto) Lymph % (Auto) [place] % (Auto) Eos % (Auto) Baso % (Auto) Neut # (Auto) Lymph # (Auto) [place] # (Auto) Eos # (Auto) Baso # (Auto) Neutrophils % (Manual) Band Neutrophils % Lymphocytes % (Manual) Monocytes % (Manual) Eosinophils % (Manual) Platelet Estimate Anisocytosis (manual) Macrocytosis (manual) pCO2 pO2 HCO3 ABG pH ABG Total CO2 ABG O2 Saturation ABG O2 Content ABG Base Excess ABG Hemoglobin ABG Carboxyhemoglobin POC ABG HHb (Measured) ABG Methemoglobin ABG O2 Capacity Sascha Test A-a O2 Difference Hgb O2 Saturation Mechanical Rate FiO2 Inspiratory BiPAP Expiratory BiPAP Sodium 135 Potassium 4.7 Chloride 91 L Carbon Dioxide 34 H Anion Gap 15 BUN 20 Creatinine 0.6 L Est GFR ( Amer) > 60 Est GFR (Non-Af Amer) > 60 Random Glucose 130 H Lactic Acid 1.4 Calcium 8.7 Total Bilirubin AST ALT Alkaline Phosphatase Troponin I 0.0480 NT-Pro-B Natriuret Pep Total Protein Albumin Globulin Albumin/Globulin Ratio Assessment & Plan (1) Pulmonary infiltrate Status: Acute Priority: High (2) Pleural effusion Status: Acute Priority: High (3) COPD exacerbation Status: Acute Priority: High (4) Chronic hypercapnic respiratory failure Status: Chronic Priority: High - Assessment and Plan (Free Text) Plan: We'll discuss plan with cardiology. Continue aerosol therapy. Supplemental oxygen to maintain SpO2 greater than 95%. - Date & Time Date: 11/30/18 Time: 09:04
[2018-11-30] MEDS: Digoxin 500 mcg/2ml (0.5 mg/2ml) Inj IVP SCH (09:21)
[2018-11-30] MEDS: Bacitracin OINT 15GM TOP SCH ×2 (09:23→18:01)
[2018-11-30] MEDS ORDERED: Hydrocortisone- 50 MG in Sodium Chloride 0.9% 100 ML IV SCH (10:00)
[2018-11-30] MEDS: Enoxaparin 40 mg Syringe SC SCH (12:53)
--- NOTE | 2018-11-30 16:54 | CP.PCM.CON ---
History of Present Illness - History of Present Illness History of Present Illness: Neurology consult dictated. In brief, Mr. Escalona had an [employer] called in rehab yesterday and was thought to have left sided weakness, transferred to ER. Code stroke was not called, and he was not a TPA candidate as the time of onset was not clear. He was evaluated and became severely hypoxic and developed respiratory distress, unable to get MRI BR[place]. Today in ICU he is in respiratory distress and quite anxious, edentulous. However, he is able to speak to me, name and repeat, and follow commands. I do not appreciate any weakness. A: 78 yr old male with possible TIA, severe respiratory distress. Plan: 1. MRI BR[place] when stable. 2. NO other neurological workup at this time. DR. Lawson Neurology Past Patient History - Infectious Disease Hx of Infectious Diseases: None - Past Medical History & Family History Past Medical History?: Yes - Past Social History Smoking Status: Heavy Smoker > 10 Cigarettes Daily Alcohol: Social Drugs: Denies Home Situation {Lives}: Alone - CARDIAC Hx Atrial Fibrillation: Yes Hx Congestive Heart Failure: Yes - PULMONARY Hx Chronic Obstructive Pulmonary Disease (COPD): Yes Other/Comment: pleural effusion - NEUROLOGICAL HX Cerebrovascular Accident: Yes - HEENT Hx Macular Degeneration: Yes - RENAL Hx Chronic Kidney Disease: Yes - ENDOCRINE/METABOLIC Hx Endocrine Disorders: No - HEMATOLOGICAL/ONCOLOGICAL Hx Cancer: Yes (bladder) - INTEGUMENTARY Hx Dermatological Problems: No - MUSCULOSKELETAL/RHEUMATOLOGICAL Hx Arthritis: Yes - GASTROINTESTINAL Hx Gastrointestinal Disorders: No - GENITOURINARY/GYNECOLOGICAL Hx Bladder Cancer: Yes - PSYCHIATRIC Hx Psychophysiologic Disorder: No - SURGICAL HISTORY Hx Surgeries: Yes Other/Comment: - Bladder resection (hx: bladder CA) [address] Cat - ANESTHESIA Hx Anesthesia: Yes Hx Anesthesia Reactions: No Hx Malignant Hyperthermia: No Meds Allergies/Adverse Reactions: Allergies Allergy/AdvReac Type Severity Reaction Status Date / Time No Known Allergies Allergy Verified 11/08/18 21:20 - Medications Medications: Current Medications Aspirin (Aspirin Chewable) 81 mg PO DAILY [facility] Last Admin: 11/30/18 14:06 Dose: 81 mg Atorvastatin Calcium (Lipitor) 10 mg PO HS [facility] Last Admin: 11/29/18 22:52 Dose: Not Given Bacitracin (Bacitracin Oint) 1 applic TOP BID [facility] Last Admin: 11/30/18 09:23 Dose: 1 applic Digoxin (Lanoxin) 0.25 mg IVP DAILY [facility] Last Admin: 11/30/18 09:21 Dose: 0.25 mg Enoxaparin Sodium (Lovenox) 40 mg SC DAILY [facility]; Protocol Last Admin: 11/30/18 12:53 Dose: 40 mg Famotidine (Pepcid) 20 mg PO BID [facility] Last Admin: 11/30/18 13:44 Dose: Not Given Hydrocortisone Sodium Succinate (Solu-Cortef) 50 mg IV Q12 [facility] Last Admin: 11/30/18 10:57 Dose: 50 mg Ipratropium [place] (Atrovent) 0.5 mg IH RQID [facility] Last Admin: 11/30/18 16:13 Dose: 0.5 mg Levalbuterol HCl (Xopenex) 0.63 mg INH RQ4 PRN PRN Reason: Shortness of Breath Last Admin: 11/30/18 04:01 Dose: 0.63 mg Metoprolol Tartrate (Lopressor) 50 mg PO Q12 [facility] Ondansetron HCl (Zofran Inj) 4 mg IVP Q6H PRN PRN Reason: Nausea/Vomiting Results - Vital Signs Recent Vital Signs: Last Vital Signs Temp 100.0 F H 11/30/18 16:00 Pulse 86 11/30/18 16:00 Resp 15 11/30/18 16:00 BP 128/68 11/30/18 16:00 Pulse Ox 93 L 11/30/18 16:00 - Labs Result Diagrams: 11/30/18 05:05 11/30/18 05:05 Labs: Laboratory Results - last 24 hr 11/29/18 11/29/18 11/29/18 17:59 17:59 23:32 WBC 10.3 RBC 3.63 L Hgb 12.3 Hct 37.0 MCV 101.9 H MCH 33.8 H MCHC 33.1 RDW 15.5 H Plt Count 361 MPV 7.4 Neut % (Auto) 83.7 H Lymph % (Auto) 7.0 L [place] % (Auto) 9.1 Eos % (Auto) 0.0 Baso % (Auto) 0.2 Neut # (Auto) 8.6 H Lymph # (Auto) 0.7 L [place] # (Auto) 0.9 H Eos # (Auto) 0.0 Baso # (Auto) 0.0 Neutrophils % (Manual) 79 H Band Neutrophils % 2 Lymphocytes % (Manual) 10 L Monocytes % (Manual) 8 Eosinophils % (Manual) 1 Platelet Estimate Normal Anisocytosis (manual) Slight Macrocytosis (manual) Slight APTT pCO2 58 H pO2 115 H HCO3 33.5 H ABG pH 7.42 ABG Total CO2 39.4 H ABG O2 Saturation 99.9 H ABG O2 Content 17.2 ABG Base Excess 11.0 H ABG Hemoglobin 12.6 ABG Carboxyhemoglobin 2.5 H POC ABG HHb (Measured) 0.1 ABG Methemoglobin 1.2 ABG O2 Capacity 17.2 Sascha Test Yes A-a O2 Difference 98.0 Hgb O2 Saturation 96.2 Mechanical Rate 14 FiO2 40.0 Inspiratory BiPAP 12 Expiratory BiPAP 6 Sodium 133 Potassium 5.0 Chloride 91 L Carbon Dioxide 30 Anion Gap 17 BUN 21 H Creatinine 0.4 L Est GFR ( Amer) > 60 Est GFR (Non-Af Amer) > 60 Random Glucose 137 H Lactic Acid Calcium 8.7 Total Bilirubin 0.4 AST 25 ALT 52 Alkaline Phosphatase 110 Troponin I 0.0340 NT-Pro-B Natriuret Pep 24202 H Total Protein 6.7 Albumin 3.2 L Globulin 3.5 Albumin/Globulin Ratio 0.9 L 11/30/18 11/30/18 11/30/18 05:05 05:05 05:05 WBC 11.0 H RBC 3.71 L Hgb 12.4 Hct 37.7 MCV 101.7 H MCH 33.6 H MCHC 33.0 RDW 15.2 H Plt Count 369 MPV Neut % (Auto) Lymph % (Auto) [place] % (Auto) Eos % (Auto) Baso % (Auto) Neut # (Auto) Lymph # (Auto) [place] # (Auto) Eos # (Auto) Baso # (Auto) Neutrophils % (Manual) Band Neutrophils % Lymphocytes % (Manual) Monocytes % (Manual) Eosinophils % (Manual) Platelet Estimate Anisocytosis (manual) Macrocytosis (manual) APTT pCO2 pO2 HCO3 ABG pH ABG Total CO2 ABG O2 Saturation ABG O2 Content ABG Base Excess ABG Hemoglobin ABG Carboxyhemoglobin POC ABG HHb (Measured) ABG Methemoglobin ABG O2 Capacity Sascha Test A-a O2 Difference Hgb O2 Saturation Mechanical Rate FiO2 Inspiratory BiPAP Expiratory BiPAP Sodium 135 Potassium 4.7 Chloride 91 L Carbon Dioxide 34 H Anion Gap 15 BUN 20 Creatinine 0.6 L Est GFR ( Amer) > 60 Est GFR (Non-Af Amer) > 60 Random Glucose 130 H Lactic Acid 1.4 Calcium 8.7 Total Bilirubin AST ALT Alkaline Phosphatase Troponin I 0.0480 NT-Pro-B Natriuret Pep Total Protein Albumin Globulin Albumin/Globulin Ratio 11/30/18 10:15 WBC RBC Hgb Hct MCV MCH MCHC RDW Plt Count MPV Neut % (Auto) Lymph % (Auto) [place] % (Auto) Eos % (Auto) Baso % (Auto) Neut # (Auto) Lymph # (Auto) [place] # (Auto) Eos # (Auto) Baso # (Auto) Neutrophils % (Manual) Band Neutrophils % Lymphocytes % (Manual) Monocytes % (Manual) Eosinophils % (Manual) Platelet Estimate Anisocytosis (manual) Macrocytosis (manual) APTT 27.7 pCO2 pO2 HCO3 ABG pH ABG Total CO2 ABG O2 Saturation ABG O2 Content ABG Base Excess ABG Hemoglobin ABG Carboxyhemoglobin POC ABG HHb (Measured) ABG Methemoglobin ABG O2 Capacity Sascha Test A-a O2 Difference Hgb O2 Saturation Mechanical Rate FiO2 Inspiratory BiPAP Expiratory BiPAP Sodium Potassium Chloride Carbon Dioxide Anion Gap BUN Creatinine Est GFR ( Amer) Est GFR (Non-Af Amer) Random Glucose Lactic Acid Calcium Total Bilirubin AST ALT Alkaline Phosphatase Troponin I NT-Pro-B Natriuret Pep Total Protein Albumin Globulin Albumin/Globulin Ratio
[2018-12-01 05:12] LABS: HEMOGLOBIN 11.8 g/dL (12.0-18.0); MEAN CORPUSCULAR HEMOGLOBIN 33.3 pg (27.0-31.0); MEAN CORPUSCULAR HGB CONC 32.5 g/dL (33.0-37.0); RBC 3.55 Mil/uL (4.40-5.90); RED CELL DISTRIBUTION WIDTH 15.1 % (11.5-14.5); WHITE BLOOD COUNT 12.7 K/uL (4.8-10.8)
[2018-12-01 05:14] LABS: MEAN CELL VOLUME 102.4 fl (80.0-94.0)
[2018-12-01 05:16] LABS: CALCIUM 8.5 mg/dL (8.4-10.2); GFR NON-AFRICAN AMERICAN > 60
[2018-12-01 06:06] LABS: BLOOD UREA NITROGEN 22 mg/dl (9-20)
--- NOTE | 2018-12-01 08:20 | CON ---
DATE: 11/30/2018 Neurology consult called by Dr. Rory Marie. HISTORY OF PRESENT ILLNESS: Mr. Rory Escalona is a 78-year-old male who was in rehab, admitted on 09/2018 for COPD exacerbation, sent to TCU where he was readmitted on 11/03/2018 for a left MCA stroke. Yesterday afternoon, the patient suddenly became unresponsive with increasing hypoxia and a questionable left-sided weakness, onset not known. In the emergency room, NIHSS was 5. He was not appropriate for tPA because time of onset was not known. In addition, he was sent for MRI but could not tolerate because of severe respiratory distress. His O2 dropped. He became ashen and went into respiratory shock and was admitted to ICU. Today, the patient is awake. He is on nonrebreather mask with oxygen. He is moving all extremities. He is following commands. He is able to tell me the day, the date, his name, and name colors and animals. REVIEW OF SYSTEMS: Significant for headache, weakness, and malaise. PAST MEDICAL HISTORY: COPD, hypertension, AFib, CHF with EF of 50%, prior bladder cancer. FAMILY HISTORY/SOCIAL HISTORY: The patient is a chronic smoker, lifelong. ALLERGIES: NKDA. MEDICATIONS: As per chart. PHYSICAL EXAMINATION: GENERAL: The patient is alert and awake, oriented x2. VITAL SIGNS: Pupils are equal, round, and reactive to light. EOMI, there is no facial droop. There is no visual field cut. Speech is fluent. Although, he is edentulous, he speaks slowly and is able to be understood. He can name and repeat. NEUROLOGIC: Motor is 5/5 upper and lower limb bilaterally. Sensory is intact to fine touch and pin, although not accurate. Gait was not tested. Reflexes are +2 upper and lower limb. LABORATORY DATA: Labs are as follows, white count is 11, hemoglobin 12.4, hematocrit 37.7, and platelets 369. Chemistry, sodium 135, potassium 4.7, BUN and creatinine 15 and 20, glucose 130. CAT scan of the head was done and shows the following; left frontal encephalomalacia, 5 mm right chronic infarct. IMPRESSION: This is a 78-year-old male with what may have been a transient ischemic attack. However, we are unable to obtain neuroimaging. At this point, he is awake without any deficits. I do not think this is a seizure either. He does have frontal lobe encephalomalacia and a prior stroke. So, he is at risk for further stroke. PLAN: 1. Aspirin 325 mg p.o. daily. 2. MRI of the brain when stable. 3. Repeat CT head if this is more convenient. Thank you for this interesting consultation. Selena Lawson MD
[2018-12-01] MEDS: Ipratropium 0.02% Inhal Soln (0.5 mg/2.5 ml) UD IH SCH ×3 (08:32→15:29)
[2018-12-01] MEDS: Bacitracin OINT 15GM TOP SCH ×2 (09:06→17:24)
[2018-12-01] MEDS: Digoxin 500 mcg/2ml (0.5 mg/2ml) Inj IVP SCH (09:06)
[2018-12-01] MEDS: Enoxaparin 40 mg Syringe SC SCH (09:07)
--- NOTE | 2018-12-01 09:33 | PQF ---
PROVIDER RESPONSE TEXT: Chronic af REVIEWER QUERY TEXT: Atrial Fibrillation Type Atrial fibrillation is documented in the Medical Record. Please specify the type Such as: -- Chronic -- Paroxysmal -- Permanent -- Persistent -- Other, please specify The patient's Clinical Indicators include: Patient has been in atrial fibrillation. EKG: Atrial fibrillation with premature ventricular or aberrantly conducted complexes Left bundle br anch block Rx: Lopressor Query created by: Nerissa Singh on 12/01/2018 8:18 AM Electronically signed by: Rory Marie MD 12/01/2018 9:30 AM
--- NOTE | 2018-12-01 09:50 | CP.PCM.PN ---
Subjective - Date & Time of Evaluation Date of Evaluation: 12/01/18 Time of Evaluation: 09:46 - Subjective Subjective: Appears confused, but refocused readily and cooperative with exam. Has O2 via face mask, but this repeatedly falls off because he appears restless. His restlessness may be secondary to cerebral hypoxemia. He is congested but not significantly dyspneic. SpO2 remains in the low 90's. Tmax 100degrees, WBC 12.7 this morning (on steroids). LUE weakness is present. Speech remains garbled, but understandable. Follows simple commands, answers questions appropriately. Neck is supple and trachea midline. No dullness on chest percussion anteriorly. Breath sounds are diminisheed posteriorly in LLs, more so right. Medium rales are heard in the LLL w/o bronchial breath sounds or egophony. No audible wheezes in either side. Heart sounds are distant, irregular. Repeat CXR requested. Repeat ABG requested. Trial with HFNC at 40L/50%. Aerosol therapy limited to ipratropium on scheduled basis. Beta adrenergic reserved for PRN because of repeated rapid ventricular rate. Objective - Vital Signs/Intake and Output Vital Signs (last 24 hours): Temp Pulse Resp BP Pulse Ox 98.8 F 86 15 128/74 93 L 12/01/18 08:00 12/01/18 09:07 12/01/18 08:00 12/01/18 09:07 12/01/18 08:00 Intake and Output: 11/30/18 12/01/18 23:59 11:59 Intake Total 280 0 Output Total 300 300 Balance -20 -300 - Medications Medications: Current Medications Aspirin (Aspirin Chewable) 81 mg PO DAILY [facility] Last Admin: 12/01/18 09:06 Dose: 81 mg Atorvastatin Calcium (Lipitor) 10 mg PO HS [facility] Last Admin: 11/30/18 21:03 Dose: 10 mg Bacitracin (Bacitracin Oint) 1 applic TOP BID [facility] Last Admin: 12/01/18 09:06 Dose: 1 applic Digoxin (Lanoxin) 0.25 mg IVP DAILY [facility] Last Admin: 12/01/18 09:06 Dose: 0.25 mg Enoxaparin Sodium (Lovenox) 40 mg SC DAILY [facility]; Protocol Last Admin: 12/01/18 09:07 Dose: 40 mg Famotidine (Pepcid) 20 mg PO BID [facility] Last Admin: 12/01/18 09:07 Dose: 20 mg Hydrocortisone Sodium Succinate (Solu-Cortef) 50 mg IV Q12 [facility] Last Admin: 12/01/18 09:07 Dose: 50 mg Ipratropium [place] (Atrovent) 0.5 mg IH RQID [facility] Last Admin: 12/01/18 08:32 Dose: 0.5 mg Levalbuterol HCl (Xopenex) 0.63 mg INH RQ4 PRN PRN Reason: Shortness of Breath Last Admin: 11/30/18 19:59 Dose: 0.63 mg Metoprolol Tartrate (Lopressor) 50 mg PO Q12 [facility] Last Admin: 12/01/18 09:07 Dose: 50 mg Ondansetron HCl (Zofran Inj) 4 mg IVP Q6H PRN PRN Reason: Nausea/Vomiting - Labs Labs: 12/01/18 05:00 12/01/18 05:00 APTT 27.7 Seconds (25.6-37.1) 11/30/18 10:15 Assessment and Plan (1) Pulmonary infiltrate Status: Acute (2) Pleural effusion Status: Acute (3) COPD exacerbation Status: Acute (4) Chronic hypercapnic respiratory failure Status: Chronic
--- NOTE | 2018-12-01 10:35 | CP.PCM.PN ---
Subjective - Date & Time of Evaluation Date of Evaluation: 12/01/18 Time of Evaluation: 10:00 - Subjective Subjective: Remains inrespiratory distress confused at times speech is garbled ++LUE paresis Objective - Vital Signs/Intake and Output Vital Signs (last 24 hours): Temp Pulse Resp BP Pulse Ox 98.8 F 86 15 128/74 93 L 12/01/18 08:00 12/01/18 09:07 12/01/18 08:00 12/01/18 09:07 12/01/18 08:00 Intake and Output: 12/01/18 12/01/18 06:59 18:59 Intake Total 50 Output Total 300 Balance -250 - Medications Medications: Current Medications Aspirin (Aspirin Chewable) 81 mg PO DAILY [facility] Last Admin: 12/01/18 09:06 Dose: 81 mg Atorvastatin Calcium (Lipitor) 10 mg PO HS [facility] Last Admin: 11/30/18 21:03 Dose: 10 mg Bacitracin (Bacitracin Oint) 1 applic TOP BID [facility] Last Admin: 12/01/18 09:06 Dose: 1 applic Digoxin (Lanoxin) 0.25 mg IVP DAILY [facility] Last Admin: 12/01/18 09:06 Dose: 0.25 mg Enoxaparin Sodium (Lovenox) 40 mg SC DAILY [facility]; Protocol Last Admin: 12/01/18 09:07 Dose: 40 mg Famotidine (Pepcid) 20 mg PO BID [facility] Last Admin: 12/01/18 09:07 Dose: 20 mg Hydrocortisone Sodium Succinate (Solu-Cortef) 50 mg IV Q12 [facility] Last Admin: 12/01/18 09:07 Dose: 50 mg Ipratropium [place] (Atrovent) 0.5 mg IH RQID [facility] Last Admin: 12/01/18 08:32 Dose: 0.5 mg Levalbuterol HCl (Xopenex) 0.63 mg INH RQ4 PRN PRN Reason: Shortness of Breath Last Admin: 11/30/18 19:59 Dose: 0.63 mg Metoprolol Tartrate (Lopressor) 50 mg PO Q12 [facility] Last Admin: 12/01/18 09:07 Dose: 50 mg Ondansetron HCl (Zofran Inj) 4 mg IVP Q6H PRN PRN Reason: Nausea/Vomiting - Labs Labs: 12/01/18 05:00 12/01/18 05:00 APTT 27.7 Seconds (25.6-37.1) 11/30/18 10:15 Assessment and Plan (1) COPD exacerbation Status: Acute (2) Acute on chronic systolic congestive heart failure Status: Acute (3) Altered mental status Status: Acute (4) Atrial fibrillation with rapid ventricular response Status: Acute (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
--- NOTE | 2018-12-01 10:40 | CP.PCM.PN ---
Subjective - Date & Time of Evaluation Date of Evaluation: 12/01/18 Time of Evaluation: 10:38 - Subjective Subjective: Neuro Follow-Up Note: Mr. Escalona was evaluated this morning in the ICU. He is known to our neuro group from his last admission to [facility]. He has slurred and incomprehensible speech; unable to follow commands except "open your eyes". He is not agitated nor lethargic at this time but does have episodes of agitation and confusion. This is a change from the pt's baseline, as he is normally verbal and able to answer questions and follow commands. ROS is unobtainable from the pt due to his current status. Discussed with primary RN and chart reviewed. Objective - Vital Signs/Intake and Output Vital Signs (last 24 hours): Temp Pulse Resp BP Pulse Ox 98.8 F 86 15 128/74 93 L 12/01/18 08:00 12/01/18 09:07 12/01/18 08:00 12/01/18 09:07 12/01/18 08:00 Intake and Output: 12/01/18 12/01/18 06:59 18:59 Intake Total 50 Output Total 300 Balance -250 - Medications Medications: Current Medications Aspirin (Aspirin Chewable) 81 mg PO DAILY [facility] Last Admin: 12/01/18 09:06 Dose: 81 mg Atorvastatin Calcium (Lipitor) 10 mg PO HS [facility] Last Admin: 11/30/18 21:03 Dose: 10 mg Bacitracin (Bacitracin Oint) 1 applic TOP BID [facility] Last Admin: 12/01/18 09:06 Dose: 1 applic Digoxin (Lanoxin) 0.25 mg IVP DAILY [facility] Last Admin: 12/01/18 09:06 Dose: 0.25 mg Enoxaparin Sodium (Lovenox) 40 mg SC DAILY [facility]; Protocol Last Admin: 12/01/18 09:07 Dose: 40 mg Famotidine (Pepcid) 20 mg PO BID [facility] Last Admin: 12/01/18 09:07 Dose: 20 mg Hydrocortisone Sodium Succinate (Solu-Cortef) 50 mg IV Q12 [facility] Last Admin: 12/01/18 09:07 Dose: 50 mg Ipratropium [place] (Atrovent) 0.5 mg IH RQID [facility] Last Admin: 12/01/18 08:32 Dose: 0.5 mg Levalbuterol HCl (Xopenex) 0.63 mg INH RQ4 PRN PRN Reason: Shortness of Breath Last Admin: 11/30/18 19:59 Dose: 0.63 mg Metoprolol Tartrate (Lopressor) 50 mg PO Q12 [facility] Last Admin: 12/01/18 09:07 Dose: 50 mg Ondansetron HCl (Zofran Inj) 4 mg IVP Q6H PRN PRN Reason: Nausea/Vomiting - Labs Labs: 12/01/18 05:00 12/01/18 05:00 APTT 27.7 Seconds (25.6-37.1) 11/30/18 10:15 - Constitutional Appears: Other (slurred speech, incomprehensible; unable to follow commands) - Head Exam Head Exam: ATRAUMATIC, NORMAL INSPECTION, NORMOCEPHALIC - Eye Exam Eye Exam: Normal appearance, PERRL. absent: Nystagmus Pupil Exam: NORMAL ACCOMODATION, PERRL - ENT Exam ENT Exam: Mucous Membranes Dry - Neck Exam Neck Exam: Full ROM, Normal Inspection - Cardiovascular Exam Cardiovascular Exam: Irregular Rhythm (afib) - GI/Abdominal Exam GI & Abdominal Exam: Soft - Extremities Exam Extremities Exam: absent: Calf Tenderness, Full ROM, Pedal Edema Additional comments: Able to move BLE with slightly more weakness noted to LLE than RLE LUE moves but is notably weaker than the RUE with decreased tone - Neurological Exam Neurological Exam: Altered Additional comments: Speech is slurred, incomprehensible. Pt does not follow commands other than "open your eyes." Pupils equal and reactive. Able to move BLE with slightly more weakness noted to LLE than RLE LUE moves but is notably weaker than the RUE with decreased tone No tremors or abnormal myoclonic movements Toes down going b/l Reflexes brisk b/l - Psychiatric Exam Psychiatric exam: absent: Normal Affect - Skin Skin Exam: Dry, Warm Assessment and Plan (1) Left-sided weakness Assessment & Plan: Imaging reviewed: -CT Head (11/29/18): Left frontal encephalomalacia. Moderate nonspecific white m atter changes. 5 mm right lobe for infarct appears chronic. -MRI Brain without contrast preferred to r/o acute CVA. If this cannot be done, recommend repeat CT head without contrast in the morning. -Continue ASA and statin. -Continue DVT ppx. -Lipid panel and HgbA1C ordered. -PT/OT -Continue current management in ICU. -Notify neuro of any acute changes in pt's condition. Estrella De La Fuente DNP, TYPE COPY EXAMINER Discussed with Dr. Lawson Status: Acute
[2018-12-01 11:18] LABS: ABG ALLEN TEST YES; ARTERIAL BLOOD GAS HCO3 36.5 mmol/L (21-28); ARTERIAL BLOOD GAS HEMOGLOBIN 12.4 g/dL (11.7-17.4); ARTERIAL BLOOD GAS O2 SAT 100.1 % (95-98); ARTERIAL BLOOD GAS PCO2 69 mm/Hg (35-45); ARTERIAL BLOOD GAS PO2 122 mm/Hg (80-100); ARTERIAL BLOOD GAS TCO2 44.8 mmol/L (22-28)
[2018-12-01 11:26] LABS: HDL CHOLESTEROL 32 MG/DL (30-70)
[2018-12-01 11:37] LABS: LDL CHOLESTEROL 61 mg/dL (0-129)
--- NOTE | 2018-12-01 12:15 | PQF ---
PROVIDER RESPONSE TEXT: Provider was unable to determine a response for this query. REVIEWER QUERY TEXT: Pressure Ulcer Type Stage I Pressure Injury to lower sacrum and medial buttocks is documented in the Medical Record by kostas culp senior accounting manager. ( + multiple scabs, bruising and abrasions on the upper and lower extremities ) Admitting RN also has a Right elbow Deep Tissue Injury documented. Please specify the location, present on admission status and stage: Stage of each pressure ulcer (National Pressure Ulcer Advisory Panel definitions): -- Stage I: Intact skin with non-blanchable redness of a localized area -- Stage II: Partial thickness skin loss involving dermis with a shallow open ulcer or an open serum -filled blister -- Stage III: Full thickness skin loss involving damage or necrosis of subcutaneous tissue -- Stage IV: Full thickness skin loss with exposed bone, tendon or muscle -- Unstageable: Full thickness tissue loss in which the base of the ulcer is covered by slough and/o r eschar in the wound bed The patient's Clinical Indicators include: Stage I Pressure Injury to lower sacrum and medial buttocks is documented in the Medical Record by kostas culp senior accounting manager. ( + multiple scabs, bruising and abrasions on the upper and lower extremities ) Admitting RN also has a Right elbow Deep Tissue Injury documented. Query created by: Nerissa Singh on 12/01/2018 8:16 AM Electronically signed by: Rory Marie MD 12/01/2018 12:13 PM
--- NOTE | 2018-12-01 13:10 | RAD ---
Date of service: 12/01/2018 HISTORY: Shortness of breath. COMPARISON: 11/29/2018. FINDINGS: LUNGS: Stable right lower lobe and right lung middle lobe infiltrates PLEURA: Stable right pleural effusion. CARDIOVASCULAR: Atherosclerotic calcifications identified primarily aortic arch. No significant interval change compared to the prior examination(s). OSSEOUS STRUCTURES: No significant abnormalities. VISUALIZED UPPER ABDOMEN: Normal. OTHER FINDINGS: None. IMPRESSION: Stable findings right kirsten thorax including right middle lobe and right lower lobe infiltrates and right pleural effusion.
[2018-12-01 13:32] LABS: ABG ALLEN TEST YES; ARTERIAL BLOOD GAS HCO3 35.7 mmol/L (21-28); ARTERIAL BLOOD GAS HEMOGLOBIN 12.8 g/dL (11.7-17.4); ARTERIAL BLOOD GAS O2 CAPACITY 17.4 mL/dL (16-24); ARTERIAL BLOOD GAS O2 CONTENT 16.6 ML/dL (15-23); ARTERIAL BLOOD GAS O2 SAT 95.3 % (95-98); ARTERIAL BLOOD GAS PCO2 78 mm/Hg (35-45); ARTERIAL BLOOD GAS PH 7.35 (7.35-7.45); ARTERIAL BLOOD GAS PO2 70 mm/Hg (80-100); ARTERIAL BLOOD GAS TCO2 45.5 mmol/L (22-28)
--- NOTE | 2018-12-01 13:50 | CP.CCUPN ---
CCU Subjective - Physician Review Subjective (Free Text): Intermittent lethargy this AM, with periods of spontaneous arousal. Remains tachycardic, with HR up to 130s no hypotension nor other symptoms of distress. Refused BiPAP at 4AM and has been on nasal cannula since that time. No other observed distress noted. Temps 99-100F, SBPs 110s, HR 90- 130s sinus. Urine output 700ml overnight last 12H. ROS: No other pertinent negs or positives on 10+ system review obtainable due to lethargic status. PMSFH: All other Nursing and physician documentation reviewed to date; no new pertinent info noted relevant to current medical problems. EXAM- HEENT: no icterus, no gaze preference, pupils equal bilat and reactive NECK: no JVD visible, supple, carotids equal upstroke bilat/no bruit CHEST: decreased BS at the bases, no wheezes audible HEART: irregular, distant, tachy S1S2, no rubs ABD: soft, no distension, no focal tenderness, no tympany, no guarding, no organomegaly, BS hypoactive. EXT: trace LE edema, no mottling; no calf tenderness or palpable cords, distal pulses intact and symmetrical, no cyanosis, bilat Venodynes on. NEURO: Left hemiparesis, no abnormal posturing. SKIN: no rashes, warm and dry. LABS: WBC= 11.0 HGB= 12.4 PLTs= 369K Na= 135 K= 4.7 CL= 91 HCO3= 34 BUN/Cr= 20/0.6 BS= 130 CXR: (my interp) 11/29 and film compared, slight increase in R effusion. IMPRESSION / MAJOR PROBLEMS NOW: 1. Acute Resp Insuff with Hypercarbia and Hypoxemia 2 COPD Bronchitis, re tained secretions, R effusion 2. s/p CVA 3. Chronic AFib with RVR 4. 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 Resumed Lopressor, on Digoxin too. 2. Follow serial ABGs. May need oral intubation for airway protection and CO2 elimination. Steroids and nebulizers ongoing. 3. r/o recurrent CVA 4. On ASA for chronic A fib. 5. No fevers, watch WBCs, on no abx coverage.
--- NOTE | 2018-12-01 13:56 | CP.CCUPN ---
CCU Subjective - Physician Review Subjective (Free Text): Progressive lethargy noted this AM, more difficult to arouse, ABGs reveal increasing Hypercarbia, now placed onto BiPAP from HFNC. HR 70-80 in chronic A fib, BP levels have been stable. Temps 99-100F, SBPs 110s, HR 90- 130s sinus. Urine output 600ml overnight last 12H. PO intake has been poor. ROS: No other pertinent negs or positives on 10+ system review obtainable due to lethargic status. PMSFH: All other Nursing and physician documentation reviewed to date; no new pertinent info noted relevant to current medical problems. EXAM- HEENT: no icterus, no gaze preference, pupils equal bilat and reactive NECK: no JVD visible, supple, carotids equal upstroke bilat/no bruit CHEST: decreased BS at the bases, no wheezes audible HEART: irregular, distant, tachy S1S2, no rubs ABD: soft, no distension, no focal tenderness, no tympany, no guarding, no organomegaly, BS hypoactive. EXT: trace LE edema, no mottling; no calf tenderness or palpable cords, distal pulses intact and symmetrical, no cyanosis, bilat Venodynes on. NEURO: Left hemiparesis, no abnormal posturing. SKIN: no rashes, warm and dry. LABS: WBC= 12.7 HGB= 11.8 PLTs= 351K Na= 139 K= 4.6 CL= 97 HCO3= 39 BUN/Cr= 22/0.6 BS= 118 CXR: (my interp) 11/29 and film compared, slight increase in R effusion. IMPRESSION / MAJOR PROBLEMS NOW: 1. Acute Resp Insuff with Hypercarbia and Hypoxemia 2 COPD Bronchitis, retained secretions, R effusion 2. s/p CVA 3. Chronic AFib with RVR 4. 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 BiPAP support as tolerated, no known Advance Directives, may need oral intubation for ventilator assistance if mental status does not improve on BiPAP. 2. Neuro eval noted. Continue statin, ASA 3. Consider IVF hydration, mild increase in Azotemia noted. 4. No fevers, watch WBCs, on no abx coverage.
[2018-12-02 05:00] LABS: ABG ALLEN TEST YES; ARTERIAL BLOOD GAS HCO3 39.3 mmol/L (21-28); ARTERIAL BLOOD GAS HEMOGLOBIN 12.1 g/dL (11.7-17.4); ARTERIAL BLOOD GAS O2 CAPACITY 16.5 mL/dL (16-24); ARTERIAL BLOOD GAS O2 CONTENT 15.9 ML/dL (15-23); ARTERIAL BLOOD GAS O2 SAT 96.6 % (95-98); ARTERIAL BLOOD GAS PCO2 70 mm/Hg (35-45); ARTERIAL BLOOD GAS PH 7.43 (7.35-7.45); ARTERIAL BLOOD GAS PO2 74 mm/Hg (80-100); ARTERIAL BLOOD GAS TCO2 48.6 mmol/L (22-28)
[2018-12-02 07:11] LABS: HEMOGLOBIN 12.3 g/dL (12.0-18.0); MEAN CELL VOLUME 102.4 fl (80.0-94.0); MEAN CORPUSCULAR HEMOGLOBIN 33.6 pg (27.0-31.0); MEAN CORPUSCULAR HGB CONC 32.8 g/dL (33.0-37.0); RBC 3.66 Mil/uL (4.40-5.90); RED CELL DISTRIBUTION WIDTH 15.1 % (11.5-14.5); WHITE BLOOD COUNT 10.6 K/uL (4.8-10.8)
[2018-12-02 07:21] LABS: BLOOD UREA NITROGEN 27 mg/dl (9-20); CALCIUM 8.6 mg/dL (8.4-10.2); GFR NON-AFRICAN AMERICAN > 60
[2018-12-02] MEDS: Ipratropium 0.02% Inhal Soln (0.5 mg/2.5 ml) UD IH SCH ×2 (07:25→11:04)
[2018-12-02] MEDS: Levalbuterol 0.63 MG/3 ML Inhal Soln UD INH PRN (07:25)
[2018-12-02] MEDS: Digoxin 500 mcg/2ml (0.5 mg/2ml) Inj IVP SCH (08:45)
[2018-12-02] MEDS: Bacitracin OINT 15GM TOP SCH ×2 (08:45→17:52)
[2018-12-02] MEDS: Enoxaparin 40 mg Syringe SC SCH (08:46)
--- NOTE | 2018-12-02 09:56 | RAD ---
Date of service: 12/02/2018 HISTORY: Pleural effusion COMPARISON: No prior. FINDINGS: LUNGS: Re demonstrated is opacification of the right mid to lower lung field consistent with a combination of right-sided effusion and atelectasis and or infiltrate. Central pulmonary vasculature appears slightly increased.. Suspect small left-sided effusion and minor left basilar atelectasis PLEURA: As above. No apparent pneumothorax. CARDIOVASCULAR: Mild aortic atherosclerotic calcification present. Heart appears enlarged despite right-sided cardiac silhouetting based on prior exams. OSSEOUS STRUCTURES: No significant abnormalities. VISUALIZED UPPER ABDOMEN: Normal. OTHER FINDINGS: None. IMPRESSION: Re demonstrated is opacification of the right mid to lower lung field consistent with a combination of right-sided effusion and atelectasis and or infiltrate. Suspect small left-sided effusion and minor left basilar atelectasis. Central pulmonary vasculature appears slightly increased.
--- NOTE | 2018-12-02 11:17 | CP.PCM.PN ---
Subjective - Date & Time of Evaluation Date of Evaluation: 12/02/18 Time of Evaluation: 11:15 - Subjective Subjective: Seen in ICU, lying in bed with BiPAP mask in place. Awake and moving about in bed with choreifom type of motor activity. Speech is still slurred and difficult to understand. SpO2 has been maintained, PaCO2 remains elevated. Normotensive, afebrile, not tachycardic. Neck is supple and trachea midline. No dullness on percussion of the anterior chest wall. Breath sounds are diminished significantly in both lungs. scattered sonorous rhonchi are heard bilaterally. Few dry lower lobe rales posteriorly, no wheezes or bronchial breath sounds. Heart sounds are distant, irregular. Right pleural effusion, may require thoracentesis. Continue NPPV for hypercapnic/hypoxemic respiratory failure. Will reduce cortoicosteroid dose. Objective - Vital Signs/Intake and Output Vital Signs (last 24 hours): Temp Pulse Resp BP Pulse Ox 97.7 F 92 H 21 118/95 H 97 12/02/18 08:00 12/02/18 08:00 12/02/18 08:00 12/02/18 08:00 12/02/18 08:00 Intake and Output: 12/01/18 12/02/18 23:59 11:59 Intake Total 50 5 Output Total 550 350 Balance -500 -345 - Medications Medications: Current Medications Aspirin (Aspirin Chewable) 81 mg PO DAILY [facility] Last Admin: 12/01/18 09:06 Dose: 81 mg Atorvastatin Calcium (Lipitor) 10 mg PO HS [facility] Last Admin: 12/01/18 21:12 Dose: 10 mg Bacitracin (Bacitracin Oint) 1 applic TOP BID [facility] Last Admin: 12/02/18 08:45 Dose: 1 applic Digoxin (Lanoxin) 0.25 mg IVP DAILY [facility] Last Admin: 12/02/18 08:45 Dose: 0.25 mg Enoxaparin Sodium (Lovenox) 40 mg SC DAILY [facility]; Protocol Last Admin: 12/02/18 08:46 Dose: 40 mg Famotidine (Pepcid) 20 mg PO BID [facility] Last Admin: 12/01/18 17:24 Dose: Not Given Hydrocortisone Sodium Succinate (Solu-Cortef) 50 mg IV Q12 [facility] Last Admin: 12/02/18 08:47 Dose: 50 mg Levalbuterol HCl (Xopenex) 0.63 mg INH RQ4 PRN PRN Reason: Shortness of Breath Last Admin: 12/02/18 07:25 Dose: 0.63 mg Levalbuterol HCl (Xopenex) 0.63 mg INH RQ8 [facility] Metoprolol Tartrate (Lopressor) 50 mg PO Q12 [facility] Last Admin: 12/01/18 21:12 Dose: 50 mg Ondansetron HCl (Zofran Inj) 4 mg IVP Q6H PRN PRN Reason: Nausea/Vomiting - Labs Labs: 12/02/18 06:00 12/02/18 06:00 APTT 27.7 Seconds (25.6-37.1) 11/30/18 10:15 Assessment and Plan (1) Pulmonary infiltrate Status: Acute (2) Pleural effusion Status: Acute (3) COPD exacerbation Status: Acute (4) Chronic hypercapnic respiratory failure Status: Chronic
--- NOTE | 2018-12-02 13:06 | CP.PCM.PN ---
Subjective - Date & Time of Evaluation Date of Evaluation: 12/02/18 Time of Evaluation: 13:04 - Subjective Subjective: Neuro Follow-Up Note: Mr. Escalona was evaluated this afternoon in the ICU. Today the pt is awake, alert, able to follows commands and answers questions appropriately compared to yesterday. Labs reviewed; elevated CO2. Pt to start using BiPap today. Pt otherwise states that he feels "ok". Still has some weakness to the left arm a nd hand. Denies h/a, dizziness, visual changes, chest pain, palpitations, cough, abd pain, n/v/d, paresthesias, fever/chills. Objective - Vital Signs/Intake and Output Vital Signs (last 24 hours): Temp Pulse Resp BP Pulse Ox 98.8 F 96 H 19 100/56 L 98 12/02/18 12:00 12/02/18 12:20 12/02/18 12:00 12/02/18 12:00 12/02/18 12:00 Intake and Output: 12/02/18 12/02/18 06:59 18:59 Intake Total 15 Output Total 350 Balance -335 - Medications Medications: Current Medications Aspirin (Aspirin Chewable) 81 mg PO DAILY [facility] Last Admin: 12/02/18 11:17 Dose: 81 mg Atorvastatin Calcium (Lipitor) 10 mg PO HS [facility] Last Admin: 12/01/18 21:12 Dose: 10 mg Bacitracin (Bacitracin Oint) 1 applic TOP BID [facility] Last Admin: 12/02/18 08:45 Dose: 1 applic Digoxin (Lanoxin) 0.25 mg IVP DAILY [facility] Last Admin: 12/02/18 08:45 Dose: 0.25 mg Enoxaparin Sodium (Lovenox) 40 mg SC DAILY [facility]; Protocol Last Admin: 12/02/18 08:46 Dose: 40 mg Famotidine (Pepcid) 20 mg PO BID [facility] Last Admin: 12/02/18 11:16 Dose: 20 mg Hydrocortisone Sodium Succinate (Solu-Cortef) 50 mg IV Q12 [facility] Last Admin: 12/02/18 08:47 Dose: 50 mg Levalbuterol HCl (Xopenex) 0.63 mg INH RQ4 PRN PRN Reason: Shortness of Breath Last Admin: 12/02/18 07:25 Dose: 0.63 mg Levalbuterol HCl (Xopenex) 0.63 mg INH RQ8 [facility] Metoprolol Tartrate (Lopressor) 50 mg PO Q12 [facility] Last Admin: 12/02/18 11:16 Dose: 50 mg Ondansetron HCl (Zofran Inj) 4 mg IVP Q6H PRN PRN Reason: Nausea/Vomiting - Labs Labs: 12/02/18 06:00 12/02/18 06:00 APTT 27.7 Seconds (25.6-37.1) 11/30/18 10:15 - Constitutional Appears: Non-toxic - Head Exam Head Exam: ATRAUMATIC, NORMAL INSPECTION, NORMOCEPHALIC - Eye Exam Eye Exam: EOMI, Normal appearance, PERRL Pupil Exam: NORMAL ACCOMODATION, PERRL - ENT Exam ENT Exam: Mucous Membranes Moist - Neck Exam Neck Exam: Full ROM, Normal Inspection - Respiratory Exam Respiratory Exam: absent: NORMAL BREATHING PATTERN (some sob noted; bipap to be started) - Cardiovascular Exam Cardiovascular Exam: Irregular Rhythm - Extremities Exam Extremities Exam: absent: Calf Tenderness, Pedal Edema Additional comments: Able to move all extremities today; generalized weakness noted 2/2 deconditioning; some weakness noted to left hand with cow tester; no pronator drift. - Neurological Exam Neuro motor strength exam: Left Upper Extremity: 4 (cow tester 3/5), Right Upper Extremity: 4 (cow tester 5/5), Left Lower Extremity: 4, Right Lower Extremity: 4 Additional comments: Speech is clear today. Pt is AAOx3, follows all commands. Pupils equal and reactive. Able to move all extremities today; generalized weakness noted 2/2 deconditioning; some weakness noted to left hand with cow tester; no pronator drift. No tremors or abnormal myoclonic movements Toes down going b/l Reflexes brisk b/l - Psychiatric Exam Psychiatric exam: Normal Affect, Normal Mood - Skin Skin Exam: Normal Color Assessment and Plan (1) Left-sided weakness Assessment & Plan: Imaging reviewed: -CT Head (11/29/18): Left frontal encephalomalacia. Moderate nonspecific white matter changes. 5 mm right lobe for infarct appears chronic. -MRI Brain without contrast preferred to r/o acute CVA. -If MRI cannot be done, we can repeat CT head without contrast (ordered)--will f/u with results. -CTA Head and Neck ordered--will f/u with results. -Continue ASA and statin. -Continue DVT ppx. -Continue BiPap and other current treatment. -Continue PT/OT -Continue current management in ICU. -Notify neuro of any acute changes in pt's condition. Estrella De La Fuente DNP, NCR OPERATOR Discussed with Dr. Lawson Status: Acute
--- NOTE | 2018-12-02 13:35 | CP.CCUPN ---
CCU Subjective - Physician Review Subjective (Free Text): Has been on BiPAP since yesterday afternoon, intermittently spontaneously awakens with startle-like response with arms flailing and looks around the room, occurs once to-twice per hour frequency. Is not overtly agitated, but not consistently following commands when he spontaneously awakens. No other distress noted. MRI Brain yet to be done. HR 70-80 in chronic A fib, BP levels have been stable. Temps 99-100F, SBPs 110s, HR 70-80s sinus. Urine output 350ml overnight last 12H. PO intake has been poor. ROS: No other pertinent negs or positives on 10+ system review obtainable due to lethargic status. PMSFH: All other Nursing and physician documentation reviewed to date; no new pertinent info noted relevant to current medical problems. EXAM- HEENT: no icterus, no gaze preference, pupils equal bilat and reactive NECK: no JVD visible, supple, carotids equal upstroke bilat/no bruit CHEST: decreased BS at the bases, no wheezes audible HEART: irregular, distant, tachy S1S2, no rubs ABD: soft, no distension, no focal tenderness, no tympany, no guarding, no organomegaly, BS hypoactive. EXT: trace LE edema, no mottling; no calf tenderness or palpable cords, distal pulses intact and symmetrical, no cyanosis, bilat Venodynes on. NEURO: Left hemiparesis, no abnormal posturing. SKIN: no rashes, warm and dry. LABS: WBC= 10.6 HGB= 12.3 PLTs= 3113K Na= 138 K= 4.5 CL= 97 HCO3= 39 BUN/Cr= 27/0.4 BS= 99 7.43/70/74 CXR: (my interp) R sided effusion similar to previous film yesterday IMPRESSION / MAJOR PROBLEMS NOW: 1. Acute Resp Insuff with Hypercarbia and Hypoxemia 2 COPD Bronchitis, retained secretions, R effusion 2. s/p CVA 3. Chronic AFib with RVR 4. 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 BiPAP support as tolerated, no known Advance Directives, watch for need oral intubation for ventilator assistance if mental status does not improve / worsen on BiPAP. PCO@ only slightly better on BiPAP. 2. Neuro eval noted. Continue statin, ASA. MRI ordered but problematic and will require short term / brief sedation: e.g. Morphine and reversal with Narcan. 3. Consider IVF hydration, mild increase in Azotemia ( on steroids) noted. Try reprieves off BiPAP for meals/ fluid intake, he did pass for pureed and thin liquids. 4. No fevers, watch WBCs (decreased today, but has been on steroids), on no abx coverage.
[2018-12-02] MEDS: Levalbuterol 0.63 MG/3 ML Inhal Soln UD INH SCH ×2 (15:08→23:08)
[2018-12-02] MEDS ORDERED: Iodixanol 320 MG/ML 100 ML BOTTLE IV ONE (15:44)
[2018-12-02] MEDS ORDERED: Sodium Chloride 0.9% 50 ML IV ONE (15:44)
--- NOTE | 2018-12-02 17:45 | CT ---
Date of service: 12/02/2018 PROCEDURE: CT HEAD WITHOUT CONTRAST. HISTORY: re-eval for acute intracranial changes COMPARISON: 11/29/2018 TECHNIQUE: Axial computed tomography images were obtained through the head/brain without intravenous contrast. Radiation dose: Total exam DLP = 781.04 mGy-cm. This CT exam was performed using one or more of the following dose reduction techniques: Automated exposure control, adjustment of the mA and/or kV according to patient size, and/or use of iterative reconstruction technique. FINDINGS: HEMORRHAGE: No intracranial hemorrhage. BRAIN: No mass effect or edema. Mild diffuse age-appropriate atrophy. Moderate patchy periventricular and deep/subcortical white matter lucency consistent with microvascular white matter ischemic change. Chronic lacunar infarct in the right frontal pearl radiata. There is old left frontal encephalomalacia change. There is old right posterior parietal encephalomalacia change. Old left cerebellar hemispheric infarct. VENTRICLES: Unremarkable. No hydrocephalus. CALVARIUM: Unremarkable. PARANASAL SINUSES: Minimal fluid in sphenoid sinus common nonspecific. MASTOID AIR CELLS: Unremarkable as visualized. No inflammatory changes. OTHER FINDINGS: None. IMPRESSION: No intracranial mass, hemorrhage or evidence of acute infarct. Multifocal old encephalomalacia. Age related atrophy and chronic white matter ischemic change. Old left cerebellar hemispheric lacunar infarct.
--- NOTE | 2018-12-02 18:11 | CT ---
Date of service: 12/02/2018 PROCEDURE: CT Angiography of the neck and brain. HISTORY: r/o LVO; r/o stroke,left side weak,slurred speech COMPARISON: None available. TECHNIQUE: CT angiography of the neck and intracranial arteries was performed. Coronal and sagittal maximum intensity projection reformated images were generated. Radiation dose: Total exam DLP = 420.07 mGy-cm. This CT exam was performed using one or more of the following dose reduction techniques: Automated exposure control, adjustment of the mA and/or kV according to patient size, and/or use of iterative reconstruction technique. FINDINGS: Moderate to large bilateral pleural effusions are noted larger on the right. The aortic arch is partially visualize contains atherosclerotic calcification. There is large calcification noted at the origin of the right subclavian artery associated with focal [id number] stenosis. Large foci of atherosclerotic calcification are also noted at the right brachiocephalic artery and in the proximal left subclavian artery. RIGHT CAROTID ARTERIES: Common Carotid Artery: Foci of atherosclerotic calcification and mural thickening noted. There is focal approximately 30 percent stenosis noted at the midportion of the right common carotid artery. Carotid Bifurcation: Large coarse calcification seen at the carotid bifurcation associated with [id number] stenosis. Internal Carotid Artery:Large coarse calcification noted at the origin and proximal right internal carotid artery at associated with focal approximately 70-80 percent stenosis. External Carotid Artery (proximal branches): Patent LEFT CAROTID ARTERIES: Common Carotid Artery: Multiple foci of atherosclerotic calcification noted in the left common carotid artery. No evidence of significant stenosis. Carotid Bifurcation: Large coarse calcification noted at the left carotid bifurcation associated with mild less than 30 percent stenosis. Internal Carotid Artery:Coarse calcification noted at the proximal left internal carotid artery associated with mild approximately 50 percent stenosis. External Carotid Artery (proximal branches): Normal. VERTEBRAL ARTERIES: Right Vertebral Artery: Small in size contains foci of moderate to high-grade stenosis. Occlusion of the right vertebral artery at C2 level noted. Left Vertebral Artery: The left vertebral artery is dominant. Foci of atherosclerotic calcification noted. There is focal approximately 60 percent stenosis seen at left V4 segment. INTERNAL CEREBRAL ARTERIES: Unremarkable. The skull base, petrous, cavernous and supraclinoid segments are bilaterally patent contains foci of atherosclerotic calcification. ANTERIOR CEREBRAL ARTERIES: Unremarkable. A1 and A2 segments are widely patent. Smaller distal branches unremarkable, as visualized. MIDDLE CEREBRAL ARTERIES: Unremarkable. M1 and M2 segments are widely patent. Perisylvian branches grossly symmetric. POSTERIOR CIRCULATION: Basilar Artery: The basilar artery is small in size. Distal Vertebral Arteries: The right V4 segment is not visualized. The left V4 segment is small in size. Posterior Cerebral Arteries: There is a origin of both posterior cerebral arteries. Posterior Inferior Cerebellar Arteries: The left likely a is visualized. The right by CT is not visualized. ANEURYSM/ VASCULAR MALFORMATIONS: None. OTHER FINDINGS: Mucosal thickening and air-fluid levels noted in the sphenoid sinuses. IMPRESSION: No evidence of intracranial arterial occlusion or focal critical stenosis. Foci of atherosclerotic calcification and mural thickening noted. Moderate stenosis noted at the proximal right internal carotid artery. Wmzj-un-vighxjvt stenosis noted at the right carotid bifurcation. 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
[2018-12-03 06:19] LABS: HEMOGLOBIN 12.3 g/dL (12.0-18.0); MEAN CELL VOLUME 101.5 fl (80.0-94.0); MEAN CORPUSCULAR HGB CONC 33.5 g/dL (33.0-37.0); RBC 3.62 Mil/uL (4.40-5.90); RED CELL DISTRIBUTION WIDTH 15.2 % (11.5-14.5); WHITE BLOOD COUNT 10.8 K/uL (4.8-10.8)
[2018-12-03 06:56] LABS: BLOOD UREA NITROGEN 23 mg/dl (9-20); CALCIUM 8.5 mg/dL (8.4-10.2); GFR NON-AFRICAN AMERICAN > 60
[2018-12-03 07:16] LABS: ABG ALLEN TEST YES; ARTERIAL BLOOD GAS HCO3 39.5 mmol/L (21-28); ARTERIAL BLOOD GAS O2 CAPACITY 17.6 mL/dL (16-24); ARTERIAL BLOOD GAS O2 CONTENT 16.3 ML/dL (15-23); ARTERIAL BLOOD GAS O2 SAT 92.7 % (95-98); ARTERIAL BLOOD GAS PCO2 60 mm/Hg (35-45); ARTERIAL BLOOD GAS PH 7.49 (7.35-7.45); ARTERIAL BLOOD GAS PO2 56 mm/Hg (80-100); ARTERIAL BLOOD GAS TCO2 47.5 mmol/L (22-28)
[2018-12-03] MEDS: Levalbuterol 0.63 MG/3 ML Inhal Soln UD INH SCH ×3 (07:35→23:33)
[2018-12-03] MEDS: Enoxaparin 40 mg Syringe SC SCH (08:00)
[2018-12-03] MEDS: Bacitracin OINT 15GM TOP SCH ×2 (08:00→16:27)
[2018-12-03] MEDS: Digoxin 500 mcg/2ml (0.5 mg/2ml) Inj IVP SCH (08:00)
--- NOTE | 2018-12-03 09:50 | CP.PCM.PN ---
Subjective - Date & Time of Evaluation Date of Evaluation: 12/03/18 Time of Evaluation: 09:38 - Subjective Subjective: Seen in ICU this morning. Interim events and EMR entries reviewed. Discussed with nursing. Yesterday's chest x-ray reviewed. AM labs from today reviewed (includes ABG). PaCO2 stable at 60, PaO2 a little lower, Ph mildly alkalotic. He is awake, seated upright in bed, wearing BiPAP mask. SpO2 97% on 40% supplemental oxygen. His speech is more intelligible today, he follows simple commands. He has weakness of the LUE as before. There is no cyanosis or dependant edema. Neck is supple and trachea midline. No dullness on percussion of the anterior chest wall. Breath sounds are markedly diminished bilaterally. Few sonorous rhonchi are heard in the lower lobes. No audible wheezing or bronchial breathing. Occasional rales in bases. Heart sounds are markedly distant, irregular. Will add low dose acetazolamide. BiPAP NPPV nocturnally and PRN daytime. Pressures and FiO2 settings reviewed/changed. Maintain HFNC for now during the daytime.' Maintain SpO2 between 90-95% and avoid alkalosis. Hopefully his respiratory status will still improve somewhat further. Objective - Vital Signs/Intake and Output Vital Signs (last 24 hours): Temp Pulse Resp BP Pulse Ox 97 F L 119 H 22 124/78 96 12/03/18 06:00 12/03/18 08:00 12/03/18 09:34 12/03/18 08:00 12/03/18 06:00 Intake and Output: 12/02/18 12/03/18 23:59 11:59 Intake Total 200 Output Total 350 525 Balance -150 -525 - Medications Medications: Current Medications Acetazolamide (Diamox 250 Mg Tab) 250 mg PO DAILY [facility] Aspirin (Aspirin Chewable) 81 mg PO DAILY [facility] Last Admin: 12/03/18 08:02 Dose: 81 mg Atorvastatin Calcium (Lipitor) 10 mg PO HS [facility] Last Admin: 12/02/18 21:27 Dose: 10 mg Bacitracin (Bacitracin Oint) 1 applic TOP BID [facility] Last Admin: 12/03/18 08:00 Dose: 1 applic Digoxin (Lanoxin) 0.25 mg IVP DAILY [facility] Last Admin: 12/03/18 08:00 Dose: 0.25 mg Famotidine (Pepcid) 20 mg PO BID [facility] Last Admin: 12/03/18 08:02 Dose: 20 mg Hydrocortisone Sodium Succinate (Solu-Cortef) 50 mg IM DAILY [facility] Levalbuterol HCl (Xopenex) 0.63 mg INH RQ4 PRN PRN Reason: Shortness of Breath Last Admin: 12/02/18 07:25 Dose: 0.63 mg Levalbuterol HCl (Xopenex) 0.63 mg INH RQ8 [facility] Last Admin: 12/03/18 07:35 Dose: 0.63 mg Metoprolol Tartrate (Lopressor) 50 mg PO Q12 [facility] Last Admin: 12/03/18 08:00 Dose: 50 mg Ondansetron HCl (Zofran Inj) 4 mg IVP Q6H PRN PRN Reason: Nausea/Vomiting - Labs Labs: 12/03/18 04:30 12/03/18 04:30 APTT 27.7 Seconds (25.6-37.1) 11/30/18 10:15 Assessment and Plan (1) Pulmonary infiltrate Status: Acute (2) Pleural effusion Status: Acute (3) COPD exacerbation Status: Acute (4) Chronic hypercapnic respiratory failure Status: Chronic
--- NOTE | 2018-12-04 01:08 | PN ---
DATE: 12/03/2018 LOCATION: The patient is in ICU, bed 434. TIME SPENT: 35 minutes. The patient is seen, evaluated at the bedside. Past medical, surgical, family, social history reviewed. SUBJECTIVE: A 78-year-old male, active smoker with chronic obstructive pulmonary disease, chronic atrial fibrillation, systolic heart failure, history of bladder cancer, admitted with shortness of breath secondary to exacerbation of COPD. Overnight on BIPAP. Remains confused, agitated at times, pulling BIPAP. This morning alert and awake, oriented to name, but not to place or time. PHYSICAL EXAMINATION: VITAL SIGNS: Temperature 98.2, heart rate 76 and regular, blood pressure 120/63, mean arterial pressure 82, respiratory rate 17, saturation 93% on high-flow nasal oxygen 30 liters with FiO2 of 35%. NECK: Supple. Trachea midline. CHEST: Bilateral breath sounds, diminished in intensity. Scattered rhonchi at the bases. HEART: Rhythm regular. ABDOMEN: Bowel sounds present. Soft. EXTREMITIES: Trace edema. NEUROLOGIC: Left arm weakness more than the right, status post right CVA. SKIN: Without rash. CURRENT MEDICATIONS: Acetazolamide 250 mg p.o. daily, aspirin 81 mg p.o. daily, Lipitor 10 mg p.o. daily, bacitracin ointment one application topically twice daily, Lanoxin 0.25 mg IV daily, Pepcid 20 mg p.o. b.i.d., hydrocortisone 50 mg IM daily, Xopenex 0.63 mg every 4 hours p.r.n., Xopenex 0.63 mg every 8 hours, Lopressor 50 mg p.o. every 12 hours, Zofran 4 mg IV every 6 hours p.r.n. LABORATORY DATA: WBC 10.8, hemoglobin 12.3, hematocrit 36.7, platelet count of 322. PTT of 27.7. ABG; pH of 7.49, pCO2 of 60, pO2 of 56, saturation 92.7 on 40%. SMA-7: Sodium 139, potassium 3.7, chloride 97, CO2 of 40, blood urea nitrogen 23, creatinine 0.5, random glucose 129. Microbiology, nasal smear MRSA negative. Chest x-ray done on 12/02/2018, opacification right mid to lower lung field consistent with combination of right-sided effusion and atelectasis, small left-sided effusion, minor left basilar atelectasis. IMPRESSION: 1. Neurologic: Alert, awake, oriented to name, but not to place or time. Status post cerebrovascular accident with left hemiparesis, more on the arm than the leg. Hypoxic toxic encephalopathy. 2. Pulmonary: Chronic obstructive pulmonary disease with hypoxemia, bilateral pleural effusion more on the right than the left with atelectasis, on high-flow nasal oxygen. Maintain saturation over 94%. 3. Cardiac: History of chronic systolic heart failure, chronic atrial fibrillation, rate controlled, on metoprolol, not a candidate for anticoagulation. 4. Hematology: No leukocytosis. Hemoglobin, hematocrit, platelet count normal. 5. Renal: Chronic renal insufficiency. No electrolyte abnormalities. 6. Gastrointestinal: No acute issues. 7. Endocrinology: Maintain blood sugar between 90 and 110. Keep head of bed 30 degrees up. Reassurance. One-to-one observation. Family requested DNR/DNI in place. Continue supportive care. Jose Mercedes MD
[2018-12-04 06:08] LABS: HEMOGLOBIN 12.4 g/dL (12.0-18.0); MEAN CELL VOLUME 102.1 fl (80.0-94.0); MEAN CORPUSCULAR HEMOGLOBIN 33.4 pg (27.0-31.0); MEAN CORPUSCULAR HGB CONC 32.7 g/dL (33.0-37.0); RBC 3.71 Mil/uL (4.40-5.90); RED CELL DISTRIBUTION WIDTH 15.6 % (11.5-14.5); WHITE BLOOD COUNT 8.3 K/uL (4.8-10.8)
[2018-12-04 06:22] LABS: INR 1.1; PROTHROMBIN TIME 12.5 Seconds (9.8-13.1)
[2018-12-04 06:24] LABS: PARTIAL THROMBOPLASTIN TIME 28.8 Seconds (25.6-37.1)
[2018-12-04 06:32] LABS: BLOOD UREA NITROGEN 15 mg/dl (9-20); CALCIUM 8.2 mg/dL (8.4-10.2); GFR NON-AFRICAN AMERICAN > 60
[2018-12-04] MEDS: Levalbuterol 0.63 MG/3 ML Inhal Soln UD INH SCH ×2 (07:17→15:22)
--- NOTE | 2018-12-04 07:31 | CP.CCUPN ---
CCU Subjective - Physician Review Events Since Last Encounter (Free Text): Patient awake, on O2 supplement, no distress, no fever, no pressors, events reviewed CCU Objective - Vital Signs / Intake & Output Vital Signs (Last 4 hours): Vital Signs Temp Pulse Resp BP Pulse Ox 12/04/18 07:18 21 12/04/18 06:39 16 12/04/18 06:00 91 H 17 143/100 H 100 12/04/18 04:00 97.5 F L 83 90 H 141/88 22 L Intake and Output (Last 8hrs): Intake & Output 12/03/18 12/04/18 12/04/18 22:59 06:59 14:59 Intake Total 340 0 Output Total 700 800 Balance -360 -800 Weight 148 lb Intake: Intake, Piggyback 0 Oral 340 0 Output: Urine 700 800 Urethral (Mejia) 700 800 Other: # Bowel Movements 1 - Physical Exam Head: Positive for: Atraumatic, Normocephalic Pupils: Positive for: PERRL Conjunctiva: Positive for: Normal Ears: Positive for: Normal Mouth: Positive for: Moist Mucous Membranes Pharnyx: Positive for: Normal Nose (External): Positive for: Atraumatic Neck: Positive for: Normal Range of Motion Respiratory/Chest: Positive for: Rhonchi Cardiovascular: Positive for: Irregular Rhythm Abdomen: Positive for: Normal Bowel Sounds Upper Extremity: Positive for: Normal Inspection Lower Extremity: Positive for: Normal Inspection Skin: Positive for: Warm, Dry Psychiatric: Positive for: Alert - Medications Active Medications: Active Medications Generic Name Dose Route Start Last Admin Trade Name Freq PRN Reason Stop Dose Admin Acetazolamide 250 mg 12/03/18 09:45 12/03/18 12:31 Diamox 250 Mg Tab PO 250 mg DAILY [facility] Administration Aspirin 81 mg 11/30/18 09:00 12/03/18 08:02 Aspirin Chewable PO 81 mg DAILY [facility] Administration Atorvastatin Calcium 10 mg 11/29/18 22:00 12/03/18 21:03 Lipitor PO 10 mg HS [facility] Administration Bacitracin 1 applic 11/30/18 09:00 12/03/18 16:27 Bacitracin Oint TOP 1 applic BID [facility] Administration Digoxin 0.25 mg 11/30/18 09:00 12/03/18 08:00 Lanoxin IVP 0.25 mg DAILY [facility] Administration Famotidine 20 mg 11/30/18 09:00 12/03/18 16:27 Pepcid PO 20 mg BID [facility] Administration Hydrocortisone Sodium Succinate 50 mg 12/04/18 09:00 Solu-Cortef IM DAILY [facility] Levalbuterol HCl 0.63 mg 11/29/18 20:23 12/02/18 07:25 Xopenex INH 0.63 mg RQ4 PRN Administration Shortness of Breath Levalbuterol HCl 0.63 mg 12/02/18 16:00 12/04/18 07:17 Xopenex INH 0.63 mg RQ8 [facility] Administration Metoprolol Tartrate 50 mg 11/30/18 15:15 12/03/18 20:44 Lopressor PO 50 mg Q12 [facility] Administration Ondansetron HCl 4 mg 11/29/18 20:25 Zofran Inj IVP Q6H PRN Nausea/Vomiting - Patient Studies Lab Studies: Lab Studies 12/04/18 12/04/18 12/04/18 Range/Units 04:25 04:25 04:25 WBC 8.3 (4.8-10.8) K/uL RBC 3.71 L (4.40-5.90) Mil/uL Hgb 12.4 (12.0-18.0) g/dL Hct 37.9 (35.0-51.0) % MCV 102.1 H (80.0-94.0) fl MCH 33.4 H (27.0-31.0) pg MCHC 32.7 L (33.0-37.0) g/dL RDW 15.6 H (11.5-14.5) % Plt Count 311 (130-400) K/uL PT 12.5 (9.8-13.1) Seconds INR 1.1 APTT 28.8 (25.6-37.1) Seconds Sodium 140 (132-148) mmol/l Potassium 3.3 L (3.6-5.0) MMOL/L Chloride 100 (98-107) mmol/L Carbon Dioxide 37 H (22-30) mmol/L Anion Gap 6 L (10-20) BUN 15 (9-20) mg/dl Creatinine 0.6 L (0.8-1.5) mg/dl Est GFR ( Amer) > 60 Est GFR (Non-Af Amer) > 60 Random Glucose 102 (75-110) mg/dL Calcium 8.2 L (8.4-10.2) mg/dL Laboratory Results - last 24 hr 12/04/18 12/04/18 12/04/18 04:25 04:25 04:25 WBC 8.3 RBC 3.71 L Hgb 12.4 Hct 37.9 MCV 102.1 H MCH 33.4 H MCHC 32.7 L RDW 15.6 H Plt Count 311 PT 12.5 INR 1.1 APTT 28.8 Sodium 140 Potassium 3.3 L Chloride 100 Carbon Dioxide 37 H Anion Gap 6 L BUN 15 Creatinine 0.6 L Est GFR ( Amer) > 60 Est GFR (Non-Af Amer) > 60 Random Glucose 102 Calcium 8.2 L Critical Care Progress Note - Nutrition Nutrition: Nutrition Category Date Time Status Dysphagia/Modified Consistency Diet [DIET] Diets 12/01/18 Lunch Active Assessment/Plan - Assessment and Plan (Free Text) Assessment: A/P Respiratory insufficiency, COPD, bronchitis, pleural effusion s/p CVA, A Fib, CHF - O2 supplement - BIPAP as needed - Continue meds - DVT prophylaxis
[2018-12-04] MEDS: Digoxin 500 mcg/2ml (0.5 mg/2ml) Inj IVP SCH (08:31)
[2018-12-04] MEDS: Bacitracin OINT 15GM TOP SCH ×2 (11:45→16:14)
[2018-12-05] MEDS: Levalbuterol 0.63 MG/3 ML Inhal Soln UD INH SCH ×2 (00:02→08:25)
[2018-12-05 05:44] LABS: HEMOGLOBIN 12.4 g/dL (12.0-18.0); MEAN CELL VOLUME 100.7 fl (80.0-94.0); MEAN CORPUSCULAR HEMOGLOBIN 33.4 pg (27.0-31.0); MEAN CORPUSCULAR HGB CONC 33.2 g/dL (33.0-37.0); PLATELET COUNT 281 K/uL (130-400); RBC 3.72 Mil/uL (4.40-5.90); RED CELL DISTRIBUTION WIDTH 15.3 % (11.5-14.5); WHITE BLOOD COUNT 7.7 K/uL (4.8-10.8)
[2018-12-05 05:53] LABS: BLOOD UREA NITROGEN 14 mg/dl (9-20); CALCIUM 8.4 mg/dL (8.4-10.2); GFR NON-AFRICAN AMERICAN > 60
[2018-12-05] MEDS ORDERED: Potassium Chloride 20 mEq/15 ml LIQ UD PO ONE (06:44)
--- NOTE | 2018-12-05 08:31 | CP.PCM.PN ---
Subjective - Date & Time of Evaluation Date of Evaluation: 12/05/18 Time of Evaluation: 08:27 - Subjective Subjective: Seen on morning rounds in the ICU. He remains on HFNC, refused BiPAP mask last night. Asleep, but easily awakened. Appears anxious, difficult to understand verbalization, but appears to respond appropriately. When asleep his respiratory pattern seems to be Jean-Paul-Ward like. SpO2 will vary from mid-80s to 100%. Today's XCR shows persistent right pleural effusion. CBC is stable, K is low, CO2 is down to 34 today. Facial expressions suggest confusion at times. Respiratory muscle recruitment +. Neck is supple and trachea midline. No dullness on percussion of the anterior chest wall. Breath sounds are diminished equally in LLs. Breath sounds are absent posteriorly in the right base. Occasional scattered expiratory wheeze, + rhonchi bilaterally. heart sounds are distant, irregular. Extremities are warm and pink w/o cyanosis. Chronic respiratory failure. CHF/right pleural effusion. Chronic atrial fibrillation. COPD with exacerbation. CVA. Steroid will be changed to PO tomorrow AM. Supplemental oxygen reduced to 30% HFNC. BiPAP ventilation overnight. Continue aerosol therapies. Prognosis appears poor. Objective - Vital Signs/Intake and Output Vital Signs (last 24 hours): Temp Pulse Resp BP Pulse Ox 97.3 F L 94 H 28 H 120/72 95 12/05/18 08:00 12/05/18 08:00 12/05/18 08:00 12/05/18 08:00 12/05/18 08:00 Intake and Output: 12/04/18 12/05/18 23:59 11:59 Intake Total 120 Output Total 2300 Balance -2180 - Medications Medications: Current Medications Acetazolamide (Diamox 250 Mg Tab) 250 mg PO DAILY [facility] Last Admin: 12/04/18 08:28 Dose: 250 mg Aspirin (Aspirin Chewable) 81 mg PO DAILY [facility] Last Admin: 12/04/18 08:29 Dose: 81 mg Atorvastatin Calcium (Lipitor) 10 mg PO HS [facility] Last Admin: 12/04/18 21:13 Dose: 10 mg Bacitracin (Bacitracin Oint) 1 applic TOP BID [facility] Last Admin: 12/04/18 16:14 Dose: 1 applic Digoxin (Lanoxin) 0.25 mg IVP DAILY [facility] Last Admin: 12/04/18 08:31 Dose: 0.25 mg Famotidine (Pepcid) 20 mg PO BID [facility] Last Admin: 12/04/18 16:15 Dose: 20 mg Hydrocortisone Sodium Succinate (Solu-Cortef) 50 mg IM DAILY [facility] Stop: 12/05/18 23:59 Last Admin: 12/04/18 08:30 Dose: 50 mg Potassium Chloride (Potassium Chloride 20 Meq/100 Ml) 100 mls @ 50 mls/hr IVPB Q2 [facility] Stop: 12/05/18 11:59 Levalbuterol HCl (Xopenex) 0.63 mg INH RQ4 PRN PRN Reason: Shortness of Breath Last Admin: 12/02/18 07:25 Dose: 0.63 mg Levalbuterol HCl (Xopenex) 0.63 mg INH RQ8 [facility] Last Admin: 12/05/18 08:25 Dose: 0.63 mg Metoprolol Tartrate (Lopressor) 50 mg PO Q12 [facility] Ondansetron HCl (Zofran Inj) 4 mg IVP Q6H PRN PRN Reason: Nausea/Vomiting Prednisone (Prednisone Tab) 10 mg PO DAILY [facility] - Labs Labs: 12/05/18 05:31 12/05/18 05:31 PT 12.5 Seconds (9.8-13.1) 12/04/18 04:25 INR 1.1 12/04/18 04:25 APTT 28.8 Seconds (25.6-37.1) 12/04/18 04:25 Assessment and Plan (1) Pulmonary infiltrate Status: Acute (2) Pleural effusion Status: Acute (3) COPD exacerbation Status: Acute (4) Chronic hypercapnic respiratory failure Status: Chronic
--- NOTE | 2018-12-05 09:48 | RAD ---
Date of service: 12/05/2018 HISTORY: pleural effusion COMPARISON: 12/02/2018 TECHNIQUE: 1 view obtained. FINDINGS: LUNGS: No active pulmonary disease. PLEURA: Small right pleural effusion unchanged in extent compared to the prior examination. No pneumothorax. CARDIOVASCULAR: There is atherosclerotic calcification of the thoracic aorta. Normal cardiac size. No pulmonary vascular congestion. OSSEOUS STRUCTURES: No significant abnormalities. VISUALIZED UPPER ABDOMEN: Normal. OTHER FINDINGS: None. IMPRESSION: Stable small right pleural effusion.
[2018-12-05] MEDS: Digoxin 500 mcg/2ml (0.5 mg/2ml) Inj IVP SCH (09:51)
[2018-12-05] MEDS: Bacitracin OINT 15GM TOP SCH ×2 (09:51→16:14)
[2018-12-05] MEDS: Potassium Chloride 20 mEq 100 ML IVPB SCH ×2 (09:53→14:05)
[2018-12-05 10:36] LABS: ABG ALLEN TEST YES; ARTERIAL BLOOD GAS O2 SAT 94.4 % (95-98); ARTERIAL BLOOD GAS PCO2 55 mm/Hg (35-45); ARTERIAL BLOOD GAS PH 7.42 (7.35-7.45); ARTERIAL BLOOD GAS PO2 61 mm/Hg (80-100); ARTERIAL BLOOD GAS TCO2 37.4 mmol/L (22-28)
[2018-12-05 12:15] VITALS: BMI 20.9
[2018-12-05] MEDS ORDERED: Albuterol-Ipratrop 3 mg / 0.5 (3 ml) UD INH PRN (12:24)
[2018-12-05 12:40] LABS: BASO % 0.5 % (0.0-2.0); EOS % 0.6 % (0.0-4.0); LYMPH # 0.7 K/uL (1.0-4.3); LYMPH % 8.4 % (20.0-40.0); MONO # 0.7 K/uL (0.0-0.8); MONO % 8.5 % (0.0-10.0); NEUT # 6.5 K/uL (1.8-7.0); NRBC % 0.2 % (0.0-0.0)
--- NOTE | 2018-12-05 12:53 | CP.CCUPN ---
CCU Subjective - Physician Review Events Since Last Encounter (Free Text): 12/05/18 12:51 tachypneic CCU Objective - Vital Signs / Intake & Output Vital Signs (Last 4 hours): Vital Signs Temp Pulse Resp BP Pulse Ox 12/05/18 12:00 97.3 F L 73 17 125/75 95 12/05/18 11:43 71 12/05/18 09:52 81 120/72 Intake and Output (Last 8hrs): Intake & Output 12/04/18 12/05/18 12/05/18 22:59 06:59 14:59 Intake Total 120 Output Total 2300 Balance -2180 Weight 142 lb 4.8 oz Intake: Oral 120 Output: Urine 2300 Urethral (Gomez) 2300 - Physical Exam Head: Positive for: Atraumatic, Normocephalic Pupils: Positive for: PERRL Conjunctiva: Positive for: Normal Ears: Positive for: Normal Mouth: Positive for: Moist Mucous Membranes Pharnyx: Positive for: Normal Nose (External): Positive for: Atraumatic Neck: Positive for: Normal Range of Motion Respiratory/Chest: Positive for: Rhonchi Cardiovascular: Positive for: Irregular Rhythm Abdomen: Positive for: Normal Bowel Sounds Upper Extremity: Positive for: Normal Inspection Lower Extremity: Positive for: Normal Inspection Skin: Positive for: Warm, Dry Psychiatric: Positive for: Alert - Medications Active Medications: Active Medications Generic Name Dose Route Start Last Admin Trade Name Freq PRN Reason Stop Dose Admin Acetazolamide 250 mg 12/03/18 09:45 12/05/18 09:50 Diamox 250 Mg Tab PO 250 mg DAILY [facility] Administration Albuterol/Ipratropium 3 ml 12/05/18 12:24 Duoneb 3 Mg/0.5 Mg (3 Ml) Ud INH RQ4 PRN Shortness of Breath Aspirin 81 mg 11/30/18 09:00 12/05/18 09:50 Aspirin Chewable PO 81 mg DAILY [facility] Administration Atorvastatin Calcium 10 mg 11/29/18 22:00 12/04/18 21:13 Lipitor PO 10 mg HS [facility] Administration Bacitracin 1 applic 11/30/18 09:00 12/05/18 09:51 Bacitracin Oint TOP 1 applic BID [facility] Administration Digoxin 0.25 mg 11/30/18 09:00 12/05/18 09:51 Lanoxin IVP 0.25 mg DAILY [facility] Administration Enoxaparin Sodium 40 mg 12/05/18 12:30 Lovenox SC DAILY [facility] Protocol Famotidine 20 mg 11/30/18 09:00 12/05/18 09:50 Pepcid PO 20 mg BID [facility] Administration Hydrocortisone Sodium Succinate 50 mg 12/04/18 09:00 12/05/18 11:30 Solu-Cortef IM 12/05/18 23:59 Not Given DAILY [facility] Azithromycin 500 mg/ Sodium 250 mls @ 250 mls/hr 12/05/18 12:30 Chloride IVPB DAILY [facility] Protocol Cefepime HCl 1 gm/ Sodium 100 mls @ 100 mls/hr 12/05/18 12:30 Chloride IVPB Q12 [facility] Protocol Metoprolol Tartrate 50 mg 12/04/18 21:16 12/05/18 09:52 Lopressor PO 50 mg Q12 [facility] Administration Prednisone 10 mg 12/06/18 09:00 Prednisone Tab PO DAILY [facility] - Patient Studies Lab Studies: Lab Studies 12/05/18 12/05/18 12/05/18 Range/Units 10:34 05:31 05:31 WBC 7.7 (4.8-10.8) K/uL RBC 3.72 L (4.40-5.90) Mil/uL Hgb 12.4 (12.0-18.0) g/dL Hct 37.4 (35.0-51.0) % MCV 100.7 H (80.0-94.0) fl MCH 33.4 H (27.0-31.0) pg MCHC 33.2 (33.0-37.0) g/dL RDW 15.3 H (11.5-14.5) % Plt Count 281 (130-400) K/uL MPV 8.0 (7.2-11.7) fl Neut % (Auto) 82.0 H (50.0-75.0) % Lymph % (Auto) 8.4 L (20.0-40.0) % [place] % (Auto) 8.5 (0.0-10.0) % Eos % (Auto) 0.6 (0.0-4.0) % Baso % (Auto) 0.5 (0.0-2.0) % Neut # (Auto) 6.5 (1.8-7.0) K/uL Lymph # (Auto) 0.7 L (1.0-4.3) K/uL [place] # (Auto) 0.7 (0.0-0.8) K/uL Eos # (Auto) 0.0 (0.0-0.7) K/uL Baso # (Auto) 0.0 (0.0-0.2) K/uL pCO2 55 H (35-45) mm/Hg pO2 61 L (80-100) mm/Hg HCO3 32.0 H (21-28) mmol/L ABG pH 7.42 (7.35-7.45) ABG Total CO2 37.4 H (22-28) mmol/L ABG O2 Saturation 94.4 L (95-98) % ABG Base Excess 9.3 H (-2.0-3.0) mmol/L Sascha Test Yes ABG Potassium 2.7 L (3.6-5.2) mmol/L A-a O2 Difference 84.0 mm/Hg Glucose 199 H (75-110) mg/dL Lactate 1.5 (0.7-2.1) mmol/L FiO2 30.0 % Blood Gas Comments Hiflow 30%/30l/m Crit Value Read Back N Sodium 135.0 138 (132-148) mmol/l Potassium 2.9 L (3.6-5.0) MMOL/L Chloride 101.0 100 (98-107) mmol/L Carbon Dioxide 34 H (22-30) mmol/L Anion Gap 7 L (10-20) BUN 14 (9-20) mg/dl Creatinine 0.5 L (0.8-1.5) mg/dl Est GFR ( Amer) > 60 Est GFR (Non-Af Amer) > 60 Random Glucose 94 (75-110) mg/dL Calcium 8.4 (8.4-10.2) mg/dL Arterial Blood Potassium 2.7 L (3.6-5.2) mmol/L Laboratory Results - last 24 hr 12/05/18 12/05/18 12/05/18 05:31 05:31 10:34 WBC 7.7 RBC 3.72 L Hgb 12.4 Hct 37.4 MCV 100.7 H MCH 33.4 H MCHC 33.2 RDW 15.3 H Plt Count 281 MPV 8.0 Neut % (Auto) 82.0 H Lymph % (Auto) 8.4 L [place] % (Auto) 8.5 Eos % (Auto) 0.6 Baso % (Auto) 0.5 Neut # (Auto) 6.5 Lymph # (Auto) 0.7 L [place] # (Auto) 0.7 Eos # (Auto) 0.0 Baso # (Auto) 0.0 pCO2 55 H pO2 61 L HCO3 32.0 H ABG pH 7.42 ABG Total CO2 37.4 H ABG O2 Saturation 94.4 L ABG Base Excess 9.3 H Sascha Test Yes ABG Potassium 2.7 L A-a O2 Difference 84.0 Glucose 199 H Lactate 1.5 FiO2 30.0 Blood Gas Comments Hiflow 30%/30l/m Crit Value Read Back N Sodium 138 135.0 Potassium 2.9 L Chloride 100 101.0 Carbon Dioxide 34 H Anion Gap 7 L BUN 14 Creatinine 0.5 L Est GFR ( Amer) > 60 Est GFR (Non-Af Amer) > 60 Random Glucose 94 Calcium 8.4 Arterial Blood Potassium 2.7 L Radiology Impressions: Radiology Impressions Chest X-Ray 12/05/18 05:00 IMPRESSION: Stable small right pleural effusion. Review of Systems - Review of Systems All systems: reviewed and no additional remarkable complaints except - Respiratory Respiratory: Dyspnea Critical Care Progress Note - Nutrition Nutrition: Nutrition Category Date Time Status Dysphagia/Modified Consistency Diet [DIET] Diets 12/01/18 Lunch Active Assessment/Plan (1) COPD exacerbation Assessment and plan: 78yo M. PMHx afib, Bladder CA s/p resection x 2 (), HTN, COPD, current smoker, LBBB, systolic CHF. p/w aspiration and COPD exacerbation. Neuro: alert and following commands Pulm: acute respiratory failure with hypercarbia, secondary to aspiration and acute on chronic COPD exacerbation. starting on BIPAP. Hyrdocortisone IM daily and prednisone po daily, Pulm - Dr. Ag. added duonebs q4h. Chest CT CV: hemodynamically stable. afib rate controlled with digoxin and metoprolol po q12h. Hem: no acute issues Renal: no acute issues, will monitor Endo: no acute issues GI: NPO while on BIPAP. swallow eval once off of BIPAP. ID: starting cefepime and azithromycin empirically. Possible RLL pneumonia from aspiration, despite lack of leucocytosis. DVT proph - lovenox GI proph - pepcid gomez for strict I/O's during acute illness Code status - DNR/DNI Critical Care time spent 35 minutes Multi-disciplinary rounds were performed with house staff, nursing, speech therapy, respiratory therapy, pharmacy and nutrition with integrated input from the primary team/attending and other consulting services. The documented time is cumulative and includes review of patient data/exams/labs/chart review and examination of the patient on rounds and throughout the day; time is exclusive of any procedures or teaching time. Current Visit: No Status: Acute Priority: High Comment: IV Solumedrol Ipratropium INH RQID [facility]USTINA Levalbuterol HCl (Xopenex) 0.63 mg INH RQ8 PRN Wean off Fio2 BIPAP as needed Pulmonary consult appreciated
--- NOTE | 2018-12-05 13:54 | CP.PCM.PN ---
Subjective - Date & Time of Evaluation Date of Evaluation: 12/05/18 Time of Evaluation: 12:40 - Subjective Subjective: Neuro Follow-Up Note: Mr. Escalona was evaluated this afternoon in the ICU. The pt is awake, alert, able to follows commands and answers questions appropriately. Still on BiPap. Pt offers no complaints today. Still has some weakness to the left arm and hand, however, much improved compared to when he was first admitted. Denies h/a, dizziness, visual changes, chest pain, palpitations, cough, abd pain, n/v/d, paresthesias, fever/chills. Objective - Vital Signs/Intake and Output Vital Signs (last 24 hours): Temp Pulse Resp BP Pulse Ox 97.3 F L 73 17 125/75 95 12/05/18 12:00 12/05/18 12:00 12/05/18 12:00 12/05/18 12:00 12/05/18 12:00 Intake and Output: 12/05/18 12/05/18 06:59 18:59 Output Total 800 Balance -800 - Medications Medications: Current Medications Acetazolamide (Diamox 250 Mg Tab) 250 mg PO DAILY [facility] Last Admin: 12/05/18 09:50 Dose: 250 mg Albuterol/Ipratropium (Duoneb 3 Mg/0.5 Mg (3 Ml) Ud) 3 ml INH RQ4 PRN PRN Reason: Shortness of Breath Aspirin (Aspirin Chewable) 81 mg PO DAILY [facility] Last Admin: 12/05/18 09:50 Dose: 81 mg Atorvastatin Calcium (Lipitor) 10 mg PO HS [facility] Last Admin: 12/04/18 21:13 Dose: 10 mg Bacitracin (Bacitracin Oint) 1 applic TOP BID [facility] Last Admin: 12/05/18 09:51 Dose: 1 applic Digoxin (Lanoxin) 0.25 mg IVP DAILY [facility] Last Admin: 12/05/18 09:51 Dose: 0.25 mg Enoxaparin Sodium (Lovenox) 40 mg SC DAILY [facility]; Protocol Famotidine (Pepcid) 20 mg PO BID [facility] Last Admin: 12/05/18 09:50 Dose: 20 mg Hydrocortisone Sodium Succinate (Solu-Cortef) 50 mg IM DAILY [facility] Stop: 12/05/18 23:59 Last Admin: 12/05/18 11:30 Dose: Not Given Azithromycin 500 mg/ Sodium (Chloride) 250 mls @ 250 mls/hr IVPB DAILY [facility]; Protocol Cefepime HCl 1 gm/ Sodium (Chloride) 100 mls @ 100 mls/hr IVPB Q12 [facility]; Protoc ol Metoprolol Tartrate (Lopressor) 50 mg PO Q12 [facility] Last Admin: 12/05/18 09:52 Dose: 50 mg Prednisone (Prednisone Tab) 10 mg PO DAILY [facility] - Labs Labs: 12/05/18 05:31 12/05/18 05:31 PT 12.5 Seconds (9.8-13.1) 12/04/18 04:25 INR 1.1 12/04/18 04:25 APTT 28.8 Seconds (25.6-37.1) 12/04/18 04:25 - Constitutional Appears: No Acute Distress - Head Exam Head Exam: ATRAUMATIC, NORMAL INSPECTION, NORMOCEPHALIC - Eye Exam Eye Exam: EOMI, Normal appearance, PERRL Pupil Exam: NORMAL ACCOMODATION, PERRL - ENT Exam ENT Exam: Mucous Membranes Moist - Neck Exam Neck Exam: Full ROM, Normal Inspection - Respiratory Exam Additional comments: BiPap on; sob - Extremities Exam Extremities Exam: absent: Calf Tenderness, Pedal Edema Additional comments: Able to move extremities; still has generalized weakness more to BLE 2/2 deconditioning; still has minimal weakness to left hand (same as Wednesday). - Neurological Exam Neurological Exam: Alert, Awake, CN II-XII Intact Neuro motor strength exam: Left Upper Extremity: 4 (aviation consultant 3/5), Right Upper Extremity: 4 (aviation consultant 4/5), Left Lower Extremity: 3, Right Lower Extremity: 3 Additional comments: Speech is clear today. Pt is AAOx3, follows all commands. Pupils equal and reactive. Able to move extremities; still has generalized weakness more to BLE 2/2 deconditioning; still has minimal weakness to left hand (same as Wednesday). No pronator drift. No tremors. Toes down going b/l Reflexes brisk b/l - Psychiatric Exam Psychiatric exam: Normal Affect, Normal Mood - Skin Skin Exam: Normal Color Assessment and Plan (1) Left-sided weakness Assessment & Plan: Imaging reviewed: -CT Head (12/03/18): No intracranial mass, hemorrhage or evidence of acute infarct. Multifocal old encephalomalacia. Age related atrophy and chronic white matter ischemic change. Old left cerebellar hemispheric lacunar infarct. -CT Head (11/29/18): Left frontal encephalomalacia. Moderate nonspecific white matter changes. 5 mm right lobe for infarct appears chronic. -CTA Head and Neck (12/02/18): No evidence of intracranial arterial occlusion or focal critical stenosis. Foci of atherosclerotic calcification and mural thickening noted. Moderate stenosis noted at the proximal right internal carotid artery. [id number] stenosis noted at the right carotid bifurcation. 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 -MRI Brain without contrast preferred to r/o acute CVA. Pt still unable to tolerate 2/2 respiratory status. -Continue ASA and statin. -Continue DVT ppx. -Continue BiPap and other current treatment. -Continue PT/OT -Continue current management in ICU. -Notify neuro of any acute changes in pt's condition. Estrella De La Fuente, RYDER, GERIATRIC NURSE Discussed with Dr. Salas Status: Acute
[2018-12-05] MEDS: Cefepime 1 GM in Sodium Chloride 0.9% 100 ML IVPB SCH ×2 (13:58→21:07)
[2018-12-05] MEDS: Azithromycin 500 MG in Sodium Chloride 0.9% 250 ML IVPB SCH (13:59)
[2018-12-05 14:04] LABS: ANISOCYTOSIS SLIGHT; EOSINOPHIL 1 % (0-7); LYMPHOCYTE 7 % (20-50); MONOCYTE 9 % (0-10); NEUTROPHIL 83 % (42-75); PLATELET ESTIMATE NORMAL (NORMAL); TOTAL CELLS COUNTED 100
--- NOTE | 2018-12-05 15:24 | CP.PCM.CON ---
History of Present Illness - History of Present Illness History of Present Illness: Palliative Consult requested by Dr. Myrick for Advanced Directive and Goals of care Patient is a 78 yr old male who presented with left sided weakness with unknown onset while in acute rehab. Patient was sent to MRI. Patient began to desaturate (O2 in the 60s) while getting MRI. Patient had an ashen color and was lethargic and placed on BIPAP. Normal color returned at that time. He was not able to complete MRI study. Patient eventually transferred to ICU where he remains on BIPAP and 1:1 monitoring. Patient has a history of multiple hospitalizations and [facility] admissions. PMH: afib, chf, COPD, CVA, HTN, Pneumonia CKD Social Hx:smoker Family Hx:unknown Head/Neck CTA: No evidence of arterial occlusion or focal critical stenosis, mod stenosis @ proximal R internal carotid artery. CT Head: No intracranial mass hemmorrhage, or evidence of acute infarct Review of Systems - Review of Systems Review of Systems: ROS patient examined in bed, limited ROS obtained due to patient being on bipap - Musculoskeletal Additional comments: left sided weakness Past Patient History - Infectious Disease Hx of Infectious Diseases: None - Past Medical History & Family History Past Medical History?: Yes - Past Social History Smoking Status: Heavy Smoker > 10 Cigarettes Daily - CARDIAC Hx Cardiac Disorders: Yes - PULMONARY Hx Respiratory Disorders: Yes - NEUROLOGICAL Hx Neurological Disorder: Yes - HEENT Hx HEENT Problems: No - RENAL Hx Chronic Kidney Disease: Yes - ENDOCRINE/METABOLIC Hx Endocrine Disorders: No - HEMATOLOGICAL/ONCOLOGICAL Hx Blood Disorders: Yes - INTEGUMENTARY Hx Dermatological Problems: No - MUSCULOSKELETAL/RHEUMATOLOGICAL Hx Musculoskeletal Disorders: Yes - GASTROINTESTINAL Hx Gastrointestinal Disorders: No - GENITOURINARY/GYNECOLOGICAL Hx Genitourinary Disorders: Yes - PSYCHIATRIC Hx Psychophysiologic Disorder: No - SURGICAL HISTORY Hx Surgeries: Yes Other/Comment: - Bladder resection (hx: bladder CA) [address] Cat - ANESTHESIA Hx Anesthesia: Yes Hx Anesthesia Reactions: No Hx Malignant Hyperthermia: No Meds Allergies/Adverse Reactions: Allergies Allergy/AdvReac Type Severity Reaction Status Date / Time No Known Allergies Allergy Verified 11/08/18 21:20 - Medications Medications: Current Medications Acetazolamide (Diamox 250 Mg Tab) 250 mg PO DAILY [facility] Last Admin: 12/05/18 09:50 Dose: 250 mg Albuterol/Ipratropium (Duoneb 3 Mg/0.5 Mg (3 Ml) Ud) 3 ml INH RQ4 PRN PRN Reason: Shortness of Breath Aspirin (Aspirin Chewable) 81 mg PO DAILY [facility] Last Admin: 12/05/18 09:50 Dose: 81 mg Atorvastatin Calcium (Lipitor) 10 mg PO HS [facility] Last Admin: 12/04/18 21:13 Dose: 10 mg Bacitracin (Bacitracin Oint) 1 applic TOP BID [facility] Last Admin: 12/05/18 09:51 Dose: 1 applic Digoxin (Lanoxin) 0.25 mg IVP DAILY [facility] Last Admin: 12/05/18 09:51 Dose: 0.25 mg Enoxaparin Sodium (Lovenox) 40 mg SC DAILY [facility]; Protocol Famotidine (Pepcid) 20 mg PO BID [facility] Last Admin: 12/05/18 09:50 Dose: 20 mg Hydrocortisone Sodium Succinate (Solu-Cortef) 50 mg IM DAILY [facility] Stop: 12/05/18 23:59 Last Admin: 12/05/18 11:30 Dose: Not Given Azithromycin 500 mg/ Sodium (Chloride) 250 mls @ 250 mls/hr IVPB DAILY [facility]; Protocol Last Admin: 12/05/18 13:59 Dose: 250 mls/hr Cefepime HCl 1 gm/ Sodium (Chloride) 100 mls @ 100 mls/hr IVPB Q12 [facility]; Protocol Last Admin: 12/05/18 13:58 Dose: 100 mls/hr Metoprolol Tartrate (Lopressor) 50 mg PO Q12 [facility] Last Admin: 12/05/18 09:52 Dose: 50 mg Prednisone (Prednisone Tab) 10 mg PO DAILY [facility] Physical Exam - Constitutional Appears: No Acute Distress, Chronically Ill - Head Exam Head Exam: ATRAUMATIC, NORMAL INSPECTION, NORMOCEPHALIC - Eye Exam Eye Exam: Normal appearance, PERRL - ENT Exam ENT Exam: Mucous Membranes Moist - Neck Exam Neck exam: Positive for: Normal Inspection - Respiratory Exam Respiratory Exam: Decreased Breath Sounds Additional comments: on BIPAP - Cardiovascular Exam Cardiovascular Exam: REGULAR RHYTHM - Rectal Exam Rectal Exam: Deferred - Extremities Exam Extremities exam: Positive for: pedal edema Additional comments: patient has left sided weakness, decreased strength in left upper extremity - Neurological Exam Neurological exam: Alert - Psychiatric Exam Psychiatric exam: Normal Affect, Normal Mood - Skin Skin Exam: Dry, Pallor, Warm Results - Vital Signs Recent Vital Signs: Last Vital Signs Temp 97.3 F L 12/05/18 12:00 Pulse 73 12/05/18 12:00 Resp 17 12/05/18 12:00 BP 125/75 12/05/18 12:00 Pulse Ox 95 12/05/18 12:00 - Labs Result Diagrams: 12/05/18 05:31 12/05/18 05:31 Labs: Laboratory Results - last 24 hr 12/05/18 12/05/18 12/05/18 05:31 05:31 10:34 WBC 7.7 RBC 3.72 L Hgb 12.4 Hct 37.4 MCV 100.7 H MCH 33.4 H MCHC 33.2 RDW 15.3 H Plt Count 281 MPV 8.0 Neut % (Auto) 82.0 H Lymph % (Auto) 8.4 L Bland % (Auto) 8.5 Eos % (Auto) 0.6 Baso % (Auto) 0.5 Neut # (Auto) 6.5 Lymph # (Auto) 0.7 L Bland # (Auto) 0.7 Eos # (Auto) 0.0 Baso # (Auto) 0.0 Neutrophils % (Manual) 83 H Lymphocytes % (Manual) 7 L Monocytes % (Manual) 9 Eosinophils % (Manual) 1 Platelet Estimate Normal Anisocytosis (manual) Slight Macrocytosis (manual) Slight pCO2 55 H pO2 61 L HCO3 32.0 H ABG pH 7.42 ABG Total CO2 37.4 H ABG O2 Saturation 94.4 L ABG Base Excess 9.3 H Sascha Test Yes ABG Potassium 2.7 L A-a O2 Difference 84.0 Glucose 199 H Lactate 1.5 FiO2 30.0 Blood Gas Comments Hiflow 30%/30l/m Crit Value Read Back N Sodium 138 135.0 Potassium 2.9 L Chloride 100 101.0 Carbon Dioxide 34 H Anion Gap 7 L BUN 14 Creatinine 0.5 L Est GFR ( Amer) > 60 Est GFR (Non-Af Amer) > 60 Random Glucose 94 Calcium 8.4 Arterial Blood Potassium 2.7 L Assessment & Plan - Assessment and Plan (Free Text) Assessment: Palliative Care DNR/DNI, There is no advanced directive in the Chart. Patient has sister Daria as POA. Palliative Performance scale 30% I reviewed medical records, all diagnostic studies, examined the patient in bed, and interviewed patient sister Daria Cox at the bedside. Patient currently in bed, not in acute distress. No complaints of pain. Goals of Care: discussed with patient sister who is POA. Patient is to receive limited treatment. As per sister Daria, please avoid surgeries and other invasive procedures. Patient's sister educated on meaning of full vs limited treatment and she verbalized understanding. POLST form signed by sister and placed in patient's chart. Primary RN and Trading Floor Operator made aware. Code Status: DNR/DNI, patient sister confirmed code status and it is also documented in POLST form. Patient sister verbalized understanding of code status. Primary RN and behavioral health consultant made aware. Impression COPD Exacerbation Decreased Mobility Left sided weakness Suggestion Max assist with ADLs Reposition Q2h PT/OT Treatment according to POLST form in chart Agree with DNR/DNI Palliative Care will remain on board as needed Time spent 55 min
[2018-12-05] MEDS: Enoxaparin 40 mg Syringe SC SCH (16:14)
[2018-12-05 19:17] LABS: ABG ALLEN TEST YES; ARTERIAL BLOOD GAS HCO3 29.7 mmol/L (21-28); ARTERIAL BLOOD GAS O2 SAT 99.2 % (95-98); ARTERIAL BLOOD GAS PCO2 49 mm/Hg (35-45); ARTERIAL BLOOD GAS PH 7.42 (7.35-7.45); ARTERIAL BLOOD GAS PO2 97 mm/Hg (80-100); ARTERIAL BLOOD GAS TCO2 33.3 mmol/L (22-28)
[2018-12-06 04:23] LABS: ABG ALLEN TEST YES; ARTERIAL BLOOD GAS HCO3 30.3 mmol/L (21-28); ARTERIAL BLOOD GAS HEMOGLOBIN 12.7 g/dL (11.7-17.4); ARTERIAL BLOOD GAS O2 CAPACITY 17.3 mL/dL (16-24); ARTERIAL BLOOD GAS O2 CONTENT 16.6 ML/dL (15-23); ARTERIAL BLOOD GAS O2 SAT 96.1 % (95-98); ARTERIAL BLOOD GAS PCO2 49 mm/Hg (35-45); ARTERIAL BLOOD GAS PH 7.43 (7.35-7.45); ARTERIAL BLOOD GAS PO2 66 mm/Hg (80-100)
[2018-12-06 05:20] LABS: HEMOGLOBIN 12.5 g/dL (12.0-18.0); MEAN CORPUSCULAR HEMOGLOBIN 33.2 pg (27.0-31.0); MEAN CORPUSCULAR HGB CONC 32.9 g/dL (33.0-37.0); RBC 3.78 Mil/uL (4.40-5.90); RED CELL DISTRIBUTION WIDTH 15.2 % (11.5-14.5)
[2018-12-06 05:28] LABS: BLOOD UREA NITROGEN 15 mg/dl (9-20); CALCIUM 8.2 mg/dL (8.4-10.2); GFR NON-AFRICAN AMERICAN > 60
[2018-12-06] MEDS ORDERED: Potassium Chloride 20 mEq/15 ml LIQ UD PO ONE (08:48)
[2018-12-06] MEDS: Bacitracin OINT 15GM TOP SCH ×2 (08:49→17:11)
--- NOTE | 2018-12-06 08:49 | CP.PCM.PN ---
Subjective - Date & Time of Evaluation Date of Evaluation: 12/06/18 Time of Evaluation: 08:40 - Subjective Subjective: Seen on rounds in the intensive care unit. Interim events and EMR entries were reviewed. Yesterday's chest x-ray reviewed. Vital signs appear stable, oxygenation is good. He remains afebrile, a fib on monitor with frequent PVCs. Speech and physical therapy notes appreciated. Appears more awake and follows commands. Less weakness in the LUE today. Speech is still difficult to understand, slurred. He appears delirious, but follows commands. Erythema and swelling/tenderness of right elbow. No cyanosis or dependant edema. Neck is supple and trachea midline. No dullness obver anterior chest wall, no subcut emphysema. Breath sounds are diminished, but well heard anteriorly in both lungs. Posteriorly the breath sounds are more decreased, especially the RLL. No audible wheezes or bronchial breath sounds. Scattered sonorous rhonchi and medium rales bilaterally. Heart sounds are distant and rhythm irregular. CT chest has been ordered yesterday, pending. Antibiotic regimen resumed yesterday. Lower dose PO prednisone this morning. Simple MVI added to daily regimen. Potassium replacement. TCO2 is down, will back off acetazolamide. Maintain SpO2 around 94%. 5 Objective - Vital Signs/Intake and Output Vital Signs (last 24 hours): Temp Pulse Resp BP Pulse Ox 97.4 F L 85 22 101/80 100 12/06/18 08:00 12/06/18 08:00 12/06/18 08:00 12/06/18 08:00 12/06/18 08:00 Intake and Output: 12/05/18 12/06/18 23:59 11:59 Intake Total 656 12 Output Total 800 700 Balance -144 -318 - Medications Medications: Current Medications Acetazolamide (Diamox 250 Mg Tab) 250 mg PO DAILY [facility] Last Admin: 12/05/18 09:50 Dose: 250 mg Albuterol/Ipratropium (Duoneb 3 Mg/0.5 Mg (3 Ml) Ud) 3 ml INH RQ4 PRN PRN Reason: Shortness of Breath Aspirin (Aspirin Chewable) 81 mg PO DAILY [facility] Last Admin: 12/05/18 09:50 Dose: 81 mg Atorvastatin Calcium (Lipitor) 10 mg PO HS [facility] Last Admin: 12/05/18 21:07 Dose: 10 mg Bacitracin (Bacitracin Oint) 1 applic TOP BID [facility] Last Admin: 12/05/18 16:14 Dose: 1 applic Digoxin (Lanoxin) 0.25 mg IVP DAILY [facility] Last Admin: 12/05/18 09:51 Dose: 0.25 mg Enoxaparin Sodium (Lovenox) 40 mg SC DAILY [facility]; Protocol Last Admin: 12/05/18 16:14 Dose: 40 mg Famotidine (Pepcid) 20 mg PO BID [facility] Last Admin: 12/05/18 16:42 Dose: 20 mg Azithromycin 500 mg/ Sodium (Chloride) 250 mls @ 250 mls/hr IVPB DAILY [facility]; Protocol Last Admin: 12/05/18 13:59 Dose: 250 mls/hr Cefepime HCl 1 gm/ Sodium (Chloride) 100 mls @ 100 mls/hr IVPB Q12 [facility]; Protocol Last Admin: 12/05/18 21:07 Dose: 100 mls/hr Metoprolol Tartrate (Lopressor) 50 mg PO Q12 [facility] Last Admin: 12/05/18 21:12 Dose: Not Given Multivitamins/Vitamin C (Multi-Delyn Liquid) 15 ml PO DAILY [facility] Prednisone (Prednisone Tab) 10 mg PO DAILY [facility] - Labs Labs: 12/06/18 05:08 12/06/18 05:08 PT 12.5 Seconds (9.8-13.1) 12/04/18 04:25 INR 1.1 12/04/18 04:25 APTT 28.8 Seconds (25.6-37.1) 12/04/18 04:25 Assessment and Plan (1) Pulmonary infiltrate Status: Acute (2) Pleural effusion Status: Acute (3) COPD exacerbation Status: Acute (4) Chronic hypercapnic respiratory failure Status: Chronic
[2018-12-06] MEDS: Cefepime 1 GM in Sodium Chloride 0.9% 100 ML IVPB SCH ×2 (08:50→20:07)
[2018-12-06] MEDS: Digoxin 500 mcg/2ml (0.5 mg/2ml) Inj IVP SCH (08:51)
[2018-12-06] MEDS: Multi Vitamins 15 mL UD Oral Solution PO SCH (11:27)
[2018-12-06] MEDS: Azithromycin 500 MG in Sodium Chloride 0.9% 250 ML IVPB SCH (11:28)
[2018-12-06] MEDS: Enoxaparin 40 mg Syringe SC SCH (11:28)
--- NOTE | 2018-12-06 11:31 | CT ---
Date of service: 12/06/2018 PROCEDURE: CT Chest without contrast HISTORY: r/o pneumonia vs effusion COMPARISON: 09/29/2018 CT thorax. December 05, 2018 single-view chest. TECHNIQUE: Contiguous axial images were obtained through the chest without intravenous contrast enhancement. Sagittal and coronal reconstructions were performed. Radiation dose: Total exam DLP = 421.86 mGy-cm. This CT exam was performed using one or more of the following dose reduction techniques: Automated exposure control, adjustment of the mA and/or kV according to patient size, and/or use of iterative reconstruction technique. FINDINGS: LUNGS: Compressive atelectasis bilaterally affecting the right lower lobe to a greater extent than the left lower lobe related to bilateral pleural effusions. MEDIASTINUM: Unremarkable thoracic aorta. No aneurysm. Normal sized heart. Main pulmonary artery unremarkable. No vascular congestion. No lymphadenopathy. Atherosclerotic calcification and mural plaque present. Findings are seen throughout the aorta PLEURA: Bilateral pleural effusions right greater than left common new findings compared to the prior CT thorax 09/29/2018. BONES: No fracture. No destructive lesion. UPPER ABDOMEN: Grossly unremarkable. OTHER FINDINGS: None. IMPRESSION: New bilateral pleural effusions right larger than left. Resulting compressive atelectasis affecting both lower lobes right to a greater extent than left.
--- NOTE | 2018-12-06 14:01 | CP.PCM.PN ---
Subjective - Date & Time of Evaluation Date of Evaluation: 12/06/18 Time of Evaluation: 13:00 - Subjective Subjective: Neuro Follow-Up Note: Mr. Escalona was evaluated this afternoon in the ICU. Pt evaluated sitting in chair at the bedside. He remains awake, alert, able to follows commands and answers questions appropriately. Currently off BiPap. Periods of confusion/forgetfulness; asked for his sister but could not recall sister's name. Pt offers no complaints today otherwise and states that he feels better. He denies worsening in left arm weakness. Denies h/a, dizziness, visual changes, chest pain, palpitations, cough, abd pain, n/v/d, paresthesias, fever/chills. Objective - Vital Signs/Intake and Output Vital Signs (last 24 hours): Temp Pulse Resp BP Pulse Ox 98.5 F 74 17 124/77 100 12/06/18 12:00 12/06/18 12:00 12/06/18 12:00 12/06/18 12:00 12/06/18 12:00 Intake and Output: 12/06/18 12/06/18 06:59 18:59 Intake Total 118 300 Output Total 700 Balance -582 300 - Medications Medications: Current Medications Acetazolamide (Diamox 250 Mg Tab) 250 mg PO DAILY [facility] Last Admin: 12/06/18 08:49 Dose: 250 mg Albuterol/Ipratropium (Duoneb 3 Mg/0.5 Mg (3 Ml) Ud) 3 ml INH RQ4 PRN PRN Reason: Shortness of Breath Aspirin (Aspirin Chewable) 81 mg PO DAILY [facility] Last Admin: 12/06/18 08:48 Dose: 81 mg Atorvastatin Calcium (Lipitor) 10 mg PO HS [facility] Last Admin: 12/05/18 21:07 Dose: 10 mg Bacitracin (Bacitracin Oint) 1 applic TOP BID [facility] Last Admin: 12/06/18 08:49 Dose: 1 applic Digoxin (Lanoxin) 0.25 mg IVP DAILY [facility] Last Admin: 12/06/18 08:51 Dose: 0.25 mg Enoxaparin Sodium (Lovenox) 40 mg SC DAILY [facility]; Protocol Last Admin: 12/06/18 11:28 Dose: 40 mg Famotidine (Pepcid) 20 mg PO BID [facility] Last Admin: 12/06/18 08:50 Dose: 20 mg Azithromycin 500 mg/ Sodium (Chloride) 250 mls @ 250 mls/hr IVPB DAILY [facility]; Protocol Last Admin: 12/06/18 11:28 Dose: 250 mls/hr Cefepime HCl 1 gm/ Sodium (Chloride) 100 mls @ 100 mls/hr IVPB Q12 [facility]; Protoc ol Last Admin: 12/06/18 08:50 Dose: 100 mls/hr Metoprolol Tartrate (Lopressor) 50 mg PO Q12 [facility] Last Admin: 12/06/18 08:49 Dose: Not Given Multivitamins/Vitamin C (Multi-Delyn Liquid) 15 ml PO DAILY [facility] Last Admin: 12/06/18 11:27 Dose: 15 ml Prednisone (Prednisone Tab) 10 mg PO DAILY [facility] Last Admin: 12/06/18 08:50 Dose: 10 mg - Labs Labs: 12/06/18 05:08 12/06/18 05:08 PT 12.5 Seconds (9.8-13.1) 12/04/18 04:25 INR 1.1 12/04/18 04:25 APTT 28.8 Seconds (25.6-37.1) 12/04/18 04:25 - Constitutional Appears: Well, Other (periods of confusion/forgetfullness) - Head Exam Head Exam: ATRAUMATIC, NORMAL INSPECTION, NORMOCEPHALIC - Eye Exam Eye Exam: EOMI, Normal appearance, PERRL Pupil Exam: NORMAL ACCOMODATION, PERRL - ENT Exam ENT Exam: Mucous Membranes Moist - Neck Exam Neck Exam: Full ROM, Normal Inspection - Respiratory Exam Respiratory Exam: absent: NORMAL BREATHING PATTERN Additional comments: some sob noted, improved since yesterday; nasal cannula on - Cardiovascular Exam Cardiovascular Exam: Irregular Rhythm - Extremities Exam Extremities Exam: Full ROM. absent: Calf Tenderness, Pedal Edema Additional comments: Able to move extremities. Still has generalized weakness to BLE 2/2 deconditioning. Improving strength noted to left hand with railroad brake operator. - Neurological Exam Neurological Exam: Alert, Altered (periods of confusion and forgetfullness; cannot recall sister's name; oriented to time and place though.), Awake, CN II- XII Intact. absent: Oriented x3 (oriented to place and time, not person (on and off)) Neuro motor strength exam: Left Upper Extremity: 4, Right Upper Extremity: 4, Left Lower Extremity: 3, Right Lower Extremity: 3 Additional comments: Speech is clear today. Pt is AAOx2, periods of confusion/forgetfulness; follows all commands. Pupils equal and reactive. Able to move extremities. Still has generalized weakness to BLE 2/2 deconditioning. Improving strength noted to left hand with railroad brake operator No pronator drift. No tremors. Toes down going b/l Reflexes brisk b/l - Psychiatric Exam Psychiatric exam: Normal Affect, Normal Mood - Skin Skin Exam: Normal Color Assessment and Plan (1) Left-sided weakness Assessment & Plan: Imaging reviewed: -CT Head (12/03/18): No intracranial mass, hemorrhage or evidence of acute infarct. Multifocal old encephalomalacia. Age related atrophy and chronic white matter ischemic change. Old left cerebellar hemispheric lacunar infarct. -CT Head (11/29/18): Left frontal encephalomalacia. Moderate nonspecific white matter changes. 5 mm right lobe for infarct appears chronic. -CTA Head and Neck (12/02/18): No evidence of intracranial arterial occlusion or focal critical stenosis. Foci of atherosclerotic calcification and mural thickening noted. Moderate stenosis noted at the proximal right internal carotid artery. [id number] stenosis noted at the right carotid bifurcation. 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 -MRI Brain without contrast preferred to r/o acute CVA. Pt still unable to tolerate 2/2 respiratory status. Pt seems to be improving though, with improvements in strength to his LUE, which was the chief concern upon admission. -Continue ASA and statin. -Continue DVT ppx. -Continue BiPap per pulm and other current treatment. -Continue PT/OT -Continue current management. -Notify neuro of any acute changes in pt's condition. Estrella De La Fuente, RYDER, AUDIT LEAD Discussed with Dr. Salas Status: Acute
--- NOTE | 2018-12-06 23:49 | PN ---
DATE: 12/06/2018 CRITICAL CARE PROGRESS NOTE LOCATION: The patient in ICU, bed 434. TIME SPENT: 25 minutes. SUBJECTIVE: The patient is seen, evaluated at the bedside. Past medical, surgical, family, and social history reviewed. Case was discussed in multidisciplinary ICU rounds this morning. A 78-year-old male, active smoker with chronic obstructive pulmonary disease, hypertension, chronic systolic heart failure, atrial fibrillation with left bundle branch block, bladder CA status post resection x2 in 2016 and 2017, admitted with exacerbation of chronic obstructive pulmonary disease. Overnight on BIPAP. Remains confused, sometimes agitated, pulling BIPAP, on one-to-one observation. This morning alert, awake, less confused, oriented to name, but not to place or time. PHYSICAL EXAMINATION: VITAL SIGNS: Temperature 97.4, heart rate 87 irregular, respiratory rate 22 to 26, thoracoabdominal, saturation 100% on oxygen supplement 3 liters. Intake 768, output 1500, negative balance -735. HEAD, EYES, EARS, NOSE, AND THROAT: Pupils reactive to light and accommodation. Extraocular muscles intact. NECK: Supple. Trachea central. CHEST: Bilateral breath sounds diminished in intensity, more on the right than left. No audile wheeze. Scattered rhonchi. HEART: Rhythm irregular. S1, S2 distant. ABDOMEN: Bowel sounds present, soft, no palpable mass. EXTREMITIES: Trace edema. NEUROLOGIC: More awake, follows commands. Able to lift both upper and lower extremities. Less weakness in the left upper extremity today. Still with some slurred speech. CURRENT MEDICATIONS: Acetazolamide 250 mg p.o. daily, albuterol/Atrovent inhalation 3 mL via nebulizer every 4 hour p.r.n., aspirin 81 mg p.o. daily, Lipitor 10 mg p.o. at bedtime, Zithromax 500 mg IV daily, Bacitracin ointment one application topically twice daily, cefepime 1 g IV every 12 hours, Lanoxin 0.25 mg IV daily, Lovenox 40 mg subcu daily, Pepcid 20 mg twice daily, Lopressor 50 mg every 12 hours, multivitamin 15 mL p.o. daily, prednisone 10 mg p.o. daily. LABORATORY DATA: WBC 11, hemoglobin 12.5, hematocrit 38.2, platelet count 273. PT 12.5, INR 1.1, PTT 28.8. ABG; pH 7.4, pCO2 49, pO2 of 66, saturation 92.8% on FiO2 32%. SMA-7: Sodium 139, potassium 3.1, chloride 102, CO2 of 32, blood urea nitrogen 8, creatinine 0.5. Microbiology, nasal smear MRSA negative. CAT scan of the chest on 12/05/2018, atelectasis bilaterally and right lower lobe to a great extent than the left lower lobe with bilateral pleural effusion. No aneurysm. Normal size heart. Atherosclerotic calcification and mural plaque, bilateral pleural effusions, right greater than left. Bones, no fracture. IMPRESSION: 1. Neurologic: More alert and awake, oriented to name but not to place or time, status post cardiovascular accident with left hemiparesis stable, more on the arm than the leg. 2. Pulmonary: Chronic obstructive pulmonary disease with hypoxemia, bilateral pleural effusion more on the right than left with passive atelectasis, on alternating high flow nasal oxygen/bilevel positive airway pressure, maintaining saturation over 94%. 3. Cardiac: History of chronic systolic heart failure, chronic atrial fibrillation, rate under control. Currently on metoprolol, not a candidate for anticoagulation. 4. Hematology: No leukocytosis. Hemoglobin, hematocrit, and platelet count are stable. 5. Renal: Chronic renal insufficiency, hypokalemia, supplement potassium. 6. Infectious disease: On Cefepime and azithromycin empirically for possible right lower lobe pneumonia from aspiration. On deep venous thrombosis prophylaxis and gastrointestinal prophylaxis, on Pepcid. Mejia for strict intake and output. Appreciate hospice care evaluation. Code status: [id number] and [id number]. Jose Mercedes MD
[2018-12-07 05:53] LABS: BASO % 0.1 % (0.0-2.0); EOS % 0.2 % (0.0-4.0); HEMOGLOBIN 12.7 g/dL (12.0-18.0); LYMPH # 1.1 K/uL (1.0-4.3); LYMPH % 9.9 % (20.0-40.0); MEAN CELL VOLUME 99.5 fl (80.0-94.0); MEAN CORPUSCULAR HEMOGLOBIN 33.3 pg (27.0-31.0); MEAN CORPUSCULAR HGB CONC 33.5 g/dL (33.0-37.0); MEAN PLATELET VOLUME 8.3 fl (7.2-11.7); MONO # 0.9 K/uL (0.0-0.8); MONO % 8.4 % (0.0-10.0); NEUT # 8.6 K/uL (1.8-7.0); NEUT % 81.4 % (50.0-75.0); NRBC % 0.1 % (0.0-0.0); RBC 3.82 Mil/uL (4.40-5.90); RED CELL DISTRIBUTION WIDTH 15.2 % (11.5-14.5); WHITE BLOOD COUNT 10.6 K/uL (4.8-10.8)
[2018-12-07 06:09] LABS: BLOOD UREA NITROGEN 16 mg/dl (9-20); CALCIUM 8.4 mg/dL (8.4-10.2); GFR NON-AFRICAN AMERICAN > 60
--- NOTE | 2018-12-07 08:38 | CP.PCM.PN ---
Subjective - Date & Time of Evaluation Date of Evaluation: 12/07/18 Time of Evaluation: 08:36 - Subjective Subjective: Seen in ICU on rounds. Interim events and EMR entries reviewed. Presently in seated position in bed. Has remained afebrile, normotensive. Continues to have non-sustained arrhythmias episodically. Speech is difficult to understand, but appears to attempt answering questions. Follows simple commands. Tachypneic, using accessory muscles for respiration. Breath sounds appear to be slightly improved on exam today. Posteriorly breath sounds are diminished, but slightly less so than prior days. No audible wheezes or bronchial breath sounds. CT chest the other day showed bilateral pleural effusions (R>L) with compressive lower lobe atelectasis. Will discuss with PMD and civil preparedness coordinator regarding thoracentesis. Previous mention of limiting procedures to non-aggressive interventions, but this would potentially have significant benefit with relatively low risk. Beta-adrenergic aerosol medications have been relegated to PRN status only without much negative impact. Objective - Vital Signs/Intake and Output Vital Signs (last 24 hours): Temp Pulse Resp BP Pulse Ox 97.1 F L 83 24 138/79 100 12/07/18 08:00 12/07/18 08:00 12/07/18 08:00 12/07/18 08:00 12/07/18 08:00 Intake and Output: 12/06/18 12/07/18 23:59 11:59 Intake Total 200 Balance 200 - Medications Medications: Current Medications Acetazolamide (Diamox 250 Mg Tab) 250 mg PO DAILY [facility] Last Admin: 12/06/18 08:49 Dose: 250 mg Albuterol/Ipratropium (Duoneb 3 Mg/0.5 Mg (3 Ml) Ud) 3 ml INH RQ4 PRN PRN Reason: Shortness of Breath Aspirin (Aspirin Chewable) 81 mg PO DAILY [facility] Last Admin: 12/06/18 08:48 Dose: 81 mg Atorvastatin Calcium (Lipitor) 10 mg PO HS [facility] Last Admin: 12/06/18 21:10 Dose: 10 mg Bacitracin (Bacitracin Oint) 1 applic TOP BID [facility] Last Admin: 12/06/18 17:11 Dose: 1 applic Digoxin (Lanoxin) 0.25 mg IVP DAILY [facility] Last Admin: 12/06/18 08:51 Dose: 0.25 mg Enoxaparin Sodium (Lovenox) 40 mg SC DAILY [facility]; Protocol Last Admin: 12/06/18 11:28 Dose: 40 mg Famotidine (Pepcid) 20 mg PO BID [facility] Last Admin: 12/06/18 17:11 Dose: 20 mg Azithromycin 500 mg/ Sodium (Chloride) 250 mls @ 250 mls/hr IVPB DAILY [facility]; Protocol Last Admin: 12/06/18 11:28 Dose: 250 mls/hr Cefepime HCl 1 gm/ Sodium (Chloride) 100 mls @ 100 mls/hr IVPB Q12 [facility]; Protocol Last Admin: 12/06/18 20:07 Dose: 100 mls/hr Metoprolol Tartrate (Lopressor) 50 mg PO Q12 [facility] Last Admin: 12/06/18 20:06 Dose: 50 mg Multivitamins/Vitamin C (Multi-Delyn Liquid) 15 ml PO DAILY [facility] Last Admin: 12/06/18 11:27 Dose: 15 ml Prednisone (Prednisone Tab) 10 mg PO DAILY [facility] Last Admin: 12/06/18 08:50 Dose: 10 mg - Labs Labs: 12/07/18 05:38 12/07/18 05:38 PT 12.5 Seconds (9.8-13.1) 12/04/18 04:25 INR 1.1 12/04/18 04:25 APTT 28.8 Seconds (25.6-37.1) 12/04/18 04:25 Assessment and Plan (1) Pulmonary infiltrate Status: Acute (2) Pleural effusion Status: Acute (3) COPD exacerbation Status: Acute (4) Chronic hypercapnic respiratory failure Status: Chronic
[2018-12-07] MEDS: Bacitracin OINT 15GM TOP SCH ×2 (09:19→16:53)
[2018-12-07] MEDS: Digoxin 500 mcg/2ml (0.5 mg/2ml) Inj IVP SCH (09:19)
[2018-12-07] MEDS: Enoxaparin 40 mg Syringe SC SCH (09:20)
[2018-12-07] MEDS: Cefepime 1 GM in Sodium Chloride 0.9% 100 ML IVPB SCH ×2 (09:21→20:56)
[2018-12-07] MEDS: Multi Vitamins 15 mL UD Oral Solution PO SCH (09:21)
[2018-12-07] MEDS: Azithromycin 500 MG in Sodium Chloride 0.9% 250 ML IVPB SCH (10:57)
--- NOTE | 2018-12-07 11:04 | CP.CCUPN ---
CCU Subjective - Physician Review Subjective (Free Text): On intermittent BiPAP and HFNC as per patients temperament, now has been on 3 LPM NC since 4 AM and appears non-distressed, RR is 16-17 and appears slightly drowsy but easily arousable. Afebrile, no temp spikes, SBPs 130s, HR 50-60s sinus. Urine output 1500ml ove rnight last 24H. PO intake has improved, diet advanced to bite-sized. ROS: No other pertinent negs or positives on 10+ system review. PMSFH: All other Nursing and physician documentation reviewed to date; no new pertinent info noted relevant to current medical problems. EXAM- HEENT: no icterus, no gaze preference, pupils equal bilat and reactive NECK: no JVD visible, supple, carotids equal upstroke bilat/no bruit CHEST: decreased BS at the bases, no wheezes audible HEART: irregular, distant, tachy S1S2, no rubs ABD: soft, no distension, no focal tenderness, no tympany, no guarding, no organomegaly, BS hypoactive. EXT: trace LE edema, no mottling; no calf tenderness or palpable cords, distal pulses intact and symmetrical, no cyanosis, bilat Venodynes on. NEURO: Left hemiparesis, no abnormal posturing. SKIN: no rashes, warm and dry. LABS: WBC= 10.6 HGB= 12.7 PLTs= 311K Na= 138 K= 3.4 CL= 104 HCO3= 28 BUN/Cr= 16/0.5 BS= [address] done 12/05 reviewed: R sided effusion worse than L. IMPRESSION / MAJOR PROBLEMS NOW: 1. Acute Resp Insuff with Hypercarbia and Hypoxemia 2 COPD Bronchitis, retained secretions, R >L effusions 2. s/p CVA 3. Chronic AFib with slow VR 4. 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 BiPAP support as tolerated, Advance Directives pronounced by sister after she arrived to the bedside several days ago and requested DNR and DNI. 2. Digoxin and Lopressor doses reduced 50% for now. Reported episodes of VT overnight may have been aberrant conduction. No associated new symptoms reported. 3. Neurology still pursuing MRI imaging of brain: unable to be completed due to problematic duration of test and patients overall cooperation. May need brief sedation for the test. 4. Steroids tapered to PO prednisone. Improved metabolic status on Diamox. He will benefit from thoracentesis. Await IR eval for feasibility of pleural fluid- centesis. Coags acceptable from yesterday. Day#3 Maxipime / Zithro.
[2018-12-07] MEDS ORDERED: Potassium Chloride 20 mEq/15 ml LIQ UD PO ONE (18:47)
[2018-12-08 05:30] LABS: BASO % 0.2 % (0.0-2.0); EOS # 0.1 K/uL (0.0-0.7); EOS % 0.7 % (0.0-4.0); HEMOGLOBIN 12.4 g/dL (12.0-18.0); LYMPH # 0.9 K/uL (1.0-4.3); LYMPH % 11.8 % (20.0-40.0); MEAN CELL VOLUME 100.5 fl (80.0-94.0); MEAN CORPUSCULAR HEMOGLOBIN 33.2 pg (27.0-31.0); MEAN PLATELET VOLUME 8.3 fl (7.2-11.7); MONO # 0.8 K/uL (0.0-0.8); NEUT # 5.8 K/uL (1.8-7.0); NEUT % 77.3 % (50.0-75.0); NRBC % 0.1 % (0.0-0.0); RBC 3.73 Mil/uL (4.40-5.90); RED CELL DISTRIBUTION WIDTH 15.3 % (11.5-14.5); WHITE BLOOD COUNT 7.5 K/uL (4.8-10.8)
[2018-12-08 05:37] LABS: BLOOD UREA NITROGEN 16 mg/dl (9-20); CALCIUM 8.2 mg/dL (8.4-10.2); GFR NON-AFRICAN AMERICAN > 60
--- NOTE | 2018-12-08 08:12 | CP.PCM.PN ---
Subjective - Date & Time of Evaluation Date of Evaluation: 12/08/18 Time of Evaluation: 08:12 - Subjective Subjective: Seen in ICU on rounds. Presently asleep, easily awakened. Appears anxious when he awakens, unable to express himself clearly. Apparently had restless night per nursing notes. Appears to become dyspneic with conversation. SpO2 has remained within acceptable parameters. On exam there is continued dullness in the right lower chest with absent BS. The left is more clear on auscultation with better breath sounds. No audible wheezes or bronchial breath sounds heard. No dependant edema of the LEs and no cyanosis. Will request IR to see for thoracentesis. Medical regimen will remain the same for now. Objective - Vital Signs/Intake and Output Vital Signs (last 24 hours): Temp Pulse Resp BP Pulse Ox 97.5 F L 86 21 149/74 96 12/08/18 04:00 12/08/18 06:00 12/08/18 06:00 12/08/18 06:00 12/08/18 06:00 Intake and Output: 12/07/18 12/08/18 23:59 11:59 Intake Total 380 Balance 380 - Medications Medications: Current Medications Acetazolamide (Diamox 250 Mg Tab) 250 mg PO DAILY [facility] Last Admin: 12/07/18 09:19 Dose: 250 mg Albuterol/Ipratropium (Duoneb 3 Mg/0.5 Mg (3 Ml) Ud) 3 ml INH RQ4 PRN PRN Reason: Shortness of Breath Aspirin (Aspirin Chewable) 81 mg PO DAILY [facility] Last Admin: 12/07/18 09:19 Dose: 81 mg Atorvastatin Calcium (Lipitor) 10 mg PO HS [facility] Last Admin: 12/07/18 21:02 Dose: 10 mg Bacitracin (Bacitracin Oint) 1 applic TOP BID [facility] Last Admin: 12/07/18 16:53 Dose: 1 applic Digoxin (Lanoxin) 0.25 mg IVP DAILY [facility] Last Admin: 12/07/18 09:19 Dose: 0.25 mg Digoxin (Digoxin) 0.125 mg PO DAILY [facility] Enoxaparin Sodium (Lovenox) 40 mg SC DAILY [facility]; Protocol Last Admin: 12/07/18 09:20 Dose: 40 mg Famotidine (Pepcid) 20 mg PO BID [facility] Last Admin: 12/07/18 16:53 Dose: 20 mg Azithromycin 500 mg/ Sodium (Chloride) 250 mls @ 250 mls/hr IVPB DAILY [facility]; Protocol Last Admin: 12/07/18 10:57 Dose: 250 mls/hr Cefepime HCl 1 gm/ Sodium (Chloride) 100 mls @ 100 mls/hr IVPB Q12 [facility]; Protocol Last Admin: 12/07/18 20:56 Dose: 100 mls/hr Metoprolol Tartrate (Lopressor) 25 mg PO Q12 [facility] Last Admin: 12/07/18 21:02 Dose: 25 mg Multivitamins/Vitamin C (Multi-Delyn Liquid) 15 ml PO DAILY [facility] Last Admin: 12/07/18 09:21 Dose: 15 ml Prednisone (Prednisone Tab) 10 mg PO DAILY [facility] Last Admin: 12/07/18 09:21 Dose: 10 mg - Labs Labs: 12/08/18 05:17 12/08/18 05:17 PT 12.5 Seconds (9.8-13.1) 12/04/18 04:25 INR 1.1 12/04/18 04:25 APTT 28.8 Seconds (25.6-37.1) 12/04/18 04:25 Assessment and Plan (1) Pulmonary infiltrate Status: Acute (2) Pleural effusion Status: Resolved (3) COPD exacerbation Status: Resolved (4) Chronic hypercapnic respiratory failure Status: Chronic
[2018-12-08] MEDS: Cefepime 1 GM in Sodium Chloride 0.9% 100 ML IVPB SCH ×2 (08:31→21:08)
[2018-12-08] MEDS: Enoxaparin 40 mg Syringe SC SCH (08:32)
[2018-12-08] MEDS: Azithromycin 500 MG in Sodium Chloride 0.9% 250 ML IVPB SCH (10:30)
[2018-12-08] MEDS ORDERED: Lidocaine Hydrochloride 1% 10 ML ONE (14:35)
--- NOTE | 2018-12-08 14:46 | PCM.SURG1 ---
Surgeon's Initial Post Op Note - Surgeon's Notes Surgeon: Castillo Francisco MD One Piece Expansion Maker Hand: NONE Type of Anesthesia: Local Pre-Operative Diagnosis: Right pleural effusion Operative Findings: US showed a large right pleural effusion Post-Operative Diagnosis: Right pleural effusion Operation Performed: US guided right thoracentesis Specimen/Specimens Removed: 1200 cc of straw colored fluid Estimated Blood Loss: EBL {In ML}: 0 Blood Products Given: N/A Drains Used: No Drains Post-Op Condition: Fair Date of Surgery/Procedure: 12/08/18 Time of Surgery/Procedure: 14:35
[2018-12-08] MEDS: Multi Vitamins 15 mL UD Oral Solution PO SCH (15:24)
[2018-12-08] MEDS: Digoxin 500 mcg/2ml (0.5 mg/2ml) Inj IVP SCH (15:29)
[2018-12-08] MEDS: Digoxin 125 mcg (0.125 mg) Tab PO SCH (15:29)
--- NOTE | 2018-12-08 15:29 | CP.CCUPN ---
CCU Subjective - Physician Review Subjective (Free Text): Nurses report patient did not sleep overnight, restless and intermittently agitated, remained on nasal cannula oxygen, SPo2 99%. Afebrile, no temp spikes, SBPs 140s, HR 70s sinus. Urine output not recorded. ROS: No other pertinent negs or positives on 10+ system review. PMSFH: All other Nursing and physician documentation reviewed to date; no new pertinent info noted relevant to current medical problems. EXAM- HEENT: no icterus, no gaze preference, pupils equal bilat and reactive NECK: no JVD visible, supple, carotids equal upstroke bilat/no bruit CHEST: decreased BS at the bases, no wheezes audible HEART: irregular, distant, tachy S1S2, no rubs ABD: soft, no distension, no focal tenderness, no tympany, no guarding, no organomegaly, BS hypoactive. EXT: trace LE edema, no mottling; no calf tenderness or palpable cords, distal pulses intact and symmetrical, no cyanosis, bilat Venodynes on. NEURO: Left hemiparesis, no abnormal posturing. SKIN: no rashes, warm and dry. LABS: WBC= 7.5 HGB= 12.4 PLTs= 309K Na= 138 K= 3.5 CL= 103 HCO3= 30 BUN/Cr= 16/0.5 BS= 109 IMPRESSION / MAJOR PROBLEMS NOW: 1. Acute Resp Insuff with Hypercarbia and Hypoxemia 2 COPD Bronchitis, retained secretions, R worse than L effusions 2. s/p CVA 3. Chronic AFib with slow VR 4. 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 Cautious anxiolytic use; Ativan given now for IR Thoracentesis procedure. 2. Ongoing BiPAP support as tolerated. 3. A fib VR better today, less bradycardic, HR in the 70s after Digoxin and Lopressor doses reduced 50%. 4. Day#4 Maxipime / Zithro. 5. Delirium improves as he is mobilized OOB to chair. Ongoing Physical therapy assistance and mobilization as tolerated. Otherwise remains on 1:1 supervision for patient safety.
[2018-12-08] MEDS: Bacitracin OINT 15GM TOP SCH ×2 (15:30→18:25)
[2018-12-08 15:35] LABS: BODY FLUID TYPE PLEURAL/THORACENTESI
[2018-12-08 16:27] LABS: TOTAL PROTEIN,BODY FLUID 2.3 g/dL (NONE ESTABLISHED)
--- NOTE | 2018-12-08 16:28 | RAD ---
Date of service: 12/08/2018 PROCEDURE: CHEST RADIOGRAPH, 1 VIEW HISTORY: Status post right thoracentesis COMPARISON: 12/05/2018 FINDINGS: LUNGS: Clear. PLEURA: No pneumothorax or pleural fluid seen. CARDIOVASCULAR: Aortic calcification moderate cardiomegaly OSSEOUS STRUCTURES: No significant abnormalities. VISUALIZED UPPER ABDOMEN: Normal. OTHER FINDINGS: None. IMPRESSION: No active disease.
[2018-12-08 17:31] LABS: BF GROSS APPEARANCE TURBID (CLEAR)
[2018-12-08 19:34] LABS: BODY FLUID MONO/MACROPHAGE 20 % (0-0); BODY FLUID TOTAL COUNT 100 (0-0)
[2018-12-09] MEDS: Potassium Chl 40 mEq in D5-NS 1,000 ML IV SCH ×2 (01:07→16:34)
[2018-12-09 05:29] LABS: ABG ALLEN TEST YES; ARTERIAL BLOOD GAS HCO3 28.9 mmol/L (21-28); ARTERIAL BLOOD GAS HEMOGLOBIN 13.8 g/dL (11.7-17.4); ARTERIAL BLOOD GAS O2 CAPACITY 18.6 mL/dL (16-24); ARTERIAL BLOOD GAS O2 SAT 96.7 % (95-98); ARTERIAL BLOOD GAS PCO2 54 mm/Hg (35-45); ARTERIAL BLOOD GAS PH 7.38 (7.35-7.45); ARTERIAL BLOOD GAS PO2 71 mm/Hg (80-100); ARTERIAL BLOOD GAS TCO2 33.6 mmol/L (22-28)
[2018-12-09 05:58] LABS: BASO % 0.1 % (0.0-2.0); HEMOGLOBIN 13.7 g/dL (12.0-18.0); LYMPH # 0.7 K/uL (1.0-4.3); LYMPH % 6.5 % (20.0-40.0); MEAN CELL VOLUME 101.1 fl (80.0-94.0); MEAN CORPUSCULAR HEMOGLOBIN 33.4 pg (27.0-31.0); MEAN PLATELET VOLUME 8.6 fl (7.2-11.7); MONO # 0.8 K/uL (0.0-0.8); MONO % 8.1 % (0.0-10.0); NEUT # 8.6 K/uL (1.8-7.0); NEUT % 85.3 % (50.0-75.0); PLATELET COUNT 312 K/uL (130-400); RBC 4.09 Mil/uL (4.40-5.90); RED CELL DISTRIBUTION WIDTH 15.4 % (11.5-14.5)
[2018-12-09 06:01] LABS: BLOOD UREA NITROGEN 17 mg/dl (9-20); CALCIUM 8.2 mg/dL (8.4-10.2); GFR NON-AFRICAN AMERICAN > 60
[2018-12-09 09:02] LABS: LYMPHOCYTE 6 % (20-50); MONOCYTE 9 % (0-10); NEUTROPHIL 85 % (42-75); TOTAL CELLS COUNTED 100
[2018-12-09 09:03] LABS: ANISOCYTOSIS SLIGHT; LARGE PLATELETS PRESENT; PLATELET ESTIMATE NORMAL (NORMAL)
[2018-12-09] MEDS: Cefepime 1 GM in Sodium Chloride 0.9% 100 ML IVPB SCH ×2 (10:24→21:02)
[2018-12-09] MEDS: Azithromycin 500 MG in Sodium Chloride 0.9% 250 ML IVPB SCH (11:35)
[2018-12-09] MEDS: Digoxin 125 mcg (0.125 mg) Tab PO SCH (11:44)
[2018-12-09] MEDS: Multi Vitamins 15 mL UD Oral Solution PO SCH (11:44)
--- NOTE | 2018-12-09 11:54 | US ---
PROCEDURE: Date of procedure: 12/08/2018 Procedure: 1. Ultrasound-guided Right thoracentesis, CPT 91078 Medications: 5cc 1% Lidocaine HISTORY: Right pleural effusion, shortness of breath TECHNIQUE: Following informed consent ,the Patients' right chest was marked. Procedure time-out was called, and the patient was placed in the sitting position and limited ultrasound showed a large right effusion. The patient's right back was prepped and draped in the usual sterile fashion. After the skin was anesthetized with lidocaine, a drainage catheter was advanced under ultrasound guidance into the pleural space. Ultrasound-guided thoracentesis was performed. A total of 1350 cubic centimeters of straw-colored fluid removed without complication. A Xeroform dressing was applied. IMPRESSION: Ultrasound guided Right thoracentesis. There were no immediate complications.
--- NOTE | 2018-12-09 12:13 | CP.CCUPN ---
CCU Subjective - Physician Review Subjective (Free Text): Underwent IR thoracentesis yesterday with 1200ml removed. Post procedure CXR showed marked improvement and clarity of lung gonzalez. Overnight, mostly sleeping, repeat ABG did not show any worsening hypercarbia. Today, alert and interactive, asking for a few beers. Afebrile, no temp spikes, SBPs 120-130s, HR 80-90s sinus. SPO2 98% on 2 LPM NC. ROS: No other pertinent negs or positives on 10+ system review. PMSFH: All other Nursing and physician documentation reviewed to date; no new pertinent info noted relevant to current medical problems. EXAM- HEENT: no icterus, no gaze preference, pupils equal bilat and reactive NECK: no JVD visible, supple, carotids equal upstroke bilat/no bruit CHEST: decreased BS at the bases, no wheezes audible HEART: irregular, distant, tachy S1S2, no rubs ABD: soft, no distension, no focal tenderness, no tympany, no guarding, no organomegaly, BS hypoactive. EXT: trace LE edema, no mottling; no calf tenderness or palpable cords, distal pulses intact and symmetrical, no cyanosis, bilat Venodynes on. NEURO: Left hemiparesis, no abnormal posturing. SKIN: no rashes, warm and dry. LABS: WBC= 10.0 HGB= 13.7 PLTs= 312K 7.38/ 54/71 Na= 142 K= 3.5 CL= 107 HCO3= 30 BUN/Cr= 17/0.4 BS= 141 IMPRESSION / MAJOR PROBLEMS NOW: 1. Acute Resp Insuff with Hypercarbia and Hypoxemia 2 COPD Bronchitis, retained secretions, R worse than L effusions; s/p Thoracentesis 2. s/p CVA 3. Chronic AFib with slow VR 4. 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 [place] ongoing BiPAP support as tolerated. 2. A fib VR better today, less bradycardic, HR in the 70s after Digoxin and Lopressor doses reduced 50%. 3. Day #5 Maxipime / Zithro. 4. Delirium improves as he is mobilized OOB to chair. Ongoing Physical therapy assistance and mobilization as tolerated. Otherwise remains on 1:1 supervision for patient safety. 5. Tele bed.
--- NOTE | 2018-12-09 14:25 | CP.PCM.PN ---
Subjective - Date & Time of Evaluation Date of Evaluation: 12/09/18 Time of Evaluation: 13:30 - Subjective Subjective: examined patient in bed Objective - Vital Signs/Intake and Output Vital Signs (last 24 hours): Temp Pulse Resp BP Pulse Ox 98.7 F 98 H 24 108/57 L 97 12/09/18 12:00 12/09/18 12:00 12/09/18 12:00 12/09/18 12:00 12/09/18 12:00 Intake and Output: 12/09/18 12/09/18 06:59 18:59 Intake Total 500 160 Output Total 150 Balance 350 160 - Medications Medications: Current Medications Acetazolamide (Diamox 250 Mg Tab) 250 mg PO DAILY [facility] Last Admin: 12/09/18 11:41 Dose: 250 mg Albuterol/Ipratropium (Duoneb 3 Mg/0.5 Mg (3 Ml) Ud) 3 ml INH RQ4 PRN PRN Reason: Shortness of Breath Aspirin (Aspirin Chewable) 81 mg PO DAILY [facility] Last Admin: 12/09/18 11:45 Dose: 81 mg Atorvastatin Calcium (Lipitor) 10 mg PO HS [facility] Last Admin: 12/08/18 21:08 Dose: Not Given Bacitracin (Bacitracin Oint) 1 applic TOP BID [facility] Last Admin: 12/08/18 18:25 Dose: Not Given Digoxin (Digoxin) 0.125 mg PO DAILY [facility] Last Admin: 12/09/18 11:44 Dose: 0.125 mg Enoxaparin Sodium (Lovenox) 40 mg SC DAILY [facility]; Protocol Last Admin: 12/08/18 08:32 Dose: 40 mg Famotidine (Pepcid) 20 mg PO BID [facility] Last Admin: 12/09/18 11:43 Dose: 20 mg Azithromycin 500 mg/ Sodium (Chloride) 250 mls @ 250 mls/hr IVPB DAILY [facility]; Protocol Last Admin: 12/09/18 11:35 Dose: 250 mls/hr Cefepime HCl 1 gm/ Sodium (Chloride) 100 mls @ 100 mls/hr IVPB Q12 [facility]; Protocol Last Admin: 12/09/18 10:24 Dose: 100 mls/hr Potassium Chloride/Dextrose/Sod Cl (D5-Ns1l+40meq Kcl) 1,000 mls @ 80 mls/hr IV .[id number] [facility] Stop: 12/10/18 00:22 Last Admin: 12/09/18 01:07 Dose: 80 mls/hr Metoprolol Tartrate (Lopressor) 25 mg PO Q12 [facility] Last Admin: 12/09/18 11:41 Dose: 25 mg Multivitamins/Vitamin C (Multi-Delyn Liquid) 15 ml PO DAILY [facility] Last Admin: 12/09/18 11:44 Dose: 15 ml Prednisone (Prednisone Tab) 5 mg PO DAILY [facility] - Labs Labs: 12/09/18 05:33 12/09/18 05:33 PT 12.5 Seconds (9.8-13.1) 12/04/18 04:25 INR 1.1 12/04/18 04:25 APTT 28.8 Seconds (25.6-37.1) 12/04/18 04:25 - Constitutional Appears: No Acute Distress, Cachectic, Chronically Ill - Head Exam Head Exam: ATRAUMATIC, NORMAL INSPECTION, NORMOCEPHALIC - Eye Exam Eye Exam: Normal appearance - ENT Exam ENT Exam: Mucous Membranes Moist - Respiratory Exam Respiratory Exam: Decreased Breath Sounds - Cardiovascular Exam Cardiovascular Exam: Tachycardia - GI/Abdominal Exam GI & Abdominal Exam: Soft, Hypoactive Bowel Sounds - Neurological Exam Neurological Exam: Alert, Altered, Awake - Psychiatric Exam Psychiatric exam: Anxious - Skin Skin Exam: Dry, Pallor, Warm Assessment and Plan - Assessment and Plan (Free Text) Assessment: Palliative Care examined patient in bed, still on 1:1 watch, currently getting swallow eval for possible dysphagia. As per nursing staff patient only able to swallow soft foods such as oatmeal. -alert, awake, and altered, not following commands -Decreased breath sounds, on NC, bed in high lazaro's position -tachycardia -skin warm and dry -getting speech eval for dysphagia, only eating a small amt of meals -No pain complaints Goals of Care: Limited Treatment as described in POLST form on Chart. Team Aware Code Status: DNR/DNI. Documented in POLST form in chart. Team aware Impression * COPD Exacerbation * Hypoxemia * Left sided weakness * Decreased Mobility * Dysphagia Suggestion * ongoing PT/OT * Max assist with ADLS and reposition q2h * Follow up with recommendations from speech therapist * Agree with DNR/DNI Palliative Care will remain on board as needed and can be reached at ext [phone] or [phone] Time Spent with patient 40 min
[2018-12-09] MEDS: Bacitracin OINT 15GM TOP SCH ×2 (14:38→16:34)
[2018-12-10 05:15] LABS: HEMOGLOBIN 12.1 g/dL (12.0-18.0); MEAN CELL VOLUME 101.4 fl (80.0-94.0); MEAN CORPUSCULAR HEMOGLOBIN 33.5 pg (27.0-31.0); MEAN CORPUSCULAR HGB CONC 33.1 g/dL (33.0-37.0); RBC 3.62 Mil/uL (4.40-5.90); RED CELL DISTRIBUTION WIDTH 15.3 % (11.5-14.5)
[2018-12-10 05:34] LABS: BLOOD UREA NITROGEN 13 mg/dl (9-20); CALCIUM 8.3 mg/dL (8.4-10.2); GFR NON-AFRICAN AMERICAN > 60
[2018-12-10] MEDS: Multi Vitamins 15 mL UD Oral Solution PO SCH (09:10)
[2018-12-10] MEDS: Digoxin 125 mcg (0.125 mg) Tab PO SCH (09:11)
--- NOTE | 2018-12-10 09:11 | CP.PCM.PN ---
Subjective - Date & Time of Evaluation Date of Evaluation: 12/10/18 Time of Evaluation: 09:00 - Subjective Subjective: The patient was found resting comfortably in bed having eaten a fair amount of his breakfast. He shows atrial fibrillation at heart rates between 90 and 100 bpm with a blood pressure of 114/70 mmHg. With oxygen supplement with nasal cannula his pulse oximetry was 96-97%. His jugular venous pressure was not elevated and there was pitting edema over the sacral region. There was faint S3 gallop. Inspiratory effort was poor but there were no rales. His labs show no leukocytosis and his BUN/creatinine were stable. Potassium was 3.5 mEq/L and potassium supplement was ordered. Following his pleural tap the patient has been stable and awaits a bed out of intensive care unit. Objective - Vital Signs/Intake and Output Vital Signs (last 24 hours): Temp Pulse Resp BP Pulse Ox 98.5 F 133 H 25 H 130/89 97 12/10/18 04:00 12/10/18 06:00 12/10/18 06:00 12/10/18 06:00 12/10/18 06:00 Intake and Output: 12/10/18 12/10/18 06:59 18:59 Intake Total 160 Balance 160 - Medications Medications: Current Medications Acetazolamide (Diamox 250 Mg Tab) 250 mg PO DAILY [facility] Last Admin: 12/09/18 11:41 Dose: 250 mg Albuterol/Ipratropium (Duoneb 3 Mg/0.5 Mg (3 Ml) Ud) 3 ml INH RQ4 PRN PRN Reason: Shortness of Breath Aspirin (Aspirin Chewable) 81 mg PO DAILY [facility] Last Admin: 12/09/18 11:45 Dose: 81 mg Atorvastatin Calcium (Lipitor) 10 mg PO HS [facility] Last Admin: 12/09/18 21:03 Dose: 10 mg Bacitracin (Bacitracin Oint) 1 applic TOP BID [facility] Last Admin: 12/09/18 16:34 Dose: Not Given Digoxin (Digoxin) 0.125 mg PO DAILY [facility] Last Admin: 12/09/18 11:44 Dose: 0.125 mg Enoxaparin Sodium (Lovenox) 40 mg SC DAILY [facility]; Protocol Last Admin: 12/08/18 08:32 Dose: 40 mg Famotidine (Pepcid) 20 mg PO BID [facility] Last Admin: 12/09/18 17:46 Dose: 20 mg Azithromycin 500 mg/ Sodium (Chloride) 250 mls @ 250 mls/hr IVPB DAILY [facility]; Protocol Last Admin: 12/09/18 11:35 Dose: 250 mls/hr Cefepime HCl 1 gm/ Sodium (Chloride) 100 mls @ 100 mls/hr IVPB Q12 [facility]; Protocol Last Admin: 12/09/18 21:02 Dose: 100 mls/hr Metoprolol Tartrate (Lopressor) 25 mg PO Q12 [facility] Last Admin: 12/09/18 21:03 Dose: 25 mg Multivitamins/Vitamin C (Multi-Delyn Liquid) 15 ml PO DAILY [facility] Last Admin: 12/09/18 11:44 Dose: 15 ml Potassium Chloride (K-Dur 20 Meq Er Tab) 20 meq PO TID [facility] Prednisone (Prednisone Tab) 5 mg PO DAILY [facility] - Labs Labs: 12/10/18 04:25 12/10/18 04:25 PT 12.5 Seconds (9.8-13.1) 12/04/18 04:25 INR 1.1 12/04/18 04:25 APTT 28.8 Seconds (25.6-37.1) 12/04/18 04:25
[2018-12-10] MEDS: Cefepime 1 GM in Sodium Chloride 0.9% 100 ML IVPB SCH (09:16)
[2018-12-10] MEDS: Bacitracin OINT 15GM TOP SCH ×2 (10:10→16:57)
--- NOTE | 2018-12-10 10:58 | CP.PCM.PN ---
Subjective - Date & Time of Evaluation Date of Evaluation: 12/10/18 Time of Evaluation: 10:56 - Subjective Subjective: Interim events were reviewed. Thoracentesis was done the other day with removal of 1200mls of transudative fluid. Chest x-ray subsequently showed a clear right hemithodax, but still suggestion of retrocardiac increased density. he has been staedily tapered with his steroid meds, and his bronchodilator medications have been on PRN status only. He has not had any episodes of shortness of breath, and his oxygenation has remained at an acceptable level. Labs have all remained stable, as have his vital signs. He is awake and cooperative with the exam this morning. He responds to questioning, but his verbal responses are difficult to understand. There is no cyanosis or edema of the lower extremities, but pre-sacral edema is noted. Neck is supple and trachea is midline. No dullness on percussion of the chest wall anteriorly. Breath sounds are very much diminished bilaterally w/o wheezes or bronchial breath sounds. Scattered sonorous rhonchi are heard in the lower lobes along with dry to medium rales. I will stop the azithromycin at this time and consider doing the same with Cefepime in another 24-48 hrs. Prednisone has been decreased to 5MG once daily and can be discontinued completely next week. Aerosol therapy will remain on PRN schedule unless there is deterioration of his respiratory status. Objective - Vital Signs/Intake and Output Vital Signs (last 24 hours): Temp Pulse Resp BP Pulse Ox 98.5 F 98 H 25 H 124/85 97 12/10/18 04:00 12/10/18 09:11 12/10/18 06:00 12/10/18 09:11 12/10/18 06:00 Intake and Output: 12/09/18 12/10/18 23:59 11:59 Intake Total 1310 Output Total 500 Balance 810 - Medications Medications: Current Medications Acetazolamide (Diamox 250 Mg Tab) 250 mg PO DAILY [facility] Last Admin: 12/10/18 09:10 Dose: 250 mg Albuterol/Ipratropium (Duoneb 3 Mg/0.5 Mg (3 Ml) Ud) 3 ml INH RQ4 PRN PRN Reason: Shortness of Breath Aspirin (Aspirin Chewable) 81 mg PO DAILY [facility] Last Admin: 12/10/18 09:11 Dose: 81 mg Atorvastatin Calcium (Lipitor) 10 mg PO HS [facility] Last Admin: 12/09/18 21:03 Dose: 10 mg Bacitracin (Bacitracin Oint) 1 applic TOP BID [facility] Last Admin: 12/10/18 10:10 Dose: 1 applic Digoxin (Digoxin) 0.125 mg PO DAILY [facility] Last Admin: 12/10/18 09:11 Dose: 0.125 mg Enoxaparin Sodium (Lovenox) 40 mg SC DAILY [facility]; Protocol Last Admin: 12/08/18 08:32 Dose: 40 mg Famotidine (Pepcid) 20 mg PO BID [facility] Last Admin: 12/10/18 09:10 Dose: 20 mg Azithromycin 500 mg/ Sodium (Chloride) 250 mls @ 250 mls/hr IVPB DAILY [facility]; Protocol Last Admin: 12/09/18 11:35 Dose: 250 mls/hr Cefepime HCl 1 gm/ Sodium (Chloride) 100 mls @ 100 mls/hr IVPB Q12 [facility]; Protocol Last Admin: 12/10/18 09:16 Dose: 100 mls/hr Metoprolol Tartrate (Lopressor) 25 mg PO Q12 [facility] Last Admin: 12/10/18 09:11 Dose: 25 mg Multivitamins/Vitamin C (Multi-Delyn Liquid) 15 ml PO DAILY [facility] Last Admin: 12/10/18 09:10 Dose: 15 ml Potassium Chloride (K-Dur 20 Meq Er Tab) 20 meq PO TID [facility] Prednisone (Prednisone Tab) 5 mg PO DAILY [facility] - Labs Labs: 12/10/18 04:25 12/10/18 04:25 PT 12.5 Seconds (9.8-13.1) 12/04/18 04:25 INR 1.1 12/04/18 04:25 APTT 28.8 Seconds (25.6-37.1) 12/04/18 04:25 Assessment and Plan (1) Pulmonary infiltrate Status: Acute (2) Pleural effusion Status: Resolved (3) COPD exacerbation Status: Resolved (4) Chronic hypercapnic respiratory failure Status: Chronic
[2018-12-10] MEDS: Azithromycin 500 MG in Sodium Chloride 0.9% 250 ML IVPB SCH (12:09)
[2018-12-10] MEDS: Potassium Chloride 20 mEq ER Tab PO SCH ×2 (16:51→22:14)
[2018-12-10] MEDS ORDERED: Chlorhexidine Gluconate 1 APPL/PKT TP ONE (16:57)
[2018-12-11 05:21] LABS: HEMOGLOBIN 12.2 g/dL (12.0-18.0); MEAN CELL VOLUME 101.2 fl (80.0-94.0); MEAN CORPUSCULAR HEMOGLOBIN 32.9 pg (27.0-31.0); MEAN CORPUSCULAR HGB CONC 32.6 g/dL (33.0-37.0); RBC 3.69 Mil/uL (4.40-5.90); RED CELL DISTRIBUTION WIDTH 15.2 % (11.5-14.5); WHITE BLOOD COUNT 7.1 K/uL (4.8-10.8)
[2018-12-11 05:42] LABS: ALB/GLOB RATIO 0.8 (1.0-2.1); ALBUMIN 2.7 g/dL (3.5-5.0); ALT/SGPT 53 U/L (21-72); AST/SGOT 45 U/L (17-59); BLOOD UREA NITROGEN 13 mg/dl (9-20); CALCIUM 8.3 mg/dL (8.4-10.2); GFR NON-AFRICAN AMERICAN > 60
[2018-12-11] MEDS: Digoxin 125 mcg (0.125 mg) Tab PO SCH (08:34)
[2018-12-11] MEDS: Bacitracin OINT 15GM TOP SCH ×2 (08:34→17:31)
[2018-12-11] MEDS: Multi Vitamins 15 mL UD Oral Solution PO SCH (08:35)
[2018-12-11] MEDS: Potassium Chloride 20 mEq ER Tab PO SCH ×3 (08:35→17:31)
--- NOTE | 2018-12-11 13:17 | CP.PCM.PN ---
Subjective - Date & Time of Evaluation Date of Evaluation: 12/11/18 Time of Evaluation: 12:50 - Subjective Subjective: The patient was found resting in bed eating his lunch. He tolerates oral feedings well. He answers simple questions readily though the content is often confused. He was afebrile with an atrial fibrillation at 84 bpm. His blood pressure was 114/74 mmHg. His pulse oximetry on O2 supplement by nasal cannula was 97%. The patient has not been out of bed for over 48 hours. The patient awaits a bed out of intensive care unit. Objective - Vital Signs/Intake and Output Vital Signs (last 24 hours): Temp Pulse Resp BP Pulse Ox 97.9 F 82 21 115/72 99 12/11/18 12:00 12/11/18 12:00 12/11/18 12:00 12/11/18 12:00 12/11/18 12:00 Intake and Output: 12/11/18 12/11/18 06:59 18:59 Output Total 500 Balance -500 - Medications Medications: Current Medications Acetazolamide (Diamox 250 Mg Tab) 250 mg PO DAILY [facility] Last Admin: 12/11/18 08:34 Dose: 250 mg Albuterol/Ipratropium (Duoneb 3 Mg/0.5 Mg (3 Ml) Ud) 3 ml INH RQ4 PRN PRN Reason: Shortness of Breath Aspirin (Aspirin Chewable) 81 mg PO DAILY [facility] Last Admin: 12/11/18 12:42 Dose: 81 mg Atorvastatin Calcium (Lipitor) 10 mg PO HS [facility] Last Admin: 12/10/18 22:11 Dose: 10 mg Bacitracin (Bacitracin Oint) 1 applic TOP BID [facility] Last Admin: 12/11/18 08:34 Dose: 1 applic Digoxin (Digoxin) 0.125 mg PO DAILY [facility] Last Admin: 12/11/18 08:34 Dose: 0.125 mg Enoxaparin Sodium (Lovenox) 40 mg SC DAILY [facility]; Protocol Last Admin: 12/08/18 08:32 Dose: 40 mg Famotidine (Pepcid) 20 mg PO BID [facility] Last Admin: 12/11/18 08:37 Dose: 20 mg Metoprolol Tartrate (Lopressor) 25 mg PO Q12 [facility] Last Admin: 12/11/18 08:35 Dose: 25 mg Multivitamins/Vitamin C (Multi-Delyn Liquid) 15 ml PO DAILY [facility] Last Admin: 12/11/18 08:35 Dose: 15 ml Potassium Chloride (K-Dur 20 Meq Er Tab) 20 meq PO TID [facility] Last Admin: 12/11/18 12:42 Dose: 20 meq Prednisone (Prednisone Tab) 5 mg PO DAILY [facility] Last Admin: 12/11/18 08:35 Dose: 5 mg - Labs Labs: 12/11/18 04:45 12/11/18 04:45 PT 12.5 Seconds (9.8-13.1) 12/04/18 04:25 INR 1.1 12/04/18 04:25 APTT 28.8 Seconds (25.6-37.1) 12/04/18 04:25
[2018-12-12 05:32] LABS: HEMOGLOBIN 12.5 g/dL (12.0-18.0); MEAN CELL VOLUME 101.2 fl (80.0-94.0); MEAN CORPUSCULAR HEMOGLOBIN 33.1 pg (27.0-31.0); MEAN CORPUSCULAR HGB CONC 32.8 g/dL (33.0-37.0); RBC 3.77 Mil/uL (4.40-5.90); RED CELL DISTRIBUTION WIDTH 15.6 % (11.5-14.5); WHITE BLOOD COUNT 6.6 K/uL (4.8-10.8)
[2018-12-12 05:44] LABS: BLOOD UREA NITROGEN 16 mg/dl (9-20); CALCIUM 8.6 mg/dL (8.4-10.2); GFR NON-AFRICAN AMERICAN > 60
--- NOTE | 2018-12-12 08:00 | CP.CCUPN ---
CCU Objective - Vital Signs / Intake & Output Vital Signs (Last 4 hours): Vital Signs Temp Pulse Resp BP 12/12/18 05:00 97.3 F L 88 17 110/79 Intake and Output (Last 8hrs): Intake & Output 12/11/18 12/12/18 12/12/18 22:59 06:59 14:59 Intake Total 400 120 Output Total 300 400 Balance 100 -280 Weight 141 lb Intake: Oral 400 120 Output: Urine 300 400 Urethral (Mejia) 300 400 Other: # Bowel Movements 1 - Physical Exam Head: Positive for: Atraumatic, Normocephalic Pupils: Positive for: PERRL Conjunctiva: Positive for: Normal Ears: Positive for: Normal Mouth: Positive for: Moist Mucous Membranes Pharnyx: Positive for: Normal Nose (External): Positive for: Atraumatic Neck: Positive for: Normal Range of Motion Respiratory/Chest: Positive for: Rhonchi Cardiovascular: Positive for: Irregular Rhythm Abdomen: Positive for: Normal Bowel Sounds Upper Extremity: Positive for: Normal Inspection Lower Extremity: Positive for: Normal Inspection Skin: Positive for: Warm, Dry Psychiatric: Positive for: Alert - Medications Active Medications: Active Medications Generic Name Dose Route Start Last Admin Trade Name Freq PRN Reason Stop Dose Admin Acetazolamide 250 mg 12/03/18 09:45 12/11/18 08:34 Diamox 250 Mg Tab PO 250 mg DAILY [facility] Administration Albuterol/Ipratropium 3 ml 12/05/18 12:24 Duoneb 3 Mg/0.5 Mg (3 Ml) Ud INH RQ4 PRN Shortness of Breath Aspirin 81 mg 11/30/18 09:00 12/11/18 12:42 Aspirin Chewable PO 81 mg DAILY [facility] Administration Atorvastatin Calcium 10 mg 11/29/18 22:00 12/11/18 21:08 Lipitor PO 10 mg HS [facility] Administration Bacitracin 1 applic 11/30/18 09:00 12/11/18 17:31 Bacitracin Oint TOP 1 applic BID [facility] Administration Digoxin 0.125 mg 12/08/18 09:00 12/11/18 08:34 Digoxin PO 0.125 mg DAILY [facility] Administration Enoxaparin Sodium 40 mg 12/05/18 12:30 12/08/18 08:32 Lovenox SC 40 mg DAILY [facility] Administration Protocol Famotidine 20 mg 11/30/18 09:00 12/11/18 17:31 Pepcid PO 20 mg BID [facility] Administration Metoprolol Tartrate 25 mg 12/07/18 21:00 12/11/18 21:07 Lopressor PO 25 mg Q12 [facility] Administration Multivitamins/Vitamin C 15 ml 12/06/18 09:00 12/11/18 08:35 Multi-Delyn Liquid PO 15 ml DAILY [facility] Administration Potassium Chloride 20 meq 12/10/18 13:00 12/11/18 17:31 K-Dur 20 Meq Er Tab PO 20 meq TID [facility] Administration Prednisone 5 mg 12/10/18 09:00 12/11/18 08:35 Prednisone Tab PO 5 mg DAILY [facility] Administration - Patient Studies Lab Studies: Microbiology Studies 12/08/18 14:40 Gram Stain - Final Pleural Fluid Body Fluid Culture - Preliminary NO GROWTH AFTER 3 DAYS Lab Studies 12/12/18 12/12/18 Range/Units 05:00 05:00 WBC 6.6 (4.8-10.8) K/uL RBC 3.77 L (4.40-5.90) Mil/uL Hgb 12.5 (12.0-18.0) g/dL Hct 38.1 (35.0-51.0) % MCV 101.2 H (80.0-94.0) fl MCH 33.1 H (27.0-31.0) pg MCHC 32.8 L (33.0-37.0) g/dL RDW 15.6 H (11.5-14.5) % Plt Count 288 (130-400) K/uL Sodium 143 (132-148) mmol/l Potassium 3.8 (3.6-5.0) MMOL/L Chloride 110 H (98-107) mmol/L Carbon Dioxide 30 (22-30) mmol/L Anion Gap 7 L (10-20) BUN 16 (9-20) mg/dl Creatinine 0.5 L (0.8-1.5) mg/dl Est GFR ( Amer) > 60 Est GFR (Non-Af Amer) > 60 Random Glucose 98 (75-110) mg/dL Calcium 8.6 (8.4-10.2) mg/dL Laboratory Results - last 24 hr 12/12/18 12/12/18 05:00 05:00 WBC 6.6 RBC 3.77 L Hgb 12.5 Hct 38.1 MCV 101.2 H MCH 33.1 H MCHC 32.8 L RDW 15.6 H Plt Count 288 Sodium 143 Potassium 3.8 Chloride 110 H Carbon Dioxide 30 Anion Gap 7 L BUN 16 Creatinine 0.5 L Est GFR ( Amer) > 60 Est GFR (Non-Af Amer) > 60 Random Glucose 98 Calcium 8.6 Critical Care Progress Note - Nutrition Nutrition: Nutrition Category Date Time Status Dysphagia/Modified Consistency Diet [DIET] Diets 12/06/18 Dinner Active Assessment/Plan (1) Acute respiratory failure with hypoxia Current Visit: Yes Status: Acute (2) Acute on chronic systolic congestive heart failure Current Visit: No Status: Acute (3) Atrial fibrillation with rapid ventricular response Current Visit: No Status: Acute Priority: High Comment: Continue Digoxin 0.25mg daily Off Amio and BB due to sever COPD Use of Xopenex instead of Albuterol (4) Left bundle branch block (LBBB) Current Visit: No Status: Acute Priority: High (5) COPD (chronic obstructive pulmonary disease) Current Visit: No Status: Chronic Priority: High
--- NOTE | 2018-12-12 08:58 | CP.PCM.PN ---
Subjective - Date & Time of Evaluation Date of Evaluation: 12/12/18 Time of Evaluation: 08:28 - Subjective Subjective: Seen lying in bed in ICU, still awaiting transfer to telemetry. He is awake and cooperative with the exam. He appears more lucid, and his speech is a little more understandable Oxygenation has been good using simple nasal canula at 2 LPM. Neck is supple and trachea midline. No dullness on percussion of the anterior chest wall. Breath sounds are diminished universally. Scattered sonorous rhonchi are heard bilaterally w/o wheezes. Heart sounds are distant and rhythm irregular ~90. No dependant edema of LEs, no cyanosis, warm and pink. Has done well, stable respiratory status post thoracentesis. Continue O2 supplement with nasal canula, no need for NPPV. Prednisone is down to 5MG daily. Will check AM cortisol level tomorrow. Duoneb remains PRN only and acetazolamide continues at 250MG once daily. Objective - Vital Signs/Intake and Output Vital Signs (last 24 hours): Temp Pulse Resp BP Pulse Ox 97.3 F L 88 17 110/79 100 12/12/18 05:00 12/12/18 05:00 12/12/18 05:00 12/12/18 05:00 12/12/18 00:08 Intake and Output: 12/11/18 12/12/18 23:59 11:59 Intake Total 400 120 Output Total 300 400 Balance 100 -280 - Medications Medications: Current Medications Acetazolamide (Diamox 250 Mg Tab) 250 mg PO DAILY [facility] Last Admin: 12/11/18 08:34 Dose: 250 mg Albuterol/Ipratropium (Duoneb 3 Mg/0.5 Mg (3 Ml) Ud) 3 ml INH RQ4 PRN PRN Reason: Shortness of Breath Aspirin (Aspirin Chewable) 81 mg PO DAILY [facility] Last Admin: 12/11/18 12:42 Dose: 81 mg Atorvastatin Calcium (Lipitor) 10 mg PO HS [facility] Last Admin: 12/11/18 21:08 Dose: 10 mg Bacitracin (Bacitracin Oint) 1 applic TOP BID [facility] Last Admin: 12/11/18 17:31 Dose: 1 applic Digoxin (Digoxin) 0.125 mg PO DAILY [facility] Last Admin: 12/11/18 08:34 Dose: 0.125 mg Enoxaparin Sodium (Lovenox) 40 mg SC DAILY [facility]; Protocol Last Admin: 12/08/18 08:32 Dose: 40 mg Famotidine (Pepcid) 20 mg PO BID [facility] Last Admin: 12/11/18 17:31 Dose: 20 mg Metoprolol Tartrate (Lopressor) 25 mg PO Q12 [facility] Last Admin: 12/11/18 21:07 Dose: 25 mg Multivitamins/Vitamin C (Multi-Delyn Liquid) 15 ml PO DAILY [facility] Last Admin: 12/11/18 08:35 Dose: 15 ml Potassium Chloride (K-Dur 20 Meq Er Tab) 20 meq PO TID [facility] Last Admin: 12/11/18 17:31 Dose: 20 meq Prednisone (Prednisone Tab) 5 mg PO DAILY [facility] Last Admin: 12/11/18 08:35 Dose: 5 mg - Labs Labs: 12/12/18 05:00 12/12/18 05:00 PT 12.5 Seconds (9.8-13.1) 12/04/18 04:25 INR 1.1 12/04/18 04:25 APTT 28.8 Seconds (25.6-37.1) 12/04/18 04:25 Assessment and Plan (1) Pulmonary infiltrate Status: Acute (2) Pleural effusion Status: Resolved (3) COPD exacerbation Status: Resolved (4) Chronic hypercapnic respiratory failure Status: Chronic
[2018-12-12] MEDS: Digoxin 125 mcg (0.125 mg) Tab PO SCH (09:14)
[2018-12-12] MEDS: Potassium Chloride 20 mEq ER Tab PO SCH ×3 (09:15→16:30)
[2018-12-12] MEDS: Multi Vitamins 15 mL UD Oral Solution PO SCH (09:18)
[2018-12-12] MEDS: Bacitracin OINT 15GM TOP SCH ×2 (09:19→16:30)
--- NOTE | 2018-12-12 14:09 | CP.PCM.PN ---
Subjective - Date & Time of Evaluation Date of Evaluation: 12/12/18 Time of Evaluation: 10:00 - Subjective Subjective: AAO x3 sitting up in bed speaks somewhat coherently(mouth is dry) breathing easily HR controlled awaiting transfer to telemetry Objective - Vital Signs/Intake and Output Vital Signs (last 24 hours): Temp Pulse Resp BP Pulse Ox 97.5 F L 79 19 108/71 95 12/12/18 12:01 12/12/18 12:01 12/12/18 12:01 12/12/18 12:01 12/12/18 12:01 Intake and Output: 12/12/18 12/12/18 06:59 18:59 Intake Total 240 Output Total 400 Balance -160 - Medications Medications: Current Medications Acetazolamide (Diamox 250 Mg Tab) 250 mg PO DAILY [facility] Last Admin: 12/12/18 09:20 Dose: 250 mg Aspirin (Aspirin Chewable) 81 mg PO DAILY [facility] Last Admin: 12/12/18 09:14 Dose: 81 mg Atorvastatin Calcium (Lipitor) 10 mg PO HS [facility] Last Admin: 12/11/18 21:08 Dose: 10 mg Bacitracin (Bacitracin Oint) 1 applic TOP BID [facility] Last Admin: 12/12/18 09:19 Dose: 1 applic Digoxin (Digoxin) 0.125 mg PO DAILY [facility] Last Admin: 12/12/18 09:14 Dose: 0.125 mg Enoxaparin Sodium (Lovenox) 40 mg SC DAILY [facility]; Protocol Last Admin: 12/08/18 08:32 Dose: 40 mg Famotidine (Pepcid) 20 mg PO BID [facility] Last Admin: 12/12/18 09:18 Dose: 20 mg Metoprolol Tartrate (Lopressor) 25 mg PO Q12 [facility] Last Admin: 12/12/18 09:15 Dose: 25 mg Multivitamins/Vitamin C (Multi-Delyn Liquid) 15 ml PO DAILY [facility] Last Admin: 12/12/18 09:18 Dose: 15 ml Potassium Chloride (K-Dur 20 Meq Er Tab) 20 meq PO TID [facility] Last Admin: 12/12/18 12:02 Dose: 20 meq Prednisone (Prednisone Tab) 5 mg PO DAILY [facility] Last Admin: 12/12/18 09:17 Dose: 5 mg - Labs Labs: 12/12/18 05:00 12/12/18 05:00 PT 12.5 Seconds (9.8-13.1) 12/04/18 04:25 INR 1.1 12/04/18 04:25 APTT 28.8 Seconds (25.6-37.1) 12/04/18 04:25 Assessment and Plan (1) COPD exacerbation Status: Resolved (2) Acute on chronic systolic congestive heart failure Status: Acute (3) Altered mental status Status: Acute (4) Atrial fibrillation with rapid ventricular response Status: Acute (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
[2018-12-13] MEDS: Bacitracin OINT 15GM TOP SCH ×2 (09:20→17:20)
[2018-12-13] MEDS: Digoxin 125 mcg (0.125 mg) Tab PO SCH (09:21)
[2018-12-13] MEDS: Potassium Chloride 20 mEq ER Tab PO SCH ×3 (09:21→17:20)
[2018-12-13] MEDS: Multi Vitamins 15 mL UD Oral Solution PO SCH (09:22)
--- NOTE | 2018-12-13 13:59 | CP.PCM.PN ---
Subjective - Date & Time of Evaluation Date of Evaluation: 12/13/18 Time of Evaluation: 12:30 - Subjective Subjective: examined patient in bed, wound care nurse and 1:1 at bedside. still on contact precautions Objective - Vital Signs/Intake and Output Vital Signs (last 24 hours): Temp Pulse Resp BP Pulse Ox 96.6 F L 77 18 127/73 95 12/13/18 12:20 12/13/18 12:20 12/13/18 12:20 12/13/18 12:20 12/13/18 12:20 Intake and Output: 12/13/18 12/13/18 06:59 18:59 Intake Total 375 Output Total 300 Balance 75 - Medications Medications: Current Medications Acetazolamide (Diamox 250 Mg Tab) 250 mg PO DAILY [facility] Last Admin: 12/13/18 09:20 Dose: 250 mg Aspirin (Aspirin Chewable) 81 mg PO DAILY [facility] Last Admin: 12/13/18 09:20 Dose: 81 mg Atorvastatin Calcium (Lipitor) 10 mg PO HS [facility] Last Admin: 12/12/18 21:49 Dose: 10 mg Bacitracin (Bacitracin Oint) 1 applic TOP BID [facility] Last Admin: 12/13/18 09:20 Dose: 1 applic Digoxin (Digoxin) 0.125 mg PO DAILY [facility] Last Admin: 12/13/18 09:21 Dose: 0.125 mg Enoxaparin Sodium (Lovenox) 40 mg SC DAILY [facility]; Protocol Last Admin: 12/08/18 08:32 Dose: 40 mg Famotidine (Pepcid) 20 mg PO BID [facility] Last Admin: 12/13/18 09:22 Dose: 20 mg Metoprolol Tartrate (Lopressor) 25 mg PO Q12 [facility] Last Admin: 12/13/18 09:22 Dose: 25 mg Multivitamins/Vitamin C (Multi-Delyn Liquid) 15 ml PO DAILY [facility] Last Admin: 12/13/18 09:22 Dose: 15 ml Potassium Chloride (K-Dur 20 Meq Er Tab) 20 meq PO TID [facility] Last Admin: 12/13/18 12:01 Dose: 20 meq - Labs Labs: 12/12/18 05:00 12/12/18 05:00 PT 12.5 Seconds (9.8-13.1) 12/04/18 04:25 INR 1.1 12/04/18 04:25 APTT 28.8 Seconds (25.6-37.1) 12/04/18 04:25 - Constitutional Appears: No Acute Distress, Chronically Ill - Head Exam Head Exam: NORMAL INSPECTION, NORMOCEPHALIC - Eye Exam Eye Exam: Normal appearance - ENT Exam ENT Exam: Mucous Membranes Dry - Neck Exam Neck Exam: Normal Inspection - Respiratory Exam Respiratory Exam: Decreased Breath Sounds - GI/Abdominal Exam GI & Abdominal Exam: Soft, Normal Bowel Sounds - Extremities Exam Additional comments: left sided weakness - Neurological Exam Neurological Exam: Alert, Altered, Awake - Psychiatric Exam Psychiatric exam: Anxious - Skin Skin Exam: Dry, Intact, Pallor, Warm Assessment and Plan - Assessment and Plan (Free Text) Assessment: Palliative Care -Alert,awake, confused but follows commands -unclear speech -diminished breath sounds bilaterally -skin is warm, dry, and intact with areas of discoloration throughout -abdomen soft and nontender, normal bowel sounds, eating only small portions of meals -Has [place] catheter for urine -left sided weakness -No pain complaints Goals of Care:Limited treatment as documented in POLST in chart. Team already aware Code Status: DNR/DNI, documented on POLST form in chart. Team already aware Impression COPD Exacerbation Altered Mental Status Decreased Mobility Left sided weakness Suggestion redirect and reorient as needed Max Assist with ADLs reposition q2h PT/OT Agree with DNR/DNI Palliative Care will remain on board as needed Time Spent with patient 30 min
--- NOTE | 2018-12-13 14:40 | CP.PCM.PN ---
Subjective - Date & Time of Evaluation Date of Evaluation: 12/13/18 Time of Evaluation: 10:00 - Subjective Subjective: Pt moved to Telemetry last evening Cardiac pittman and Pulmonary pittman pt is stable Speech is somewhat garbled Needs 1 : 1 because of trying to get out of bed Objective - Vital Signs/Intake and Output Vital Signs (last 24 hours): Temp Pulse Resp BP Pulse Ox 96.6 F L 77 18 127/73 95 12/13/18 12:20 12/13/18 12:20 12/13/18 12:20 12/13/18 12:20 12/13/18 12:20 Intake and Output: 12/13/18 12/13/18 06:59 18:59 Intake Total 375 Output Total 300 Balance 75 - Medications Medications: Current Medications Acetazolamide (Diamox 250 Mg Tab) 250 mg PO DAILY [facility] Last Admin: 12/13/18 09:20 Dose: 250 mg Aspirin (Aspirin Chewable) 81 mg PO DAILY [facility] Last Admin: 12/13/18 09:20 Dose: 81 mg Atorvastatin Calcium (Lipitor) 10 mg PO HS [facility] Last Admin: 12/12/18 21:49 Dose: 10 mg Bacitracin (Bacitracin Oint) 1 applic TOP BID [facility] Last Admin: 12/13/18 09:20 Dose: 1 applic Digoxin (Digoxin) 0.125 mg PO DAILY [facility] Last Admin: 12/13/18 09:21 Dose: 0.125 mg Enoxaparin Sodium (Lovenox) 40 mg SC DAILY [facility]; Protocol Last Admin: 12/08/18 08:32 Dose: 40 mg Famotidine (Pepcid) 20 mg PO BID [facility] Last Admin: 12/13/18 09:22 Dose: 20 mg Metoprolol Tartrate (Lopressor) 25 mg PO Q12 [facility] Last Admin: 12/13/18 09:22 Dose: 25 mg Multivitamins/Vitamin C (Multi-Delyn Liquid) 15 ml PO DAILY [facility] Last Admin: 12/13/18 09:22 Dose: 15 ml Potassium Chloride (K-Dur 20 Meq Er Tab) 20 meq PO TID [facility] Last Admin: 12/13/18 12:01 Dose: 20 meq - Labs Labs: 12/12/18 05:00 12/12/18 05:00 PT 12.5 Seconds (9.8-13.1) 12/04/18 04:25 INR 1.1 03/24/19 04:25 APTT 28.8 Seconds (25.6-37.1) 12/04/18 04:25 Assessment and Plan (1) Acute on chronic systolic congestive heart failure Status: Acute (2) Altered mental status Status: Acute (3) Atrial fibrillation with rapid ventricular response Status: Acute (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
--- NOTE | 2018-12-13 16:05 | CP.PCM.PN ---
Subjective - Date & Time of Evaluation Date of Evaluation: 12/13/18 Time of Evaluation: 16:03 - Subjective Subjective: The patient was seen on rounds this morning in telemetry. The case was discussed with cardiology. He is more awake and alert and appears to be more appropriate in responses. His speech is still somewhat slurred but is more readily understandable. His oxygen saturation is well maintained on 2 L of nasal cannula supplement. His breath sounds are markedly diminished bilaterally with a few scattered rhonchi. There are no audible wheezes or bronchial breath sounds. Rare dry rales are heard. Heart sounds are markedly distant and the rhythm is irregular but the rate is controlled in the 80s. Current medical regimen will be continued. Patient may be a candidate for physical therapy. Objective - Vital Signs/Intake and Output Vital Signs (last 24 hours): Temp Pulse Resp BP Pulse Ox 97.4 F L 69 18 90/60 L 97 12/13/18 15:50 12/13/18 15:50 12/13/18 15:50 12/13/18 15:50 12/13/18 15:50 - Medications Medications: Current Medications Acetazolamide (Diamox 250 Mg Tab) 250 mg PO DAILY [facility] Last Admin: 12/13/18 09:20 Dose: 250 mg Aspirin (Aspirin Chewable) 81 mg PO DAILY [facility] Last Admin: 12/13/18 09:20 Dose: 81 mg Atorvastatin Calcium (Lipitor) 10 mg PO HS [facility] Last Admin: 12/12/18 21:49 Dose: 10 mg Bacitracin (Bacitracin Oint) 1 applic TOP BID [facility] Last Admin: 12/13/18 09:20 Dose: 1 applic Digoxin (Digoxin) 0.125 mg PO DAILY [facility] Last Admin: 12/13/18 09:21 Dose: 0.125 mg Enoxaparin Sodium (Lovenox) 40 mg SC DAILY [facility]; Protocol Last Admin: 12/08/18 08:32 Dose: 40 mg Famotidine (Pepcid) 20 mg PO BID [facility] Last Admin: 12/13/18 09:22 Dose: 20 mg Metoprolol Tartrate (Lopressor) 25 mg PO Q12 [facility] Last Admin: 12/13/18 09:22 Dose: 25 mg Multivitamins/Vitamin C (Multi-Delyn Liquid) 15 ml PO DAILY [facility] Last Admin: 12/13/18 09:22 Dose: 15 ml Potassium Chloride (K-Dur 20 Meq Er Tab) 20 meq PO TID [facility] Last Admin: 12/13/18 12:01 Dose: 20 meq - Labs Labs: 12/12/18 05:00 12/12/18 05:00 PT 12.5 Seconds (9.8-13.1) 12/04/18 04:25 INR 1.1 12/04/18 04:25 APTT 28.8 Seconds (25.6-37.1) 12/04/18 04:25 Assessment and Plan (1) Pulmonary infiltrate Status: Acute (2) Pleural effusion Status: Resolved (3) Chronic hypercapnic respiratory failure Status: Chronic (4) COPD (chronic obstructive pulmonary disease) Status: Chronic
[2018-12-14] MEDS: Bacitracin OINT 15GM TOP SCH ×2 (08:47→17:39)
[2018-12-14] MEDS: Digoxin 125 mcg (0.125 mg) Tab PO SCH (08:48)
[2018-12-14] MEDS: Potassium Chloride 20 mEq ER Tab PO SCH ×3 (08:48→17:39)
[2018-12-14] MEDS: Multi Vitamins 15 mL UD Oral Solution PO SCH (08:49)
--- NOTE | 2018-12-14 09:54 | CP.PCM.PN ---
Subjective - Date & Time of Evaluation Date of Evaluation: 12/14/18 Time of Evaluation: 09:48 - Subjective Subjective: Seen on rounds in telemetry. shelter monitor indicates 'v tach'; may be aberrant conduction with chronic a fib. Patient is clinically unchanged, EKG has been requested. He remains awake and seems alert. His speech is still slurred but improved from earlier. He does answer questions and follows commands. Muscle wasting of the 4 extremities is significant. He does move all extremities on command. Neck is supple and tracheq\a midline. Breath sounds are diminished bilaterally w/o wheezing. Scattered sonorous rhonchi in LLs bilaterally. Awaiting EKG. Medical regimen remains unchanged. Physical therapy as able. Oxygen via nasal canula. Aerosol therapy is PRN. Steroids have been stopped. Objective - Vital Signs/Intake and Output Vital Signs (last 24 hours): Temp Pulse Resp BP Pulse Ox 98 F 111 H 20 99/66 L 94 L 12/14/18 08:08 12/14/18 08:49 12/14/18 08:08 12/14/18 08:49 12/14/18 08:08 - Medications Medications: Current Medications Acetazolamide (Diamox 250 Mg Tab) 250 mg PO DAILY [facility] Last Admin: 12/14/18 08:47 Dose: 250 mg Aspirin (Aspirin Chewable) 81 mg PO DAILY [facility] Last Admin: 12/14/18 08:47 Dose: 81 mg Atorvastatin Calcium (Lipitor) 10 mg PO HS [facility] Last Admin: 12/13/18 21:43 Dose: 10 mg Bacitracin (Bacitracin Oint) 1 applic TOP BID [facility] Last Admin: 12/14/18 08:47 Dose: 1 applic Digoxin (Digoxin) 0.125 mg PO DAILY [facility] Last Admin: 12/14/18 08:48 Dose: 0.125 mg Enoxaparin Sodium (Lovenox) 40 mg SC DAILY [facility]; Protocol Last Admin: 12/08/18 08:32 Dose: 40 mg Famotidine (Pepcid) 20 mg PO BID [facility] Last Admin: 12/14/18 08:49 Dose: 20 mg Metoprolol Tartrate (Lopressor) 25 mg PO Q12 [facility] Last Admin: 12/14/18 08:49 Dose: Not Given Multivitamins/Vitamin C (Multi-Delyn Liquid) 15 ml PO DAILY [facility] Last Admin: 12/14/18 08:49 Dose: 15 ml Potassium Chloride (K-Dur 20 Meq Er Tab) 20 meq PO TID [facility] Last Admin: 12/14/18 08:48 Dose: 20 meq - Labs Labs: 12/12/18 05:00 12/12/18 05:00 PT 12.5 Seconds (9.8-13.1) 12/04/18 04:25 INR 1.1 12/04/18 04:25 APTT 28.8 Seconds (25.6-37.1) 12/04/18 04:25 Assessment and Plan (1) Pulmonary infiltrate Status: Acute (2) Pleural effusion Status: Resolved (3) Chronic hypercapnic respiratory failure Status: Chronic (4) COPD (chronic obstructive pulmonary disease) Status: Chronic
[2018-12-14 10:12] LABS: ALB/GLOB RATIO 0.8 (1.0-2.1); ALBUMIN 2.9 g/dL (3.5-5.0); ALT/SGPT 46 U/L (21-72); AST/SGOT 53 U/L (17-59); BLOOD UREA NITROGEN 17 mg/dl (9-20); CALCIUM 8.5 mg/dL (8.4-10.2); GFR NON-AFRICAN AMERICAN > 60
--- NOTE | 2018-12-14 10:51 | CARD ---
APPROVED REPORT Date of service: 12/14/2018 EKG Measurement Heart [id number] <Conclusion> Atrial fibrillation with rapid ventricular response Left bundle branch block Abnormal ECG
--- NOTE | 2018-12-14 12:52 | CP.PCM.PN ---
Subjective - Date & Time of Evaluation Date of Evaluation: 12/14/18 Time of Evaluation: 10:00 - Subjective Subjective: Awake conversation somewhat garbled Monitor: Atrial fib no V Tach respiratory pittman doing fairly well Objective - Vital Signs/Intake and Output Vital Signs (last 24 hours): Temp Pulse Resp BP Pulse Ox 98.4 F 80 20 98/68 L 94 L 12/14/18 12:34 12/14/18 12:34 12/14/18 12:34 12/14/18 12:34 12/14/18 12:34 - Medications Medications: Current Medications Acetazolamide (Diamox 250 Mg Tab) 250 mg PO DAILY [facility] Last Admin: 12/14/18 08:47 Dose: 250 mg Aspirin (Aspirin Chewable) 81 mg PO DAILY [facility] Last Admin: 12/14/18 08:47 Dose: 81 mg Atorvastatin Calcium (Lipitor) 10 mg PO HS [facility] Last Admin: 12/13/18 21:43 Dose: 10 mg Bacitracin (Bacitracin Oint) 1 applic TOP BID [facility] Last Admin: 12/14/18 08:47 Dose: 1 applic Digoxin (Digoxin) 0.125 mg PO DAILY [facility] Last Admin: 12/14/18 08:48 Dose: 0.125 mg Enoxaparin Sodium (Lovenox) 40 mg SC DAILY [facility]; Protocol Last Admin: 12/08/18 08:32 Dose: 40 mg Famotidine (Pepcid) 20 mg PO BID [facility] Last Admin: 12/14/18 08:49 Dose: 20 mg Metoprolol Tartrate (Lopressor) 25 mg PO Q12 [facility] Last Admin: 12/14/18 12:25 Dose: 25 mg Multivitamins/Vitamin C (Multi-Delyn Liquid) 15 ml PO DAILY [facility] Last Admin: 12/14/18 08:49 Dose: 15 ml Potassium Chloride (K-Dur 20 Meq Er Tab) 20 meq PO TID [facility] Last Admin: 12/14/18 12:24 Dose: 20 meq - Labs Labs: 12/12/18 05:00 12/14/18 09:45 PT 12.5 Seconds (9.8-13.1) 12/04/18 04:25 INR 1.1 12/04/18 04:25 APTT 28.8 Seconds (25.6-37.1) 12/04/18 04:25 Assessment and Plan (1) Acute on chronic systolic congestive heart failure Status: Acute (2) Altered mental status Status: Acute (3) Atrial fibrillation with rapid ventricular response Status: Acute (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
--- NOTE | 2018-12-14 14:03 | RAD ---
Date of service: 12/14/2018 HISTORY: pleural effusion Relevant interventional procedure(s): 12/08/2018 right thoracentesis with retrieval of 1.35 L of fluid. COMPARISON: 12/08/2018 FINDINGS: LUNGS: No active pulmonary disease. PLEURA: No significant pleural effusion identified, no pneumothorax apparent. CARDIOVASCULAR: Atherosclerotic calcifications identified primarily aortic arch. Stable OSSEOUS STRUCTURES: No significant abnormalities. VISUALIZED UPPER ABDOMEN: Normal. OTHER FINDINGS: None. IMPRESSION: No recurrent right pleural effusion. Overall, no interval change.
[2018-12-15] MEDS: Enoxaparin 40 mg Syringe SC SCH (09:11)
[2018-12-15] MEDS: Bacitracin OINT 15GM TOP SCH ×2 (09:12→16:35)
[2018-12-15] MEDS: Potassium Chloride 20 mEq ER Tab PO SCH ×3 (10:19→16:34)
--- NOTE | 2018-12-15 10:42 | CP.PCM.PN ---
Subjective - Date & Time of Evaluation Date of Evaluation: 12/15/18 Time of Evaluation: 10:39 - Subjective Subjective: Appears more coherent at times, but has fluctuating levels of consciousness. Vital signs have remained stable, continues to be afebrile, oxygenation is between 93-97%. Was somnolent earlier this AM and morning meds were withheld, more awake presently. He has been OFF prednisone now for the last two days. On exam the breath sounds are very diminshed bilaterally with scvatytered sonorous rhonchi in lower lobes bilaterally. There are scattered dry rales in dependant regions, but no wheezes or bronchial breath sounds. There is no dependant edema or cyanosis. Case discussed with nursing and Cardiology. Continue present medical and aerosol regimen. Objective - Vital Signs/Intake and Output Vital Signs (last 24 hours): Temp Pulse Resp BP Pulse Ox 97.2 F L 69 20 103/58 L 93 L 12/15/18 08:12 12/15/18 08:12 12/15/18 08:12 12/15/18 08:12 12/15/18 08:12 Intake and Output: 12/14/18 12/15/18 23:59 11:59 Intake Total 240 Balance 240 - Medications Medications: Current Medications Acetazolamide (Diamox 250 Mg Tab) 250 mg PO DAILY [facility] Last Admin: 12/14/18 08:47 Dose: 250 mg Aspirin (Aspirin Chewable) 81 mg PO DAILY [facility] Last Admin: 12/14/18 08:47 Dose: 81 mg Atorvastatin Calcium (Lipitor) 10 mg PO HS [facility] Last Admin: 12/14/18 21:49 Dose: 10 mg Bacitracin (Bacitracin Oint) 1 applic TOP BID [facility] Last Admin: 12/15/18 09:12 Dose: 1 applic Digoxin (Digoxin) 0.125 mg PO DAILY [facility] Last Admin: 12/14/18 08:48 Dose: 0.125 mg Enoxaparin Sodium (Lovenox) 40 mg SC DAILY [facility]; Protocol Last Admin: 12/15/18 09:11 Dose: 40 mg Famotidine (Pepcid) 20 mg PO BID [facility] Last Admin: 12/14/18 17:40 Dose: 20 mg Metoprolol Tartrate (Lopressor) 25 mg PO Q12 [facility] Last Admin: 12/14/18 21:49 Dose: 25 mg Multivitamins/Vitamin C (Multi-Delyn Liquid) 15 ml PO DAILY [facility] Last Admin: 12/14/18 08:49 Dose: 15 ml Potassium Chloride (K-Dur 20 Meq Er Tab) 20 meq PO TID [facility] Last Admin: 12/15/18 10:19 Dose: Not Given - Labs Labs: 12/12/18 05:00 12/14/18 09:45 PT 12.5 Seconds (9.8-13.1) 12/04/18 04:25 INR 1.1 12/04/18 04:25 APTT 28.8 Seconds (25.6-37.1) 12/04/18 04:25 Assessment and Plan (1) Pulmonary infiltrate Status: Acute (2) Pleural effusion Status: Resolved (3) Chronic hypercapnic respiratory failure Status: Chronic (4) COPD (chronic obstructive pulmonary disease) Status: Chronic
--- NOTE | 2018-12-15 13:01 | CP.PCM.PN ---
Subjective - Date & Time of Evaluation Date of Evaluation: 12/15/18 Time of Evaluation: 10:00 - Subjective Subjective: Pt awake and alert conversant Cardiac & Pulmonary pittman pt is doing fairly well aim is to get PT and hopefully get pt walking?? / functional Objective - Vital Signs/Intake and Output Vital Signs (last 24 hours): Temp Pulse Resp BP Pulse Ox 96.6 F L 104 H 20 89/62 L 97 12/15/18 12:02 12/15/18 12:02 12/15/18 12:02 12/15/18 12:02 12/15/18 12:02 Intake and Output: 12/15/18 12/15/18 06:59 18:59 Intake Total 240 Balance 240 - Medications Medications: Current Medications Acetazolamide (Diamox 250 Mg Tab) 250 mg PO DAILY [facility] Last Admin: 12/14/18 08:47 Dose: 250 mg Aspirin (Aspirin Chewable) 81 mg PO DAILY [facility] Last Admin: 12/14/18 08:47 Dose: 81 mg Atorvastatin Calcium (Lipitor) 10 mg PO HS [facility] Last Admin: 12/14/18 21:49 Dose: 10 mg Bacitracin (Bacitracin Oint) 1 applic TOP BID [facility] Last Admin: 12/15/18 09:12 Dose: 1 applic Digoxin (Digoxin) 0.125 mg PO DAILY [facility] Last Admin: 12/14/18 08:48 Dose: 0.125 mg Enoxaparin Sodium (Lovenox) 40 mg SC DAILY [facility]; Protocol Last Admin: 12/15/18 09:11 Dose: 40 mg Famotidine (Pepcid) 20 mg PO BID [facility] Last Admin: 12/14/18 17:40 Dose: 20 mg Metoprolol Tartrate (Lopressor) 25 mg PO Q12 [facility] Last Admin: 12/14/18 21:49 Dose: 25 mg Multivitamins/Vitamin C (Multi-Delyn Liquid) 15 ml PO DAILY [facility] Last Admin: 12/14/18 08:49 Dose: 15 ml Potassium Chloride (K-Dur 20 Meq Er Tab) 20 meq PO TID [facility] Last Admin: 12/15/18 10:19 Dose: Not Given - Labs Labs: 12/12/18 05:00 12/14/18 09:45 PT 12.5 Seconds (9.8-13.1) 12/04/18 04:25 INR 1.1 12/04/18 04:25 APTT 28.8 Seconds (25.6-37.1) 12/04/18 04:25 Assessment and Plan (1) Acute on chronic systolic congestive heart failure Status: Acute (2) Altered mental status Status: Acute (3) Atrial fibrillation with rapid ventricular response Status: Acute (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
[2018-12-15] MEDS: Digoxin 125 mcg (0.125 mg) Tab PO SCH (16:34)
[2018-12-15] MEDS: Multi Vitamins 15 mL UD Oral Solution PO SCH (16:35)
[2018-12-16 05:27] VITALS: RESP 18
[2018-12-16] MEDS: Digoxin 125 mcg (0.125 mg) Tab PO SCH (09:09)
[2018-12-16] MEDS: Potassium Chloride 20 mEq ER Tab PO SCH ×2 (09:09→14:47)
[2018-12-16] MEDS: Multi Vitamins 15 mL UD Oral Solution PO SCH (09:09)
[2018-12-16] MEDS: Bacitracin OINT 15GM TOP SCH (09:09)
[2018-12-16] MEDS: Enoxaparin 40 mg Syringe SC SCH (09:10)
[2018-12-16 09:12] VITALS: PULSE 110
[2018-12-16 12:07] VITALS: BP 95/61; PULSE 102; TEMP 97.4; O2SAT 98
--- NOTE | 2018-12-16 15:38 | CP.PCM.PN ---
Subjective - Date & Time of Evaluation Date of Evaluation: 12/16/18 Time of Evaluation: 10:00 - Subjective Subjective: Pt is awake and alert aware of what is going on speech partially garbled [facility] Objective - Vital Signs/Intake and Output Vital Signs (last 24 hours): Temp Pulse Resp BP Pulse Ox 97.4 F L 102 H 18 95/61 L 98 12/16/18 12:06 12/16/18 12:06 12/16/18 12:06 12/16/18 12:06 12/16/18 12:06 Intake and Output: 12/16/18 12/16/18 06:59 18:59 Intake Total 200 Balance 200 - Medications Medications: Current Medications Acetazolamide (Diamox 250 Mg Tab) 250 mg PO DAILY [facility] Last Admin: 12/16/18 09:09 Dose: 250 mg Aspirin (Aspirin Chewable) 81 mg PO DAILY [facility] Last Admin: 12/16/18 09:09 Dose: 81 mg Atorvastatin Calcium (Lipitor) 10 mg PO HS [facility] Last Admin: 12/15/18 22:00 Dose: 10 mg Bacitracin (Bacitracin Oint) 1 applic TOP BID [facility] Last Admin: 12/16/18 09:09 Dose: 1 applic Digoxin (Digoxin) 0.125 mg PO DAILY [facility] Last Admin: 12/16/18 09:09 Dose: 0.125 mg Enoxaparin Sodium (Lovenox) 40 mg SC DAILY [facility]; Protocol Last Admin: 12/16/18 09:10 Dose: 40 mg Famotidine (Pepcid) 20 mg PO BID [facility] Last Admin: 12/16/18 09:09 Dose: 20 mg Metoprolol Tartrate (Lopressor) 25 mg PO Q12 [facility] Last Admin: 12/16/18 09:09 Dose: 25 mg Multivitamins/Vitamin C (Multi-Delyn Liquid) 15 ml PO DAILY [facility] Last Admin: 12/16/18 09:09 Dose: 15 ml Potassium Chloride (K-Dur 20 Meq Er Tab) 20 meq PO TID [facility] Last Admin: 12/16/18 14:47 Dose: Not Given - Labs Labs: 12/12/18 05:00 12/14/18 09:45 PT 12.5 Seconds (9.8-13.1) 12/04/18 04:25 INR 1.1 12/04/18 04:25 APTT 28.8 Seconds (25.6-37.1) 12/04/18 04:25 Assessment and Plan (1) Acute on chronic systolic congestive heart failure Status: Acute (2) Altered mental status Status: Acute (3) Atrial fibrillation with rapid ventricular response Status: Acute (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
--- NOTE | 2018-12-17 10:36 | CP.PCM.DIS ---
Provider - Provider Date of Admission: 11/29/18 18:28 Attending physician: Rory Marie MD Consults: 11/29/18 17:23 Physician Consult Stat Comment: Consulting Provider: Selena Lawson Consulting Physician: Selena Lawson Reason for Consult: CVA 11/30/18 07:15 Pulmonology Consult Routine Comment: Consulting Provider: Nba Ag Consulting Physician: Nba Ag Reason for Consult: copd/chf 11/30/18 08:00 Wound Care [Nursing Referral for Wound Care] Routine Comment: Physician Instructions: Reason For Exam: farnaz scaral and DTI on elbow 12/05/18 11:10 Palliative Care Consult Routine Comment: Consulting Provider: Zehra Long Physician Instructions: Reason For Exam: advanced directives Time Spent in preparation of Discharge (in minutes): 33 Diagnosis - Discharge Diagnosis (1) Acute on chronic systolic congestive heart failure Status: Acute (2) Altered mental status Status: Acute (3) Atrial fibrillation with rapid ventricular response Status: Acute Priority: High (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 11/29/18 09:24 Naris MRSA Culture (Admit) - Final MRSA DETECTED Most Recent Lab Values WBC 6.6 K/uL (4.8-10.8) 12/12/18 05:00 RBC 3.77 Mil/uL (4.40-5.90) L 12/12/18 05:00 Hgb 12.5 g/dL (12.0-18.0) 12/12/18 05:00 Hct 38.1 % (35.0-51.0) 12/12/18 05:00 MCV 101.2 fl (80.0-94.0) H 12/12/18 05:00 MCH 33.1 pg (27.0-31.0) H 12/12/18 05:00 MCHC 32.8 g/dL (33.0-37.0) L 12/12/18 05:00 RDW 15.6 % (11.5-14.5) H 12/12/18 05:00 Plt Count 288 K/uL (130-400) 12/12/18 05:00 MPV 8.6 fl (7.2-11.7) 12/09/18 05:33 Neut % (Auto) 85.3 % (50.0-75.0) H 12/09/18 05:33 Lymph % (Auto) 6.5 % (20.0-40.0) L 12/09/18 05:33 Roane % (Auto) 8.1 % (0.0-10.0) 12/09/18 05:33 Eos % (Auto) 0.0 % (0.0-4.0) 12/09/18 05:33 Baso % (Auto) 0.1 % (0.0-2.0) 12/09/18 05:33 Neut # (Auto) 8.6 K/uL (1.8-7.0) H 12/09/18 05:33 Lymph # (Auto) 0.7 K/uL (1.0-4.3) L 12/09/18 05:33 Roane # (Auto) 0.8 K/uL (0.0-0.8) 12/09/18 05:33 Eos # (Auto) 0.0 K/uL (0.0-0.7) 12/09/18 05:33 Baso # (Auto) 0.0 K/uL (0.0-0.2) 12/09/18 05:33 Neutrophils % (Manual) 85 % (42-75) H 12/09/18 05:33 Band Neutrophils % 2 % (0-2) 11/29/18 17:59 Lymphocytes % (Manual) 6 % (20-50) L 12/09/18 05:33 Monocytes % (Manual) 9 % (0-10) 12/09/18 05:33 Eosinophils % (Manual) 1 % (0-7) 12/05/18 05:31 Platelet Estimate Normal (NORMAL) 12/09/18 05:33 Large Platelets Present 12/09/18 05:33 Anisocytosis (manual) Slight 12/09/18 05:33 Macrocytosis (manual) Slight 12/09/18 05:33 PT 12.5 Seconds (9.8-13.1) 12/04/18 04:25 INR 1.1 12/04/18 04:25 APTT 28.8 Seconds (25.6-37.1) 12/04/18 04:25 pCO2 54 mm/Hg (35-45) H 12/09/18 05:10 pO2 71 mm/Hg (80-100) L 12/09/18 05:10 HCO3 28.9 mmol/L (21-28) H 12/09/18 05:10 ABG pH 7.38 (7.35-7.45) 12/09/18 05:10 ABG Total CO2 33.6 mmol/L (22-28) H 12/09/18 05:10 ABG O2 Saturation 96.7 % (95-98) 12/09/18 05:10 ABG O2 Content 18.0 ML/dL (15-23) 12/09/18 05:10 ABG Base Excess 5.3 mmol/L (-2.0-3.0) H 12/09/18 05:10 ABG Hemoglobin 13.8 g/dL (11.7-17.4) 12/09/18 05:10 ABG Carboxyhemoglobin 2.4 % (0.5-1.5) H 12/09/18 05:10 POC ABG HHb (Measured) 3.2 % (0.0-5.0) 12/09/18 05:10 ABG Methemoglobin 1.4 % (0.0-3.0) 12/09/18 05:10 ABG O2 Capacity 18.6 mL/dL (16-24) 12/09/18 05:10 Sascha Test Yes 12/09/18 05:10 ABG Potassium 3.2 mmol/L (3.6-5.2) L 12/05/18 19:13 A-a O2 Difference 104.0 mm/Hg 12/09/18 05:10 Hgb O2 Saturation 92.9 % (95.0-98.0) L 12/09/18 05:10 Sodium 137.0 mmol/L (132-148) 12/05/18 19:13 Chloride 105.0 mmol/L (98-107) 12/05/18 19:13 Glucose 124 mg/dL (75-110) H 12/05/18 19:13 Lactate 0.7 mmol/L (0.7-2.1) 12/05/18 19:13 Liter Flow 40 12/01/18 11:07 Vent Mode Bipap 12/05/18 19:13 Mechanical Rate 16 12/05/18 19:13 FiO2 34.0 % 12/09/18 05:10 Inspiratory BiPAP 10 12/05/18 19:13 Expiratory BiPAP 5 12/05/18 19:13 Blood Gas Comments Hiflow 30%/30l/m 12/05/18 10:34 Crit Value Called To Ryan pacheco rn 12/01/18 13:29 Crit Value Called By Farshad rae rt 12/01/18 13:29 Crit Value Read Back N 12/05/18 10:34 Blood Gas Notified Time 1332 12/01/18 13:29 Sodium 141 mmol/l (132-148) 12/14/18 09:45 Potassium 3.7 MMOL/L (3.6-5.0) 12/14/18 09:45 Chloride 108 mmol/L (98-107) H 12/14/18 09:45 Carbon Dioxide 25 mmol/L (22-30) 12/14/18 09:45 Anion Gap 12 (10-20) 12/14/18 09:45 BUN 17 mg/dl (9-20) 12/14/18 09:45 Creatinine 0.4 mg/dl (0.8-1.5) L 12/14/18 09:45 Est GFR ( Amer) > 60 12/14/18 09:45 Est GFR (Non-Af Amer) > 60 12/14/18 09:45 POC Glucose (mg/dL) 120 mg/dL (65-110) H 12/10/18 12:39 Random Glucose 102 mg/dL (75-110) 12/14/18 09:45 Hemoglobin A1c 6.5 % (4.2-6.5) 12/01/18 11:05 Lactic Acid 1.4 mmol/L (0.7-2.1) 11/30/18 05:05 Calcium 8.5 mg/dL (8.4-10.2) 12/14/18 09:45 Phosphorus 3.3 mg/dl (2.5-4.5) 12/14/18 09:45 Magnesium 2.0 MG/DL (1.6-2.3) 12/14/18 09:45 Total Bilirubin 0.8 mg/dl (0.2-1.3) 12/14/18 09:45 GGT 30 U/L (8-78) 12/12/18 08:50 AST 53 U/L (17-59) 12/14/18 09:45 ALT 46 U/L (21-72) 12/14/18 09:45 Alkaline Phosphatase 88 U/L (38-126) 12/14/18 09:45 Ammonia 25 umol/L (9-33) 12/12/18 08:40 Troponin I 0.0480 ng/mL (0.00-0.120) 11/30/18 05:05 NT-Pro-B Natriuret Pep 47786 pg/ml (0-900) H 11/29/18 17:59 Total Protein 6.7 G/DL (6.3-8.2) 12/14/18 09:45 Albumin 2.9 g/dL (3.5-5.0) L 12/14/18 09:45 Globulin 3.8 gm/dL (2.2-3.9) 12/14/18 09:45 Albumin/Globulin Ratio 0.8 (1.0-2.1) L 12/14/18 09:45 Triglycerides 83 mg/DL (0-149) 12/01/18 11:05 Cholesterol 104 mg/dL (0-199) 12/01/18 11:05 LDL Cholesterol Direct 61 mg/dL (0-129) 12/01/18 11:05 HDL Cholesterol 32 MG/DL (30-70) 12/01/18 11:05 Cortisol AM Sample 22.7 ug/dL (4.46-22.7) 12/14/18 05:00 Arterial Blood Potassium 3.2 mmol/L (3.6-5.2) L 12/05/18 19:13 Fluid Source Pleural/thoracentesi 12/08/18 14:40 Fluid Appearance Turbid (CLEAR) 12/08/18 14:40 Fluid WBC 327.0 /mm3 (0.0-300.0) H 12/08/18 14:40 Fluid RBC 366.0 /mm3 (0.0-0.0) H 12/08/18 14:40 Fluid Tot Cell Count 100 (0-0) H 12/08/18 14:40 Fluid Neutrophils 18.0 % (0-0) H 12/08/18 14:40 Fluid Lymphocytes 62.0 % (0-0) H 12/08/18 14:40 Fld Monocyte/Macrophag 20 % (0-0) H 12/08/18 14:40 Fluid Glucose 102 mg/dL (NONE ESTABLISHED) 12/08/18 14:40 Fluid Total Protein 2.3 g/dL (NONE ESTABLISHED) 12/08/18 14:40 Fluid LDH 263 IU (NONE ESTABLISHED) 12/08/18 14:40 Fluid Comment Yellow 12/08/18 14:40 - Hospital Course Hospital Course: 78 y/o male discharged to [facility] / [place] after prolonged stay 2* to acute respiratory distress AF RVR CVA w/Left sided weakness PMH: Atrial Fibrillation CA Bladder w/ resection [address] Cat and again in 09/2016 @ [facility] Hypertension COPD Continues to smoke CLBBB Acute on Chronic Left Systolic CHF Discharge Exam - Head Exam Head Exam: NORMAL INSPECTION, NORMOCEPHALIC Discharge Plan - Discharge Medications Prescriptions: Metoprolol Tartrate [Lopressor] 25 mg PO Q12 #60 tab - Follow Up Plan Condition: FAIR Disposition: REHAB FACILITY/REHAB UNIT Instructions: Hypertension (DC), Hypertension (GEN)
== END 2018-12-16 16:00 | DRG 291 ==
LOC: H.ER 17:04 → H.ERHOLD 18:28 → H.ICU/CCU 21:50 → H.TEL 12-12 23:15
PROVIDERS: ADMIT Internal Medicine Cardiovascular Disease; ATTEND Internal Medicine Cardiovascular Disease
PROC: 5A09557 Assistance with Respiratory Ventilation, Greater than 96 Consecutive Hours, Continuous Positive Airway Pressure (ICD-10-PCS; 2018-11-29)
PROC: 3E0F7GC Introduction of Other Therapeutic Substance into Respiratory Tract, Via Natural or Artificial Opening (ICD-10-PCS; 2018-11-29)
PROC: 0W9930Z Drainage of Right Pleural Cavity with Drainage Device, Percutaneous Approach (ICD-10-PCS; principal; 2018-12-08)
DX: I13.0 Hypertensive heart and chronic kidney disease with heart failure and stage 1 through stage 4 chronic kidney disease, or unspecified chronic kidney disease (principal); J96.21 Acute and chronic respiratory failure with hypoxia; I50.23 Acute on chronic systolic (congestive) heart failure; G92 Toxic encephalopathy; J44.1 Chronic obstructive pulmonary disease with (acute) exacerbation; J91.8 Pleural effusion in other conditions classified elsewhere; I69.354 Hemiplegia and hemiparesis following cerebral infarction affecting left non-dominant side; J98.11 Atelectasis; J96.12 Chronic respiratory failure with hypercapnia; I48.2 Chronic atrial fibrillation; I42.9 Cardiomyopathy, unspecified; L89.151 Pressure ulcer of sacral region, stage 1; Z51.5 Encounter for palliative care; E87.6 Hypokalemia; N18.9 Chronic kidney disease, unspecified; I69.328 Other speech and language deficits following cerebral infarction; I44.7 Left bundle-branch block, unspecified; R91.8 Other nonspecific abnormal finding of lung field; G93.89 Other specified disorders of brain; Z66 Do not resuscitate; F17.210 Nicotine dependence, cigarettes, uncomplicated; Z85.51 Personal history of malignant neoplasm of bladder; Z87.01 Personal history of pneumonia (recurrent); Z79.82 Long term (current) use of aspirin